=== PATIENT | male | born 1945 | race Caucasian/White ===

== ENCOUNTER 2019-10-31 14:42 | Observation (INO) | payer BC, MEDICARE ==
[~2019-10-31] VITALS: Ht 188 cm; Wt 102.1 kg
[~2019-10-31 14:42] MED LIST: AMLODIPINE BESY10 MG PO; HYDRALAZINE HCL50 MG PO; LISINOPRIL40 MG PO; METFORMIN HCL500 MG PO; PAROXETINE HCL20 MG PO; PAXIL10 MG PO; TEKTURNA HCT 11 EACH PO; TEKTURNA HCT 31 EACH PO
[2019-10-31] MEDS ORDERED: SODIUM CHLORIDE 0.9% 1000ML 1,000 ML IV STA (14:49)
[2019-10-31] MEDS ORDERED: ONDANSETRON HCL INJ 2MG/ML 2ML 2 MG/ML VIAL IV STA (14:49)
[2019-10-31 15:28] LABS: BASOPHILS % 0.5 % (0.0-1.0); EOSINOPHILS % 0.4 % (0.0-6.0); HEMATOCRIT 28.9 % (38.2-49.6); HEMOGLOBIN 10.4 g/dL (14.0-18.0); LYMPHOCYTES # (AUTO) 0.5 (1.0-3.2); LYMPHOCYTES % 6.6 % (18.0-39.1); MEAN CORPUSCULAR HEMOGLOBIN 37.1 pg (28-32); MEAN CORPUSCULAR VOLUME 103.2 fL (81-99); MONOCYTES # (AUTO) 0.6 (0.2-0.8); MONOCYTES % 7.5 % (4.4-11.3); NEUTROPHILS # (AUTO) 6.5 (2.1-6.9); NEUTROPHILS % 84.7 % (38.7-80.0); PLATELET COUNT 209 x10e3/uL (140-360); RED CELL DISTRIBUTION WIDTH 15.6 % (11.7-14.4)
[2019-10-31 15:33] LABS: INR 0.9; PROTHROMBIN TIME 12.6 seconds (11.9-14.5)
[2019-10-31 15:34] LABS: PARTIAL THROMBOPLASTIN TIME 27.4 seconds (23.8-35.5)
--- NOTE | 2019-10-31 15:34 | Diagnostic Imaging Report ---
EXAM: CHEST SINGLE (PORTABLE) DATE: 10/31/2019 3:10 PM INDICATION: Syncope COMPARISON: None FINDINGS: The trachea is midline. There is minimal left basilar opacity suggestive of atelectasis. The lungs are otherwise symmetrically expanded without evidence for large focal consolidation, pneumothorax, or significant pleural effusion. The cardiomediastinal silhouette and pulmonary vasculature are within normal limits. No acute osseous abnormality is identified. The surrounding soft tissues are unremarkable. IMPRESSION: No acute cardiopulmonary process identified. Signed by: Dr. Tesfaye Zimmerman MD on 10/31/2019 3:31 PM
--- NOTE | 2019-10-31 15:35 | Diagnostic Imaging Report ---
Exam: Head CT without contrast History: Syncope Comparison studies: None Technique: Axial images were obtained from the skull base to the vertex. Coronal and sagittal images reconstructed from the axial data. Dose modulation, iterative reconstruction, and/or weight based adjustment of the mA/kV was utilized to reduce the radiation dose to as low as reasonably achievable. Radiation dose: Total DLP: 1150.7 mGy*cm. Estimated effective dose: DLP x 0.015 Intravenous contrast: None Findings: Scalp: No abnormalities. Bones: No fractures, blastic or lytic lesions. Brain sulci: Mildly prominent but age appropriate. Ventricles: Mild compensatory dilatation. No hydrocephalus. Extra-axial spaces: No masses, no fluid collection. Parenchyma: Small chronic lacunar infarct present adjacent to the head of the left caudate nucleus anteriorly. No mass, acute hemorrhage or acute or chronic cortical insults. Sellar/suprasellar region: No abnormalities. Craniocervical junction: Patent foramen magnum. No Chiari one malformation. Middle ear mastoid cavities: Clear. Partially included paranasal sinuses: Left maxillary sinus partially opacified by retention cyst with inspissated secretions. Remaining included sinuses are clear. Incidental findings: Atherosclerotic calcifications in the carotid siphons. IMPRESSION: 1. No acute abnormalities. 2. Small chronic lacunar infarct adjacent to the head of left caudate nuclear. Signed by: Dr. Jeff Weir M.D. on 10/31/2019 3:32 PM
[2019-10-31 15:45] LABS: ANION GAP 15.3 mmol/L (8-16); CALCIUM 8.6 mg/dL (8.4-10.2); CREATININE, SERUM 1.63 mg/dL (0.72-1.25); MAGNESIUM 1.5 MG/DL (1.3-2.1); POTASSIUM 4.3 mmol/L (3.5-5.1)
--- NOTE | 2019-10-31 15:46 | Diagnostic Imaging Report ---
History: Syncope Comparison studies: None Technique: Axial images were obtained through the cervical region. Coronal and sagittal images reconstructed from the axial data. Dose modulation, iterative reconstruction, and/or weight based adjustment of the mA/kV was utilized to reduce the radiation dose to as low as reasonably achievable. Intravenous contrast: None Findings: Atlantoaxial articulation: Intact. Alignment: Mild straightening of the usual cervical lordosis. No subluxations. Cervicomedullary junction: No abnormalities. The foramen magnum is patent. Soft tissues: No gross acute abnormalities. Vertebrae: No fractures, infection or neoplasm. Degenerative changes: Mildly degenerated disks with anterior bridging osteophytes from C2 to T1. 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 Moderate canal stenosis at the inferior C2 and C2-C3 level due to OPLL. Severe canal stenosis at C3-C4 and at C4-C5 due to disc osteophyte complexes and ossified posterior longitudinal ligament. Moderate canal stenosis at C5-C6 due to disc osteophyte complex and OPLL. Multilevel uncovertebral and facet arthrosis result in multilevel foraminal stenosis which is moderate left at C2-C3, moderate left and mild right at C3-C4 and at C4-C5, moderate bilaterally at C5-C6 and mild left at C6-C7. Incidental findings: Mild calcified atherosclerosis in the carotid bulbs and carotid siphons. IMPRESSION: 1. No cervical spine fracture or subluxation. 2. Multilevel degenerative changes with OPLL, severe spinal stenosis and multilevel foraminal stenosis. Ligament, spinal cord and or vascular abnormalities cannot be excluded on the basis of this examination. Cervical spine right May further evaluate as warranted. Signed by: Dr. Jeff Weir M.D. on 10/31/2019 3:43 PM
[2019-10-31 15:51] LABS: CREATINE KINASE MB 1.5 ng/mL (0-5.0)
[2019-10-31] MEDS: CLINDAMYCIN PHOS 900MG/ 50ML 50 ML IV SCH ×2 (16:28→23:15)
[2019-10-31] MEDS ORDERED: ONDANSETRON HCL INJ 2MG/ML 2ML 2 MG/ML VIAL IV PRN (16:30)
[2019-10-31] MEDS ORDERED: SODIUM CHLORIDE 0.9% 1000ML 1,000 ML IV SCH (16:30)
[2019-10-31] MEDS ORDERED: FAMOTIDINE 20 MG TAB PO SCH (16:30)
[2019-10-31] MEDS ORDERED: DEXTROSE 50% SYRINGE 50 ML IV PRN (17:00)
[2019-10-31] MEDS ORDERED: MECLIZINE HCL 12.5 MG TAB PO PRN (17:00)
[2019-10-31] MEDS ORDERED: HYDRALAZINE HCL 20 MG/ML VIAL IV PRN (17:00)
[2019-10-31] MEDS ORDERED: ACETAMINOPHEN 325 MG TAB PO PRN (17:00)
--- NOTE | 2019-10-31 17:11 | Emergency Department Note ---
History of Present Illnes History of Present Illness Chief Complaint: General Medicine Complaints History of Present Illness This is a 74 year old male with tooth pain x 3 days, N/V, poor po intake. Was at dentist office sitting in waiting room, got up to go to restroom and around 1400 he had a syncopal episode Historian: Patient, Receiving Weigher/EMS Arrival Mode: [facility] Treatment CSW: EKG Additional Treatment CSW: [employer] Assistant Required: No Onset (how long ago): minute(s) Radiation: Reports non-radiation Severity: moderate Onset quality: sudden Timing of current episode: sporadic Chronicity: new Context: Denies recent illness Relieving factors: none Exacerbating factors: none Associated symptoms: Reports denies other symptoms Treatments prior to arrival: none Past Medical/Family History Physician Review I have reviewed the patient's past medical and family history. Any updates have been documented here. Past Medical History Recent Fever: No Clinical Suspicion of Infectio: No New/Unexplained Change in Ment: No Past Medical History: Hypertension, Diabetes, Anemia, Hyperlipedemia Other Medical History: autoimmune hepatitis Other Surgery: KIDNEY STONES REMOVED Social History Smoking Cessation: Never Smoker Counseling Performed: No Alcohol Use: None Any Illegal Drug Use: No Physically hurt or threatened: No Family History Family history of heart diseas: No Other Last Tetanus: NO Any Pre-Existing Lines (PICC,: No Review of Systems Review of Systems Constitutional: Reports no symptoms EENTM: Reports as per HPI, Reports mouth pain Cardiovascular: Reports as per HPI, Reports syncope Respiratory: Reports no symptoms Gastrointestinal: Reports no symptoms Genitourinary: Reports no symptoms Musculoskeletal: Reports no symptoms Integumentary: Reports no symptoms Neurological: Reports no symptoms Psychological: Reports no symptoms Endocrine: Reports no symptoms Hematological/Lymphatic: Reports no symptoms Physical Exam Related Data Allergies: Coded Allergies: No Known Allergies (Unverified , 11/03/12) Triage Vital Signs Vital Signs Date Time Temp Pulse Resp B/P (MAP) Pulse Ox O2 Delivery O2 Flow Rate FiO2 10/31/19 14:50 98.5 62 18 159/67 100 Room Air Vital signs reviewed: Yes Physical Exam CONSTITUTIONAL Constitutional: Present well-developed, Present well-nourished HENT HENT: Present dental caries, Present other (tooth ~#27 tender to tap, no definite abscess seen but has mild right mandible swelling/tenderness) HENT L/R: Present left ext ear normal, Present right ext ear normal EYES Eyes: Reports PERRL, Reports conjunctivae normal NECK Neck: Present ROM normal PULMONARY Pulmonary: Present effort normal, Present breath sounds normal CARDIOVASCULAR Cardiovascular: Present regular rhythm, Present heart sounds normal, Present capillary refill normal, Present normal rate GASTROINTESTINAL Abdominal: Present soft, Present nontender, Present bowel sounds normal GENITOURINARY Genitourinary: Present exam deferred SKIN Skin: Present warm, Present dry MUSCULOSKELETAL Musculoskeletal: Present ROM normal NEUROLOGICAL Neurological: Present alert, Present oriented x 3, Present no gross motor or sensory deficits PSYCHOLOGICAL Psychological: Present mood/affect normal, Present judgement normal Results Laboratory Result Diagram: 10/31/19 1500 10/31/19 1500 Laboratory Laboratory Tests Test 10/31/19 15:48 10/31/19 15:00 White Blood Count 7.71 x10e3/uL (4.8-10.8) Red Blood Count 2.80 x10e6/uL (4.3-5.7) Hemoglobin 10.4 g/dL (14.0-18.0) Hematocrit 28.9 % (38.2-49.6) Mean Corpuscular Volume 103.2 fL (81-99) Mean Corpuscular Hemoglobin 37.1 pg (28-32) Mean Corpuscular Hemoglobin Concent 36.0 g/dL (31-35) Red Cell Distribution Width 15.6 % (11.7-14.4) Platelet Count 209 x10e3/uL (140-360) Neutrophils (%) (Auto) 84.7 % (38.7-80.0) Lymphocytes (%) (Auto) 6.6 % (18.0-39.1) Monocytes (%) (Auto) 7.5 % (4.4-11.3) Eosinophils (%) (Auto) 0.4 % (0.0-6.0) Basophils (%) (Auto) 0.5 % (0.0-1.0) Neutrophils # (Auto) 6.5 (2.1-6.9) Lymphocytes # (Auto) 0.5 (1.0-3.2) Monocytes # (Auto) 0.6 (0.2-0.8) Eosinophils # (Auto) 0.0 (0.0-0.4) Basophils # (Auto) 0.0 (0.0-0.1) Absolute Immature Granulocyte (auto 0.02 x10e3/uL (0-0.1) Prothrombin Time 12.6 seconds (11.9-14.5) Prothromb Time International Ratio 0.90 Activated Partial Thromboplast Time 27.4 seconds (23.8-35.5) Sodium Level 137 mmol/L (136-145) Potassium Level 4.3 mmol/L (3.5-5.1) Chloride Level 107 mmol/L (98-107) Carbon Dioxide Level 19 mmol/L (22-29) Anion Gap 15.3 mmol/L (8-16) Blood Urea Nitrogen 16 mg/dL (7-26) Creatinine 1.63 mg/dL (0.72-1.25) Estimat Glomerular Filtration Rate 42 ML/MIN (60-) BUN/Creatinine Ratio 10 (6-25) Glucose Level 192 mg/dL (74-118) Calcium Level 8.6 mg/dL (8.4-10.2) Magnesium Level 1.5 MG/DL (1.3-2.1) Total Bilirubin 1.2 mg/dL (0.2-1.2) Aspartate Amino Transf (AST/SGOT) 18 IU/L (5-34) Alanine Aminotransferase (ALT/SGPT) 14 IU/L (0-55) Alkaline Phosphatase 147 IU/L (40-150) Creatine Kinase 52 IU/L (30-200) Creatine Kinase MB 1.50 ng/mL (0-5.0) Troponin I 0.032 ng/mL (0-0.300) Total Protein 6.1 g/dL (6.5-8.1) Albumin 3.0 g/dL (3.5-5.0) Globulin 3.1 g/dL (2.3-3.5) Albumin/Globulin Ratio 1.0 (0.8-2.0) Lab results reviewed: Yes Imaging Imaging results reviewed: Yes Assessment & Plan Medical Decision Making MDM multiple cardiac RF's, tooth pain with decr po intake and ? orthostatic syncope while waiting at dentist office to be seen - cbc, chem, ecg, cardiacs, ct brain/c-spine, cxr - r/o anemia, dehydration, stemi/nstemi, dysrhythmia, renal insuff. Reassessment Reassessment admit Dr melendrez Assessment & Plan Final Impression: (1) Syncope (2) Nausea (3) Tooth ache Depart Disposition: ADMITTED Last Vital Signs Date Time Temp Pulse Resp B/P (MAP) Pulse Ox O2 Delivery O2 Flow Rate FiO2 10/31/19 15:41 91 15 135/85 99 Room Air 10/31/19 14:50 98.5 Home Meds Reported Medications Amlodipine Besylate (AMLODIPINE BESYLATE) 10 Mg Tablet, 10 MG PO DAILY, TAB 02/07/14 Paroxetine Hcl (PAROXETINE HCL) 20 Mg Tablet, 20 MG PO EVERY OTHER DAY, TAB 02/07/14 Hydralazine Hcl (HYDRALAZINE HCL) 50 Mg Tablet, 50 MG PO BID 02/07/14 Aliskiren/Hydrochlorothiazide (TEKTURNA HCT 300-12.5 MG TAB) 1 Each Tablet, PO DAILY 02/07/14 Lisinopril (LISINOPRIL) 40 Mg Tablet, 40 MG PO DAILY 02/07/14 Metformin Hcl (METFORMIN HCL) 500 Mg Tablet, 500 MG PO BID, TAB 02/07/14 Medications in the ED Ondansetron HCl 4 mg ONCE STAT IV Last administered on 10/31/19at 15:42; Admin Dose 4 MG; Start 10/31/19 at 14:49; Stop 10/31/19 at 14:56; Status DC Sodium Chloride 1,000 ml @ 0 mls/hr Q0M STAT IV Last administered on 10/31/19at 15:40; Admin Dose 999 MLS/HR; Start 10/31/19 at 14:49; Stop 10/31/19 at 14:55; Status DC Clindamycin Phosphate 50 ml @ 50 mls/hr Q8H@0000,0800,1600 IV Last administered on 10/31/19at 16:28; Admin Dose 50 MLS/HR; Start 10/31/19 at 16:00; Stop 11/07/19 at 15:59 KATTY GARCIA MD Oct 31, 2019 17:10
[2019-10-31] MEDS ORDERED: BENICAR40 MG PO (18:15)
[2019-10-31] MEDS ORDERED: CARVEDILOL3.125 MG PO (18:15)
[2019-10-31] MEDS ORDERED: AZATHIOPRINE PO (18:15)
[2019-10-31] MEDS ORDERED: URSODIOL300 MG PO (18:15)
[2019-10-31] MEDS ORDERED: ALLOPURINOL300 MG PO (18:15)
[2019-10-31] MEDS ORDERED: HYDRALAZINE HCL25 MG PO (18:15)
[2019-10-31] MEDS ORDERED: ATORVASTATIN CA10 MG PO (18:15)
[2019-10-31 18:30] VITALS: BP 173/74
--- NOTE | 2019-10-31 18:30 | NUR ---
RECEIVED PATIENT FROM ER TO ROOM 215. HE IS IN STABLE CONDITION. PATIENT IS AAOX3. ORIENTED TO ROOM AND POLICIES. ORIENTED TO TRANSITION OF CARE FOLDER. IV LINE TO LEFT ANTECUBITAL IS PATENT. CALL LIGHT WITHIN REACH. BED IN THE LOWEST POSITION.
[2019-10-31 18:45] VITALS: BP 173/74
[2019-10-31 18:51] VITALS: BP 173/74
--- NOTE | 2019-10-31 19:32 | NUR ---
BEDSIDE SHIFT REPORT GIVEN TO ONCOMING NURSE. PATIENT IS RESTING IN BED. NO ACUTE DISTRESS NOTED AT THIS TIME. CALL LIGHT WITHIN REACH. BED IN THE LOWEST POSITION.
[2019-10-31 20:00] VITALS: BP 193/69
[2019-10-31] MEDS ORDERED: ATORVASTATIN 10 MG TAB PO SCH (21:00)
[2019-10-31] MEDS: INSULIN LISPRO 100 UNIT/1 ML 3ML VIAL SQ SCH (21:00)
[2019-10-31] MEDS ORDERED: URSODIOL 300 MG CAP PO SCH (21:00)
[2019-10-31] MEDS ORDERED: OLMESARTAN 20 MG TAB PO SCH (21:00)
[2019-10-31] MEDS: HYDRALAZINE HCL 25 MG TAB PO SCH (21:31)
[2019-10-31] MEDS: CARVEDILOL 3.125 MG TAB PO SCH (21:31)
[2019-10-31] MEDS ORDERED: SODIUM CHLORIDE 0.9% 250ML 250 ML ONE (23:08)
[2019-10-31 23:15] VITALS: BP 180/61
[2019-10-31 23:41] LABS: CREATINE KINASE MB 1.4 ng/mL (0-5.0)
[2019-11-01 00:35] VITALS: BP 153/53
[2019-11-01 04:00] VITALS: BP 174/58
[2019-11-01] MEDS ORDERED: ursodiol PO (05:04)
[2019-11-01 06:13] LABS: BASOPHILS % 0.5 % (0.0-1.0); EOSINOPHILS # (AUTO) 0.1 (0.0-0.4); EOSINOPHILS % 1.4 % (0.0-6.0); HEMATOCRIT 24.8 % (38.2-49.6); HEMOGLOBIN 9.1 g/dL (14.0-18.0); LYMPHOCYTES # (AUTO) 0.8 (1.0-3.2); LYMPHOCYTES % 18.3 % (18.0-39.1); MEAN CORPUSCULAR HEMOGLOBIN 39.7 pg (28-32); MEAN CORPUSCULAR HGB CONC 36.7 g/dL (31-35); MEAN CORPUSCULAR VOLUME 108.3 fL (81-99); MONOCYTES # (AUTO) 0.6 (0.2-0.8); MONOCYTES % 13.3 % (4.4-11.3); NEUTROPHILS # (AUTO) 2.9 (2.1-6.9); PLATELET COUNT 160 x10e3/uL (140-360); RED BLOOD COUNT 2.29 x10e6/uL (4.3-5.7); RED CELL DISTRIBUTION WIDTH 15.8 % (11.7-14.4)
[2019-11-01 06:15] VITALS: BP 176/63
[2019-11-01 06:41] LABS: ALBUMIN 2.5 g/dL (3.5-5.0); ALBUMIN/GLOBULIN RATIO 0.9 (0.8-2.0); ANION GAP 9.2 mmol/L (8-16); CALCIUM 7.9 mg/dL (8.4-10.2); CHOL/HDL RATIO 6.4 (3.9-4.7); CREATININE, SERUM 1.57 mg/dL (0.72-1.25); POTASSIUM 4.2 mmol/L (3.5-5.1)
--- NOTE | 2019-11-01 06:48 | NUR ---
Received bedside shift report from night nurse. Patient is in stable condition, resting in bed. No acute distress noted. Call light within reach. Bed in the lowest position.
[2019-11-01 07:02] LABS: CREATINE KINASE MB 1.2 ng/mL (0-5.0)
[2019-11-01] MEDS: INSULIN LISPRO 100 UNIT/1 ML 3ML VIAL SQ SCH ×2 (07:30→11:01)
[2019-11-01 07:47] VITALS: BP 170/55
[2019-11-01] MEDS: CARVEDILOL 3.125 MG TAB PO SCH (08:35)
[2019-11-01] MEDS: CLINDAMYCIN PHOS 900MG/ 50ML 50 ML IV SCH (08:35)
[2019-11-01] MEDS: HYDRALAZINE HCL 25 MG TAB PO SCH (08:35)
[2019-11-01 08:59] VITALS: BP 170/55
[2019-11-01] MEDS ORDERED: AMLODIPINE BESYLATE 10 MG TAB PO SCH (09:00)
[2019-11-01] MEDS ORDERED: PAROXETINE HCL 20 MG TAB PO SCH (09:00)
[2019-11-01] MEDS ORDERED: ALLOPURINOL 300 MG TAB PO SCH (09:00)
[2019-11-01] MEDS ORDERED: AMLODIPINE BESYLATE 5 MG TAB PO SCH (09:00)
[2019-11-01] MEDS ORDERED: FAMOTIDINE 20 MG TAB PO SCH (09:00)
[2019-11-01] MEDS ORDERED: ULTRAM 50MG50 MG PO (09:27)
[2019-11-01 09:51] LABS: PLATELET ESTIMATE ADEQUATE; PLATELET MORPHOLOGY COMMENT NORMAL; RBC MORPHOLOGY COMMENT NORMAL
[2019-11-01 09:52] LABS: ANISOCYTOSIS SLIGHT; POIKILOCYTOSIS SLIGHT
[2019-11-01 11:13] VITALS: BP 155/52
[2019-11-01] MEDS ORDERED: ONDANSETRON HCL 4 MG ORAL DISINTEGRATING TAB PO PRN (12:30)
--- NOTE | 2019-11-01 12:40 | NUR ---
RECEIVED DISCHARGE ORDER FROM TOMMY GUERRA. PATIENT IS IN STABLE CONDITION. IV LINE TO LEFT ANTECUBITAL DISCONTINUED WITH TIP INTACT, PRESSURE APPLIED TO SITE, NO BLEEDING NOTED. DISCHARGE TEACHING PROVIDED TO PATIENT, HE VERBALIZED UNDERSTANDING. TRANSITION OF CARE FOLDER WITH DC PAPERWORK AND PRESCRIPTION ON HAND. ALL PERSONAL BELONGINGS ON HAND. PATIENT ACCOMPANIED TO PRIVATE AUTO BY STAFF, REFUSED WHEELCHAIR.
--- NOTE | 2019-11-01 12:47 | NUR ---
Patient is independent in functional mobility. Skilled PT services not indicated at this time. Thank you. Addendum: 11/01/19 at 1249 by Grant oscar PT Amended: Links added.
--- NOTE | 2019-11-01 14:07 | NUR ---
PER CHARLIE,DATA WAREHOUSING ARCHITECT GIVE PATIENT A WORK EXCUSE THAT STATES HE IS MEDICALLY CLEARED FOR DENTAL PROCEDURE SCHEDULED ON 11/02/19. PATIENT WILL COME BACK AND PRICING SUPERVISOR FROM NURSE. SIGN TORB WITH DATA WAREHOUSING ARCHITECT'S NAME.
--- OUTSIDE RECORDS SUMMARY | 2019-11-02 19:26 | XMS REPORT | Summary of Care ---
Author Author [facility] C Organization [facility] Address Unknown Phone Unavailable Encounter CAROLINE Muller(FIN) [id number] Date(s): 08/06/19 - 08/07/19 [facility] [address] [place] [address]- [phone] Vital Signs No data available for this section Problem List Condition Effective Dates Status Health Status Informan t Gallstones(Confirmed Resolved ) Bradycardia(Confirme Active d) Diabetes(Confirmed) Active GERD Active (gastroesophageal reflux disease)(Confirmed) Gout(Confirmed) Resolved Hyperlipidemia(Confi Resolved rmed) Hypertension(Confirm Active ed) Hepatitis(Confirmed) Resolved Allergies, Adverse Reactions, Alerts No Known Medication Allergies Medications No data available for this section Results No data available for this section Immunizations Not Given Vaccine Date Status Refusal Reason pneumococcal 23-valent vaccine 10/16/14 Not Given Parent Or Guardian Refuses Procedures Procedure Date Related Diagnosis Body Site Status Catheterisation of right heart Completed Renal lithotripsy Completed Social History Social History Type Response Alcohol Never Smoking Status Never smoker; Ready to muhammad ge: No; Concerns about tobacco use in household: No; Exposure to Tobacco Smoke None; Cig arette Smoking Last 365 Days No; Reg Smoking Cessation Counseling No entered on: 07/10/18 Assessment and Plan No data available for this section
--- OUTSIDE RECORDS SUMMARY | 2019-11-02 19:26 | XMS REPORT | Summary of Care ---
Author Author [facility] Organization [facility] Address Unknown Phone Unavailable Encounter CAROLINE Muller(FIN) [id number] Date(s): 09/26/19 - 09/27/19 [facility] [address] [place] [address]- [phone] Vital Signs No data available for this section Problem List Condition Effective Dates Status Health Status Informan t Gallstones(Confirmed Resolved ) Bradycardia(Confirme Active d) Diabetes(Confirmed) Active GERD Active (gastroesophageal reflux disease)(Confirmed) Gout(Confirmed) Resolved Hyperlipidemia(Confi Resolved rmed) Hypertension(Confirm Active ed) Hepatitis(Confirmed) Resolved Allergies, Adverse Reactions, Alerts No Known Medication Allergies Medications azaTHIOprine 50 mg oral tablet 75 mg = 1.5 tab, PO, Daily, # 45 tab, 3 Refill(s), Pharmacy: [id number], 187, cm, 09/10/19 13:33:00 CDT, Height, 104.3, kg, 09/10/19 13:33:00 C DT, Weight Start Date: 09/26/19 Stop Date: 01/24/20 Status: Ordered Results Most recent to 1 oldest [Reference Range]: Neutrophils # 1964 Cells/uL [7626-6612 Cells/uL] *N* (09/27/19 2:07 PM) Lymphocytes # 812 Cells/uL [850-3900 Cells/uL] *LOW* (09/27/19 2:07 PM) Monocytes # [200-950 257 Cells/uL Cells/uL] *N* (09/27/19 2:07 PM) Eosinophils # 228 Cells/uL [15-500 Cells/uL] *N* (09/27/19 2:07 PM) Basophils # [0-200 40 Cells/uL Cells/uL] *N* (09/27/19 2:07 PM) eGFR NON-AFR. 49 mL/min/1.73m2 ARGENTINE [> OR = 60 *LOW* mL/min/1.73m2] (09/27/19 2:07 PM) eGFR 56 mL/min/1.73m2 ARGENTINE [> OR = 60 *LOW* mL/min/1.73m2] (09/27/19 2:07 PM) Bili Indirect 0.5 mg/dL [0.2-1.2 mg/dL] *N* (09/27/19 2:07 PM) A/G Ratio [1.0-2.5 1.4 (CALC) (CALC)] *N* (09/27/19 2:07 PM) Albumin Lvl [3.6-5.1 3.3 g/dL g/dL] *LOW* (09/27/19 2:07 PM) Alk Phos [35-144 163 unit/L unit/L] *HI* (09/27/19 2:07 PM) ALT [9-46 unit/L] 17 unit/L *N* (09/27/19 2:07 PM) AST [10-35 unit/L] 21 unit/L *N* (09/27/19 2:07 PM) B/C Ratio [6-22 12 (CALC) (CALC)] *N* (09/27/19 2:07 PM) Basophils 1.2 % *N* (09/27/19 2:07 PM) BUN [7-25 mg/dL] 17 mg/dL *N* (09/27/19 2:07 PM) Calcium Lvl 8.3 mg/dL [8.6-10.3 mg/dL] *LOW* (09/27/19 2:07 PM) Chloride Lvl [98-110 106 mMol/L mMol/L] *N* (09/27/19 2:07 PM) CO2 [20-32 mMol/L] 27 mMol/L *N* (09/27/19 2:07 PM) Creatinine Lvl 1.43 mg/dL 1 [0.70-1.18 mg/dL] *HI* (09/27/19 2:07 PM) Bili Direct [< OR = 0.2 mg/dL 0.2 mg/dL] *N* (09/27/19 2:07 PM) Eosinophils 6.9 % *N* (09/27/19 2:07 PM) Globulin [1.9-3.7 2.3 g/dL g/dL] *N* (09/27/19 2:07 PM) Glucose Lvl [65-139 194 mg/dL 2 mg/dL] *HI* (09/27/19 2:07 PM) Hct [38.5-50.0 %] 27.2 % *LOW* (09/27/19 2:07 PM) Hgb [13.2-17.1 g/dL] 9.3 g/dL *LOW* (09/27/19 2:07 PM) IgG Lvl [600-1540 873 mg/dL 3 mg/dL] *N* (09/27/19 2:07 PM) INR 1.0 4 *N* (09/27/19 2:07 PM) Potassium Lvl 3.8 mMol/L [3.5-5.3 mMol/L] *N* (09/27/19 2:07 PM) Lymphocytes 24.6 % *N* (09/27/19 2:07 PM) MCH [27.0-33.0 pg] 36.3 pg *HI* (09/27/19 2:07 PM) MCHC [32.0-36.0 34.2 g/dL g/dL] *N* (09/27/19 2:07 PM) MCV [80.0-100.0 fL] 106.3 fL *HI* (09/27/19 2:07 PM) Monocytes 7.8 % *N* (09/27/19 2:07 PM) MPV [7.5-12.5 fL] 9.8 fL *N* (09/27/19 2:07 PM) Sodium Lvl [135-146 138 mMol/L mMol/L] *N* (09/27/19 2:07 PM) Platelet [140-400 195 K/CMM K/CMM] *N* (09/27/19 2:07 PM) Segs 59.5 % *N* (09/27/19 2:07 PM) Total Protein 5.6 g/dL 5 [6.1-8.1 g/dL] *LOW* (09/27/19 2:07 PM) PT [9.0-11.5 9.9 seconds 6 seconds] *N* (09/27/19 2:07 PM) RBC [4.20-5.80 2.56 M/CMM M/CMM] *LOW* (09/27/19 2:07 PM) RDW [11.0-15.0 %] 16.9 % *HI* (09/27/19 2:07 PM) Bili Total [0.2-1.2 0.7 mg/dL mg/dL] *N* (09/27/19 2:07 PM) WBC [3.8-10.8 K/CMM] 3.3 K/CMM 7 *LOW* (09/27/19 2:07 PM) 1Result Comment: For patients >49 years of age, the reference limit for Creatinine is approximately 13% higher for people identified as -Irish. 2Result Comment: Non-fasting reference interval Lab test performed by: [facility] [address] [place] [phone] Nathan Garcia 3Result Comment: FASTING:NO FASTING: NO Lab test performed by: [facility] [address] [place] [phone] Nathan Garcia 4Result Comment: Reference Range 0.9-1.1 Moderate-intensity Warfarin Therapy 2.0-3.0 Higher-intensity Warfarin Therapy 3.0-4.0 Lab test performed by: [facility] [address] [place] [phone] Nathan Garcia 5Result Comment: Lab test performed by: [facility] [address] [place] [phone] Natahn Garcia 6Result Comment: For more information on this test, go to: [email or web address]/[email or web address] 7Result Comment: Lab test performed by: [facility] [address] [place] [phone] Nathan Garcia Immunizations Not Given Vaccine Date Status Refusal [...] Reg Smoking Cessation Counseling No entered on: 09/10/19 Assessment and Plan No data available for this section
--- OUTSIDE RECORDS SUMMARY | 2019-11-02 19:26 | XMS REPORT | Summary of Care ---
Author Author [facility] Organization [facility] Address Unknown Phone Unavailable Encounter CAROLINE Muller(ARY) [id number] Date(s): 08/10/19 - 09/08/19 [facility] [address] [place] [address]- Discharge Disposition: Home or Self Care Attending Physician: Ralph Blackmon MD Referring Physician: Ralph Blackmon MD Vital Signs 1 2 3 Most recent to oldest [Reference Range]: 187.9 cm (08/13/19 1:06 PM) Height 98.2 DegF (08/13/19 3:38 PM) 98.2 DegF (08/13/19 2:10 PM) 97.9 DegF (08/13/19 1:05 PM) Temperature Oral [96.4-99.1 DegF] 166/65 mmHg *HI* (08/13/19 3:38 PM) 185/62 mmHg *HI* (08/13/19 2:10 PM) 162/56 mmHg *HI* (08/13/19 1:05 PM) Blood Pressure [90-140/60-90 mmHg] 18 BRMIN (08/13/19 3:38 PM) 18 BRMIN (08/13/19 2:10 PM) 18 BRMIN (08/13/19 1:05 PM) Respiratory Rate [14-20 BRMIN] 54 bpm *LOW* (08/13/19 3:38 PM) 53 bpm *LOW* (08/13/19 2:10 PM) 67 bpm (08/13/19 1:05 PM) Peripheral Pulse Rate [60-100 bpm] 105.8 kg (08/13/19 1:06 PM) Weight 29.97 m2 (08/13/19 1:06 PM) Body Mass Index Problem List Condition Effective Dates Status Health Status Informan t Gallstones(Confirmed Resolved ) Bradycardia(Confirme Active d) Diabetes(Confirmed) Active GERD Active (gastroesophageal reflux disease)(Confirmed) Gout(Confirmed) Resolved Hyperlipidemia(Confi Resolved rmed) Hypertension(Confirm Active ed) Hepatitis(Confirmed) Resolved Allergies, Adverse Reactions, Alerts No Known Medication Allergies Medications Benadryl 25 mg, 0.5 mL, Route: IVP, Drug form: INJ, On Adm, Start date: 08/13/19 8:00:00 CDT, Duration: 1 doses or times, Stop date: 08/13/19 23:00:00 CDT, 0 Notes: (Same as: Benadryl) Start Date: 08/13/19 Stop Date: 08/13/19 Status: Completed Benadryl 25 mg, 0.5 mL, Route: IVP, Drug form: INJ, On Adm, Start date: 09/10/19 8:00:00 CDT, Duration: 1 doses or times, Stop date: 09/10/19 23:00:00 CDT, 0 Notes: (Same as: Benadryl) Start Date: 09/10/19 Stop Date: 09/10/19 Status: Discontinued Results 1 2 3 Most recent to oldest [Reference Range]: Product available (09/10/19 10:05 AM) Product available (09/06/19 3:22 PM) Product available (08/10/19 11:56 AM) RBC product A POS *Unknown* (09/07/19 2:00 PM) A POS *Unknown* (08/10/19 10:52 AM) ABO/Rh Negative (09/07/19 2:00 PM) Negative (08/10/19 10:52 AM) Antibody Scrn Immunizations Not Given Vaccine Date Status Refusal [...]
--- OUTSIDE RECORDS SUMMARY | 2019-11-02 19:26 | XMS REPORT | Summary of Care ---
Author Author [facility] Organization [facility] Address Unknown Phone Unavailable Encounter [facility] Darby_greyson(FIN) [id number] Date(s): 02/15/18 - 02/15/18 [facility] [address], [address] [place], [place] [address] [phone] Encounter Diagnosis Impingement syndrome of right shoulder (Final) - 02/21/18 Discharge Disposition: Home or Self Care Attending Physician: Matias Moreno MD Referring Physician: Matias Moreno MD Vital Signs No data available for this [...]
--- OUTSIDE RECORDS SUMMARY | 2019-11-02 19:26 | XMS REPORT | Continuity of Care Document ---
Author Author [employer], OC DODD JR Organization [employer] Address Unknown Phone Unavailable Care Team Providers Care Cement Mason Name Role Phone [facility] Spinnaker Coating Information SIRS-Lab Unavailable Un available Problems Problem Status Onset Date Classification Date Reported Comments Source CLINIC F/U VISIT Active 09/26/2019 [facility] TYPE SCREEN/ 2 UNITS OF PRBC Active 09/10/2019 [facility] BEDDED OP/BONE MARROW ASP/BX/NO BLOOD TH Active 09/05/2019 [facility] TYPE SCREEN Active 08/07/2019 [facility] D64.9 Active 07/19/2019 [place] Syncope and collapse 06/15/2019 06/17/2019 [facility] XFER - SYNCOPE Active 06/15/2019 [facility] BEDDED OUTPATIENT/LIVER BIOPSY Active 06/29/2018 [facility] Abnormal results of liver function studies 05/09/2018 11/22/2018 [facility] GIANNA Jean NEW PT CONSULT - ELEVATED LFTS Active 03/20/2018 [facility] Impingement syndrome of right shoulder 02/21/2018 [facility]05[facility] M79.672 - PAIN IN LEFT FOOT Ac tive 04/18/2015 [facility] BRADYCARDIA, CAD Active 10/03/2014 [facility] CCL/LHC W/ POSS/DX: BNRADYCARDIA, CAD Active 10/03/2014 [facility] 401.9 - HYPERTENSION NO Active 12/20/2013 [facility] 719.4 - PAIN IN JOINT Active 03/24/2011 [facility] [place] Essential (primary) hypertension 11/22/2018 [facility] Gastro-esophageal reflux disease without esophagitis 11/22/2018 [facility] Personal history of colonic polyps 11/22/2018 [facility] Type 2 diabetes mellitus without complications 11/22/2018 [facility] 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 11/22/2018 [facility] Bradycardia, unspecified 11/22/2018 [facility] Gout, unspecified 11/22/2018 [facility] Hyperlipidemia, unspecified 11/22/2018 [facility] Inflammatory liver disease, unspecified 11/22/2018 [facility] Hepatomegaly, not elsewhere classified 11/22/2018 [facility] Calculus of gallbladder without cholecys titis without obstruction 11/22/2018 [facility] Cyst of kidney, acquired 11/22/2018 [facility] Calculus of kidney 11/22/2018 [facility] Calculus in biliary tract (disorder) Resolved Problem 02/2020 [facility], [facility] [place] Bradycardia (disorder) Active Problem 10/13/2019 [facility], O PID [place],[facility], [facility] [place], [facility] [place] Diabetes mellitus (disorder) A ctive Problem 02/2020 [facility], O P[facility] [place],[facility], [facility] [place], [facility] [place] Gastroesophageal reflux disease (disorder) Active Problem 10/13/2019 [facility], [facility] [place],[facility], [facility] [place] Gout (disorder) Resolved Problem 10/13/2019 [facility], [place], [facility] [place], [facility] [place] Hyperlipidemia (disorder) Reso lved Problem 02/2020 [facility], O PID [place],[facility], [facility] [place], [facility] [place] Hypertensive disorder, systemic arterial (disorder) Active Problem 10/13/2019 [facility], [facility] [place],[facility], [facility] [place], [facility] [place] Inflammatory disease of liver (disorder) Resolved Problem 10/13/2019 [facility], [facility] [place], [facility] [place] Nutritional anemia (disorder) Resolved Problem 02/2020 [facility] Medications Medication Details Route Status Patient Instructions Ordering Provider Order Date Source ursodiol 500 mg oral tablet 50 0 mg = 1 tab, PO, TID, # 270 tab, 4 Refill(s), Pharmacy: [facility], 187.96, cm, 10/11/19 12:29:00 CDT, Height, 103.295, kg, 10/11/19 12:29:00 CDT, Weight Active 10/11/2019 [facility] multivitamin Daily, 0 Refill(s) Active 10/11/2019 [facility] Folic Acid 5 mg, PO, Daily Active 10/11/2019 [facility] nter Cod Liver Oil PO, Daily, 0 Ref ill(s) Active 10/11/2019 [facility] azaTHIOprine 50 mg oral tablet 75 mg = 1.5 tab, PO, Daily, # 45 tab, 3 Refill(s), Pharmacy: [id number], 187, cm, 09/10/19 13:33:00 CDT, Height, 104.3, kg, 09/10/19 13:33:00 CDT, Weight Active 09/26/2019 [facility] Daphne Notes: (Same as: Ivis escobar) Inactive 09/10/2019 [facility] Fentanyl 25 microgram, Route: IV, ONCE, Dosing Weight 102.273, kg, Start date: 09/10/19 10:08:00 CDT, Stop date: 09/10/19 10:08:00 CDT, Inactive 09/10/2019 [facility] Fentanyl 50 microgram, Route: IV, ONCE, Dosing Weight 102.273, kg, Start date: 09/10/19 9:56:00 CDT, Stop date: 09/10/19 9:56:00 CDT, Inactive 09/10/2019 [facility] Midazolam 0.5 mg, Route: IV, O NCE, Dosing Weight 102.273, kg, Start date: 09/10/19 9:56:00 CDT, Stop date: 09/10/19 9:56:00 CDT, Inactive 09/10/2019 [facility] nter Lidocaine Hydrochloride 10 MG/ML Injectable Solution 10 mL, Route: INTRADERM, Dosing Weight 102.273, kg, ONCE, Start date: 09/10/19 9:56:00 CDT, Stop date: 09/10/19 9:56:00 CDT Inactive 09/10/2019 [facility] nter Benadryl Notes: (Same as: Ivis escobar) Inactive 09/10/2019 [facility] Benadryl Notes: (Same as: Ivis dryl) Inactive 08/13/2019 [facility] Isolyte S PH-7.4 (Bolus) IV 1, 000 mL, 1,000 ml/hr, Infuse Over: 1 hr, Route: IV, ONCE, Dosing Weight 104.545 kg, Start date: 06/15/19 20:18:00 CDT, Stop date: 06/15/19 20:18:00 CDT Inactive 06/16/2019 [facility] azaTHIOprine 50 mg oral tablet 50 mg = 1 tab, PO, Daily, X 30 day, # 30 tab, 3 Refill(s), Pharmacy: [facility] [id number] No Longer Active 08/05/2018 [facility] ursodiol 500 mg oral tablet 50 0 mg = 1 tab, PO, TID, # 90 tab, 3 Refill(s), Pharmacy: [id number], please discontinue previous RX for Ursodiol. Active 07/24/2018 [facility] nter predniSONE 5 mg oral tablet 20 mg = 4 tab, PO, Daily, # 360 tab, 3 Refill(s), Pharmacy: [facility] [id number] Active 07/18/2018 [facility] ursodiol 250 mg oral tablet 50 0 mg = 2 tab, PO, TID, # 540 tab, 3 Refill(s), Pharmacy: [facility] [id number] No Longer Active 07/18/2018 [facility] carvedilol 3.13 MG Oral Tablet [Coreg] 3.125 mg = 1 tab, PO, BID, # 60 tab, 0 Refill(s) Active 07/11/2018 [facility] nter Paroxetine Notes: (Same as: Jerry garcia) Inactive 07/11/2018 [facility] olmesartan 40 mg, 2 tab, Route : PO, Drug form: TAB, Daily, Dosing Weight 104.545, kg, Start date: 07/11/18 9:00:00 CDT, Duration: 30 day, Stop date: 08/09/18 9:00:00 CDT Inactive 07/11/2018 [facility] n[facility] Hydralazine Hydrochloride 50 MG Oral Tablet 50 mg, 1 tab, Route: PO, Drug form: TAB, BID, Dosing Weight 104.545, kg, Start date: 07/11/18 9:00:00 CDT, Duration: 30 day, Stop date: 08/09/18 17:00:00 CDT Inactive 07/11/2018 [facility] carvedilol 3.125 mg, Route: PO , Drug form: TAB, BID, Dosing Weight 104.545, kg, Start date: 07/11/18 9:00:00 CDT, Duration: 30 day, Stop date: 08/09/18 17:00:00 CDT No Longer Active 07/11/2018 [facility] n[facility] Amlodipine Notes: (Same as: No rvasc) Inactive 07/11/2018 [facility] Allopurinol 300 mg, 1 tab, Rou te: PO, Drug form: TAB, Daily, Dosing Weight 104.545, kg, Start date: 07/11/18 9:00:00 CDT, Duration: 30 day, Stop date: 08/09/18 9:00:00 CDT Inactive 07/11/2018 [facility] nter atorvastatin Notes: (Same As: Lipitor) No Longer Active 07/11/2018 [facility] allantoin/camphor/phenol topical Notes: Same as: Blistex No Longer Active 07/10/2018 [facility] Fluticasone propionate 0.05 MG/ACTUAT Me tered Dose Nasal [place] [Flonase] 2 spray, Route: NASAL, Drug Form: SPRY, Dosing Weight 104.545, kg, Daily, PRN Allergies, Start date: 07/10/18 13:30:00 CDT, Duration: 30 day, Stop date: 08/09/18 13:29:00 CDT No Longer Active 07/10/2018 [facility] n[facility] Benadryl Maximum Strength 2% topical cream 1 appl, Route: TOP, QID, Drug form: CRM, PRN as needed for itching, Start date: 07/10/18 13:30:00 CDT, Duration: 30 day, Stop date: 08/09/18 13:29:00 CDT No Longer Active 07/10/2018 [facility] Tums Notes: Calcium Carbonate 500 mg = 200 mg elemental calcium Dose = mg calcium carbonate ( mg elemental calcium) No Longer Active 07/10/2018 [facility] Benzocaine 15 MG / Menthol 3.6 MG Lozeng e [Cepacol Sore Throat Pain Relief 15/3.6] 1 lozenge, Route: MUCOUS MEM, Drug Form: SHANNON, Dosing Weight 104.545, kg, Q2H, PRN Sore Throat, Start date: 07/10/18 13:30:00 CDT, Duration: 30 day, Stop date: 08/09/18 13:29:00 CDT No Longer Active 07/10/2018 [facility] Nasal Saline 0.65% solution 2 spray, Route: NASAL, Q2H, Drug form: SOLN, PRN Nasal Congestion, Start date: 07/10/18 13:30:00 CDT, Duration: 30 day, Stop date: 08/09/18 13:29:00 CDT No Longer Active 07/10/2018 [facility] Robitussin DM 10 ml, Route: PO , Drug Form: SYRP, Dosing Weight 104.545, kg, Q8H, PRN as needed for cough, Start date: 07/10/18 13:30:00 CDT, Duration: 30 day, Stop date: 08/09/18 13:29:00 CDT No Longer Active 07/10/2018 [facility] Lubricant Eye Drops ophthalmic solution Notes: (Same as: Aquasite) No Longer Active 07/10/2018 [facility] Naproxen 500 mg, 1 tab, Route: PO, Drug form: TAB, BID, Dosing Weight 104.545, kg, PRN Pain Score 1-3, Start date: 07/10/18 13:30:00 CDT, Duration: 30 day, Stop date: 08/09/18 13:29:00 CDT No Longer Active 07/10/2018 [facility] Lanolin 0.157 MG/MG / Menthol 0.0044 MG/ MG / Petrolatum 0.24 MG/MG / Zinc Oxide 0.206 MG/MG Topical Ointment [Calmoseptine] 1 appl, Route: TOP, Drug Form: OINT, Dosing Weight 104.545, kg, 5X Day, PRN Wound Care, Start date: 07/10/18 13:30:00 CDT No Longer Active 07/10/2018 [facility] nter Blistex Lip Happy Route: MISC, Dosing Weight 104.545, kg, PRN, PRN Dry Lips, Start date: 07/10/18 13:30:00 CDT, Duration: 30 day, Stop date: 08/09/18 13:29:00 CDT Inactive 07/10/2018 [facility] nter Acetaminophen 325 MG / Hydrocodone Blanca trate 5 MG Oral Tablet [Cumming 5/325] Notes: (Same as: Cumming 325/5) Do not ex ceed 4gm/day of acetaminophen. No Longer Activ e 07/10/2018 [facility] Compazine Notes: (Same as: Com pazine) No Longer Active 07/10/2018 [facility] normal saline 0.9% IV 1,000 mL 1,000 mL, Rate: 75 ml/hr, Infuse over: 13.3 hr, Route: IV, Dosing Weight 104.545 kg, Total Volume: 1,000, Start date: 07/10/18 13:30:00 CDT, Duration: 30 day, Stop date: 08/09/18 13:29:00 CDT, 2.35, m2 Inactiv e 07/10/2018 [facility] Ondansetron Notes: (Same as: Ziggy theodore) MEDICATION WASTE Product Size: 4 mg Product Wasted: ___ mg No Longer Active 07/10/2018 [facility] Acetaminophen Notes: Do not ex ceed 4 gm/day. (Same as: Tylenol) No Longer Active 07/10/2018 [facility] Melatonin Notes: (Same as: Aruna atonin) No Longer Active 07/10/2018 [facility] Docusate 200 mg, 2 cap, Route: PO, Drug form: CAP, BID, Dosing Weight 104.545, kg, PRN as needed for constipation, Start date: 07/10/18 13:30:00 CDT, Duration: 30 day, Stop date: 08/09/18 13:29:00 CDT No Longer Active 07/10/2018 [facility] Glucagon 1 mg, Route: IM, Drug form: PDR/INJ, PRN, Dosing Weight 104.545, kg, PRN Blood Glucose Results, Start date: 07/10/18 13:30:00 CDT, Duration: 30 day, Stop date: 08/09/18 13:29:00 CDT No Longer Active 07/10/2018 [facility] POLYETHYLENE GLYCOL 3350 17 gm , 1 pkt, Route: PO, Drug form: PWDR, BID, Dosing Weight 104.545, kg, PRN Constipation, Start date: 07/10/18 13:30:00 CDT, Duration: 30 day, Stop date: 08/09/18 13:29:00 CDT No Longer Active 07/10/2018 [facility] sennosides, DETENTION 17.2 mg, 2 tab , Route: PO, Drug Form: TAB, Dosing Weight 104.545, kg, BID, PRN as needed for constipation, Start date: 07/10/18 13:30:00 CDT, Duration: 30 day, Stop date: 08/09/18 13:29:00 CDT No Longer Active 07/10/2018 [facility] Dextrose 50% Syringe 25 gm, 50 mL, Route: IVP, Drug Form: INJ, Dosing Weight 104.545, kg, PRN, PRN Blood Glucose Results, Start date: 07/10/18 13:30:00 CDT, Duration: 30 day, Stop date: 08/09/18 13:29:00 CDT No Longer Active 07/10/2018 [facility] NS (Bolus) IV Route: IV, ONCE, Dosing Weight 104.545 kg, Start date: 07/10/18 11:54:00 CDT, Stop date: 07/10/18 11:54:00 CDT Inactive 07/10/2018 [facility] Naloxone 0.4 mg, 1 mL, Route: IVP, Drug form: INJ, PRN, Dosing Weight 104.545, kg, PRN Narcotic Reversal, Start date: 07/10/18 11:40:00 CDT, Duration: 30 day, Stop date: 08/09/18 11:39:00 CDT No Longer Active 07/10/2018 [facility] Lidocaine Hydrochloride 10 MG/ML Injectable Solution 5 mL, Route: INTRADERM, Dosing Weight 104.545, kg, ONCE, Start date: 07/10/18 10:48:00 CDT, Stop date: 07/10/18 10:48:00 CDT Inactive 07/10/2018 [facility] nt Fentanyl 50 microgram, Route: IV, ONCE, Dosing Weight 104.545, kg, Start date: 07/10/18 10:45:00 CDT, Stop date: 07/10/18 10:45:00 CDT Inactive 07/10/2018 [facility] Midazolam 1 mg, Route: IV, ONC E, Dosing Weight 104.545, kg, Start date: 07/10/18 10:45:00 CDT, Stop date: 07/10/18 10:45:00 CDT Inactive 07/10/2018 [facility] Fentanyl 50 microgram, Route: IV, ONCE, Dosing Weight 104.545, kg, Start date: 07/10/18 10:40:00 CDT, Stop date: 07/10/18 10:40:00 CDT Inactive 07/10/2018 [facility] Midazolam 1 mg, Route: IV, ONC E, Dosing Weight 104.545, kg, Start date: 07/10/18 10:40:00 CDT, Stop date: 07/10/18 10:40:00 CDT Inactive 07/10/2018 [facility] allopurinol 300 mg oral tablet 300 mg = 1 tab, PO, Daily, # 90 tab, 1 Refill(s) Active 05/04/2018 [facility] nter carvedilol 3.125 mg oral tablet 3.125 mg = 1 tab, PO, BID, # 180 tab, 3 Refill(s) No Longer Active 05/04/2018 [facility] nter 24 HR Metformin hydrochloride 750 MG Ext ended Release Tablet 750 mg = 1 tab, PO, BID-Meals, # 60 tab, 3 Refill(s) Active 05/04/2018 [facility] amLODIPine 5 mg oral tablet 5 mg = 1 tab, PO, Daily, # 90 tab, 1 Refill(s) Active 05/04/2018 [facility] olmesartan 40 mg oral tablet 4 0 mg = 1 tab, PO, Daily, # 90 tab, 0 Refill(s) Active 05/04/2018 [facility] atorvastatin 10 mg oral tablet 10 mg = 1 tab, PO, Bedtime, # 90 tab, 1 Refill(s) Active 05/04/2018 [facility] nter NS 250 mL 250 mL, Rate: 250 ml /hr, Infuse over: 1 hr, Route: IV, Dosing Weight 113.636 kg, Total Volume: 250, Start date: 10/16/14 11:58:00, Duration: 30 day, Stop date: 11/15/14 11:57:00 Inactive 10/16/2014 [facility] NS 1,000 mL 1,000 mL, Rate: 75 ml/hr, Infuse over: 13.3 hr, Route: IV, Dosing Weight 113.636 kg, Total Volume: 1,000, Start date: 10/16/14 11:58:00, Duration: 30 day, Stop date: 11/15/14 11:57:00 Inactive 10/16/2014 [facility] Sodium Chloride 0.154 MEQ/ML Injectable Solution 250 mL, Rate: 125 ml/hr, Infuse over: 2 hr, Route: IV, Dosing Weight 113.636 kg, Total Volume: 250, Start date: 10/16/14 10:12:00, Duration: 1 doses or times, Stop date: 10/16/14 12:11:00 Inactive 10/16/2014 [facility] nter pneumococcal capsular polysaccharide typ e 1 vaccine / pneumococcal capsular polysaccharide type 10A vaccine / pneumococcal capsular polysaccharide type 11A vaccine / pneumococcal capsular polysaccharide type 12F vaccine / pneumococcal capsular polysacchar Notes: (Same as: Pneumovax 23) Refrigerate Inactive 10/16/2014 [facility] PARoxetine 20 mg oral tablet 2 0 mg = 1 tab, PO, Daily, # 90 tab, 0 Refill(s) Active 10/16/2014 [facility] aliskiren 300 MG / Hydrochlorothiazide 1 2.5 MG Oral Tablet [Tekturna HCT 300/12.5] 1 tab, PO, Daily, # 30 tab, 0 Refill(s) Active 10/16/2014 [facility] Hydralazine Hydrochloride 50 MG Oral Tablet 50 mg = 1 tab, PO, TID, # 270 tab, 1 Refill(s) Active 10/16/2014 [facility] nter lisinopril 40 mg oral tablet 4 0 mg = 1 tab, PO, Daily, # 90 tab, 1 Refill(s) Active 10/16/2014 [facility] Metformin hydrochloride 500 MG Oral Tablet 500 mg = 1 tab, PO, Before Dinner, # 30 tab, 0 Refill(s) Active 10/16/2014 [facility] nter amLODIPine 10 mg oral tablet 1 0 mg = 1 tab, PO, Daily, # 30 tab, 0 Refill(s) Active 10/16/2014 [facility] Allergies, Adverse Reactions, Alerts Substance Category Reaction Severity Reaction type Status Date Reported Comments Source No Known Medication Allergies Assertion Drug aller gy [facility] Immunizations Immunization Date Given Site Status Last Updated Comments Source pneumococcal 23-valent vaccine 10/16/2014 Not Given [facility], [place] [place],[facility] Oncology [facility] Results Order Name Results Value Reference Range Date Interpretation Comments Source CHEM PANEL Glucose Lvl 194 65 - 139 09/27/2019 Result Comment:
Non-fasting reference interval

Lab test performed by:
[facility]
[address]
[place] [address]
Nathan Garcia [facility] CHEM PANEL BUN 17 7 - 25 09/27/2019 [facility] CHEM PANEL Creatinine Lvl 1.43 0.70 - 1.18 09/27/2019 Result Comment: For patients >49 years o f age, the reference limit
for Creatinine is approximately 13% higher for people
identified as -Latvian. [facility] CHEM PANEL eGFR NON-AFR. DJIBOUTIAN 49 > OR = 60 mL/min/1.73m2 2019 [facility] CHEM PANEL eGFR 56 > OR = 60 mL/min/1.73m2 2019 [facility] CHEM PANEL B/C Ratio 12 6 - 22 09/27/2019 [facility] CHEM PANEL Sodium Lvl 138 135 - 146 09/27/2019 [facility] CHEM PANEL Potassium Lvl 3.8 3.5 - 5.3 09/27/2019 [facility] CHEM PANEL Chloride Lvl 106 98 - 110 09/27/2019 [facility] CHEM PANEL CO2 27 20 - 32 09/27/2019 [facility] CHEM PANEL Calcium Lvl 8.3 8.6 - 10.3 09/27/2019 [facility] CHEM PANEL Total Protein 5.6 6.1 - 8.1 09/27/2019 Result Comment:
Lab test perf ormed by:
[facility]
[address]
[place] [address]
Nathan Garcia [facility] CHEM PANEL Albumin Lvl 3.3 3.6 - 5.1 09/27/2019 [facility] CHEM PANEL Globulin 2.3 1.9 - 3.7 09/27/2019 [facility] CHEM PANEL A/G Ratio 1.4 1.0 - 2.5 09/27/2019 [facility] CHEM PANEL Bili Total 0.7 0.2 - 1.2 09/27/2019 [facility] CHEM PANEL Bili Direct 0.2 < OR = 0.2 mg/dL 09/27/2019 [facility] CHEM PANEL Bili Indirect 0.5 0.2 - 1.2 09/27/2019 [facility] CHEM PANEL Alk Phos 163 35 - 144 09/27/2019 [facility] CHEM PANEL ASPARTATE TRANSAMINASE 21 10 - 35 09/27/2019 [facility] CHEM PANEL ALANINE AMINOTRANSFERASE 17 9 - 46 09/27/2019 [facility] HEMATOLOGY WBC X 10x3 3.3 3.8 - 10.8 09/27/2019 Result Comment:
Lab test perf ormed by:
[facility]
[address]
[place] [address]
Nathan Garcia [facility] HEMATOLOGY RBC X 10x6 2.56 4.20 - 5.80 09/27/2019 [facility] HEMATOLOGY Hgb 9.3 13.2 - 17.1 09/27/2019 [facility] HEMATOLOG[facility] Hct 27.2 38.5 - 50.0 09/27/[facility] M[facility] 106.3 80.0 - 100.0 09/27/2019 [facility] HEMATOLOGY MCH 36.3 27.0 - 33.0 09/27/2019 [facility] HEMATOLOGY MCHC 34.2 32.0 - 36.0 09/27/2019 [facility] HEMATOLOGY RDW 16.9 11.0 - 15.0 09/27/2019 [facility] HEMATOLOGY Platelet 195 140 - 400 09/27/2019 [facility] HEMATOLOGY MPV 9.8 7.5 - 12.5 09/27/2019 [facility] HEMATOLOGY Neutrophils # 1964 1500 - 7800 09/27/2019 [facility] HEMATOLOG[facility] Lymphocytes # 812 850 - 3900 09/27/2019 [facility] HEMATOLOG[facility] Monocytes # 257 200 - 950 09/27/2019 [facility] HEMATOLOGY Eosinophils # 228 15 - 500 09/27/2019 [facility] HEMATOLOGY Basophils # 40 0 - 200 09/27/2019 [facility] HEMATOLOGY Segs 59.5 09/27/2019 [facility] HEMAT[facility] Lymphocytes 24.6 09/27/2019 [facility] HEMATOLOGY Monocytes 7.8 09/27/2019 [facility] HEMATOLOGY Eosinophils 6.9 09/27/2019 [facility] HEMATOLOGY Basophils 1.2 09/27/2019 [facility] HEMATOLOGY INR 1.0 09/27/2019 Result Comment: Reference Range 0.9-1.1
Moderate-intensity Warfarin Therapy 2.0-3.0
Higher-intensity Warfarin Therapy 3.0-4.0

Lab test performed by:
[facility]
[address]
[place] [address]
Nathan Garcia [facility] HEMATOLOGY PROTIME 9.9 9.0 - 11.5 09/27/2019 Result Comment:
For more informati on on this test, go to:
http://education.[employer]/faq/SRD689 [facility] IMMUNOLOGY IgG Lvl 566 859 - 8731 09/27/2019 Result Comment: FASTING:NO

FAST ING: NO

Lab test performed by:
[facility] [facility]
[address]
[place] [address]
[facility] HEMATOLOGY WBC 3.9 3.7 - 10.4 09/10/2019 [facility] HEMATOLOGY RBC 2.43 4.70 - 6.10 09/10/2019 [facility] HEMATOLOGY Hgb 9.4 14.0 - 18.0 09/10/2019 [facility] HEMATOLOGY Hct 26.3 42.0 - 54.0 09/10/2019 [facility] HEMATOLOGY MCV 108.3 80.0 - 94.0 09/10/2019 [facility] HEMATOLOGY MCH 38.6 27.0 - 31.0 09/10/2019 [facility] HEMATOLOGY MCHC 35.6 32.0 - 36.0 09/10/2019 [facility] HEMATOLOGY RDW 17.5 11.5 - 14.5 09/10/2019 [facility] HEMATOLOGY Platelet 238 133 - 450 09/10/2019 [facility] HEMATOLOGY MPV 7.8 7.4 - 10.4 09/10/2019 [facility] HEMATOLOGY Retic Auto 1.6 0.5 - 1.5 09/10/2019 [facility] HEMATOLOGY Segs 51.6 45.0 - 75.0 09/10/2019 [facility] HEMATOLOGY Lymphocytes 23.7 20.0 - 40.0 09/10/2019 [facility] HEMATOLOGY Monocytes 11.4 2.0 - 12.0 09/10/2019 [facility] HEMATOLOGY Eosinophils 11.0 0.0 - 4.0 09/10/2019 [facility] HEMATOLOGY Basophils 2.3 0.0 - 1.0 09/10/2019 [facility] HEMATOLOGY Neutrophils # 2.0 1.5 - 8.1 09/10/2019 [facility] HEMATOLOGY Lymphocytes # 0.9 1.0 - 5.5 09/10/2019 [facility] HEMATOLOGY Monocytes # 0.4 0.0 - 0.8 09/10/2019 [facility] HEMATOLOGY Eosinophils # 0.4 0.0 - 0.5 09/10/2019 [facility] HEMATOLOGY Basophils # 0.1 0.0 - 0.2 09/10/2019 [facility] HEMATOLOGY Macrocyte 2+ *ABN* (09/10/19 10:10 AM) None Seen 09/10/2019 [facility] BLOOD BANK RESULTS RBC product Product available (09/10/19 10:05 AM) 09/10/2019 [facility] BLOOD BANK RESULTS ABO/Rh A POS 09/07/2019 [facility] BLOOD BANK RESULTS Antibody Scrn Negative (09/07/19 2:00 PM) 09/07/2019 [facility] BLOOD BANK RESULTS RBC product Product available (09/06/19 3:22 PM) 09/06/2019 [facility] BLOOD BANK RESULTS RBC product Product available (08/10/19 11:56 AM) 08/10/2019 [facility] BLOOD BANK RESULTS ABO/Rh A POS 08/10/2019 [facility] BLOOD BANK RESULTS Antibody Scrn Negative (08/10/19 10:52 AM) 08/10/2019 [facility] CHEM PANEL Glucose Lvl 154 70 - 99 06/15/2019 [facility] CHEM PANEL BUN 18 7 - 22 06/15/2019 [facility] CHEM PANEL Creatinine Lvl 1.57 0.50 - 1.40 06/15/2019 [facility] CHEM PANEL Sodium Lvl 138 135 - 145 06/15/2019 [facility] CHEM PANEL Potassium Lvl 4.3 3.5 - 5.1 06/15/2019 [facility] CHEM PANEL Chloride Lvl 108 95 - 109 06/15/2019 [facility] CHEM PANEL CO2 24 24 - 32 06/15/2019 [facility] CHEM PANEL Calcium Lvl 8.8 8.5 - 10.5 06/15/2019 [facility] CHEM PANEL AGAP 10.3 10.0 - 20.0 06/15/2019 [facility] CHEM PANEL eGFR 43 06/15/2019 Result Comment: The eGFR is calculated using the CKD-EPI formula. In most young, healthy individuals the eGFR will be >90 mL/min/1.73m2. The eGFR declines with age. An eGFR of 60-89 may be normal in some populations, particularly the elderly, for whom the CKD-EPI formula has not been extensively validated. Use of the eGFR is not recommended in the following populations:

Individuals with unstable creatinine concentrations, including patients and those with serious co-morbid conditions.

Patients with extremes in muscle mass or diet.

The data above are obtained from the National Kidney Disease Education Program (NKDEP) which additionally recommends that when the eGFR is used in patients with extremes of body mass index for purposes of drug dosing, the eGFR should be multiplied by the estimated BMI. [facility] CHEM PANEL Total Protein 6.2 6.4 - 8.4 06/15/2019 [facility] CHEM PANEL Albumin Lvl 2.8 3.5 - 5.0 06/15/2019 [facility] CHEM PANEL ALANINE AMINOTRANSFERASE 16 0 - 65 06/15/2019 [facility] CHEM PANEL ASPARTATE TRANSAMINASE 23 0 - 37 06/15/2019 [facility] CHEM PANEL Alk Phos 175 39 - 136 06/15/2019 [facility] CHEM PANEL Bili Total 0.8 0.2 - 1.3 06/15/2019 [facility] CHEM PANEL Bili Direct 0.2 0.0 - 0.3 06/15/2019 [facility] CHEM PANEL Bili Indirect 0.6 0.0 - 1.0 06/15/2019 [facility] CHEM PANEL Globulin 3.4 2.7 - 4.2 06/15/2019 [facility] CHEM PANEL A/G Ratio 0.8 0.7 - 1.6 06/15/2019 [facility] HEMATOLOGY WBC X 10x3 5.1 3.7 - 10.4 06/15/2019 [facility] HEMATOLOGY RBC X 10x6 3.03 4.70 - 6.10 06/15/2019 [facility] HEMATOLOGY Hgb 11.0 14.0 - 18.0 06/15/2019 [facility] HEMATOLOGY Hct 30.9 42.0 - 54.0 06/15/2019 [facility] HEMATOLOGY MCV 102.0 80.0 - 94.0 06/15/2019 [facility] HEMATOLOGY MCH 36.2 27.0 - 31.0 06/15/2019 [facility] HEMATOLOGY MCHC 35.5 32.0 - 36.0 06/15/2019 [facility] HEMATOLOGY RDW 21.1 11.5 - 14.5 06/15/2019 [facility] HEMATOLOGY Platelet 241 133 - 450 06/15/2019 [facility] HEMATOLOGY MPV 7.0 7.4 - 10.4 06/15/2019 [facility] HEMATOLOGY Segs 69.1 45.0 - 75.0 06/15/2019 [facility] HEMATOLOGY Lymphocytes 18.2 20.0 - 40.0 06/15/2019 [facility] HEMATOLOGY Monocytes 9.8 2.0 - 12.0 06/15/2019 [facility] HEMATOLOGY Eosinophils 1.5 0.0 - 4.0 06/15/2019 [facility] HEMATOLOGY Basophils 1.4 0.0 - 1.0 06/15/2019 [facility] HEMATOLOGY Neutrophils # 3.5 1.5 - 8.1 06/15/2019 [facility] HEMATOLOGY Lymphocytes # 0.9 1.0 - 5.5 06/15/2019 [facility] HEMATOLOGY Monocytes # 0.5 0.0 - 0.8 06/15/2019 [facility] HEMATOLOGY Eosinophils # 0.1 0.0 - 0.5 06/15/2019 [facility] HEMATOLOGY Basophils # 0.1 0.0 - 0.2 06/15/2019 [facility] HEMATOLOGY Anisocyte 1+ *ABN* (06/15/19 6:28 PM) None Seen 06/15/2019 [facility] HEMATOLOGY Macrocyte 1+ *ABN* (06/15/19 6:28 PM) None Seen 06/15/2019 [facility] CHEM PANEL Bili Direct 0.1 0.0 - 0.3 07/11/2018 [facility] CHEM PANEL eGFR 55 07/11/2018 Result Comment: The eGFR is calculated using the CKD-EPI formula. In most young, healthy individuals the eGFR will be >90 mL/min/1.73m2. The eGFR declines with age. An eGFR of 60-89 may be normal in some populations, particularly the elderly, for whom the CKD-EPI formula has not been extensively validated. Use of the eGFR is not recommended in the following populations:

Individuals with unstable creatinine concentrations, including patients and those with serious co-morbid conditions.

Patients with extremes in muscle mass or diet.

The data above are obtained from the National Kidney Disease Education Program (NKDEP) which additionally recommends that when the eGFR is used in patients with extremes of body mass index for purposes of drug dosing, the eGFR should be multiplied by the estimated BMI. [facility] CHEM PANEL CO2 24 24 - 32 07/11/2018 [facility] CHEM PANEL Sodium Lvl 141 135 - 145 07/11/2018 [facility] CHEM PANEL Glucose Lvl 195 70 - 99 07/11/2018 [facility] CHEM PANEL Creatinine Lvl 1.30 0.50 - 1.40 07/11/2018 [facility] CHEM PANEL BUN 19 7 - 22 07/11/2018 [facility] CHEM PANEL Potassium Lvl 4.1 3.5 - 5.1 07/11/2018 [facility] CHEM PANEL Calcium Lvl 8.3 8.5 - 10.5 07/11/2018 [facility] CHEM PANEL Chloride Lvl 111 95 - 109 07/11/2018 [facility] CHEM PANEL AGAP 10.1 10.0 - 20.0 07/11/2018 [facility] CHEM PANEL Globulin 3.6 2.7 - 4.2 07/11/2018 [facility] CHEM PANEL B/C Ratio 15 6 - 25 07/11/2018 [facility] CHEM PANEL AGAP 10.1 10.0 - 20.0 07/11/2018 [facility] CHEM PANEL A/G Ratio 0.7 0.7 - 1.6 07/11/2018 [facility] CHEM PANEL eGFR 55 07/11/2018 Result Comment: The eGFR is calculated using the CKD-EPI formula. In most young, healthy individuals the eGFR will be >90 mL/min/1.73m2. The eGFR declines with age. An eGFR of 60-89 may be normal in some populations, particularly the elderly, for whom the CKD-EPI formula has not been extensively validated. Use of the eGFR is not recommended in the following populations:

Individuals with unstable creatinine concentrations, including patients and those with serious co-morbid conditions.

Patients with extremes in muscle mass or diet.

The data above are obtained from the National Kidney Disease Education Program (NKDEP) which additionally recommends that when the eGFR is used in patients with extremes of body mass index for purposes of drug dosing, the eGFR should be multiplied by the estimated BMI. [facility] CHEM PANEL ALT 68 0 - 65 07/11/2018 [facility] CHEM PANEL Bili Total 0.3 0.2 - 1.3 07/11/2018 [facility] CHEM PANEL Alk Phos 221 39 - 136 07/11/2018 [facility] CHEM PANEL AST 63 0 - 37 07/11/2018 [facility] CHEM PANEL Creatinine Lvl 1.30 0.50 - 1.40 07/11/2018 [facility] CHEM PANEL BUN 19 7 - 22 07/11/2018 [facility] CHEM PANEL Glucose Lvl 195 70 - 99 07/11/2018 [facility] CHEM PANEL Potassium Lvl 4.1 3.5 - 5.1 07/11/2018 [facility] CHEM PANEL CO2 24 24 - 32 07/11/2018 [facility] CHEM PANEL Albumin Lvl 2.6 3.5 - 5.0 07/11/2018 [facility] CHEM PANEL Chloride Lvl 111 95 - 109 07/11/2018 [facility] CHEM PANEL Total Protein 6.2 6.4 - 8.4 07/11/2018 [facility] CHEM PANEL Calcium Lvl 8.3 8.5 - 10.5 07/11/2018 [facility] CHEM PANEL Sodium Lvl 141 135 - 145 07/11/2018 [facility] HEMATOLOGY Monocytes 16.4 2.0 - 12.0 07/11/2018 [facility] HEMATOLOGY Eosinophils 9.2 0.0 - 4.0 07/11/2018 [facility] HEMATOLOGY Lymphocytes 23.6 20.0 - 40.0 07/11/2018 [facility] HEMATOLOGY Segs 49.3 45.0 - 75.0 07/11/2018 [facility] HEMATOLOGY Basophils # 0.1 0.0 - 0.2 07/11/2018 [facility] HEMATOLOGY Neutrophils # 3.7 1.5 - 8.1 07/11/2018 [facility] HEMATOLOGY Basophils 1.5 0.0 - 1.0 07/11/2018 [facility] HEMATOLOGY Monocytes # 1.2 0.0 - 0.8 07/11/2018 [facility] HEMATOLOGY Lymphocytes # 1.8 1.0 - 5.5 07/11/2018 [facility] HEMATOLOGY Eosinophils # 0.7 0.0 - 0.5 07/11/2018 [facility] HEMATOLOGY Platelet 247 133 - 450 07/11/2018 [facility] HEMATOLOGY MPV 7.6 7.4 - 10.4 07/11/2018 [facility] HEMATOLOGY MCH 30.5 27.0 - 31.0 07/11/2018 [facility] HEMATOLOGY RDW 14.9 11.5 - 14.5 07/11/2018 [facility] HEMATOLOGY MCHC 34.5 32.0 - 36.0 07/11/2018 [facility] HEMATOLOGY WBC 7.5 3.7 - 10.4 07/11/2018 [facility] HEMATOLOGY RBC 4.03 4.70 - 6.10 07/11/2018 [facility] HEMATOLOGY MCV 88.3 80.0 - 94.0 07/11/2018 [facility] HEMATOLOGY Hgb 12.3 14.0 - 18.0 07/11/2018 [facility] HEMATOLOGY Hct 35.6 42.0 - 54.0 07/11/2018 [facility] CHEM PANEL eGFR 65 07/10/2018 Result Comment: The eGFR is calculated using the CKD-EPI formula. In most young, healthy individuals the eGFR will be >90 mL/min/1.73m2. The eGFR declines with age. An eGFR of 60-89 may be normal in some populations, particularly the elderly, for whom the CKD-EPI formula has not been extensively validated. Use of the eGFR is not recommended in the following populations:

Individuals with unstable creatinine concentrations, including patients and those with serious co-morbid conditions.

Patients with extremes in muscle mass or diet.

The data above are obtained from the National Kidney Disease Education Program (NKDEP) which additionally recommends that when the eGFR is used in patients with extremes of body mass index for purposes of drug dosing, the eGFR should be multiplied by the estimated BMI. [facility] CHEM PANEL Alk Phos 267 39 - 136 07/10/2018 [facility] CHEM PANEL Bili Total 0.5 0.2 - 1.3 07/10/2018 [facility] CHEM PANEL Chloride Lvl 108 95 - 109 07/10/2018 [facility] CHEM PANEL AST 79 0 - 37 07/10/2018 [facility] CHEM PANEL ALT 85 0 - 65 07/10/2018 [facility] CHEM PANEL Calcium Lvl 9.0 8.5 - 10.5 07/10/2018 [facility] CHEM PANEL CO2 24 24 - 32 07/10/2018 [facility] CHEM PANEL Albumin Lvl 3.0 3.5 - 5.0 07/10/2018 [facility] CHEM PANEL Total Protein 7.4 6.4 - 8.4 07/10/2018 [facility] CHEM PANEL Potassium Lvl 4.1 3.5 - 5.1 07/10/2018 [facility] CHEM PANEL BUN 18 7 - 22 07/10/2018 [facility] CHEM PANEL Glucose Lvl 198 70 - 99 07/10/2018 [facility] CHEM PANEL Sodium Lvl 139 135 - 145 07/10/2018 [facility] CHEM PANEL Creatinine Lvl 1.13 0.50 - 1.40 07/10/2018 [facility] CHEM PANEL AGAP 11.1 10.0 - 20.0 07/10/2018 [facility] CHEM PANEL A/G Ratio 0.7 0.7 - 1.6 07/10/2018 [facility] CHEM PANEL Globulin 4.4 2.7 - 4.2 07/10/2018 [facility] CHEM PANEL B/C Ratio 16 6 - 25 07/10/2018 [facility] HEMATOLOGY PT 12.1 12.0 - 14.7 07/10/2018 [facility] HEMATOLOGY INR 0.91 0.85 - 1.17 07/10/2018 [facility] HEMATOLOGY PTT 34.3 22.9 - 35.8 07/10/2018 [facility] HEMATOLOGY WBC 9.2 3.7 - 10.4 07/10/2018 [facility] HEMATOLOGY RBC 4.77 4.70 - 6.10 07/10/2018 [facility] HEMATOLOGY MCHC 34.6 32.0 - 36.0 07/10/2018 [facility] HEMATOLOGY RDW 14.9 11.5 - 14.5 07/10/2018 [facility] HEMATOLOGY Hgb 14.4 14.0 - 18.0 07/10/2018 [facility] HEMATOLOGY MCV 87.1 80.0 - 94.0 07/10/2018 [facility] HEMATOLOGY Hct 41.5 42.0 - 54.0 07/10/2018 [facility] HEMATOLOGY MPV 7.7 7.4 - 10.4 07/10/2018 [facility] HEMATOLOGY MCH 30.1 27.0 - 31.0 07/10/2018 [facility] HEMATOLOGY Platelet 292 133 - 450 07/10/2018 [facility] ANEMIA STUDY Ferritin Lvl 286 22 - 275 05/04/2018 [facility] CHEM PANEL Glucose Lvl 130 70 - 99 05/04/2018 [facility] CHEM PANEL BUN 16 7 - 22 05/04/2018 [facility] CHEM PANEL Creatinine Lvl 1.18 0.50 - 1.40 05/04/2018 [facility] CHEM PANEL Sodium Lvl 142 135 - 145 05/04/2018 [facility] CHEM PANEL Potassium Lvl 4.1 3.5 - 5.1 05/04/2018 [facility] CHEM PANEL Chloride Lvl 107 95 - 109 05/04/2018 [facility] CHEM PANEL CO2 30 24 - 32 05/04/2018 [facility] CHEM PANEL Calcium Lvl 8.9 8.5 - 10.5 05/04/2018 [facility] CHEM PANEL eGFR 62 05/04/2018 Result Comment: The eGFR is calculated using the CKD-EPI formula. In most young, healthy individuals the eGFR will be >90 mL/min/1.73m2. The eGFR declines with age. An eGFR of 60-89 may be normal in some populations, particularly the elderly, for whom the CKD-EPI formula has not been extensively validated. Use of the eGFR is not recommended in the following populations:

Individuals with unstable creatinine concentrations, including patients and those with serious co-morbid conditions.

Patients with extremes in muscle mass or diet.

The data above are obtained from the National Kidney Disease Education Program (NKDEP) which additionally recommends that when the eGFR is used in patients with extremes of body mass index for purposes of drug dosing, the eGFR should be multiplied by the estimated BMI. [facility] CHEM PANEL AGAP 9.1 10.0 - 20.0 05/04/2018 [facility] ELECTROLYTES AGAP 9.1 10.0 - 20.0 05/04/2018 [facility] ELECTROLYTES eGFR 62 05/04/2018 Result Comment: The eGFR is calculated using the CKD-EPI formula. In most young, healthy individuals the eGFR will be >90 mL/min/1.73m2. The eGFR declines with age. An eGFR of 60-89 may be normal in some populations, particularly the elderly, for whom the CKD-EPI formula has not been extensively validated. Use of the eGFR is not recommended in the following populations:

Individuals with unstable creatinine concentrations, including patients and those with serious co-morbid conditions.

Patients with extremes in muscle mass or diet.

The data above are obtained from the National Kidney Disease Education Program (NKDEP) which additionally recommends that when the eGFR is used in patients with extremes of body mass index for purposes of drug dosing, the eGFR should be multiplied by the estimated BMI. [facility] ELECTROLYTES Calcium Lvl 8.9 8.5 - 10.5 05/04/2018 [facility] ELECTROLYTES CO2 30 24 - 32 05/04/2018 [facility] ELECTROLYTES Chloride Lvl 107 95 - 109 05/04/2018 [facility] ELECTROLYTES BUN 16 7 - 22 05/04/2018 [facility] ELECTROLYTES Glucose Lvl 130 70 - 99 05/04/2018 [facility] ELECTROLYTES Potassium Lvl 4.1 3.5 - 5.1 05/04/2018 [facility] ELECTROLYTES Sodium Lvl 142 135 - 145 05/04/2018 [facility] ELECTROLYTES Creatinine Lvl 1.1 8 0.50 - 1.40 05/04/2018 [facility] HEMATOLOGY WBC 7.1 3.7 - 10.4 05/04/2018 [facility] HEMATOLOGY RBC 4.96 4.70 - 6.10 05/04/2018 [facility] HEMATOLOGY Hgb 14.7 14.0 - 18.0 05/04/2018 [facility] HEMATOLOGY Hct 43.2 42.0 - 54.0 05/04/2018 [facility] HEMATOLOGY MCV 87.1 80.0 - 94.0 05/04/2018 [facility] HEMATOLOGY MCH 29.6 27.0 - 31.0 05/04/2018 [facility] HEMATOLOGY MCHC 34.0 32.0 - 36.0 05/04/2018 [facility] HEMATOLOGY RDW 15.0 11.5 - 14.5 05/04/2018 [facility] HEMATOLOGY Platelet 276 133 - 450 05/04/2018 [facility] [facility] HEMATOLOGY MPV 8.2 7.4 - 10.4 05/04/2018 [facility] HEMATOLOGY PT 12.5 12.0 - 14.7 05/04/2018 [facility] HEMATOLOGY INR 0.95 0.85 - 1.17 05/04/2018 [facility] HEMATOLOGY Segs 53.5 45.0 - 75.0 05/04/2018 [facility] HEMATOLOGY Lymphocytes 20.6 20.0 - 40.0 05/04/2018 [facility] HEMATOLOGY Monocytes 14.8 2.0 - 12.0 05/04/2018 [facility] HEMATOLOGY Eosinophils 9.9 0.0 - 4.0 05/04/2018 [facility] HEMATOLOGY Basophils 1.2 0.0 - 1.0 05/04/2018 [facility] HEMATOLOGY Neutrophils # 3.8 1.5 - 8.1 05/04/2018 [facility] HEMATOLOGY Lymphocytes # 1.5 1.0 - 5.5 05/04/2018 [facility] HEMATOLOGY Monocytes # 1.0 0.0 - 0.8 05/04/2018 [facility] HEMATOLOGY Eosinophils # 0.7 0.0 - 0.5 05/04/2018 [facility] HEMATOLOGY Basophils # 0.1 0.0 - 0.2 05/04/2018 [facility] IMMUNOLOGY CERULOPLASMIN 31 20 - 60 05/04/2018 [facility] IMMUNOLOGY SMA Screen Negat negrita (05/04/18 3:38 PM) Negative 05/04/2018 [facility] IMMUNOLOGY IgG Lvl 1160 624 - 9304 05/04/2018 [facility] IMMUNOLOGY Hep A Tot Negat negrita *NA* (05/04/18 3:38 PM) Negative 05/04/2018 [facility] IMMUNOLOGY Hep Bs Ab <3.1 <=7.4 mIU/mL 05/04/2018 [facility] BLOOD BANK RESULTS Antibody Scrn Negative (10/16/14 8:10 AM) 10/16/2014 [facility] BLOOD BANK RESULTS ABO/Rh A POS 10/16/2014 [facility] Pathology Reports No Data Provided for This Section Diagnostic Reports Report Value Date Source Bone Marrow Bio/Aspr CT PROCED URE: Image-guided bone marrow biopsy and aspiration Procedural Personnel Attending physician(s): Michaela Rose MD Fellow physician(s): None Resident physician(s): None Advanced practice provider(s): None Pre-procedure diagnosis: Anemia and myelodysplastic syndrome Post-procedure diagnosis: Same Indication: Histopathologic diagnosis and molecular characterization Previous biopsy of same target (QCDR): No Additional clinical history: None Complications: No immediate complications. IMPRESSION: Image-guided bone marrow biopsy of left iliac bone. Plan: Specimen(s) sent for evaluation. PROCEDURE SUMMARY: - Percutaneous CT-guided coaxial core ne edle biopsy - Additional procedure(s): None PROCEDURE DETAILS: Pre-procedure Reference imaging for biopsy target: None Consent: Informed consent for the procedure including risks, benefits and alternatives was obtained and time-out was performed prior to the procedure. Preparation: The site was prepared and draped using maximal sterile barrier technique including cutaneous antisepsis. Anesthesia/sedation Level of anesthesia/sedation: Moderate sedation (conscious sedation) Anesthesia/sedation administered by: Independent trained observer under attending supervision with continuous monitoring of the patient's level of consciousness and physiologic status Total intra-service sedation time (minutes): 7 Biopsy Local anesthesia was administered. Under imaging guidance as stated in the procedure summary, the biopsy needle was advanced to the target and biopsy was performed. Core needle biopsy device: Osteo-site Core needle size: 11 gauge Number of core specimens: 1 Number of aspiration specimens: 3 un-heparinized and 1 heparinized aspirates On-site biopsy touch preparation: Yes Additional sampling recommendations: None Preliminary assessment of sample adequacy: Adequate Needle removal The biopsy needle was removed and a sterile dressing was applied. Tract embolization: None Contrast Contrast agent: None Contrast volume (mL): [address] dose length product (mGy-cm): 280.16 Additional Details Additional description of procedure: None Equipment details: None Specimens removed: Biopsy samples as detailed above Estimated blood loss (mL): Less than 10 Standardized report: [email or web address] Attestation Signer name: Michaela Rose MD I attest that I was present for the entire procedure. I reviewed the stored images and agree with the report as written. 09/10/2019 [facility] Abdomen/Pelvis wo IV contrast CT Radiation Dose CTDIVOL = 0 (mGy): DLP = 1421 (mGy-cm) PROCEDURE INFORMATION: Exam: CT Abdomen And Pelvis Without Contrast Exam date and time: 07/25/2019 11:41 AM Age: 74 years old Clinical indication: Anemia, unspecified; Additional info: /d64.9 TECHNIQUE: Imaging protocol: Computed tomography of the abdomen and pelvis without contrast. Total DLP: 1421 mGy-cm Radiation optimization: All CT scans at this facility use at least one of these dose optimization techniques: automated exposure control; mA and/or kV adjustment per patient size (includes targeted exams where dose is matched to clinical indication); or iterative reconstruction. Other contrast: Oral, omni, 50; COMPARISON: LIVER BIOPSY GUIDED US 07/10/2018 10:38 AM FINDINGS: Lungs: Minimal to mild interstitial scarring at the lung bases bilaterally. Heart: Mild cardiomegaly. Liver: Nodular margin to the lateral segment of the left hepatic lobe suggestive of cirrhosis. Bilobed simple appearing cyst is noted at the dorsal inferior tip of the right hepatic lobe measuring 1.4 x 1.5 cm. No hepatic mass. No hepatomegaly. Gallbladder and bile ducts: Normal. No calcified stones. No extrahepatic biliary ductal dilation. Pancreas: There is moderate generalized pancreatic atrophy without pancreatic ductal dilatation. Spleen: Normal. No splenomegaly. Adrenals: Bilateral adrenal nodularity statistically likely representing adenomata or nodular hyperplasia. 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 Kidneys and ureters: Nonspecific stranding in the perinephric fat is noted bilaterally. Renal cortical scarring is noted bilaterally. Simple appearing cortical cysts are present at the dorsal cortex of the superior pole measuring 12 mm and the dorso lateral cortex of th e mid right kidney measuring 25 mm. No right renal calculus. No ureteral calculus. Simple appearing cortical cyst is noted arising from the ventral cortex of the superior pole of the left kidney measuring 33 mm. A simple appearing parapelvic cyst is present at the superior left renal hilus measuring 11 mm. There are multiple nonobstructing left renal calculi noted; the largest are present at the inferior pole measuring 4 x 7 mm and lateral mid left kidney measuring 8 x 10 mm (1222 Hounsfield units) and 11 x 9.5 mm (1243 Hounsfield units), respectively. A calculus (1252 Hounsfield units) measuring 9.5 x 9.5 mm is present at the mildly dilated left renal pelvis associated with minimal stranding in the left peripelvic fat. Stomach and bowel: The stomach and small bowel are unremarkable. Long segmental decompression of the distal sigmoid colon is noted accentuating mild colonic bowel wall thickening with ahaustra appearance. The mid sigmoid colon is redundant. The rectum is mildly distended by gas and stool. Mild stool burden is present at the flexures, transverse and right colon. Appendix: No evidence of appendicitis. The appendix is normal. Intraperitoneal space: Unremarkable. No free air. No significant fluid collection. Vasculature: The caliber of the main portal vein is 16 mm. Vascular calcification at the normal caliber abdominal aorta extending into the normal caliber common iliac arteries. Venous and arterial vascular calcification at the pelvis. Lymph nodes: Unremarkable. No enlarged lymph nodes. Bladder: No bladder calculus. There is elevation of the base of the urinary bladder by the prostate. Urinary bladder otherwise unremarkable. Reproductive: The prostate measures 6.2 x 5.3 cm. Dystrophic calcification is noted at the prostate. The seminal vesicles are mildly enlarged. Bones/joints: Degenerative arthrosis at the SI joints and lower lumbar apophyseal joints. Mild lumbar curvature convex to the left. Fusion at L4-L5 and L5-S1. Thoracolumbar spondylosis. Soft tissues: Unremarkable. IMPRESSION: 1. Long segmental decompression of the d istal sigmoid colon is noted accentuating mild colonic bowel wall thickening with ahaustral appearance suggestive of chronic colitis or chronic laxative use. The long segmental appearance militates against neoplasm. 2. Hepatic cirrhosis. Small hepatic cyst at the inferior tip of the right hepatic lobe. 3. A calculus (1252 Hounsfield units) me asuring 9.5 x 9.5 mm is present at the mildly dilated left renal pelvis associated with minimal stranding in the left peripelvic fat. 4. Minimal stranding in the left peripel delfin fat could represent obstructive uropathy and/or pyelitis 5. Nonobstructing left renal calculi as detailed above. 6. 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 7. Simple appearing renal cysts bilatera lly. 8. Moderate prostate and mild seminal ve sicle enlargement. COMMENTS: 1. Consistent with the [employer]'s Incidental Findings Committee white paper (J Am Renetta Radiol 2017): For any incidental adrenal lesion greater than 1.0 cm but less than or equal to 4.0 cm classified in this report as benign or likely benign (including classification as an adenoma or myelolipoma), no follow-up imaging is recommended per consensus recommendations based on imaging criteria. Further lab evaluation could be pursued if warranted based on clinical findings. 2. Consistent with the [place]'s Incidental Findings Committee white paper (J Am Renetta Radiol 2018): Any incidental cystic renal lesion classified in this report as too small to characterize or simple appearing is likely a benign cyst. No follow-up imaging is recommended for these lesions per consensus recommendations based on imaging criteria. Jimmy Worley MD On 07/25/2019 13:25:47; [id number] 07/25/2019 [facility] 2 views DX PROCEDURE INF ORMATION: Exam: XR Chest, 2 Views Exam date and time: 07/25/2019 11:56 AM Age: 74 years old Clinical indication: Anemia, unspecified; Additional info: /d64.9 TECHNIQUE: Imaging protocol: XR of the chest Views: 2 views. Other technique: 2 views, frontal and lateral. COMPARISON: CR CHEST 1VIEW DX 07/10/2018 2:24 PM * CHEST, 2 views TECHNIQUE: Frontal and lateral radiographs of the chest were obtained. FINDINGS: The lungs are clear. There are no pleural effusions. The heart and pulmonary vasculature are within normal limits. There are very mild degenerative changes involving the thoracic spine. The regional skeleton is otherwise unremarkable. IMPRESSION: No active disease. Augusto Pope MD On 07/25/2019 11:14:19; [id number] 07/25/2019 [facility] 1view DX EXAM: XR CHEST 1 VIEW DATE: 07/10/2018 13:32 CDT INDICATION: - hypoxia COMPARISON: None. TECHNIQUE: AP chest FINDINGS: Lines, tubes and hardware: None. Lungs and pleura: Mild bibasilar subsegmental platelike atelectatic changes. Otherwise, lungs are clear. Costophrenic sulci are sharp. Heart and mediastinum: normal for technique. Bones: No acute bony abnormality is identified. IMPRESSION: 1. No acute cardiopulmonary abnormality 07/10/2018 [facility] Liver biopsy guided US PROCEDU RE: Image-guided nontargeted liver biopsy Procedural Personnel Attending physician(s): Terry Joseph M.D. Fellow physician(s): None Resident physician(s): None Advanced practice provider(s): None Pre-procedure diagnosis: Elevated liver enzymes Post-procedure diagnosis: Same Indication: Evaluate liver Previous biopsy of same target (QCDR): No Additional clinical history: None Complications: No immediate complications. IMPRESSION: Image-guided biopsy of liver right lobe. Plan: Specimen(s) sent for evaluation. PROCEDURE SUMMARY: - Percutaneous ultrasound-guided liver b iopsy - Additional procedure(s): None PROCEDURE DETAILS: Pre-procedure Reference imaging for biopsy target: None Consent: Informed consent for the procedure including risks, benefits and alternatives was obtained and time-out was performed prior to the procedure. Preparation: The site was prepared and draped using maximal sterile barrier technique including cutaneous antisepsis. Anesthesia/sedation Level of anesthesia/sedation: Moderate sedation (conscious sedation) Anesthesia/sedation administered by: Independent trained observer under attending supervision with continuous monitoring of the patient's level of consciousness and physiologic status Total intra-service sedation time (minutes): 30 Biopsy Local anesthesia was administered. Under imaging guidance as stated in the procedure summary, the biopsy needle was advanced to the target and biopsy was performed. Coaxial needle: 17 gauge Core needle biopsy device: 18-gauge KettoPen's Core needle size: 18 gauge Number of core specimens: 2 On-site biopsy touch preparation: No Additional sampling recommendations: None Preliminary assessment of sample adequacy: Sample delivered to surgical pathology Needle removal The biopsy needle was removed and a sterile dressing was applied. Tract embolization: None Additional Details Additional description of procedure: None Equipment details: None Specimens removed: Biopsy samples as detailed above Estimated blood loss (mL): Less than 10 Standardized report: [email or web address] Attestation Signer name: Terry Joseph MD I attest that I was present for the entire procedure. I reviewed the stored images and agree with the report as written. 07/10/2018 [facility] Abdomen complete US EXAM: US A BDOMEN COMPLETE DATE: 03/20/2018 10:15 [employer] INDICATION: - R94.5 Abnormal results of liver function studies ADDITIONAL INFORMATION: None. COMPARISON: 05/02/2014 TECHNIQUE: Multiplanar grayscale and color Doppler ultrasound of the abdomen. FINDINGS: Liver: Craniocaudal length: 18.0 cm. Echogenicity: Slightly increased Surface nodularity: Normal. Mass (size and location): None. Portal vein: Normal. Bile ducts: Common bile duct diameter: 0.3 cm. Intrahepatic ducts: Normal. Gallbladder: Well-distended Gallstones: Mobile shadowing stones are seen in the gallbladder. Gallbladder sludge: None. Gallbladder wall: 0.2 cm. Punctate 2 mm gallbladder polyp. Pericholecystic fluid: None. Sonographic Moreno sign: Absent. Pancreas: Head and uncinate process: Normal. Body and tail: Not seen. Spleen: Craniocaudal length: 10.7 cm. Mass or focal lesion (size and location): None. Right kidney: Hydronephrosis: None. Size: 13.6 cm. Echogenicity: Normal. Mass/Stone/Cyst (size and location): 3.3 cm simple interpolar cyst. Left kidney: Hydronephrosis: None. Size: 11.3 cm. Echogenicity: Normal. Mass/Stone/Cyst (size and location): There is a 1.2 cm nonobstructing stone in the left mid pole. Another 1 cm nonobstructing stone is seen in the inferior pole. There is also a 2.6 cm simple superior pole parapelvic cyst. Abdominal aorta and IVC: Visible portions are normal. Ascites: None. Other: None. IMPRESSION: 1. Mild hepatomegaly with increased ech ogenicity, which may represent steatosis. 2. Cholelithiasis without evidence of acute cholecystitis. 3. Small bilateral renal cysts. 4. Nonobstructing left renal stones. 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 TECHNIQUE: AP views in internal and external rotation, and an axillary view of the shoulder FINDINGS: No acute fracture or malalignment is identified. There is a 1.2 cm diameter ossification along the inferior margin of the glenoid. There are moderate degenerative changes and hypertrophy of the acromioclavicular joint. Ossification along the undersurface of the acromion is probably along the acromial attachment of the coracoacromial ligament. Diffuse osteopenia is present. IMPRESSION: 1. No acute abnormality. 2. Ossification at the inferior margin of the glenoid could represent prior glenoid injury or an intra-articular body. 3. Moderate acromioclavicular joint deg enerative change. 02/15/2018 [facility] contrast MRI Exam: MRI of the left foot without contrast Reason for Exam: Pain in left foot Comparison Exam: None Technique: Multiplanar and multisequence imaging was performed of the left midfoot and left forefoot. T1, T2, and proton density weighted images were acquired without injection of intravenous contrast. Discussion: A Beekley marker was placed on the dorsal aspect of the foot, at the level of the second metatarsal head. There is intraosseous edema seen originating from the head of the second metatarsal bone, extending proximal through the mid diaphysis. Surrounding soft tissue edema is noted. These findings are most compatible with a stress fracture. Note that the second metatarsal phalangeal joint space appears intact. Scattered osteoarthritic changes are seen. The tibial and fibular sesamoid bones at the level of the first metatarsal head are unremarkable. Findings discussed with Dr. Jasmine on 04/21/2015 at 1418 hours. Impression: 1. Findings most compatible with a stre ss fracture involving the second metatarsal bone as detailed above. 04/21/2015 [facility] Abdomen complete US ABDOMEN UL TRASOUND CLINICAL HISTORY: Elevated LFTs COMPARISON IMAGING: Renal ultrasound of 12/25/2013 FINDINGS: Liver: Measures 17 cm in length (normal: 13-17 cm). Echogenicity is unremarkable. No suspicious lesion or surface nodularity. Portal vein is patent with hepatopedal flow. Biliary: Several punctate echogenic gallstones are present. Note is also made of a 2 mm gallbladder polyp. There is no gallbladder wall thickening or sonographic Moreno sign to suggest acute cholecystitis. There is no biliary duct dilation. Mid common bile duct measures 3.4 mm in diameter. Pancreas: No focal lesions. Spleen: Measures 10.7 cm in maximal dimension (normal < 13 cm). No focal lesion is seen. Kidneys: Right and left measure 14.4 and 12.0 cm in length, respectively (normal: 9-12 cm). Punctate nonobstructing left renal calculi are again seen measuring up to 1.5 cm, stable. Simple bilateral renal cysts are seen. Cyst in the midpole of the right kidney measures 3.6 cm, stable. Cyst in the midpole of the left kidney measures 2.7 cm, previously 2.0 cm. Vascular: Visualized portions of the IVC are patent. No obvious aneurysmal dilatation of the aorta. IMPRESSION: 1. Cholelithiasis without sonographic ev idence of acute cholecystitis. 2. Punctate 2 mm gallbladder polyp. 3. Bilateral nonobstructing nephrolithia sis. 4. Bilateral simple renal cysts measurin g up to 3.6 cm. Cyst on the left has minimally increased in size compared to the previous exam. 05/02/2014 [facility] Retroperitoneal complete w Doppler US Exam: Bilateral renal ultrasound with Doppler evaluation. Reason for Exam: Hypertension Comparison Exam: Renal ultrasound report 09/14/2005 Discussion: Multiple sagittal and axial images were obtained of the kidneys. The right kidney measures 12.7 x 6.2 x 6.0 cm. The cortical thickness is approximately 1.1 cm. It is of normal echogenicity without focal hydronephrosis or shadowing renal calculi. A simple appearing cyst is seen within the right kidney measuring 3.5 x 3.2 x 3.2 cm. The left kidney measures 10.0 x 5.9 x 5.7 cm. The cortical thickness is approximately 1.1 cm. It is of normal echogenicity without hydronephrosis. Two hyperechoic foci seen within the left kidney most compatible with nonobstructing calcified stones. They measure 1.6 cm and 1.1 cm. Note is made of a simple appearing cyst seen for the left kidney measuring 2.0 x 1.9 x 1.8 cm. The highest right main renal artery PSV is 182 cm/sec and the highest left main renal artery PSV is 210 cm/sec. The abdominal aorta PSV is 123 cm/sec. The right renal artery/aorta ratio is within normal limits at 1.5. The left renal artery/aorta ratio is within normal limits at 1.7. Visualized portions of the bladder are unremarkable. Bilateral ureteral jets identified. Prostate gland is enlarged measuring approximately 73 cc. The visualized portions of the IVC are unremarkable Impression: 1. Both kidneys are unremarkable in son ographic appearance. No evidence for hydronephrosis. Two hyperechoic foci seen within the left kidney most compatible with nonobstructing renal calculi. 2. No sonographic evidence for clinicall y significant renal artery stenosis. 12/25/2013 [facility] Consultation Notes No Data Provided for This Section Discharge Summaries No Data Provided for This Section History and Physicals No Data Provided for This Section Vital Signs Vital Sign Value Date Comments Source Systolic (mm Hg) 162 10/11/2019 [facility] Diastolic (mm Hg) 60 10/11/2019 [facility] Heart Rate 57 10/11/2019 [facility] Height 187.96 cm 10/11/2019 [facility] Weight 103.295 10/11/2019 [facility] BMI Calculated 29.24 10/11/2019 [facility] Temperature Oral (F) 98 F 09/10/2019 [facility] Heart Rate 57 09/10/2019 [facility] Respitory Rate 18 09/10/2019 [facility] Systolic (mm Hg) 166 09/10/2019 [facility] Diastolic (mm Hg) 73 09/10/2019 [facility] Temperature Oral (F) 98 F 09/10/2019 [facility] Heart Rate 60 09/10/2019 [facility] Respitory Rate 18 09/10/2019 [facility] Systolic (mm Hg) 163 09/10/2019 [facility] Diastolic (mm Hg) 72 09/10/2019 [facility] Temperature Oral (F) 98.2 F 09/10/2019 [facility] Heart Rate 58 09/10/2019 [facility] Respitory Rate 18 09/10/2019 [facility] Systolic (mm Hg) 165 09/10/2019 [facility] Diastolic (mm Hg) 75 09/10/2019 [facility] Height 187 cm 09/10/2019 [facility] Weight 104.3 09/10/2019 [facility] BMI Calculated 29.83 09/10/2019 [facility] Respitory Rate 10 09/10/2019 [facility] Systolic (mm Hg) 166 09/10/2019 [facility] Diastolic (mm Hg) 76 09/10/2019 [facility] Respitory Rate 16 09/10/2019 [facility] Systolic (mm Hg) 162 09/10/2019 [facility] Diastolic (mm Hg) 70 09/10/2019 [facility] Respitory Rate 14 09/10/2019 [facility] Systolic (mm Hg) 180 09/10/2019 [facility] [facility] Diastolic (mm Hg) 97 09/10/2019 [facility] Height 187.96 cm 09/10/2019 [facility] Weight 102.273 09/10/2019 [facility] BMI Calculated 28.95 09/10/2019 [facility] Temperature Oral (F) 98.2 F 08/13/2019 [facility] Respitory Rate 18 08/13/2019 [facility] Heart Rate 54 08/13/2019 [facility] Systolic (mm Hg) 166 08/13/2019 [facility] Diastolic (mm Hg) 65 08/13/2019 [facility] Temperature Oral (F) 98.2 F 08/13/2019 [facility] Respitory Rate 18 08/13/2019 [facility] Heart Rate 53 08/13/2019 [facility] Systolic (mm Hg) 185 08/13/2019 [facility] Diastolic (mm Hg) 62 08/13/2019 [facility] Height 187.9 cm 08/13/2019 [facility] Weight 105.8 08/13/2019 [facility] BMI Calculated 29.97 08/13/2019 [facility] Systolic (mm Hg) 162 08/13/2019 [facility] Diastolic (mm Hg) 56 08/13/2019 [facility] Heart Rate 67 08/13/2019 [facility] Respitory Rate 18 08/13/2019 [facility] Temperature Oral (F) 97.9 F 08/13/2019 [facility] Temperature Oral (F) 98.3 F 06/16/2019 [facility] Heart Rate 59 06/16/2019 [facility] Respitory Rate 20 06/16/2019 [facility] Systolic (mm Hg) 186 06/16/2019 [facility] Diastolic (mm Hg) 69 06/16/2019 [facility] Temperature Oral (F) 98.3 F 06/16/2019 [facility] Heart Rate 58 06/16/2019 [facility] Respitory Rate 20 06/16/2019 [facility] Systolic (mm Hg) 169 06/16/2019 [facility] Diastolic (mm Hg) 79 06/16/2019 [facility] Systolic (mm Hg) 165 06/15/2019 [facility] Diastolic (mm Hg) 68 06/15/2019 [facility] Heart Rate 59 06/15/2019 [facility] Respitory Rate 20 06/15/2019 [facility] Temperature Oral (F) 98 F 06/15/2019 [facility] Height 187.96 cm 06/15/2019 [facility] BMI Calculated 29.59 06/15/2019 [facility] Weight 104.545 06/15/2019 [facility] Heart Rate 59 07/11/2018 [facility] Systolic (mm Hg) 180 07/11/2018 [facility] Diastolic (mm Hg) 69 07/11/2018 [facility] Respitory Rate 18 07/11/2018 [facility] Respitory Rate 18 07/11/2018 [facility] Systolic (mm Hg) 187 07/11/2018 [facility] Diastolic (mm Hg) 76 07/11/2018 [facility] Heart Rate 59 07/11/2018 [facility] Temperature Oral (F) 98.6 F 07/11/2018 [facility] Respitory Rate 18 07/11/2018 [facility] Systolic (mm Hg) 181 07/11/2018 [facility] Diastolic (mm Hg) 68 07/11/2018 [facility] Temperature Oral (F) 98.6 F 07/11/2018 [facility] Heart Rate 59 07/11/2018 [facility] Temperature Oral (F) 98.0 F 07/11/2018 [facility] BMI Calculated 29.59 07/10/2018 [facility] Weight 104.545 07/10/2018 [facility] Height 187.96 cm 07/10/2018 [facility] BMI Calculated 29.59 07/10/2018 [facility] Weight 104.545 07/10/2018 [facility] Height 187.96 cm 07/10/2018 [facility] BMI Calculated 29.59 07/10/2018 [facility] Weight 104.545 07/10/2018 [facility] Height 187.96 cm 07/10/2018 [facility] Systolic (mm Hg) 169 05/04/2018 [facility] Diastolic (mm Hg) 74 05/04/2018 [facility] Heart Rate 58 05/04/2018 [facility] Height 187.96 cm 05/04/2018 [facility] Weight 105.455 05/04/2018 [facility] BMI Calculated 29.85 05/04/2018 [facility] Systolic (mm Hg) 156 10/16/2014 [facility] Diastolic (mm Hg) 74 10/16/2014 [facility] Systolic (mm Hg) 156 10/16/2014 [facility] Diastolic (mm Hg) 74 10/16/2014 [facility] Systolic (mm Hg) 140 10/16/2014 [facility] Diastolic (mm Hg) 56 10/16/2014 [facility] Height 187.96 cm 10/16/2014 [facility] Weight 113.636 10/16/2014 [facility] BMI Calculated 32.17 10/16/2014 [facility] Encounters Location Location Details Encounter Type Encounter Number Reason For Visit Attending Provider ADM Date DC Date Status Source OD [id number] 719.4 - PAIN IN JOINT NIDIA MORENO 03/24/2011 Active [facility] [place] [facility] - [place] [facility] [id number] 01 Estelle Peterson 12/25/2013 12/26/2013 [facility] [place] [facility] - [place] [facility] [id number] Jhony Carlson 05/02/2014 [facility]03[facility] [id number] Kurt Bowman 10/16/2014 10/16/2014 [facility] Outpatient Imaging - [place] [facility] [id number] 03 Nidia Moreno 04/21/2015 04/22/2015 [facility] [place] [facility] Outpatient Imaging - [place] Out[facility] Diag Services [id number] Nidia Moreno 02/15/2018 02/16/2018 [facility] [place] [facility] Outpatient Imaging - [place] Outpt Diag Services [id number] Julián Carlson 03/20/2018 03/21/2018 [facility] [place] Outpatient [id number] David Ojeda 05/04/2018 05/05/2018 [facility] Observation [id number] Royce Cordova 07/10/2018 07/11/2018 [facility] Emergency [id number] Jennifer Salcedo 06/15/2019 06/16/2019 [facility] Outpatient [id number] Nidia Moreno 07/25/2019 07/26/2019 [facility] Oncology Ph one Message [id number] 08/06/2019 08/08/2019 [facility] Oncology Re curring [id number] Ralph Blackmon 08/10/2019 09/09/2019 [facility] Bedded Outpatient [id number] Ralph Blackmon 09/10/2019 09/10/2019 [facility] HH Infusion Therapy (INFT) Recurring [id number] Ralph Blackmon 09/10/2019 10/10/2019 [facility] [place] Phone Message [id number] 09/26/2019 09/28/2019 [facility] Outpatient [id number] David Moreland Rusty 10/11/2019 10/12/2019 [facility] Procedures Procedure Code Date Perfomer Comments Source Diagnostic bone marrow; biopsy(ies) [id number] 09/10/2019 [facility] Diagnostic bone marrow; biopsy(ies) and aspiration(s) [id number] 09/10/2019 [facility] Biopsy of liver, needle; percutaneous [id number] 07/10/2018 [facility] Catheterisation of right heart [id number] [facility] Renal lithotripsy [id number] [facility], [facility] [place],[facility] Blood transfusion [id number] [facility] Bone marrow biopsy [id number] [facility] Kidney panel [id number] [facility] Assessment and Plan Assessment and Plan Date Source Extracted from:Title: Cardiology Progres s Note Author: Mckay Crabtree MD Date: 07/11/18 Subjective 07/11/2018 11:02 Chief Complaint: Perioperative bradycardia with hypotension Subjective: No acute distress Objective: Hypertensive overnight Vitals Tmp(F) Pulse BP RR SpO2 FIO2 07/11 10:23 ---- 59 180/69 1 8 97 --- 07/11 08:00 98.6 59 187/76 1 8 97 --- 07/11 02:33 98.6 59 181/68 1 8 98 --- 07/10 23:11 98.0 64 185/73 1 7 97 --- 07/10 20:09 98.0 60 174/74 1 8 97 --- 24 Hr Tmax: 98.6F (37.00c) at 07/11 08:0 0 Vital Signs are the last 5 in the past 48 hours. - Physical Exam General Appearance: Asleep, arousable, in no acute distress Head: Normocephalic atraumatic Chest Wall: No retractions Lungs: Nonlabored respirations in room air Heart: Regular rate and regular rhythm, no murmur Abdomen: soft, non-tender Musculoskeletal: No obvious deformity Extremities: no edema Neurologic: Asleep, arousable. Clear speech, aao x 3 - Labs Hct: 35.6 % Low (07/11/18 02:31:00) Hgb: 12.3 g/dL Low (07/11/18 02:31:00) MCH: 30.5 pg (07/11/18 02:31:00) MCHC: 34.5 g/dL (07/11/18 02:31:00) MCV: 88.3 fL (07/11/18 02:31:00) MPV: 7.6 fL (07/11/18 02:31:00) Platelet: 247 K/CMM (07/11/18 02:31:00) RBC: 4.03 M/CMM Low (07/11/18 02:31:00) RDW: 14.9 % High (07/11/18 02:31:00) WBC: 7.5 K/CMM (07/11/18 02:31:00) CO2: 24 mEq/L (07/11/18 02:31:00) CO2: 24 mEq/L (07/11/18 02:31:00) Chloride Lvl: 111 mEq/L High (07/11/18 02:31:00) Chloride Lvl: 111 mEq/L High (07/11/18 02:31:00) Sodium Lvl: 141 mEq/L (07/11/18 02:31:00) Sodium Lvl: 141 mEq/L (07/11/18 02:31:00) Glucose Lvl: 195 mg/dL High (07/11/18 02:31:00) Glucose Lvl: 195 mg/dL High (07/11/18 02:31:00) Calcium Lvl: 8.3 mg/dL Low (07/11/18 02:31:00) Calcium Lvl: 8.3 mg/dL Low (07/11/18 02:31:00) Potassium Lvl: 4.1 mEq/L (07/11/18 02:31:00) Potassium Lvl: 4.1 mEq/L (07/11/18 02:31:00) BUN: 19 mg/dL (07/11/18 02:31:00) BUN: 19 mg/dL (07/11/18 02:31:00) AGAP: 10.1 mEq/L (07/11/18 02:31:00) AGAP: 10.1 mEq/L (07/11/18 02:31:00) Creatinine Lvl: 1.3 mg/dL (07/11/18 02:31:00) Creatinine Lvl: 1.3 mg/dL (07/11/18 02:31:00) - I&O07/11/2018(07:00 - 11:02) Total Ins: 480.00 Total Outs: 0.00 Balance: 480.00 Urine ml/kg/hr: 0.00 (4.04 hrs) 07/10/2018(07:00 - 07:00) Total Ins: 1633.75 Total Outs: 0.00 Balance: 1633.75 Urine ml/kg/hr: 0.00 (24 hrs) - Medications Scheduled Meds (6): 07/11/18 PARoxetine 20 mg PO Daily 07/11/18 allopurinol 300 mg PO Daily 07/11/18 amLODIPine 5 mg PO Daily 07/10/18 atorvastatin 10 mg PO Bedtime 07/11/18 hydrALAZINE (hydrALAZINE 50 mg oral tablet) 50 mg PO BID 07/11/18 olmesartan 40 mg PO Daily - Lines, Tubes, and Drains: Lines, Tubes, and Drains: 07/10/2018 13:25 Peripheral Lines: Antec ubital Left Over the needle catheter - Imaging Studies (last 36 hours) Chest 1view DX 07/10/2018 14:49 Impression: 1. No acute cardiopulmonary abnormality Assessment and Plan: Patient is a 73yo male s/p liver biopsy for aspecific liver enzyme elevation. Patient received sedation with Fentanyl 100mcg and Versed 2mg and became bradycardic (HR 35) and hypotensive (SBP 75) during procedure. He received Narcan and 500ml NS bolus with return of hemodynamic stability. Bradycardia with hypotension - likely secondary to sedation - no further episodes overnight - TTE negative for structural abdnormali ties - resume home BP medication for hyperten pa control - cleared for discharge from cardiology standpoint. Follow up with patient own sales support assistant Admission diagnoses: Hypotension, unspecified (I95.9) Bradycardia, unspecified (R00.1) Abnormal levels of other serum enzymes (R74.8) Essential (primary) hypertension (I10) Gout, unspecified (M10.9) Mckay Crabtree MD Vascular Surgery PGY-1 [facility] [id number] Addendum by Eden Cordova MD on 07/11/2018 15:22 Cardiology Attending I have seen and examined the patient with the resident/fellow. I agree with the assessment and plan. Eden Cordova MD Extracted from:Title: History and Physical Author: Oseas Solomon MD Date: 07/10/18 1.Hypotension(I95.9) resolved 2/2 nikunj-procedural sedation ok to dc IVFs cardiology consulted by IR. suspect 2/2 sedation ECHO read pending monitor on telemetry 2.Bradycardia with 31-40 beats per minute(R00.1) as above holding coreg 3.Abnormal liver enzymes(R74.8) s/p IR guided liver bx f/u with outpatient liver MD I suspect HARRIS, will leave the work up to his outpatient agricultural research technologist Ordered: Admit/Condition, 07/10/18 13:30:00 CDT, Status: Out Patient with Observation Services, Telemetry Capable Location, Location: [facility], Expected LOS: 1 Midnight, Royce Cordova MD, Admit MD Review/Approve Yes, Isolation: No Isolation/Standard Precautions, Abnor... 4.Hypertension(I10) norvasc hydralazine olmesartan holding coreg 5.Gout(M10.9) allopurinol ambulation, scds likely ok to DC home tomorrow morning if ECHO ok and no telemetry events, consider touching base with IR prior to discharge. Extracted from:Title: Cardiology consult Note Author: Mckay Crabtree MD Date: 07/10/18 Patient is a 73yo male s/p liver biopsy for aspecific liver enzyme elevation. Patient received sedation with Fentanyl 100mcg and Versed 2mg and became bradycardic (HR 35)and hypotensive (SBP 75)during procedure. He received Narcan and 500ml NS bolus with return of hemodynamic stability. Cardiology consulted for evaluation. Abnormal liver enzymes(R74.8) - s/p liver biopsy Bradycardia with 31-40 beats per minute(R00.1) - resolved. Hemodynamically stable - EKG shows sinus bradycardia - patient HR around 50s at baseline, on home BBlocker - no electrolyte abnormalities - likely secondary to procedural sedatio n. Patient family reports similar episode at prior nikunj-procedural sedation - pending TTE for structural evaluation Mckay Crabtree MD Vascular Surgery PGY-1 MSO: [id number] Cardiology Attending I have seen and examined the patient with the resident/fellow on 07/10/18. I agree with the assessment and plan. Eden Cordova MD 07/11/2018 [facility] Extracted from:Title: Left heart cathete rization Author: Nkechi Montez MD Date: 10/16/14 DATE OF PROCEDURE: 10/16/14 ATTENDING PHYSICIAN: Dr. Kurt Bowman PROCEDURES PERFORMED: left heart catheterization. INDICATION: Mr. Bergman is a pleasant 69 y/o man with PMH of bradycardia, HTN, DM, GERD, nephrolithiasis, and colonic polyps, who has had senior care bradycardia associated with symptoms of fatigue and intermittent dyspnea. We are doing C to evaluate for underlying CAD as a contributing factor to his bradycardia and symptomatology. PRE-PROCEDURE DIAGNOSIS: bradycardia, HTN POST-PROCEDURE DIAGNOSIS: bradycardia, HTN OPERATORS: 1. Dr. Kurt Bowman, interventional cardiology attending. 2. Dr. Nkechi Montez, radio electronics officer. SYSTEMIC SEDATION: 1 mg Versed, 25 mcg Fentanyl PROCEDURE DETAILS: written informed consent was obtained, and patient was brought to the cardiac catheterization laboratory in a fasting state. A team timeout was performed. The R writw was prepped and draped in the usual sterile fashion. Approximately 5 mL of 1% lidocaine was used over the right wrist for local anesthesia. A micropuncture needle was used to obtain access to the R radial artery, and a 7-[place] sheath was placed via modified Seldinger technique. A 7-Fr tiger catheter was then inserted in sheath and advanced into the the ascending aorta. The left main coronary artery was engaged under fluoroscopic guidance, and coronary angiograms of the left system were performed. The tiger catheter was then torqued to engage the right coronary artery under fluoroscopic guidance. Coronary angiograms of the right sys were performed. The tiger catheter was then removed, and the 7-Fr sheath was removed and TR band placed and inflated to 17 cc. The pt tolerated the procedure well, and there were no immediate complications. ANGIOGRAPHIC FINDINGS: Left Coronary System: luminal irregularities. No angiographically significant disease. Right Coronary System: luminal irregularities. No angiographically significant disease. LVEDP = 11 mmHg COMPLICATIONs: none. Estimated blood loss 5 cc. IMPRESSION: no angiographically significant coronary artery disease. RECOMMENDATION: cont evaluation with EP regarding bradycardia. Nkechi Montez MD #[id number] Division of Cardiovascular Medicine, PGY-4 10/16/2014 [facility] Plan of Care No Data Provided for This Section Social History Social History Date Source Social History TypeResponse Alcohol Never Smoking Status Never smoker; Ready to change: No; Concerns about tobacco use in household: No; Exposure to Tobacco Smoke None; Cigarette Smoking Last 365 Days No; Reg Smoking Cessation Counseling No entered on: 07/10/18 05/04/2018 GIANNA Jean Social History TypeResponse Alcohol Never Smoking Status Never smoker; Ready to change: No; Concerns about tobacco use in household: No; Exposure to Tobacco Smoke None; Cigarette Smoking Last 365 Days No; Reg Smoking Cessation Counseling No entered on: 10/11/19 05/04/2018 [facility] Social History TypeResponse Alcohol Never Smoking Status Never smoker; Ready to change: No; Concerns about tobacco use in household: No; Exposure to Tobacco Smoke None; Cigarette Smoking Last 365 Days No; Reg Smoking Cessation Counseling No entered on: 07/10/18 05/04/2018 [facility] Social History TypeResponse Alcohol Never Smoking Status Never smoker; Ready to change: No; Concerns about tobacco use in household: No; Exposure to Tobacco Smoke None; Cigarette Smoking Last 365 Days No; Reg Smoking Cessation Counseling No entered on: 07/10/18 05/04/2018 [facility] Social History TypeResponse Alcohol Never Smoking Status Never smoker; Ready to change: No; Concerns about tobacco use in household: No; Exposure to Tobacco Smoke None; Cigarette Smoking Last 365 Days No; Reg Smoking Cessation Counseling No entered on: 09/10/19 05/04/2018 [facility] Social History TypeResponse Smoking Status Never smoker; Ready to change: No; Concerns about tobacco use in household: No; Exposure to Tobacco Smoke None; Cigarette Smoking Last 365 Days No; Reg Smoking Cessation Counseling No 10/16/2014 GIANNA Portillo Family History No Data Provided for This Section Advance Directives No Data Provided for This Section Functional Status No Data Provided for This Section
--- OUTSIDE RECORDS SUMMARY | 2019-11-02 19:26 | XMS REPORT | Summary of Care ---
Author Author [facility] Organization [facility] Address Unknown Phone Unavailable Encounter CAROLINE Muller(FIN) [id number] Date(s): 07/25/19 - 07/25/19 [facility] [address] [place] [address]- Discharge Disposition: Home or Self Care Attending [...]
--- OUTSIDE RECORDS SUMMARY | 2019-11-02 19:26 | XMS REPORT | Summary of Care ---
Author Author [facility] Organization [facility] Address Unknown Phone Unavailable Encounter CAROLINE Muller(ARY) [id number] Date(s): 05/04/18 - 05/04/18 [facility] [address] [place] [address]- [facility] [phone] Discharge Disposition: Home or Self Care Attending Physician: David Tena MD Referring Physician: David Tena MD Vital Signs Most recent to 1 oldest [Reference Range]: Height 187.96 cm (05/04/18 1:59 PM) Blood Pressure 169/74 mmHg [90-140/60-90 mmHg] *HI* (05/04/18 1:59 PM) Peripheral Pulse 58 bpm Rate [60-100 bpm] *LOW* (05/04/18 1:59 PM) Weight 105.455 kg (05/04/18 1:59 PM) Body Mass Index 29.85 m2 (05/04/18 1:59 PM) Problem List Condition Effective Dates Status Health Status Informan t Gallstones(Confirmed Resolved ) Bradycardia(Confirme Active d) Diabetes(Confirmed) Active GERD Active (gastroesophageal reflux disease)(Confirmed) Gout(Confirmed) Resolved Hyperlipidemia(Confi Resolved rmed) Hypertension(Confirm Active ed) Hepatitis(Confirmed) Resolved Allergies, Adverse Reactions, Alerts Substance Reaction Severity Status NKDA Active Medications allopurinol 300 mg oral tablet 300 mg = 1 tab, PO, Daily, # 90 tab, 1 Refill(s) Start Date: 05/04/18 Status: Ordered amLODIPine 5 mg oral tablet 5 mg = 1 tab, PO, Daily, # 90 tab, 1 Refill(s) Start Date: 05/04/18 Status: Ordered atorvastatin 10 mg oral tablet 10 mg = 1 tab, PO, Bedtime, # 90 tab, 1 Refill(s) Start Date: 05/04/18 Status: Ordered carvedilol 3.125 mg oral tablet 3.125 mg = 1 tab, PO, BID, # 180 tab, 3 Refill(s) Start Date: 05/04/18 Status: Ordered metFORMIN 750 mg oral tablet, extended release 750 mg = 1 tab, PO, BID-Meals, # 60 tab, 3 Refill(s) Start Date: 05/04/18 Status: Ordered olmesartan 40 mg oral tablet 40 mg = 1 tab, PO, Daily, # 90 tab, 0 Refill(s) Start Date: 05/04/18 Status: Ordered Results ELECTROLYTES Most recent to 1 oldest [Reference Range]: Sodium Lvl [135-145 142 mEq/L mEq/L] (05/04/18 3:38 PM) Potassium Lvl 4.1 mEq/L [3.5-5.1 mEq/L] (05/04/18 3:38 PM) Chloride Lvl [95-109 107 mEq/L mEq/L] (05/04/18 3:38 PM) CO2 [24-32 mEq/L] 30 mEq/L (05/04/18 3:38 PM) AGAP [10.0-20.0 9.1 mEq/L mEq/L] *LOW* (05/04/18 3:38 PM) CHEM PANEL Most recent to 1 oldest [Reference Range]: Creatinine Lvl 1.18 mg/dL [0.50-1.40 mg/dL] (05/04/18 3:38 PM) eGFR 62 mL/min/1.73m2 1 *NA* (05/04/18 3:38 PM) BUN [7-22 mg/dL] 16 mg/dL (05/04/18 3:38 PM) Glucose Lvl [70-99 130 mg/dL mg/dL] *HI* (05/04/18 3:38 PM) Calcium Lvl 8.9 mg/dL [8.5-10.5 mg/dL] (05/04/18 3:38 PM) 1Result Comment: The eGFR is calculated using the [...] from the National Kidney Disease Education Program ( NKDEP) which additionally recommends that when the eGFR is used in patients with extremes of body mass index for purposes of drug dosing, the eGFR should be mul tiplied by the estimated BMI. ANEMIA STUDY Most recent to 1 oldest [Reference Range]: Ferritin Lvl [22-275 286 ng/mL ng/mL] *HI* (05/04/18 3:38 PM) IMMUNOLOGY Most recent to 1 oldest [Reference Range]: SMA Screen Negative [Negative] (05/04/18 3:38 PM) IgG Lvl [694-1618 1160 mg/dL mg/dL] (05/04/18 3:38 PM) Ceruloplasmin [20-60 31 mg/dL mg/dL] (05/04/18 3:38 PM) Hep A Tot [Negative] Negative *NA* (05/04/18 3:38 PM) Hep Bs Ab [<=7.4 <3.1 mIU/mL mIU/mL] (05/04/18 3:38 PM) HEMATOLOGY Most recent to 1 oldest [Reference Range]: WBC [3.7-10.4 K/CMM] 7.1 K/CMM (05/04/18 3:38 PM) RBC [4.70-6.10 4.96 M/CMM M/CMM] (05/04/18 3:38 PM) Hgb [14.0-18.0 g/dL] 14.7 g/dL (05/04/18 3:38 PM) Hct [42.0-54.0 %] 43.2 % (05/04/18 3:38 PM) MCV [80.0-94.0 fL] 87.1 fL (05/04/18 3:38 PM) MCH [27.0-31.0 pg] 29.6 pg (05/04/18 3:38 PM) MCHC [32.0-36.0 34.0 g/dL g/dL] (05/04/18 3:38 PM) RDW [11.5-14.5 %] 15.0 % *HI* (05/04/18 3:38 PM) MPV [7.4-10.4 fL] 8.2 fL (05/04/18 3:38 PM) Platelet [133-450 276 K/CMM K/CMM] (05/04/18 3:38 PM) Segs [45.0-75.0 %] 53.5 % (05/04/18 3:38 PM) Lymphocytes 20.6 % [20.0-40.0 %] (05/04/18 3:38 PM) Monocytes [2.0-12.0 14.8 % %] *HI* (05/04/18 3:38 PM) Eosinophils [0.0-4.0 9.9 % %] *HI* (05/04/18 3:38 PM) Basophils [0.0-1.0 1.2 % %] *HI* (05/04/18 3:38 PM) Neutrophils # 3.8 K/CMM [1.5-8.1 K/CMM] (05/04/18 3:38 PM) Lymphocytes # 1.5 K/CMM [1.0-5.5 K/CMM] (05/04/18 3:38 PM) Monocytes # [0.0-0.8 1.0 K/CMM K/CMM] *HI* (05/04/18 3:38 PM) Eosinophils # 0.7 K/CMM [0.0-0.5 K/CMM] *HI* (05/04/18 3:38 PM) Basophils # [0.0-0.2 0.1 K/CMM K/CMM] (05/04/18 3:38 PM) PT [12.0-14.7 12.5 seconds seconds] (05/04/18 3:38 PM) INR [0.85-1.17] 0.95 (05/04/18 3:38 PM) Immunizations Not Given Vaccine Date Status Refusal [...] Reg Smoking Cessation Counseling No entered on: 05/04/18 Assessment and Plan No data available for this section
--- OUTSIDE RECORDS SUMMARY | 2019-11-02 19:26 | XMS REPORT | Summary of Care ---
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) - Bradycardia, unspecified (Final) - Gout, unspecified (Final) - Hyperlipidemia, unspecified (Final) - Inflammatory liver disease, unspecified (Final) - Hepatomegaly, not elsewhere classified (Final) - Calculus of gallbladder without cholecystitis without obstruction (Final) - Cyst of kidney, acquired (Final) - Calculus of kidney (Final) - Discharge Disposition: Home or Self Care Attending [...] Reactions, Alerts No Known Medication Allergies Medications allopurinol 300 mg oral tablet 300 [...] 1 Refill(s) Start Date: 05/04/18 Status: Ordered azaTHIOprine 50 mg oral tablet 50 mg = 1 tab, PO, Daily, X 30 day, # 30 tab, 3 Refill(s), Pharmacy: [id number] Start Date: 08/05/18 Stop Date: 10/03/18 Status: Completed carvedilol 3.125 mg oral tablet 3.125 mg = 1 tab, PO, BID, # 180 tab, 3 Refill(s) Start Date: 05/04/18 Stop Date: 07/11/18 Status: Discontinued metFORMIN 750 mg oral tablet, extended release 750 mg = 1 tab, PO, BID-Meals, # 60 tab, 3 Refill(s) Start Date: 05/04/18 Status: Ordered olmesartan 40 mg oral tablet 40 mg = 1 tab, PO, Daily, # 90 tab, 0 Refill(s) Start Date: 05/04/18 Status: Ordered predniSONE 5 mg oral tablet 20 mg = 4 tab, PO, Daily, # 360 tab, 3 Refill(s), Pharmacy: [facility] [id number] Start Date: 07/18/18 Stop Date: 07/13/19 Status: Ordered ursodiol 250 mg oral tablet 500 mg = 2 tab, PO, TID, # 540 tab, 3 Refill(s), Pharmacy: [facility] [id number] Start Date: 07/18/18 Stop Date: 07/24/18 Status: Discontinued ursodiol 500 mg oral tablet 500 mg = 1 tab, PO, TID, # 90 tab, 3 Refill(s), Pharmacy: [id number], please discontinue previous RX for Ursodiol. Start Date: 07/24/18 Stop Date: 11/21/18 Status: Ordered Results Most recent to 1 oldest [Reference Range]: Neutrophils # 3.8 K/CMM [1.5-8.1 K/CMM] (05/04/18 3:38 PM) Lymphocytes # 1.5 K/CMM [1.0-5.5 K/CMM] (05/04/18 3:38 PM) Monocytes # [0.0-0.8 1.0 K/CMM K/CMM] *HI* (05/04/18 3:38 PM) Eosinophils # 0.7 K/CMM [0.0-0.5 K/CMM] *HI* (05/04/18 3:38 PM) Basophils # [0.0-0.2 0.1 K/CMM K/CMM] (05/04/18 3:38 PM) eGFR 62 mL/min/1.73m2 1 *NA* (05/04/18 3:38 PM) AGAP [10.0-20.0 9.1 mEq/L mEq/L] *LOW* (05/04/18 3:38 PM) SMA Screen Negative [Negative] (05/04/18 3:38 PM) Basophils [0.0-1.0 1.2 % %] *HI* (05/04/18 3:38 PM) BUN [7-22 mg/dL] 16 mg/dL (05/04/18 3:38 PM) Calcium Lvl 8.9 mg/dL [8.5-10.5 mg/dL] (05/04/18 3:38 PM) Ceruloplasmin [20-60 31 mg/dL mg/dL] (05/04/18 3:38 PM) Chloride Lvl [95-109 107 mEq/L mEq/L] (05/04/18 3:38 PM) CO2 [24-32 mEq/L] 30 mEq/L (05/04/18 3:38 PM) Creatinine Lvl 1.18 mg/dL [0.50-1.40 mg/dL] (05/04/18 3:38 PM) Eosinophils [0.0-4.0 9.9 % %] *HI* (05/04/18 3:38 PM) Ferritin Lvl [22-275 286 ng/mL ng/mL] *HI* (05/04/18 3:38 PM) Glucose Lvl [70-99 130 mg/dL mg/dL] *HI* (05/04/18 3:38 PM) Hep A Tot [Negative] Negative *NA* (05/04/18 3:38 PM) Hep Bs Ab [<=7.4 <3.1 mIU/mL mIU/mL] (05/04/18 3:38 PM) Hct [42.0-54.0 %] 43.2 % (05/04/18 3:38 PM) Hgb [14.0-18.0 g/dL] 14.7 g/dL (05/04/18 3:38 PM) IgG Lvl [694-1618 1160 mg/dL mg/dL] (05/04/18 3:38 PM) INR [0.85-1.17] 0.95 (05/04/18 3:38 PM) Potassium Lvl 4.1 mEq/L [3.5-5.1 mEq/L] (05/04/18 3:38 PM) Lymphocytes 20.6 % [20.0-40.0 %] (05/04/18 3:38 PM) MCH [27.0-31.0 pg] 29.6 pg (05/04/18 3:38 PM) MCHC [32.0-36.0 34.0 g/dL g/dL] (05/04/18 3:38 PM) MCV [80.0-94.0 fL] 87.1 fL (05/04/18 3:38 PM) Monocytes [2.0-12.0 14.8 % %] *HI* (05/04/18 3:38 PM) MPV [7.4-10.4 fL] 8.2 fL (05/04/18 3:38 PM) Sodium Lvl [135-145 142 mEq/L mEq/L] (05/04/18 3:38 PM) Platelet [133-450 276 K/CMM K/CMM] (05/04/18 3:38 PM) Segs [45.0-75.0 %] 53.5 % (05/04/18 3:38 PM) PT [12.0-14.7 12.5 seconds seconds] (05/04/18 3:38 PM) RBC [4.70-6.10 4.96 M/CMM M/CMM] (05/04/18 3:38 PM) RDW [11.5-14.5 %] 15.0 % *HI* (05/04/18 3:38 PM) WBC [3.7-10.4 K/CMM] 7.1 K/CMM (05/04/18 3:38 PM) 1Result Comment: The eGFR [...] be mul tiplied by the estimated BMI. Immunizations Not Given Vaccine Date Status Refusal [...]
--- OUTSIDE RECORDS SUMMARY | 2019-11-02 19:26 | XMS REPORT | Summary of Care ---
Author Author [facility] Organization [facility] Address Unknown Phone Unavailable Encounter CAROLINE Mulelr(ARY) [id number] Date(s): 07/10/18 - 07/11/18 [facility] [address] [employer] provided by [employer] [facility] [employer] [facility] [place] [id number]- Discharge Disposition: Home or Self Care Attending Physician: Royce Cordova MD Referring Physician: David Tena MD Vital Signs 1 2 3 Most recent to oldest [Reference Range]: 187.96 cm (07/10/18 1:40 PM) 187.96 cm (07/10/18 9:32 AM) 187.96 cm (07/10/18 9:24 AM) Height 98.6 DegF (07/11/18 8:00 AM) 98.6 DegF (07/11/18 2:33 AM) 98.0 DegF (07/10/18 11:11 PM) Temperature Oral [96.4-99.1 DegF] 180/69 mmHg *HI* (07/11/18 10:23 AM) 187/76 mmHg *HI* (07/11/18 8:00 AM) 181/68 mmHg *HI* (07/11/18 2:33 AM) Blood Pressure [90-140/60-90 mmHg] 18 BRMIN (07/11/18 10:23 AM) 18 BRMIN (07/11/18 8:00 AM) 18 BRMIN (07/11/18 2:33 AM) Respiratory Rate [14-20 BRMIN] 59 bpm *LOW* (07/11/18 10:23 AM) 59 bpm *LOW* (07/11/18 8:00 AM) 59 bpm *LOW* (07/11/18 2:33 AM) Peripheral Pulse Rate [60-100 bpm] 104.545 kg (07/10/18 1:40 PM) 104.545 kg (07/10/18 9:32 AM) 104.545 kg (07/10/18 9:24 AM) Weight 29.59 m2 (07/10/18 1:40 PM) 29.59 m2 (07/10/18 9:32 AM) 29.59 m2 (07/10/18 9:24 AM) Body Mass Index Problem List Condition Effective Dates Status Health Status Informan t Gallstones(Confirmed Resolved ) Bradycardia(Confirme Active d) Diabetes(Confirmed) Active GERD Active (gastroesophageal reflux disease)(Confirmed) Gout(Confirmed) Resolved Hyperlipidemia(Confi Resolved rmed) Hypertension(Confirm Active ed) Hepatitis(Confirmed) Resolved Allergies, Adverse Reactions, Alerts Substance Reaction Severity Status NKDA Active Medications acetaminophen 650 mg, 2 tab, Route: PO, Drug form: TAB, Q6H, Dosing Weight 104.545, kg, PRN Pa in Score 1-3, Start date: 07/10/18 13:30:00 CDT, Duration: 30 day, Stop date: 13:29:00 CDT Notes: Do not exceed 4 gm/day. (Same as: Tylenol) Start Date: 07/10/18 Stop Date: 07/11/18 Status: Discontinued allantoin/camphor/phenol topical 2 appl, Route: MUCOUS MEM, PRN, Drug form: BALM, PRN Dry Lips, Start date: 07/10 14:05:00 CDT, Duration: 30 day, Stop date: 08/09/18 14:04:00 CDT Notes: Same as: Blistex Start Date: 07/10/18 Stop Date: 07/11/18 Status: Discontinued allopurinol 300 mg, 1 tab, Route: PO, Drug form: TAB, Daily, Dosing Weight 104.545, kg, Star t date: 07/11/18 9:00:00 CDT, Duration: 30 day, Stop date: 08/09/18 9:00:00 CDT Start Date: 07/11/18 Stop Date: 07/11/18 Status: Discontinued amLODIPine 5 mg, 1 tab, Route: PO, Drug form: TAB, Daily, Dosing Weight 104.545, kg, Start date: 07/11/18 9:00:00 CDT, Duration: 30 day, Stop date: 08/09/18 9:00:00 CDT Notes: (Same as: Norvasc) Start Date: 07/11/18 Stop Date: 07/11/18 Status: Discontinued atorvastatin 10 mg, 1 tab, Route: PO, Drug form: TAB, Bedtime, Dosing Weight 104.545, kg, Sta rt date: 07/10/18 21:00:00 CDT, Duration: 30 day, Stop date: 08/08/18 21:00:00 C DT Notes: (Same As: Lipitor) Start Date: 07/10/18 Stop Date: 07/11/18 Status: Discontinued Benadryl Maximum Strength 2% topical cream 1 appl, Route: TOP, QID, Drug form: CRM, PRN as needed for itching, Start date: 07/10/18 13:30:00 CDT, Duration: 30 day, Stop date: 08/09/18 13:29:00 CDT Start Date: 07/10/18 Stop Date: 07/11/18 Status: Discontinued Blistex Lip [place] Route: MISC, Dosing Weight 104.545, kg, PRN, PRN Dry Lips, Start date: 07/10/18 13:30:00 CDT, Duration: 30 day, Stop date: 08/09/18 13:29:00 CDT Start Date: 07/10/18 Stop Date: 07/10/18 Status: Deleted Calmoseptine topical ointment 1 appl, Route: TOP, Drug Form: OINT, Dosing Weight 104.545, kg, 5X Day, PRN Woun d Care, Start date: 07/10/18 13:30:00 CDT Start Date: 07/10/18 Stop Date: 07/11/18 Status: Discontinued carvedilol 3.125 mg, Route: PO, Drug form: TAB, BID, Dosing Weight 104.545, kg, Start date: 07/11/18 9:00:00 CDT, Duration: 30 day, Stop date: 08/09/18 17:00:00 CDT Start Date: 07/11/18 Stop Date: 07/10/18 Status: Canceled Cepacol Sore Throat 15 mg-3.6 mg mucous membrane lozenge 1 lozenge, Route: MUCOUS MEM, Drug Form: SHANNON, Dosing Weight 104.545, kg, Q2H, VT N Sore Throat, Start date: 07/10/18 13:30:00 CDT, Duration: 30 day, Stop date: 0 08/09/18 13:29:00 CDT Start Date: 07/10/18 Stop Date: 07/11/18 Status: Discontinued Compazine 10 mg, 2 mL, Route: IV, Drug form: INJ, Q6H, Dosing Weight 104.545, kg, PRN Naus ea & Vomiting, Start date: 07/10/18 13:30:00 CDT, Duration: 30 day, Stop date: 08/09/18 13:29:00 CDT Notes: (Same as: Compazine) Start Date: 07/10/18 Stop Date: 07/11/18 Status: Discontinued Coreg 3.125 mg oral tablet 3.125 mg = 1 tab, PO, BID, # 60 tab, 0 Refill(s) Start Date: 07/11/18 Status: Ordered Dextrose 50% Syringe 25 gm, 50 mL, Route: IVP, Drug Form: INJ, Dosing Weight 104.545, kg, PRN, PRN Bl ood Glucose Results, Start date: 07/10/18 13:30:00 CDT, Duration: 30 day, Stop d ate: 08/09/18 13:29:00 CDT Start Date: 07/10/18 Stop Date: 07/11/18 Status: Discontinued Dextrose 50% Syringe 12.5 gm, 25 mL, Route: IVP, Drug Form: INJ, Dosing Weight 104.545, kg, PRN, PRN Blood Glucose Results, Start date: 07/10/18 13:30:00 CDT, Duration: 30 day, Stop date: 08/09/18 13:29:00 CDT Start Date: 07/10/18 Stop Date: 07/11/18 Status: Discontinued docusate 200 mg, 2 cap, Route: PO, Drug form: CAP, BID, Dosing Weight 104.545, kg, PRN as needed for constipation, Start date: 07/10/18 13:30:00 CDT, Duration: 30 day, S top date: 08/09/18 13:29:00 CDT Start Date: 07/10/18 Stop Date: 07/11/18 Status: Discontinued fentaNYL 50 microgram, Route: IV, ONCE, Dosing Weight 104.545, kg, Start date: 07/10/18 1 0:45:00 CDT, Stop date: 07/10/18 10:45:00 CDT Start Date: 07/10/18 Stop Date: 07/10/18 Status: Completed fentaNYL 50 microgram, Route: IV, ONCE, Dosing Weight 104.545, kg, Start date: 07/10/18 1 0:40:00 CDT, Stop date: 07/10/18 10:40:00 CDT Start Date: 07/10/18 Stop Date: 07/10/18 Status: Completed Flonase 0.05 mg/inh nasal spray 2 spray, Route: NASAL, Drug Form: SPRY, Dosing Weight 104.545, kg, Daily, PRN Al raeann, Start date: 07/10/18 13:30:00 CDT, Duration: 30 day, Stop date: 9 13:29:00 CDT Start Date: 07/10/18 Stop Date: 07/11/18 Status: Discontinued glucagon 1 mg, Route: IM, Drug form: PDR/INJ, PRN, Dosing Weight 104.545, kg, PRN Blood G lucose Results, Start date: 07/10/18 13:30:00 CDT, Duration: 30 day, Stop date: 08/09/18 13:29:00 CDT Start Date: 07/10/18 Stop Date: 07/11/18 Status: Discontinued hydrALAZINE 50 mg oral tablet 50 mg, 1 tab, Route: PO, Drug form: TAB, BID, Dosing Weight 104.545, kg, Start d ate: 07/11/18 9:00:00 CDT, Duration: 30 day, Stop date: 08/09/18 17:00:00 CDT Start Date: 07/11/18 Stop Date: 07/11/18 Status: Discontinued lidocaine 1% 5 mL, Route: INTRADERM, Dosing Weight 104.545, kg, ONCE, Start date: 07/10/18 10 :48:00 CDT, Stop date: 07/10/18 10:48:00 CDT Start Date: 07/10/18 Stop Date: 07/10/18 Status: Completed Lubricant Eye Drops ophthalmic solution 1 drp, Route: Each Affected Eye, QID, Drug form: SOLN, PRN Dry Eyes, Start date: 07/10/18 13:30:00 CDT, Duration: 30 day, Stop date: 08/09/18 13:29:00 CDT Notes: (Same as: Aquasite) Start Date: 07/10/18 Stop Date: 07/11/18 Status: Discontinued melatonin 3 mg, 1 tab, Route: PO, Drug form: TAB, Bedtime, Dosing Weight 104.545, kg, PRN Insomnia, Start date: 07/10/18 13:30:00 CDT, Duration: 30 day, Stop date: 13:29:00 CDT Notes: (Same as: Melatonin) Start Date: 07/10/18 Stop Date: 07/11/18 Status: Discontinued midazolam 1 mg, Route: IV, ONCE, Dosing Weight 104.545, kg, Start date: 07/10/18 10:45:00 CDT, Stop date: 07/10/18 10:45:00 CDT Start Date: 07/10/18 Stop Date: 07/10/18 Status: Completed midazolam 1 mg, Route: IV, ONCE, Dosing Weight 104.545, kg, Start date: 07/10/18 10:40:00 CDT, Stop date: 07/10/18 10:40:00 CDT Start Date: 07/10/18 Stop Date: 07/10/18 Status: Completed naproxen 500 mg, 1 tab, Route: PO, Drug form: TAB, BID, Dosing Weight 104.545, kg, PRN Pa in Score 1-3, Start date: 07/10/18 13:30:00 CDT, Duration: 30 day, Stop date: 13:29:00 CDT Start Date: 07/10/18 Stop Date: 07/11/18 Status: Discontinued Narcan 0.4 mg, 1 mL, Route: IVP, Drug form: INJ, PRN, Dosing Weight 104.545, kg, PRN Na rcotic Reversal, Start date: 07/10/18 11:40:00 CDT, Duration: 30 day, Stop date: 08/09/18 11:39:00 CDT Start Date: 07/10/18 Stop Date: 07/11/18 Status: Discontinued Nasal Saline 0.65% solution 2 spray, Route: NASAL, Q2H, Drug form: SOLN, PRN Nasal Congestion, Start date: 0 07/10/18 13:30:00 CDT, Duration: 30 day, Stop date: 08/09/18 13:29:00 CDT Start Date: 07/10/18 Stop Date: 07/11/18 Status: Discontinued [place] 5/325 oral tablet 1 tab, Route: PO, Drug Form: TAB, Dosing Weight 104.545, kg, Q4H, PRN Pain Score 4-6, Start date: 07/10/18 13:30:00 CDT, Duration: 30 day, Stop date: 08/09/18 1 3:29:00 CDT Notes: (Same as: [place] 325/5) Do not exceed 4gm/day of acetaminophen. Start Date: 07/10/18 Stop Date: 07/11/18 Status: Discontinued normal saline 0.9% IV 1,000 mL 1,000 mL, Rate: 75 ml/hr, Infuse over: 13.3 hr, Route: IV, Dosing Weight 104.545 kg, Total Volume: 1,000, Start date: 07/10/18 13:30:00 CDT, Duration: 30 day, S top date: 08/09/18 13:29:00 CDT, 2.35, m2 Start Date: 07/10/18 Stop Date: 07/10/18 Status: Discontinued NS (Bolus) IV Route: IV, ONCE, Dosing Weight 104.545 kg, Start date: 07/10/18 11:54:00 CDT, St op date: 07/10/18 11:54:00 CDT Start Date: 07/10/18 Stop Date: 07/10/18 Status: Completed olmesartan 40 mg, 2 tab, Route: PO, Drug form: TAB, Daily, Dosing Weight 104.545, kg, Start date: 07/11/18 9:00:00 CDT, Duration: 30 day, Stop date: 08/09/18 9:00:00 CDT Start Date: 07/11/18 Stop Date: 07/11/18 Status: Discontinued ondansetron 4 mg, 2 mL, Route: IVP, Drug form: INJ, Q4H, Dosing Weight 104.545, kg, PRN Naus ea & Vomiting, Start date: 07/10/18 13:30:00 CDT, Duration: 30 day, Stop date: 08/09/18 13:29:00 CDT Notes: (Same as: Zoan) MEDICATION WASTE Product Size: 4 mgProduct Was sean: ___ mg Start Date: 07/10/18 Stop Date: 07/11/18 Status: Discontinued PARoxetine 20 mg, 1 tab, Route: PO, Drug form: TAB, Daily, Dosing Weight 104.545, kg, Start date: 07/11/18 9:00:00 CDT, Duration: 30 day, Stop date: 08/09/18 9:00:00 CDT Notes: (Same as: Paxil) Start Date: 07/11/18 Stop Date: 07/11/18 Status: Discontinued polyethylene glycol 3350 17 gm, 1 pkt, Route: PO, Drug form: PWDR, BID, Dosing Weight 104.545, kg, PRN Co nstipation, Start date: 07/10/18 13:30:00 CDT, Duration: 30 day, Stop date: 11/20 13:29:00 CDT Start Date: 07/10/18 Stop Date: 07/11/18 Status: Discontinued Robitussin-DM 10 ml, Route: PO, Drug Form: SYRP, Dosing Weight 104.545, kg, Q8H, PRN as needed for cough, Start date: 07/10/18 13:30:00 CDT, Duration: 30 day, Stop date: 11/20 13:29:00 CDT Start Date: 07/10/18 Stop Date: 07/11/18 Status: Discontinued senna 17.2 mg, 2 tab, Route: PO, Drug Form: TAB, Dosing Weight 104.545, kg, BID, PRN a s needed for constipation, Start date: 07/10/18 13:30:00 CDT, Duration: 30 day, Stop date: 08/09/18 13:29:00 CDT Start Date: 07/10/18 Stop Date: 07/11/18 Status: Discontinued Tums 500 mg, 1 tab, Route: CHEW, Drug form: CHEWTAB, TID, Dosing Weight 104.545, kg, PRN Indigestion, Start date: 07/10/18 13:30:00 CDT, Duration: 30 day, Stop date: 08/09/18 13:29:00 CDT Notes: Calcium Carbonate 500 mg = 200 mg elemental calcium Dose = mg c alcium carbonate ( mg elemental calcium) Start Date: 07/10/18 Stop Date: 07/11/18 Status: Discontinued Results ELECTROLYTES 1 2 3 Most recent to oldest [Reference Range]: 141 mEq/L (07/11/18 2:31 AM) 141 mEq/L (07/11/18 2:31 AM) 139 mEq/L (07/10/18 9:31 AM) Sodium Lvl [135-145 mEq/L] 4.1 mEq/L (07/11/18 2:31 AM) 4.1 mEq/L (07/11/18 2:31 AM) 4.1 mEq/L (07/10/18 9:31 AM) Potassium Lvl [3.5-5.1 mEq/L] 111 mEq/L *HI* (07/11/18 2:31 AM) 111 mEq/L *HI* (07/11/18 2:31 AM) 108 mEq/L (07/10/18 9:31 AM) Chloride Lvl [95-109 mEq/L] 24 mEq/L (07/11/18 2:31 AM) 24 mEq/L (07/11/18 2:31 AM) 24 mEq/L (07/10/18 9:31 AM) CO2 [24-32 mEq/L] 10.1 mEq/L (07/11/18 2:31 AM) 10.1 mEq/L (07/11/18 2:31 AM) 11.1 mEq/L (07/10/18 9:31 AM) AGAP [10.0-20.0 mEq/L] CHEM PANEL 1 2 3 Most recent to oldest [Reference Range]: 1.30 mg/dL (07/11/18 2:31 AM) 1.30 mg/dL (07/11/18 2:31 AM) 1.13 mg/dL (07/10/18 9:31 AM) Creatinine Lvl [0.50-1.40 mg/dL] 55 mL/min/1.73m2 1 *NA* (07/11/18 2:31 AM) 55 mL/min/1.73m2 2 *NA* (07/11/18 2:31 AM) 65 mL/min/1.73m2 3 *NA* (07/10/18 9:31 AM) eGFR 19 mg/dL (07/11/18 2:31 AM) 19 mg/dL (07/11/18 2:31 AM) 18 mg/dL (07/10/18 9:31 AM) BUN [7-22 mg/dL] 15 (07/11/18 2:31 AM) 16 (07/10/18 9:31 AM) B/C Ratio [6-25] 195 mg/dL *HI* (07/11/18 2:31 AM) 195 mg/dL *HI* (07/11/18 2:31 AM) 198 mg/dL *HI* (07/10/18 9:31 AM) Glucose Lvl [70-99 mg/dL] 6.2 g/dL *LOW* (07/11/18 2:31 AM) 7.4 g/dL (07/10/18 9:31 AM) Total Protein [6.4-8.4 g/dL] 2.6 g/dL *LOW* (07/11/18 2:31 AM) 3.0 g/dL *LOW* (07/10/18 9:31 AM) Albumin Lvl [3.5-5.0 g/dL] 3.6 g/dL (07/11/18 2:31 AM) 4.4 g/dL *HI* (07/10/18 9:31 AM) Globulin [2.7-4.2 g/dL] 0.7 (07/11/18 2:31 AM) 0.7 (07/10/18 9:31 AM) A/G Ratio [0.7-1.6] 8.3 mg/dL *LOW* (07/11/18 2:31 AM) 8.3 mg/dL *LOW* (07/11/18 2:31 AM) 9.0 mg/dL (07/10/18 9:31 AM) Calcium Lvl [8.5-10.5 mg/dL] 68 unit/L *HI* (07/11/18 2:31 AM) 85 unit/L *HI* (07/10/18 9:31 AM) ALT [0-65 unit/L] 63 unit/L *HI* (07/11/18 2:31 AM) 79 unit/L *HI* (07/10/18 9:31 AM) AST [0-37 unit/L] 221 unit/L *HI* (07/11/18 2:31 AM) 267 unit/L *HI* (07/10/18 9:31 AM) Alk Phos [39-136 unit/L] 0.3 mg/dL (07/11/18 2:31 AM) 0.5 mg/dL (07/10/18 9:31 AM) Bili Total [0.2-1.3 mg/dL] 0.1 mg/dL (07/11/18 2:31 AM) Bili Direct [0.0-0.3 mg/dL] 1Result Comment: The eGFR is calculated using [...] be mul tiplied by the estimated BMI. 2Result Comment: The eGFR is calculated using the [...] be mul tiplied by the estimated BMI. 3Result Comment: The eGFR is calculated using the [...] be mul tiplied by the estimated BMI. HEMATOLOGY 1 2 3 Most recent to oldest [Reference Range]: 7.5 K/CMM (07/11/18 2:31 AM) 9.2 K/CMM (07/10/18 9:31 AM) WBC [3.7-10.4 K/CMM] 4.03 M/CMM *LOW* (07/11/18 2:31 AM) 4.77 M/CMM (07/10/18 9:31 AM) RBC [4.70-6.10 M/CMM] 12.3 g/dL *LOW* (07/11/18 2:31 AM) 14.4 g/dL (07/10/18 9:31 AM) Hgb [14.0-18.0 g/dL] 35.6 % *LOW* (07/11/18 2:31 AM) 41.5 % *LOW* (07/10/18 9:31 AM) Hct [42.0-54.0 %] 88.3 fL (07/11/18 2:31 AM) 87.1 fL (07/10/18 9:31 AM) MCV [80.0-94.0 fL] 30.5 pg (07/11/18 2:31 AM) 30.1 pg (07/10/18 9:31 AM) MCH [27.0-31.0 pg] 34.5 g/dL (07/11/18 2:31 AM) 34.6 g/dL (07/10/18 9:31 AM) MCHC [32.0-36.0 g/dL] 14.9 % *HI* (07/11/18 2:31 AM) 14.9 % *HI* (07/10/18 9:31 AM) RDW [11.5-14.5 %] 7.6 fL (07/11/18:31 AM) 7.7 fL (07/10/18 9:31 AM) MPV [7.4-10.4 fL] 247 K/CMM (07/11/18 2:31 AM) 292 K/CMM (07/10/18 9:31 AM) Platelet [133-450 K/CMM] 49.3 % (07/11/18 2:31 AM) Segs [45.0-75.0 %] 23.6 % (07/11/18 2:31 AM) Lymphocytes [20.0-40.0 %] 16.4 % *HI* (07/11/18 2:31 AM) Monocytes [2.0-12.0 %] 9.2 % *HI* (07/11/18 2:31 AM) Eosinophils [0.0-4.0 %] 1.5 % *HI* (07/11/18 2:31 AM) Basophils [0.0-1.0 %] 3.7 K/CMM (07/11/18 2:31 AM) Neutrophils # [1.5-8.1 K/CMM] 1.8 K/CMM (07/11/18 2:31 AM) Lymphocytes # [1.0-5.5 K/CMM] 1.2 K/CMM *HI* (07/11/18 2:31 AM) Monocytes # [0.0-0.8 K/CMM] 0.7 K/CMM *HI* (07/11/18 2:31 AM) Eosinophils # [0.0-0.5 K/CMM] 0.1 K/CMM (07/11/18 2:31 AM) Basophils # [0.0-0.2 K/CMM] 12.1 seconds (07/10/18 9:31 AM) PT [12.0-14.7 seconds] 0.91 (07/10/18 9:31 AM) INR [0.85-1.17] 34.3 seconds (07/10/18 9:31 AM) PTT [22.9-35.8 seconds] Immunizations Not Given Vaccine Date Status Refusal Reason pneumococcal 23-valent vaccine 10/16/14 Not Given Parent Or Guardian Refuses Procedures Procedure Date Related Diagnosis Body Site Status Biopsy of liver, needle; percutaneous 07/10/18 Completed Catheterisation of right heart Completed Renal lithotripsy Completed Social History Social History Type Response Alcohol Never Smoking Status Never smoker; Ready to muhammad ge: No; Concerns about tobacco use in household: No; Exposure to Tobacco Smoke None; Cig arette Smoking Last 365 Days No; Reg Smoking Cessation Counseling No entered on: 07/10/18 Assessment and Plan Extracted from: Title: Cardiology Progress Note Author: Mckay Crabtree MD Date: 07/11/18 Subjective 07/11/2018 11:02 Chief Complaint: Perioperative bradycardia with hypotension Subjective: No acute distress Objective: Hypertensive overnight VitalsTmp(F)[id number] 07/11 10:23----[id number]--- 07/11 08:[id number]/[id number]--- 07/11 02:3398.321989/159520--- 07/10 23:[id number]--- 07/10 20:[id number]--- 24 Hr Tmax: 98.6F (37.00c) at 07/11 08:0 0Vital Signs are the last 5 in the [...] 3 - Labs Hct: 35.6 % Low (04/09/19 02:31:00) Hgb: 12.3 g/dL Low (07/11/18 02:31:00) MCH: 30.5 pg (07/11/18:31:00) MCHC: 34.5 g/dL (07/11/18 02:31:00) MCV: 88.3 fL (07/11/18 02:31:00) MPV: 7.6 fL (07/11/18:31:00) Platelet: 247 K/CMM (07/11/18 02:31:00) RBC: 4.03 M/CMM Low (07/11/18 02:31:00) RDW: 14.9 % High (07/11/18:31:00) WBC: 7.5 K/CMM (07/11/18 02:31:00) CO2: 24 mEq/L (07/11/18:31:00) CO2: 24 mEq/L (07/11/18:31:00) Chloride Lvl: 111 mEq/L High (07/11/18 02:31:00) [...] Impression: 1. No acute cardiopulmonary abnormality Assessment & Plan: Patient is a 73yo male s/p [...] cardiology standpoint. 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 I agree with the Eden assessment and plan. Anselmo Cordova MD on 07/11/2018 15:22 Extracted from: Title: History and Physical Author: Oseas Solomon Date: 07/10/18 1.Hypotension(I95.9) resolved 2/2 nikunj-procedural sedation ok to dc IVFs cardiology consulted by IR. suspect 2/2 sedation ECHO read pending monitor on telemetry 2.Bradycardia with 31-40 beats per minute(R00.1) as above holding coreg 3.Abnormal liver enzymes(R74.8) s/p IR guided liver bx f/u with outpatient liver MD I suspect HARRIS, will leave the work up to his outpatient research analyst Ordered: Admit/Condition, 07/10/18 13:30:00 CDT, Status: Out Patient with Observation Services, Telemetry Capable Location, Location: [facility], Expected LOS: 1 Midnight, Royce Cordova MD, Admit MD Review/Approve Yes, Isolation: No Isolation/Standard Precautions, Abnor... 4.Hypertension(I10) norvasc hydralazine olmesartan holding coreg 5.Gout(M10.9) allopurinol ambulation, scds likely ok to DC home tomorrow morning if ECHO ok and no telemetry events, consider touching base with IR prior to discharge. Extracted from: Title: Cardiology consult Note Author: Mckay Crabtree MD [...] Mckay Crabtree MD Vascular Surgery PGY-1 MSO: [id number] Cardiology Attending I have seen and examined the patient with the resident/fellow on 07/10/18. I agree with the assessment and plan. [place] Cordova MD
--- OUTSIDE RECORDS SUMMARY | 2019-11-02 19:26 | XMS REPORT | Summary of Care ---
Author Author [facility] Organization [facility] Address Unknown Phone Unavailable Encounter CAROLINE Muller(ARY) [id number] Date(s): 09/10/19 - 10/09/19 [id number] [place] [address]- [phone] Discharge Disposition: Home or Self Care Attending Physician: Ralph Blackmon MD Referring Physician: Ralph Blackmon MD Vital Signs 1 2 3 Most recent to oldest [Reference Range]: 187 cm (09/10/19 1:33 PM) Height 98 DegF (09/10/19 5:20 PM) 98 DegF (09/10/19 4:05 PM) 98.2 DegF (09/10/19 3:50 PM) Temperature Oral [96.4-99.1 DegF] 166/73 mmHg *HI* (09/10/19 5:20 PM) 163/72 mmHg *HI* (09/10/19 4:05 PM) 165/75 mmHg *HI* (09/10/19 3:50 PM) Blood Pressure [90-140/60-90 mmHg] 18 BRMIN (09/10/19 5:20 PM) 18 BRMIN (09/10/19 4:05 PM) 18 BRMIN (09/10/19 3:50 PM) Respiratory Rate [14-20 BRMIN] 57 bpm *LOW* (09/10/19 5:20 PM) 60 bpm (09/10/19 4:05 PM) 58 bpm *LOW* (09/10/19 3:50 PM) Peripheral Pulse Rate [60-100 bpm] 104.3 kg (09/10/19 1:33 PM) Weight 29.83 m2 (09/10/19 1:33 PM) Body Mass Index Problem List Condition Effective Dates Status Health Status Informan t Gallstones(Confirmed Resolved ) Bradycardia(Confirme Active d) Diabetes(Confirmed) Active GERD Active (gastroesophageal reflux disease)(Confirmed) Gout(Confirmed) Resolved Hyperlipidemia(Confi Resolved rmed) Hypertension(Confirm Active ed) Hepatitis(Confirmed) Resolved Folic acid Resolved deficiency anemia(Confirmed) Allergies, Adverse Reactions, Alerts No Known Medication Allergies Medications Benadryl 25 mg, 0.5 mL, Route: IVP, Drug form: INJ, ONCALL, Start date: 09/10/19 14:00:00 CDT, Duration: 1 doses or times, Stop date: 09/10/19 21:00:00 CDT, 0 Notes: (Same as: Benadryl) Start Date: 09/10/19 Stop Date: 09/10/19 Status: Completed Results No data available for this section Immunizations Not Given Vaccine Date Status Refusal Reason pneumococcal 23-valent vaccine 10/16/14 Not Given Parent Or Guardian Refuses Procedures Procedure Date Related Diagnosis Body Site Status Blood transfusion Completed Bone marrow biopsy Completed Catheterisation of right heart Completed Kidney panel Completed Renal lithotripsy Completed Social History Social History Type Response Alcohol Never Smoking Status Never smoker; Ready to muhammad ge: No; Concerns about tobacco use in household: No; Exposure to Tobacco Smoke None; Cig arette Smoking Last 365 Days No; Reg Smoking Cessation Counseling No entered on: 10/11/19 Assessment and Plan No data available for this section
--- OUTSIDE RECORDS SUMMARY | 2019-11-02 19:26 | XMS REPORT | Summary of Care ---
Author Author [facility] Organization [facility] Address Unknown Phone Unavailable Encounter CAROLINE Muller(FIN) [id number] Date(s): 06/15/19 - 06/15/19 [facility] [address] [employer] provided by [facility] [employer] [facility] [place] [address]- Encounter Diagnosis Pre-syncope (Discharge Diagnosis) - 06/15/19 Discharge Disposition: Home or Self Care Attending Physician: Maria Elena Do MD Admitting Physician: Jeff Andrew MD Referring Physician: Jennifer Salcedo MD Vital Signs 1 2 3 Most recent to oldest [Reference Range]: 187.96 cm (06/15/19 3:48 PM) Height 98.3 DegF (06/15/19 10:29 PM) 98.3 DegF (06/15/19 7:05 PM) 98 DegF (06/15/19 3:48 PM) Temperature Oral [96.4-99.1 DegF] 186/69 mmHg *HI* (06/15/19 10:29 PM) 169/79 mmHg *HI* (06/15/19 7:05 PM) 165/68 mmHg *HI* (06/15/19 3:48 PM) Blood Pressure [90-140/60-90 mmHg] 20 BRMIN (06/15/19 10:29 PM) 20 BRMIN (06/15/19 7:05 PM) 20 BRMIN (06/15/19 3:48 PM) Respiratory Rate [14-20 BRMIN] 59 bpm *LOW* (06/15/19 10:29 PM) 58 bpm *LOW* (06/15/19 7:05 PM) 59 bpm *LOW* (06/15/19 3:48 PM) Peripheral Pulse Rate [60-100 bpm] 104.545 kg (06/15/19 3:48 PM) Weight 29.59 m2 (06/15/19 3:48 PM) Body Mass Index Problem List Condition Effective Dates Status Health Status Informan t Gallstones(Confirmed Resolved ) Bradycardia(Confirme Active d) Diabetes(Confirmed) Active GERD Active (gastroesophageal reflux disease)(Confirmed) Gout(Confirmed) Resolved Hyperlipidemia(Confi Resolved rmed) Hypertension(Confirm Active ed) Hepatitis(Confirmed) Resolved Allergies, Adverse Reactions, Alerts No Known Medication Allergies Medications Isolyte S PH-7.4 (Bolus) IV 1,000 mL, 1,000 ml/hr, Infuse Over: 1 hr, Route: IV, ONCE, Dosing Weight 104.545 kg, Start date: 06/15/19 20:18:00 CDT, Stop date: 06/15/19 20:18:00 CDT Start Date: 06/15/19 Stop Date: 06/15/19 Status: Completed Results Most recent to 1 oldest [Reference Range]: Neutrophils # 3.5 K/CMM [1.5-8.1 K/CMM] (06/15/19 6:28 PM) Lymphocytes # 0.9 K/CMM [1.0-5.5 K/CMM] *LOW* (06/15/19 6:28 PM) Monocytes # [0.0-0.8 0.5 K/CMM K/CMM] (06/15/19 6:28 PM) Eosinophils # 0.1 K/CMM [0.0-0.5 K/CMM] (06/15/19 6:28 PM) Basophils # [0.0-0.2 0.1 K/CMM K/CMM] (06/15/19 6:28 PM) Bili Indirect 0.6 mg/dL [0.0-1.0 mg/dL] (06/15/19 6:28 PM) eGFR 43 mL/min/1.73m2 1 *NA* (06/15/19 6:28 PM) A/G Ratio [0.7-1.6] 0.8 (06/15/19 6:28 PM) Albumin Lvl [3.5-5.0 2.8 g/dL g/dL] *LOW* (06/15/19 6:28 PM) Alk Phos [39-136 175 unit/L unit/L] *HI* (06/15/19 6: PM) ALT [0-65 unit/L] 16 unit/L (06/15/19: PM) AGAP [10.0-20.0 10.3 mEq/L mEq/L] (06/15/19 6:28 PM) Anisocyte [None 1+ Seen] *ABN* (06/15/19 PM) AST [0-37 unit/L] 23 unit/L (06/15/19: PM) Basophils [0.0-1.0 1.4 % %] *HI* (06/15/19 PM) BUN [7-22 mg/dL] 18 mg/dL (06/15/19 PM) Calcium Lvl 8.8 mg/dL [8.5-10.5 mg/dL] (06/15/19: PM) Chloride Lvl [95-109 108 mEq/L mEq/L] (06/15/19 PM) CO2 [24-32 mEq/L] 24 mEq/L (06/15/19: PM) Creatinine Lvl 1.57 mg/dL [0.50-1.40 mg/dL] *HI* (06/15/19: PM) Bili Direct [0.0-0.3 0.2 mg/dL mg/dL] (06/15/19: PM) Eosinophils [0.0-4.0 1.5 % %] (06/15/19 PM) Globulin [2.7-4.2 3.4 g/dL g/dL] (06/15/19 PM) Glucose Lvl [70-99 154 mg/dL mg/dL] *HI* (06/15/19: PM) Hct [42.0-54.0 %] 30.9 % *LOW* (06/15/19 PM) Hgb [14.0-18.0 g/dL] 11.0 g/dL *LOW* (06/15/19 PM) Potassium Lvl 4.3 mEq/L [3.5-5.1 mEq/L] (06/15/19 6:28 PM) Lymphocytes 18.2 % [20.0-40.0 %] *LOW* (06/15/19:28 PM) Macrocyte [None 1+ Seen] *ABN* (06/15/19:28 PM) MCH [27.0-31.0 pg] 36.2 pg *HI* (06/15/19:28 PM) MCHC [32.0-36.0 35.5 g/dL g/dL] (06/15/19 6:28 PM) MCV [80.0-94.0 fL] 102.0 fL *HI* (06/15/19: PM) Monocytes [2.0-12.0 9.8 % %] (06/15/19 PM) MPV [7.4-10.4 fL] 7.0 fL *LOW* (06/15/19: PM) Sodium Lvl [135-145 138 mEq/L mEq/L] (06/15/19: PM) Platelet [133-450 241 K/CMM K/CMM] (06/15/19 6:28 PM) Segs [45.0-75.0 %] 69.1 % (06/15/19 6: PM) Total Protein 6.2 g/dL [6.4-8.4 g/dL] *LOW* (06/15/19:28 PM) RBC [4.70-6.10 3.03 M/CMM M/CMM] *LOW* (06/15/19: PM) RDW [11.5-14.5 %] 21.1 % *HI* (06/15/19 6:28 PM) Bili Total [0.2-1.3 0.8 mg/dL mg/dL] (06/15/19 6:28 PM) WBC [3.7-10.4 K/CMM] 5.1 K/CMM (06/15/19 6:28 PM) 1Result Comment: The eGFR is calculated [...]
--- OUTSIDE RECORDS SUMMARY | 2019-11-02 19:26 | XMS REPORT | Summary of Care ---
Author Author [facility] Outpatient Imaging - [facility] Organization [facility] Outpatient Imaging [facility] Address Unknown Phone Unavailable Encounter HQ Renzo(FIN) [id number] Date(s): 03/20/18 - 03/20/18 [facility] Outpatient Imaging [facility] [address], [address] [place] [phone] Encounter Diagnosis Abnormal results of liver function studies (Final) - 03/24/18 Discharge Disposition: Home or Self Care Attending Physician: Jhony Carlson MD Referring Physician: Jhony Carlson MD Vital Signs No data available for [...]
--- OUTSIDE RECORDS SUMMARY | 2019-11-02 19:26 | XMS REPORT | Summary of Care ---
Author Author [facility] Organization [facility] Address Unknown Phone Unavailable Encounter CAROLINE Muller(ARY) [id number] Date(s): 10/11/19 - 10/11/19 [facility] [address] [place] [phone]- Discharge Disposition: Home or Self Care Attending Physician: David Tena MD Referring Physician: David Tena MD Vital Signs Most recent to 1 oldest [Reference Range]: Height 187.96 cm (10/11/19 12:29 PM) Blood Pressure 162/60 mmHg [90-140/60-90 mmHg] *HI* (10/11/19 12:29 PM) Peripheral Pulse 57 bpm Rate [60-100 bpm] *LOW* (10/11/19 12:29 PM) Weight 103.295 kg (10/11/19 12:29 PM) Body Mass Index 29.24 m2 (10/11/19 12:29 PM) Problem List Condition Effective Dates Status Health Status Informan t Gallstones(Confirmed Resolved ) Bradycardia(Confirme Active d) Diabetes(Confirmed) Active GERD Active (gastroesophageal reflux disease)(Confirmed) Gout(Confirmed) Resolved Hyperlipidemia(Confi Resolved rmed) Hypertension(Confirm Active ed) Hepatitis(Confirmed) Resolved Folic acid Resolved deficiency anemia(Confirmed) Allergies, Adverse Reactions, Alerts No Known Medication Allergies Medications Cod Liver Oil PO, Daily, 0 Refill(s) Start Date: 10/11/19 Status: Ordered folic acid 5 mg, PO, Daily Start Date: 10/11/19 Status: Ordered multivitamin Daily, 0 Refill(s) Start Date: 10/11/19 Status: Ordered ursodiol 500 mg oral tablet 500 mg = 1 tab, PO, TID, # 270 tab, 4 Refill(s), Pharmacy: [facility], 187.96, cm, 10/11/19 12:29:00 CDT, Height, 103.295, kg, 10/11/19 12:29:00 CDT, Weight Start Date: 10/11/19 Stop Date: 01/03/21 Status: Ordered Results No data available for this section [...]
--- OUTSIDE RECORDS SUMMARY | 2019-11-02 19:26 | XMS REPORT | Summary of Care ---
Author Author [facility] Organization [facility] Address Unknown Phone Unavailable Encounter CAROLINE Muller(ARY) [id number] Date(s): 09/10/19 - 09/10/19 [facility] [address] [phone] Discharge Disposition: Home or Self Care Attending Physician: Ralph Blackmon MD Referring Physician: Ralph Blackmon MD Vital Signs 1 2 3 Most recent to oldest [Reference Range]: 187.96 cm (09/10/19 8:17 AM) Height 166/76 mmHg *HI* (09/10/19 10:45 AM) 162/70 mmHg *HI* (09/10/19 10:30 AM) 180/97 mmHg *HI* (09/10/19 10:20 AM) Blood Pressure [90-140/60-90 mmHg] 10 BRMIN *LOW* (09/10/19 10:45 AM) 16 BRMIN (09/10/19 10:30 AM) 14 BRMIN (09/10/19 10:20 AM) Respiratory Rate [14-20 BRMIN] 102.273 kg (09/10/19 8:17 AM) Weight 28.95 m2 (09/10/19 8:17 AM) Body Mass Index Problem List Condition Effective Dates Status Health Status Informan t Gallstones(Confirmed Resolved ) Bradycardia(Confirme Active d) Diabetes(Confirmed) Active GERD Active (gastroesophageal reflux disease)(Confirmed) Gout(Confirmed) Resolved Hyperlipidemia(Confi Resolved rmed) Hypertension(Confirm Active ed) Hepatitis(Confirmed) Resolved Allergies, Adverse Reactions, Alerts No Known Medication Allergies Medications fentaNYL 50 microgram, Route: IV, ONCE, Dosing Weight 102.273, kg, Start date: 09/10/19 9 :56:00 CDT, Stop date: 09/10/19 9:56:00 CDT, Start Date: 09/10/19 Stop Date: 09/10/19 Status: Completed fentaNYL 25 microgram, Route: IV, ONCE, Dosing Weight 102.273, kg, Start date: 09/10/19 1 0:08:00 CDT, Stop date: 09/10/19 10:08:00 CDT, Start Date: 09/10/19 Stop Date: 09/10/19 Status: Completed lidocaine 1% 10 mL, Route: INTRADERM, Dosing Weight 102.273, kg, ONCE, Start date: 09/10/19 9 :56:00 CDT, Stop date: 09/10/19 9:56:00 CDT Start Date: 09/10/19 Stop Date: 09/10/19 Status: Completed midazolam 0.5 mg, Route: IV, ONCE, Dosing Weight 102.273, kg, Start date: 09/10/19 9:56:00 CDT, Stop date: 09/10/19 9:56:00 CDT, Start Date: 09/10/19 Stop Date: 09/10/19 Status: Completed Results Most recent to 1 oldest [Reference Range]: Neutrophils # 2.0 K/CMM [1.5-8.1 K/CMM] (09/10/19 10:10 AM) Lymphocytes # 0.9 K/CMM [1.0-5.5 K/CMM] *LOW* (09/10/19 10:10 AM) Monocytes # [0.0-0.8 0.4 K/CMM K/CMM] (09/10/19 10:10 AM) Eosinophils # 0.4 K/CMM [0.0-0.5 K/CMM] (09/10/19 10:10 AM) Basophils # [0.0-0.2 0.1 K/CMM K/CMM] (09/10/19 10:10 AM) Basophils [0.0-1.0 2.3 % %] *HI* (09/10/19 10:10 AM) Eosinophils [0.0-4.0 11.0 % %] *HI* (09/10/19 10:10 AM) Hct [42.0-54.0 %] 26.3 % *LOW* (09/10/19 10:10 AM) Hgb [14.0-18.0 g/dL] 9.4 g/dL *LOW* (09/10/19 10:10 AM) Lymphocytes 23.7 % [20.0-40.0 %] (09/10/19 10:10 AM) Macrocyte [None 2+ Seen] *ABN* (09/10/19 10:10 AM) MCH [27.0-31.0 pg] 38.6 pg *HI* (09/10/19 10:10 AM) MCHC [32.0-36.0 35.6 g/dL g/dL] (09/10/19 10:10 AM) MCV [80.0-94.0 fL] 108.3 fL *HI* (09/10/19 10:10 AM) Monocytes [2.0-12.0 11.4 % %] (09/10/19 10:10 AM) MPV [7.4-10.4 fL] 7.8 fL (09/10/19 10:10 AM) Platelet [133-450 238 K/CMM K/CMM] (09/10/19 10:10 AM) Segs [45.0-75.0 %] 51.6 % (09/10/19 10:10 AM) RBC [4.70-6.10 2.43 M/CMM M/CMM] *LOW* (09/10/19 10:10 AM) RDW [11.5-14.5 %] 17.5 % *HI* (09/10/19 10:10 AM) Retic Auto [0.5-1.5 1.6 % %] *HI* (09/10/19 10:10 AM) WBC [3.7-10.4 K/CMM] 3.9 K/CMM (09/10/19 10:10 AM) Immunizations Not Given Vaccine Date Status Refusal Reason pneumococcal 23-valent vaccine 10/16/14 Not Given Parent Or Guardian Refuses Procedures Procedure Date Related Diagnosis Body Site Status Diagnostic bone marrow; biopsy(ies) 09/10/19 Co mpleted Diagnostic bone marrow; biopsy(ies) 09/10/19 Co mpleted Diagnostic bone marrow; biopsy(ies) and 09/10/19 Completed aspiration(s) Catheterisation of right heart Completed Renal lithotripsy Completed Social History Social History Type Response Alcohol Never Smoking Status Never smoker; Ready to muhammad ge: No; Concerns about tobacco use in household: No; Exposure to Tobacco Smoke None; Cig arette Smoking Last 365 Days No; Reg Smoking Cessation Counseling No entered on: 09/10/19 Assessment and Plan Extracted from: Title: Interventional Radiology Author: Cher Grider NP Date: 09/10/19 Interventional Radiology History and y sictn Chief Complaint: Presents today for bone marrow biopsy. History of Present Illness: Casper Sequeira Jr. is a 74 year old male with a past medical history of anemia and myelodysplastic syndrome who presents today for bone marrow biopsy with morphology, flow cytometery, and cytogenics. Past Medical History: Hyperlipidemia Gallstones Gout Hepatitis hypertension bradycardia gout gastroesophageal reflux disease diabetes elevated liver enzymes sleep apnea obesity anxiety/depression Past Surgical History: Renal lithotripsy catheterization cardiac liver biopsy Social History: Alcohol Details: Never Tobacco Details: Use: Never smoker. Street drugs: none Family History: Brother: High cholesterol. Allergies Reviewed: Allergies: No Known Medication Allergies Current Medications: Medications (1) Active Scheduled Meds: None Unscheduled Meds (1): 09/10/19 diphenhydrAMINE (Benadryl) 25 m g IVP On Adm PRN Meds: None One Time Meds: None Continuous Infusions: None Labs: Imaging Studies: CT of the abdomen/pelvis 07/25/19- 1. Long segmental decompression of the d [...] prostate and mild seminal ve sicle enlargement. Review of Systems: Constitutional Symptoms: no fever, weight has been stable Eyes: no visual changes, + wears glasses Ears, Nose, Mouth, Throat: no dysphagia,+ hearing deficits with aides Cardiovascular: no chest pain, + hypertension, + bradycardia Respiratory: no cough, no dyspnea, + UZAIR Gastorintenstinal: no nausea, no vomiting, no abdominal pain Genitourinary: no voiding difficulties Musculoskeletal: + gout, + shoulder and knee pain bilaterally Integumentary: no rash, no hives Neurological: no weakness, no headache, no seizures Psychiatry: + anxiety, + depression, no insomnia Endocrine: + diabetes, + dyslipidemia, + obesity Physical Examination: VitalsTmp(F)Tmp(C)[id number] 24 Hr Tmax: No Data AvailableVital Signs are the last 5 in the past 48 hours. 24 Hr Tmin: No Data AvailableWeights ar e the last 5 in 60 days, plus initial. DateWt(kg)Wt(lb)Ht(cm)Ht(in)MethodBMIBSA 09/09 (initial)102.27 225.00Estimated 28 .92.31 09/09187.96 74.00Stated Most Recent Scores: 09/10/19[place] Fall Score15 General: Active, alert, well developed, well nourished, in no acute distress Head: Normocephalic, atraumatic Eyes: sclera is clear Hearing: hearing acuity appears to be mildly decreased to spoken voice Speech: Adequate vocabulary, no impediments Nose: [place] nasal turbinates, septum midline, no drainage or deformities Mouth: moist mucous membranes Neck: Supple, without JVD Resp: Clear to auscultation bilaterally CV: RRR, without murmurs, bradycardic rate is noted Back/Extremities: extremities are without edema Neuro: He is alert and oriented and follows commands. Skin: Clear, no rashes or jaundice Impression: 1. anemia/myelodysplastic syndrome 2. hypertension 3. bradycardia 4. obesity 5. sleep apnea 6. diabetes Plan: Plan is for image guided bone marrow biopsy with morphology, flow cytometery, and cytogenics in Interventional Radiology under moderate sedation today. The benefits, risks, and alternatives for the procedure were discussed. He verbalizes understanding and consents to proceed. He has been NPO since midnight in preparation for his procedure. THANK YOU FOR CONSULTING INTERVENTIONAL RADIOLOGY. iF YOU HAVE ANY QUESTIONS, PLEASE CONTACT [phone].
--- OUTSIDE RECORDS SUMMARY | 2019-11-02 19:27 | XMS REPORT | Summary of Care ---
Author Author [facility] Address [address] [place] [address] Phone Unavailable Care Team Providers Care Cutter Finisher Name Role Phone BORIS WESLEY APRN Unavailable Unavailable HARIS Urbano, NIDIA Unavailable Unavailable BORIS WESLEY APRN Unavailable Unavailable HARIS KEANE [place], NIDIA POLK Unavailable Unavailable RUBY KEANE, KAREN Mckenzie Unavailable Unavailable Robyn KEANE, Jhony Unavailable Unavailable MARYJANE NIXON [place], BORIS Wyatt Unavailable Unavailable Aniceto Ojeda MD, David Unavailable Unavailable MIESHA DO [place], ROCKY Unavailable Unavailable HARIS BELL [place], JAMEY Unavailable Unavailable Unavailable Unavailable Functional Status Name Dates Details Functional status health issues are not documented Status: Name Dates Details Cognitive status health issues are not d ocumented Status: Problems Name Dates Details Encounter for diabetic foot exam (250.00 , E11.9) Status: Active Colon cancer screening (V76.51, Z12.11) Status: Active Depression screening (V79.0, Z13.31) Status: Active Bradycardia (427.89, R00.1) Status: Active BPH without urinary obstruction (600.00, N40.0) Status: Active Anemia, unspecified type (285.9, D64.9) Status: Active Gall bladder stones (574.20, K80.20) Status: Active Generalized osteoarthritis of multiple s ites (715.09, M15.9) Status: Active Mixed hyperlipidemia (272.2, E78.2) Status: Active History of renal calculi (V13.01, Z87.44 2) Status: Resolved Generalized anxiety disorder (300.02, F4 1.1) Status: Active Elevated LFTs (790.6, R94.5) Status: Active Encounter for mini-mental status examina tion Status: Active History of positive purified protein shar ivative test (V15.89, Z92.89) Status: Resolved Bilateral leg edema (782.3, R60.0) Status: Active Essential (primary) hypertension (401.9, I10) Status: Active 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, Z86.79) Status: Resolved 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 (274.02, 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 UZAIR on CPAP (327.23, G47.33) Status: Active Type 2 diabetes mellitus (250.00, E11.9) Status: Active Acute pain of right shoulder (719.41, M2 5.511) Status: Active Edema of both legs (782.3, R60.0) Status: Active Abnormal liver function (794.8, R94.5) Status: Active BILL positive (795.79, R76.8) Status: Active GERD without esophagitis (530.81, K21.9) Status: Active Hepatitis, 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, 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, 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 Situational insomnia (307.41, F51.09) Status: Active Flu vaccine need (V04.81, Z23) Status: Active Medications Name Dates Details PARoxetine HCl - 20 MG Oral Tablet TAKE 1 TABLET BY MOUTH EVERY DAY Quantity: 90 MARYJANE OCAMPO BORIS * Start : 07-Oct-2014 Active Vitamin C Oral Tablet Chewable * Refills: 0 BORIS WESLEY APRN * Start : 29-Aug-2015 Active Carvedilol 3.125 MG Oral Tablet TAKE 1 TABLET BY MOUTH TWICE DAILY * Quantity: 180 Refills: 1 MARYJANE OCAMPO BORIS * Start : 21-May-2016 Active Fluticasone Propionate 50 MCG/ACT Nasal Suspension USE 1 SPRAYS IN EACH NOSTRIL TWICE DAILY * Quantity: 1 Refills: 5 MARYJANE OCAMPO BORIS * Start : 16-Aug-2016 Active 15.8 ML Bottle Motrin TABS TAKE 3 TABLET 2 TIMES DAILY NEEDED. * Refills: 0 Active Allopurinol 300 MG Oral Tablet TAKE 1 TABLET BY MOUTH DAILY * Quantity: 90 Refills: 3 MARYJANE OCAMPO BORIS * Start : 26-Oct-2017 Active Olmesartan Medoxomil 40 MG Oral Tablet TAKE 1 TABLET BY MOUTH EVERY DAY * Quantity: 90 Refills: 1 MARYJANE OCAMPO BORIS * Start : 26-Oct-2017 Active Glucose Meter Test In Vitro Strip USE TO TEST ONCE DAILY AND PRNDx 11.9 * Quantity: 50 Refills: 5 BORIS WESLEY APRN * Start : 15-Mar-2018 Active amLODIPine Besylate 5 MG Oral Tablet TAKE 1 TABLET DAILY. * Quantity: 90 Refills: 1 BORIS WESLEY APRN * Start : 29-Mar-2018 Active predniSONE 10 MG Oral Tablet 2 tabs po QAM w/ food x 3d, then 1 tab po qd x 10d. START NAPROXEN w/ LAST PRED NISONE DOSE. * Quantity: 26 Refills: 0 BORIS WESLEY APRN. * Start : 27-Feb-2019 Active Naproxen 500 MG Oral Tablet TAKE 1 TABLET TWICE DAILY. CON"T DOSING FOR 3-5 DAYS BEYOND PAIN RELIEF OR 3-4 W EEKS MAX * Quantity: 60 Refills: 5 BORIS WESLEY APRN. * Start : 27-Feb-2019 Active Furosemide 20 MG Oral Tablet TAKE 1 TABLET BY MOUTH EVERY MORNING for 5-7 days for fluid retention...HOLD IF SBP > 100 mmHg. * Quantity: 30 Refills: 1 BORIS WESLEY APRN * Start : 27-Feb-2019 Active Glucose Meter Test In Vitro Strip TEST ONCE DAILY & PRNDx: E11.9 / 250 * Quantity: 50 Refills: 5 BORIS WESLEY APRN Start : 15-Mar-2018 Active Tart Figueredo Advanced Oral Capsule DIRECTED * Refills: 0 BORIS WESLEY APRN Start : 15-Mar-2018 Active Atorvastatin Calcium 10 MG Oral Tablet TAKE 1 TABLET BY MOUTH EVERY DAY AT BEDTIME * Quantity: 90 Refills: 3 BORIS WESLEY APRN Start : 05-Jun-2015 Active hydrALAZINE HCl - 50 MG Oral Tablet TAKE 1 TABLET BY MOUTH THREE TIMES DAILY * Quantity: 270 Refills: 1 BORIS WESLEY APRN * Start : 11-Apr-2014 Active Nystatin-Triamcinolone 212258-4.1 UNIT/GM-% External Cream APPLY SPARINGLY TO AFFECTED AREA(S) TWICE DAILY * Quantity: 1 Refills: 1 BORIS WESLEY APRN Start : 15-Mar-2018 Active 30 GM Tube azaTHIOprine 50 MG Oral Tablet TAKE 1 TABLET DAILY. * Refills: 0 BORIS WESLEY APRN Start : 22-Aug-2018 Active Melatonin 5 MG Oral Tablet 1-2 tabs at * Quantity: 77 Refills: 0 BORIS WESLEY APRN Start : 30-Nov-2018 Active Cod Liver Oil Oral Capsule 2-3 capsTWICE A DAY * Quantity: 1 Refills: 0 MARYJANE FERGUSONN BORIS * Start : 30-Nov-2018 Active Accu-Chek SmartView In Vitro Strip TEST ONCE A DAY * Quantity: 1 Refills: 5 NIDIA CARBALLO M.D. * Start : 11-Sep-2013 Active 50 Strip Box Allergies and Adverse Reactions Name Dates Details No Known Drug Allergies (Allergy) Status : Active Past Medical History Name Dates Details History of Anxiety (300.00, F41.9) Status: Resolved History of Cellulitis of left elbow (682 .3, L03.114) Status: Resolved History of colon polyps (V12.72, Z86.010 ) Status: Resolved History of Coronary artery disease (414. 00, I25.10) Status: Resolved History of Daytime hypersomnolence (780. 54, G47.19) Status: Resolved History of Denial Of Any Significant Med ical History Status: Resolved History of fatigue (V13.89, Z87.898) Status: Resolved History of Gouty arthropathy (274.00, M1 0.9) Status: Resolved History of Heat rash (705.1, L74.0) Status: Resolved History of hyperlipidemia (V12.29, Z86.3 9) Status: Resolved History of Internal impingement of right shoulder (726.2, M75.41) Status: Resolved History of Left foot pain (729.5, M79.67 2) Status: Resolved History of Left foot pain (729.5, M79.67 2) Status: Resolved 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, Z86.79) Status: Resolved History of Metatarsal stress fracture of left foot (733.94, M84.375A) Status: Resolved History of Metatarsalgia, unspecified la terality (726.70, M77.40) Status: Resolved History of Need for hepatitis C screenin g test (V73.89, Z11.59) Status: Resolved History of Need for vaccination with 13- polyvalent pneumococcal conjugate vaccine (V03.82, Z23) Status: Resolved History of pneumococcal vaccination (V49 .89, Z92.29) Status: Resolved History of positive purified protein shar ivative test (V15.89, Z92.89) Status: Resolved History of Pre-procedural cardiovascular examination (V72.81, Z01.810) Status: Resolved History of renal calculi (V13.01, Z87.44 2) Status: Resolved History of shortness of breath (V13.89, Z87.898) Status: Resolved History of snoring (V15.89, Z87.898) Status: Resolved History of Stress fracture of metatarsal bone, left, with routine healing, subsequent encounter (V54.29, M84.375D) Status: Resolved Procedures Procedure Dates Details History of Renal Lithotripsy Completed History of Oral Surgery Tooth Extraction Completed History of Skin Tag Removal Completed History of Dental Implant Completed Immunization Name Dates Details Prevnar 13 Intramuscular Suspension Lot #: [id number] on: 07-Aug-2014 Fluzone Quadrivalent 0.5 ML Intramuscula r Suspension Lot #: [id number] on: 31-Jan-2015 Fluzone High-Dose 0.5 ML Intramuscular S uspension Prefilled Syringe Lot #: [id number] on: 19-Jan-2017 Pneumococcal polysaccharide vaccine, 23 valent Lot #: [id number] on: 19-Jan-2017 Fluzone Quadrivalent 0.5 ML Intramuscula r Suspension Prefilled Syringe Lot #: [id number] on: 13-Feb-2018 Fluzone High-Dose 0.5 ML Intramuscular S uspension Prefilled Syringe Lot #: [id number] on: 27-Feb-2019 Family History Name Dates Details Family history of essential hypertension (V17.49, Z82.49) Status: Active Name Dates Details Family history of Anemia (285.9, D64.9) Status: Active Family history of malignant neoplasm of cervix uteri (V16.49, Z80.49) Status: Active Family history of Insulin resistance (27 7.7, E88.81) Status: Active Name Dates Details Family history of malignant neoplasm (V1 6.9, Z80.9) Status: Active Name Dates Details Family history of essential hypertension (V17.49, Z82.49) Status: Active Name Dates Details Family history of hyperlipidemia (V18.19 , Z83.438) Status: Active Social History Name Dates Details - Status: Name Dates Details Never smoked tobacco (finding) Vital Signs Date Test Result Details No Known Vitals to report Results Date Description Value Details [id number] [QL] URIC ACID URIC ACID 5.0 mg/dl (Normal) Range: 4.0-8 .0 Comments: Therapeutic target for gout patients: <6.0 mg/dL [id number] [QL] HEPATIC FUNCTION PANEL PROTEIN, TOTAL 5.3 g/dl (Below low threshold) Range: 6.1-8.1 ALBUMIN 3.1 g/dl (Below low threshold) Range: 3.6-5.1 GLOBULIN 2.2 {G/DL__CALC} (Normal) Range : 1.9-3.7 ALBUMIN/GLOBULIN RATIO 1.4 {CALC} (Normal) Rang e: 1.0-2.5 BILIRUBIN, TOTAL 0.7 mg/dl (Normal) Range: 0.2- 1.2 BILIRUBIN, DIRECT 0.1 mg/dl (Normal) Range: < O R = 0.2 BILIRUBIN, INDIRECT 0.6 {MG/DL__CAL} (Normal) R lauren: 0.2-1.2 ALKALINE PHSPHATASE 178 u/l (Above high thresho ld) Range: 35-144 AST 13 u/l (Normal) Range: 10-35 ALT 10 u/l (Normal) Range: 9-46 [id number] [[facility]] HEMOGLOBIN A1c Comments: REPORT C OMMENT:FASTING:YES HEMOGLOBIN A1c 7.5 {%_of_total} (Above high th reshold) Range: <5.7 Comments: For someone without known diabetes, a hemoglobin M0ecuvbj of 6.5% or greater indicates that they may have diabetes and this should be confirmed with a follow-up test. For someone with known diabetes, a value <7% indicates that their diabetes is well controlled and a value greater than or equal to 7% indicates suboptimal control. A1c targets should be individualized based on duration of diabetes, age, comorbid conditions, and other considerations. Currently, no consensus exists regarding use ofhemoglobin A1c for diagnosis of diabetes for children. Plan of Care Name Dates Details Planned Observations Planned Goals not documented Planned Encounters Appointment; BORIS WESLEY APRN On: 30-May-2019 12:30 Instructions Name Dates Details Instructions not documented Encounters Appointment; BORIS WESLEY APRN Encounter Diagnosis: Problem not documented On: 11-Oct-2017 9:30 Appointment; BORIS WESLEY APRN Encounter Diagnosis: Problem not documented On: 26-Oct-2017 13:00 Appointment; RICKEY NIELSEN APRN Encounter Diagnosis: Problem not documented On: 13-Feb-2018 15:30 Appointment; JHONY JONES M.D. Encounter Diagnosis: Problem not documented On: 15-Mar-2018 10:30 Appointment; BORIS WESLEY APRN Encounter Diagnosis: Problem not documented On: 15-Mar-2018 16:15 Appointment; DAVID PAZ M.D. Encounter Diagnosis: Problem not documented On: 04-May-2018 14:15 Appointment; BORIS WESLEY APRN Encounter Diagnosis: Problem not documented On: 10-May-2018 10:00 Appointment; ROCKY WHITESIDE D.O. Encounter Diagnosis: Problem not documented On: 15-May-2018 10:45 Appointment; RADIOLOGY, PROVIDER Encounter Diagnosis: Problem not documented On: 07-Jun-2018 9:00 Appointment; NIDIA CARBALLO M.D. Encounter Diagnosis: Problem not documented On: 28-Jul-2018 12:00 Appointment; BORIS WESLEY APRN Encounter Diagnosis: Problem not documented On: 22-Aug-2018 14:00 Appointment; SIDDHARTHA URIOSTEGUI M.D. Encounter Diagnosis: Problem not documented On: 05-Sep-2018 9:00 Appointment; SIDDHARTHA URIOSTEGUI M.D. Encounter Diagnosis: Problem not documented On: 19-Sep-2018 10:00 Appointment; BORIS WESLEY APRN Encounter Diagnosis: Problem not documented On: 30-Nov-2018 14:30 Appointment; BORIS WESLEY APRN Encounter Diagnosis: Problem not documented On: 27-Feb-2019 14:45
--- OUTSIDE RECORDS SUMMARY | 2019-11-02 19:27 | XMS REPORT | Summary of Care ---
Author Author [facility] Organization [facility] Address Unknown Phone Unavailable Encounter HQ Renzo(FIN) [id number] Date(s): 04/21/15 - 04/21/15 [facility] - [place] [address] [place], [place] [address] [phone] Discharge Disposition: Home Attending Physician: Matias Moreno MD Vital Signs No data available for this section Problem List Condition Effective Dates Status Health Status Informan t Bradycardia(Confirme Active d) Diabetes(Confirmed) Active GERD Active (gastroesophageal reflux disease)(Confirmed) Hyperlipidemia(Confi Resolved rmed) Hypertension(Confirm Active ed) Allergies, Adverse Reactions, Alerts Substance Reaction Severity Status NKDA Active Medications No data available for this section Results No data available for this section Immunizations Vaccine Date Refusal Reason pneumococcal 23-valent vaccine 10/16/14 Parent Or Guardian Refuses Procedures Procedure Date Related Diagnosis Body Site Renal lithotripsy Social History Social History Type Response Smoking Status Never smoker; Ready to muhammad ge: No; Concerns about tobacco use in household: No; Exposure to Tobacco Smoke None; Cig arette Smoking Last 365 Days No; Reg Smoking Cessation Counseling No Assessment and Plan No data available for this section
--- OUTSIDE RECORDS SUMMARY | 2019-11-02 19:27 | XMS REPORT | Summary of Care ---
Author Author [facility] Address [address] [place] [address] Phone Unavailable Care Team Providers Care Leather Staker Name Role Phone BORIS WESLEY APRN Unavailable Unavailable HARIS Urbano, NIDIA Unavailable Unavailable OBRIS WESLEY APRN Unavailable Unavailable HARIS KEANE [place], NIDIA POLK Unavailable Unavailable RUBY KEANE, KAREN Mckenzie Unavailable Unavailable Robyn KEANE, Jhony Unavailable Unavailable MARYJANE NIXON [place], BORIS Wyatt Unavailable Unavailable Aniceto Ojeda MD, David Unavailable Unavailable MIESHA DO [place], ROCKY Unavailable Unavailable HARIS BELL [place], JAMEY Unavailable Unavailable Unavailable Unavailable Functional Status [...] 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 START NAPROXEN w/ LAST PRED NISONE DOSE. * Quantity: 26 Refills: 0 BORIS WESLEY APRN * Start : 27-Feb-2019 Active Naproxen 500 MG Oral Tablet TAKE 1 TABLET TWICE DAILY. CON"T DOSING FOR 3-5 DAYS BEYOND PAIN RELIEF OR 3-4 W EEKS MAX * Quantity: 60 Refills: 5 BORIS WESLEY APRN * Start : 27-Feb-2019 Active Furosemide 20 MG Oral Tablet TAKE 1 TABLET BY MOUTH EVERY MORNING for 5-7 days for fluid retention...HOLD IF SBP > 100 mmHg. * Quantity: 30 Refills: 1 BORIS WESLEY APRN * Start : 27-Feb-2019 Active Tart Figueredo Advanced Oral Capsule DIRECTED * Refills: 0 BORIS WESLEY APRN Start : 15-Mar-2018 Active Glucose Meter Test In Vitro Strip USE TO TEST ONCE DAILY AND PRNDx 11.9 * Quantity: 50 Refills: 5 BORIS WESLEY APRN Start : 15-Mar-2018 Active Glucose Meter Test In Vitro Strip TEST ONCE DAILY & PRNDx: E11.9 / 250 * Quantity: 50 Refills: 5 BORIS WESLEY APRN * Start : 15-Mar-2018 Active Motrin TABS TAKE 3 TABLET 2 TIMES DAILY NEEDED. * Refills: 0 Active Vitamin C Oral Tablet Chewable * Refills: 0 BORIS WESLEY APRN * Start : 29-Aug-2015 Active Fluticasone Propionate 50 MCG/ACT Nasal Suspension USE 1 SPRAYS IN EACH NOSTRIL TWICE DAILY * Quantity: 1 Refills: 5 BORIS WESLEY APRN * Start : 16-Aug-2016 Active 15.8 ML Bottle azaTHIOprine 50 MG Oral Tablet TAKE 1 TABLET DAILY. * Refills: 0 BORIS WESLEY APRN * Start : 22-Aug-2018 Active Melatonin 5 MG Oral Tablet 1-2 tabs at * Quantity: 77 Refills: 0 BORIS WESLEY APRN * Start : 30-Nov-2018 Active Cod Liver Oil Oral Capsule 2-3 capsTWICE A DAY * Quantity: 1 Refills: 0 BORIS WESLEY APRN * Start : 30-Nov-2018 Active amLODIPine Besylate 5 MG Oral Tablet TAKE 1 TABLET DAILY. * Quantity: 90 Refills: 1 BORIS WESLEY APRN * Start : 29-Mar-2018 Active Olmesartan Medoxomil 40 MG Oral Tablet TAKE 1 TABLET BY MOUTH EVERY DAY * Quantity: 90 Refills: 1 BORIS WESLEY APRN * Start : 26-Oct-2017 Active Allopurinol 300 MG Oral Tablet TAKE 1 TABLET BY MOUTH DAILY * Quantity: 90 Refills: 3 BORIS WESLEY APRN * Start : 26-Oct-2017 Active Carvedilol 3.125 MG Oral Tablet TAKE 1 TABLET BY MOUTH TWICE DAILY * Quantity: 180 Refills: 1 BORIS WESLEY APRN * Start : 21-May-2016 Active PARoxetine HCl - 20 MG Oral Tablet TAKE 1 TABLET BY MOUTH EVERY DAY * Quantity: 90 Refills: 1 BORIS WESLEY APRN * Start : 07-Oct-2014 Active Nystatin-Triamcinolone 555007-1.1 UNIT/GM-% External Cream APPLY SPARINGLY TO AFFECTED AREA(S) TWICE DAILY * Quantity: 1 Refills: 1 BORIS WESLEY APRN * Start : 15-Mar-2018 Active 30 GM Tube Atorvastatin Calcium 10 MG Oral Tablet TAKE 1 TABLET BY MOUTH EVERY DAY AT BEDTIME * Quantity: 90 Refills: 3 WESLEY DAMARISBORIS * Start : 05-Jun-2015 Active Accu-Chek SmartView In Vitro Strip TEST [...] Details Prevnar 13 Intramuscular Suspension Lot #: [id number] on: 07-Aug-2014 Fluzone Quadrivalent 0.5 ML Intramuscula r Suspension Lot #: [id number] on: 31-Jan-2015 Fluzone High-Dose 0.5 ML Intramuscular S uspension Prefilled Syringe Lot #: [id number] on: 19-Jan-2017 Pneumococcal polysaccharide vaccine, 23 valent Lot #: [id number] on: 19-Jan-2017 Fluzone Quadrivalent 0.5 ML Intramuscula r Suspension Prefilled Syringe Lot #: [id number] on: 13-Feb-2018 Fluzone High-Dose 0.5 ML Intramuscular S uspension Prefilled Syringe Lot #: [id number] on: 27-Feb-2019 Family History Name Dates Details [...] to report Results Date Description Value Details Results not documented Plan of Care Name Dates Details Planned [...] not documented On: 15-May-2018 10:45 Appointment; RADIOLOGY, MD PROVIDER Encounter Diagnosis: Problem not documented On: [...]
--- OUTSIDE RECORDS SUMMARY | 2019-11-02 19:27 | XMS REPORT | Summary of Care ---
Author Author [facility] R.[facility]. Organization Unknown Address Unknown Phone Unavailable Care Team Providers Care Multiple Drum Sander Name Role Phone MARYJANE Alexander, BORIS Unavailable Unavailable HARIS Urbano, NIDIA Unavailable Unavailable Barrington Pompa, Debbie Unavailable Unavailable MARYJANE Alexander, BORIS Franklin Unavailable Unavailable HARIS KEANE [place], NIDIA POLK Unavailable Unavailable RUBY KEANE, KAREN Mckenzie Unavailable Unavailable Robyn KEANE, Jhony Unavailable Unavailable MARYJANE NIXON [place], BORIS Wyatt Unavailable Unavailable Aniceto Ojeda MD, David Unavailable Unavailable MIESHA DO [place], ADOLFOTAISHA Unavailable Unavailable HARIS BELL [place], JAMEY Unavailable Unavailable Unavailable Unavailable Functional Status [...] BY MOUTH EVERY DAY Quantity: 90 MARYJANE N.P., BORIS * Start : 07-Oct-2014 Active Accu-Chek SmartView In Vitro Strip TEST ONCE A DAY * Quantity: 1 Refills: 5 NIDIA CARBALLO M.D. * Start : 11-Sep-2013 Active 50 Strip Box hydrALAZINE HCl - 50 MG Oral Tablet TAKE 1 TABLET BY MOUTH THREE TIMES DAILY * Quantity: 270 Refills: 1 MARYJANE N.P.BORIS * Start : 11-Apr-2014 Active Atorvastatin Calcium 10 MG Oral Tablet TAKE 1 TABLET BY MOUTH EVERY DAY AT BEDTIME * Quantity: 90 Refills: 3 WESLEY N.P., BORIS * Start : 05-Jun-2015 Active Vitamin C Oral Tablet Chewable * Refills: 0 MARYJANE N.P.BORIS * Start : 29-Aug-2015 Active Carvedilol 3.125 MG Oral Tablet TAKE 1 TABLET BY MOUTH TWICE DAILY * Quantity: 180 Refills: 1 WESLEY N.P., BORIS * Start : 21-May-2016 Active Fluticasone Propionate 50 MCG/ACT Nasal Suspension USE 1 SPRAYS IN EACH NOSTRIL TWICE DAILY * Quantity: 1 Refills: 5 WESLEY N.P., BORIS * Start : 16-Aug-2016 Active 15.8 ML Bottle Motrin TABS TAKE 3 TABLET 2 TIMES DAILY NEEDED. * Refills: 0 Active Allopurinol 300 MG Oral Tablet TAKE 1 TABLET BY MOUTH DAILY * Quantity: 90 Refills: 3 MARYJANE N.P., BORIS * Start : 26-Oct-2017 Active Olmesartan Medoxomil 40 MG Oral Tablet TAKE 1 TABLET BY MOUTH EVERY DAY * Quantity: 90 Refills: 1 MARYJANE N.P., BORIS * Start : 26-Oct-2017 Active Tart Figueredo Advanced Oral Capsule DIRECTED * Refills: 0 MARYJANE N.P., BORIS * Start : 15-Mar-2018 Active Glucose Meter Test In Vitro Strip TEST ONCE DAILY & PRNDx: E11.9 / 250 * Quantity: 50 Refills: 5 MARYJANE N.P., BORIS * Start : 15-Mar-2018 Active Nystatin-Triamcinolone 751597-6.1 UNIT/GM-% External Cream APPLY SPARINGLY TO AFFECTED AREA(S) TWICE DAILY * Quantity: 1 Refills: 1 MARYJANE N.P., BORIS * Start : 15-Mar-2018 Active 30 GM Tube Glucose Meter Test In Vitro Strip USE TO TEST ONCE DAILY AND PRNDx 11.9 * Quantity: 50 Refills: 5 MARYJANE N.P., BORIS * Start : 15-Mar-2018 Active amLODIPine Besylate 5 MG Oral Tablet TAKE 1 TABLET DAILY. * Quantity: 90 Refills: 1 MARYJANE N.P., BORIS * Start : 29-Mar-2018 Active azaTHIOprine 50 MG Oral Tablet TAKE 1 TABLET DAILY. * Refills: 0 MARYJANE N.P., BORIS * Start : 22-Aug-2018 Active Melatonin 5 MG Oral Tablet 1-2 tabs at * Quantity: 77 Refills: 0 WESLEY N.P., BORIS * Start : 30-Nov-2018 Active Cod Liver Oil Oral Capsule 2-3 capsTWICE A DAY * Quantity: 1 Refills: 0 WESLEY N.P., BORIS * Start : 30-Nov-2018 Active predniSONE 10 MG Oral Tablet 2 tabs po QAM w/ food x 3d, then 1 tab po qd x 10d. START NAPROXEN w/ LAST PRED NISONE DOSE. * Quantity: 26 Refills: 0 WESLEY N.P., BORIS D. * Start : 27-Feb-2019 Active Naproxen 500 MG Oral Tablet TAKE 1 TABLET TWICE DAILY. CON"T DOSING FOR 3-5 DAYS BEYOND PAIN RELIEF OR 3-4 W EEKS MAX * Quantity: 60 Refills: 5 MARYJANE Pires.Narendra., BORIS Franklin * Start : 27-Feb-2019 Active Furosemide 20 MG Oral Tablet TAKE 1 TABLET BY MOUTH EVERY MORNING for 5-7 days for fluid retention...HOLD IF SBP > 100 mmHg. * Quantity: 30 Refills: 1 MARYJANE Pires.BORIS Borrego * Start : 27-Feb-2019 Active Allergies and Adverse Reactions Name Dates Details [...] M84.375D) Status: Resolved Procedures Procedure Dates Details [QL] URIC ACID Date: 27-Feb-2019 [[facility]] HEMOGLOBIN A1c Date: 27-Feb-2019 [[facility]] HEPATIC FUNCTION PANEL Date: 27-Feb-2019 History of Renal Lithotripsy Completed History of Oral Surgery Tooth Extraction Completed History of Skin Tag Removal Completed History of Dental Implant Completed Immunization Name Dates Details Prevnar 13 Intramuscular Suspension Lot #: [id number] on: 07-Aug-2014 Fluzone Quadrivalent 0.5 ML Intramuscula r Suspension Lot #: [id number] on: 31-Jan-2015 Fluzone High-Dose 0.5 ML Intramuscular S uspension Prefilled Syringe Lot #: [id number] on: 19-Jan-2017 Pneumococcal polysaccharide vaccine, 23 valent Lot #: [id number] on: 19-Jan-2017 Fluzone Quadrivalent 0.5 ML Intramuscula r Suspension Prefilled Syringe Lot #: [id number] on: 13-Feb-2018 Fluzone High-Dose 0.5 ML Intramuscular S uspension Prefilled Syringe Lot #: [id number] on: 27-Feb-2019 Family History Name Dates Details [...] Details - Status: Name Dates Details Never smoker Vital Signs Date Test Result Details No Known Vitals to report Results Date Description Value Details Results not documented Plan of Care Name Dates Details Planned Observations Planned Goals not documented Planned Encounters Appointment; BORIS WESLEY NP On: 30-May-2019 12:30 Interventions Provided Medication Changes* hydrALAZINE HCl - 50 MG Oral Tablet - Renew Instructions Name Dates Details Instructions not documented Encounters Appointment; BORIS WESLEY NP Encounter Diagnosis: Problem not documented On: 11-Oct-2017 9:30 Appointment; BORIS WESLEY NP Encounter Diagnosis: Problem not documented On: 26-Oct-2017 13:00 Appointment; RICKEY NIELSEN NP Encounter Diagnosis: Problem not documented On: 13-Feb-2018 15:30 Appointment; JHONY JONES M.D. Encounter Diagnosis: Problem not documented On: 15-Mar-2018 10:30 Appointment; BORIS WESLEY NP Encounter Diagnosis: Problem not documented On: 15-Mar-2018 16:15 Appointment; DAVID PAZ M.D. Encounter Diagnosis: Problem not documented On: 04-May-2018 14:15 Appointment; BORIS WESLEY NP Encounter Diagnosis: Problem not documented On: 10-May-2018 10:00 Appointment; ROCKY WHITESIDE D.O. Encounter Diagnosis: Problem not documented On: 15-May-2018 10:45 Appointment; RADIOLOGY, PROVIDER Encounter Diagnosis: Problem not documented On: 07-Jun-2018 9:00 Appointment; NIDIA CARBALLO M.D. Encounter Diagnosis: Problem not documented On: 28-Jul-2018 12:00 Appointment; BORIS WESLEY NP Encounter Diagnosis: Problem not documented On: 22-Aug-2018 14:00 Appointment; SIDDHARTHA URIOSTEGUI M.D. Encounter Diagnosis: Problem not documented On: 05-Sep-2018 9:00 Appointment; SIDDHARTHA URIOSTEGUI M.D. Encounter Diagnosis: Problem not documented On: 19-Sep-2018 10:00 Appointment; BORIS WESLEY NP Encounter Diagnosis: Problem not documented On: 30-Nov-2018 14:30 Appointment; BORIS WESLEY NP Encounter Diagnosis: Problem not documented On: 27-Feb-2019 14:45
--- OUTSIDE RECORDS SUMMARY | 2019-11-02 19:27 | XMS REPORT | Summary of Care ---
Author Organization Unknown Address Unknown Phone Unavailable Encounter HQ Encntr_alias(FIN) [id number] Date(s): 05/02/14 - 05/02/14 [facility] Outpatient Imaging - [address] [address]- [place] Discharge Disposition: Home Physician Attending: Jhony Carlson MD Reason for Visit 573.9 - LIVER DISORDER Problem List No data available for this section Allergies, Adverse Reactions, Alerts No data available for this section Medications No data available for this section Medications Administered During Your Visit No data available for this section Immunizations No data available for this section
--- OUTSIDE RECORDS SUMMARY | 2019-11-02 19:27 | XMS REPORT | Summary of Care ---
Author Author [facility] WESLEY APRN Organization Unknown Address Unknown Phone Unavailable Care Team Providers Care Roofing Contractor Name Role Phone BORIS WESLEY APRN Unavailable HARIS Urbano, NIDIA Unavailable Unavailable BORIS WESLEY APRN Unavailable Unavailable HARIS KEANE [place], NIDIA POLK Unavailable Unavailable RUBY KEANE, KAREN Mckenzie Unavailable Unavailable Robyn KEANE, Jhony Unavailable Unavailable MARYJANE NIXON [place], BORIS Wyatt Unavailable Unavailable Aniceto Ojeda MD, David Unavailable Unavailable MIESHA COPPOLA [place], ROCKY Unavailable Unavailable HARIS BELL [place], JAMEY Unavailable Unavailable Unavailable Unavailable Functional Status Name Dates Details Functional status health issues are not documented Status: Name Dates Details Cognitive status health issues are not d ocumented Status: Problems Name Dates Details Encounter for diabetic foot exam (250.00 , E11.9) Status: Active Colon cancer screening (V76.51, Z12.11) Status: Active Depression screening (V79.0, Z13.31) Status: Active Bradycardia (427.89, R00.1) Status: Active Gall bladder stones (574.20, K80.20) Status: Active Generalized osteoarthritis of multiple s ites (715.09, M15.9) Status: Active History of renal calculi (V13.01, Z87.44 2) Status: Resolved Encounter for mini-mental status examina tion Status: Active History of positive purified protein shar ivative test (V15.89, Z92.89) Status: Resolved Bilateral leg edema (782.3, R60.0) Status: Active 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, Z86.79) Status: Resolved 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2, E78.2) Status: Active UZAIR on CPAP (327.23, G47.33) Status: Active Situational insomnia (307.41, F51.09) Status: Active Elevated LFTs (790.6, R94.5) Status: Active Abnormal liver function (794.8, R94.5) Status: Active BPH without urinary obstruction (600.00, N40.0) Status: Active Edema of both legs (782.3, R60.0) Status: Active Medications Name Dates Details PARoxetine HCl - 20 MG Oral Tablet TAKE 1 TABLET BY MOUTH EVERY DAY Quantity: 90 BORIS WESLEY APRN * Start : 07-Oct-2014 Active Accu-Chek SmartView In Vitro Strip TEST ONCE A DAY * Quantity: 1 Refills: 5 NIDIA CARBALLO M.D. * Start : 11-Sep-2013 Active 50 Strip Box hydrALAZINE HCl - 50 MG Oral Tablet TAKE 1 TABLET BY MOUTH two TIMES DAILY * Quantity: 180 Refills: 1 BORIS WESLEY APRN * Start : 11-Apr-2014 Active Atorvastatin Calcium 10 MG Oral Tablet TAKE 1 TABLET BY MOUTH EVERY DAY AT BEDTIME * Quantity: 90 Refills: 3 BORIS WESLEY APRN Start : 05-Jun-2015 Active Vitamin C Oral Tablet Chewable * Refills: 0 BORIS WESLEY APRN Start : 29-Aug-2015 Active Carvedilol 3.125 MG Oral Tablet TAKE 1 TABLET BY MOUTH TWICE DAILY * Quantity: 180 Refills: 1 BORIS WESLEY APRN * Start : 21-May-2016 Active Fluticasone Propionate 50 MCG/ACT Nasal Suspension USE 1 SPRAYS IN EACH NOSTRIL TWICE DAILY * Quantity: 1 Refills: 5 BORIS WESLEY APRN Start : 16-Aug-2016 Active 15.8 ML Bottle Motrin TABS TAKE 3 TABLET 2 TIMES DAILY NEEDED. * Refills: 0 Active Allopurinol 300 MG Oral Tablet TAKE 1 TABLET BY MOUTH DAILY * Quantity: 90 Refills: 3 BORIS WESLEY APRN Start : 26-Oct-2017 Active Olmesartan Medoxomil 40 MG Oral Tablet TAKE 1 TABLET BY MOUTH EVERY DAY * Quantity: 90 Refills: 1 BORIS WESLEY APRN * Start : 26-Oct-2017 Active Tart Figueredo Advanced Oral Capsule DIRECTED * Refills: 0 BORIS WESLEY APRN Start : 15-Mar-2018 Active Glucose Meter Test In Vitro Strip TEST ONCE DAILY & PRNDx: E11.9 / 250 * Quantity: 50 Refills: 5 BORIS WESLEY APRN Start : 15-Mar-2018 Active Nystatin-Triamcinolone 081873-7.1 UNIT/GM-% External Cream APPLY SPARINGLY TO AFFECTED AREA(S) TWICE DAILY * Quantity: 1 Refills: 1 BORIS WESLEY APRN Start : 15-Mar-2018 Active 30 GM Tube Glucose Meter Test In Vitro Strip USE TO TEST ONCE DAILY AND PRNDx 11.9 * Quantity: 50 Refills: 5 BORIS WESLEY APRN Start : 15-Mar-2018 Active amLODIPine Besylate 10 MG Oral Tablet TAKE 1 TABLET BY MOUTH EVERY DAY * Quantity: 90 Refills: 0 BORIS WESLEY APRN * Start : 29-Mar-2018 Active azaTHIOprine 50 [...] WESLEY APRN * Start : 30-Nov-2018 Active Naproxen 500 MG Oral Tablet TAKE [...] mmHg. * Quantity: 30 Refills: 1 MARYJANE BORIS OCAMPO * Start : 27-Feb-2019 Active Allergies and [...] Details Prevnar 13 Intramuscular Suspension Lot #: [id number] on: 07-Aug-2014 Fluzone Quadrivalent 0.5 ML Intramuscula r Suspension Lot #: [id number] on: 31-Jan-2015 Fluzone High-Dose 0.5 ML Intramuscular S uspension Prefilled Syringe Lot #: [id number] on: 19-Jan-2017 Pneumococcal polysaccharide vaccine, 23 valent Lot #: [id number] on: 19-Jan-2017 Fluzone Quadrivalent 0.5 ML Intramuscula r Suspension Prefilled Syringe Lot #: [id number] on: 13-Feb-2018 Fluzone High-Dose 0.5 ML Intramuscular S uspension Prefilled Syringe Lot #: [id number] on: 27-Feb-2019 Family History Name Dates Details [...] (finding) Vital Signs Date Test Result Details [id number] Systolic blood pressure 141 mm[Hg] Status: Comments : Location: LUE; Position: Sitting Diastolic blood pressure 58 mm[Hg] Status: Comment s: Location: LUE; Position: Sitting Body height 74 in Status: Weight 236.0625 lb Status: Body mass index (BMI) [Ratio] 30.31 kg/m2 Status: Body surface area Derived from formula 2.33 m2 S tatus: Body temperature 98.2 f Status: Comments: Me thod: Temporal Heart Rate 55 /min Status: Respiratory rate 12 /min Status: Physical Findings 0 Status: Comments: Al cohol Screen - How many times in the past yr have you had 5 (for M) or 4 (for F) or 4 (for all > 65yrs) or more drinks in a day? Results Date Description Value Details :50 [QL] URIC ACID URIC ACID 5.0 mg/dl (Normal) Range: 4.0-8 .0 Comments: Therapeutic target for gout patients: <6.0 mg/dL :50 [QL] HEPATIC FUNCTION PANEL PROTEIN, TOTAL 5.3 [...] 10-35 ALT 10 u/l (Normal) Range: 9-46 :50 [QL] HEMOGLOBIN A1c Comments: REPORT C OMMENT:FASTING:YES HEMOGLOBIN A1c 7.5 {%_of_total} (Above high th reshold) Range: <5.7 Comments: For someone without known diabetes, a hemoglobin A8vqbznw of 6.5% or greater indicates that they [...] Planned Encounters Appointment; BORIS WESLEY APRN On: 28-Aug-2019 12:30 Interventions Provided Medication Changes* Furosemide 20 MG Oral Tablet - Renew Instructions Name [...] Diagnosis: Problem not documented On: 27-Feb-2019 14:45 Appointment; WESLEY, BORIS, CASKET COVERER Encounter Diagnosis: Problem not documented On: 30-May-2019 12:30
--- OUTSIDE RECORDS SUMMARY | 2019-11-02 19:27 | XMS REPORT | Summary of Care ---
Author Author [facility] Address [address] [place] [address] Phone Unavailable Care Team Providers Care Loading Rack Supervisor Name Role Phone BORIS WESLEY APRN Unavailable Unavailable HARIS Urbano, NIDIA Unavailable Unavailable BORIS WESLEY APRN Unavailable Unavailable HARIS KEANE [place], NIDIA POLK Unavailable Unavailable RUBY KEANE, KAREN Mckenzie Unavailable Unavailable Robyn KEANE, Jhony Unavailable Unavailable MARYJANE NIXON [place], BORIS Wyatt Unavailable Unavailable Aniceto Ojeda MD, David Unavailable Unavailable MIESHA DO [place], ROCKY Unavailable Unavailable HARIS BELL [place], JAMEY Unavailable Unavailable Unavailable Unavailable Functional Status [...] multiple s ites (715.09, M15.9) Status: Active Acute pain of right shoulder [...] of both legs (782.3, R60.0) Status: Active 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 * Refills: 0 Active Olmesartan Medoxomil 40 MG Oral Tablet [...] * Start : 15-Mar-2018 Active amLODIPine Besylate 10 MG Oral Tablet TAKE 1 TABLET BY MOUTH EVERY DAY * Quantity: 90 Refills: 0 BORIS WESLEY APRN * Start : 29-Mar-2018 Active Melatonin 5 MG Oral Tablet 1-2 tabs at * Quantity: 77 Refills: 0 BORIS WESLEY APRN Start : 30-Nov-2018 Active Cod Liver Oil Oral Capsule 2-3 capsTWICE A DAY * Quantity: 1 Refills: 0 BORIS WESLEY APRN Start : 30-Nov-2018 Active Naproxen 500 MG [...] WESLEY APRN * Start : 27-Feb-2019 Active Nystatin-Triamcinolone 278168-0.1 UNIT/GM-% External Cream APPLY SPARINGLY TO AFFECTED AREA(S) TWICE DAILY * Quantity: 1 Refills: 1 BORIS WESLEY APRN * Start : 15-Mar-2018 Active 30 GM Tube Glucose Meter Test In Vitro Strip TEST ONCE DAILY & PRNDx: E11.9 / 250 * Quantity: 50 Refills: 5 BORIS WESLEY APRN * Start : 15-Mar-2018 Active Atorvastatin Calcium 10 MG Oral Tablet TAKE 1 TABLET BY MOUTH EVERY DAY AT BEDTIME * Quantity: 90 Refills: 3 BORIS WESLEY APRN * Start : 05-Jun-2015 Active PARoxetine HCl - 20 MG Oral Tablet TAKE 1 TABLET BY MOUTH EVERY DAY * Quantity: 90 Refills: 1 BORIS WESLEY APRN * Start : 07-Oct-2014 Active Allopurinol 300 MG Oral Tablet TAKE 1 TABLET BY MOUTH DAILY * Quantity: 90 Refills: 3 BORIS WESLEY APRN * Start : 26-Oct-2017 Active azaTHIOprine 50 MG Oral Tablet TAKE 1 TABLET DAILY. * Refills: 0 BORIS WESLEY APRN * Start : 22-Aug-2018 Active Fluticasone Propionate 50 MCG/ACT Nasal Suspension USE 1 SPRAYS IN EACH NOSTRIL TWICE DAILY * Quantity: 1 Refills: 5 BORIS WESLEY APRN * Start : 16-Aug-2016 Active 15.8 ML Bottle Carvedilol 3.125 MG Oral Tablet TAKE 1 TABLET BY MOUTH TWICE DAILY * Quantity: 180 Refills: 1 BORIS WESLEY APRN * Start : 21-May-2016 Active hydrALAZINE HCl - 50 MG Oral Tablet TAKE 1 TABLET BY MOUTH two TIMES DAILY * Quantity: 180 Refills: 1 BORIS WESLEY APRN * Start : 11-Apr-2014 Active Accu-Chek SmartView In Vitro Strip TEST ONCE A DAY * Quantity: 1 Refills: NIDIA BRAVO M.D. * Start : 11-Sep-2013 Active 50 [...] Details Prevnar 13 Intramuscular Suspension Lot #: [id number] on: 07-Aug-2014 Fluzone Quadrivalent 0.5 ML Intramuscula r Suspension Lot #: [id number] on: 31-Jan-2015 Fluzone High-Dose 0.5 ML Intramuscular S uspension Prefilled Syringe Lot #: [id number] on: 19-Jan-2017 Pneumococcal polysaccharide vaccine, 23 valent Lot #: [id number] on: 19-Jan-2017 Fluzone Quadrivalent 0.5 ML Intramuscula r Suspension Prefilled Syringe Lot #: [id number] on: 13-Feb-2018 Fluzone High-Dose 0.5 ML Intramuscular S uspension Prefilled Syringe Lot #: [id number] on: 27-Feb-2019 Family History Name Dates Details [...] (finding) Vital Signs Date Test Result Details [id number] Systolic blood pressure 141 mm[Hg] Status: Comments [...] ALT 10 u/l (Normal) Range: 9-46 :50 [[facility]] HEMOGLOBIN A1c Comments: REPORT C OMMENT:FASTING:YES HEMOGLOBIN A1c 7.5 {%_of_total} (Above high th reshold) Range: <5.7 Comments: For someone without known diabetes, a hemoglobin F9ndvhhb of 6.5% or greater indicates that they [...] Appointment; BORIS WESLEY APRN On: 28-Aug-2019 12:30 Instructions Name Dates Details Instructions not [...] Problem not documented On: 27-Feb-2019 14:45 Appointment; BORIS WESLEY APRN Encounter Diagnosis: Problem not documented On: 30-May-2019 12:30
--- OUTSIDE RECORDS SUMMARY | 2019-11-02 19:27 | XMS REPORT | Summary of Care ---
Author Author [facility] Address [address] [place] [address] Phone Unavailable Care Team Providers Care Java Developer Consultant Name Role Phone BORIS WESLEY APRN Unavailable [...] 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 [facility] tophus (274.02, 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 UZAIR on [...] WESLEY APRN * Start : 05-Jun-2015 Active Vitamin C [...] WESLEY APRN * Start : 26-Oct-2017 Active Olmesartan Medoxomil 40 MG Oral Tablet TAKE 1 TABLET BY MOUTH EVERY DAY * Quantity: 90 Refills: 1 BORIS WESLEY APRN * Start : 26-Oct-2017 Active Tart Figueredo Advanced Oral Capsule DIRECTED * Refills: 0 BORIS WESLEY APRN * Start : 15-Mar-2018 Active Glucose Meter Test In Vitro Strip TEST ONCE DAILY & PRNDx: E11.9 / 250 * Quantity: 50 Refills: 5 BORIS WESLEY APRN * Start : 15-Mar-2018 Active Nystatin-Triamcinolone 777562-9.1 UNIT/GM-% External Cream APPLY SPARINGLY TO AFFECTED [...] WESLEY APRN * Start : 30-Nov-2018 Active predniSONE 10 MG Oral Tablet 2 tabs po QAM w/ food x 3d, then 1 tab po qd x 10d. START NAPROXEN w/ LAST PRED NISONE DOSE. * Quantity: 26 Refills: 0 BORIS WESLEY APRN D. * Start : 27-Feb-2019 Active Naproxen [...] WESLEY APRN * Start : 27-Feb-2019 Active Allergies and [...] Details Prevnar 13 Intramuscular Suspension Lot #: [id number] on: 07-Aug-2014 Fluzone Quadrivalent 0.5 ML Intramuscula r Suspension Lot #: [id number] on: 31-Jan-2015 Fluzone High-Dose 0.5 ML Intramuscular S uspension Prefilled Syringe Lot #: [id number] on: 19-Jan-2017 Pneumococcal polysaccharide vaccine, 23 valent Lot #: [id number] on: 19-Jan-2017 Fluzone Quadrivalent 0.5 ML Intramuscula r Suspension Prefilled Syringe Lot #: [id number] on: 13-Feb-2018 Fluzone High-Dose 0.5 ML Intramuscular S uspension Prefilled Syringe Lot #: [id number] on: 27-Feb-2019 Family History Name Dates Details [...] (finding) Vital Signs Date Test Result Details [id number] Systolic blood pressure 141 mm[Hg] Status: Comments [...] target for gout patients: <6.0 mg/dL :50 [[facility]] HEPATIC FUNCTION PANEL PROTEIN, TOTAL 5.3 g/dl [...] For someone without known diabetes, a hemoglobin K9chxwvm of 6.5% or greater indicates that they [...] Details Planned Observations Planned Goals not documented Instructions Name Dates Details Instructions not documented [...] Problem not documented On: 30-Nov-2018 14:30 Appointment; WESLEY, BORIS, SCRUB TECHNICIAN Encounter Diagnosis: Problem not documented On: 27-Feb-2019 14:45 Appointment; BORIS WESLEY APRN Encounter Diagnosis: Problem not documented On: 30-May-2019 12:30
--- OUTSIDE RECORDS SUMMARY | 2019-11-02 19:27 | XMS REPORT | Summary of Care ---
Author Author OC WESLEY APRN Organization Unknown Address Unknown Phone Unavailable Care Team Providers Care Property Consultant Name Role Phone BORIS WESLEY APRN Unavailable HARIS Urbano, NIDIA Unavailable Unavailable BORIS WESLEY APRN Unavailable Unavailable HARIS KEANE [place], NIDIA POLK Unavailable Unavailable RUBY KEANE, KAREN Mckenzie Unavailable Unavailable Robyn KEANE, Jhony Unavailable Unavailable MARYJANE NIXON [place], BORIS Wyatt Unavailable Unavailable Aniceto Ojeda MD, David Unavailable Unavailable MIESHA COPPOLA [place], ROCKY Unavailable Unavailable HARIS BELL [place], JAMEY Unavailable Unavailable Unavailable Unavailable Functional Status [...] 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 * Refills: 0 M.A. Active Allopurinol 300 MG Oral Tablet TAKE [...] APRN * Start : 15-Mar-2018 Active Nystatin-Triamcinolone 552536-5.1 UNIT/GM-% External Cream APPLY SPARINGLY TO AFFECTED [...] Details Prevnar 13 Intramuscular Suspension Lot #: [id number] on: 07-Aug-2014 Fluzone Quadrivalent 0.5 ML Intramuscula r Suspension Lot #: [id number] on: 31-Jan-2015 Fluzone High-Dose 0.5 ML Intramuscular S uspension Prefilled Syringe Lot #: [id number] on: 19-Jan-2017 Pneumococcal polysaccharide vaccine, 23 valent Lot #: [id number] on: 19-Jan-2017 Fluzone Quadrivalent 0.5 ML Intramuscula r Suspension Prefilled Syringe Lot #: [id number] on: 13-Feb-2018 Fluzone High-Dose 0.5 ML Intramuscular S uspension Prefilled Syringe Lot #: [id number] on: 27-Feb-2019 Family History Name Dates Details [...] to report Results Date Description Value Details [id number] [QL] URIC ACID URIC ACID 5.0 mg/dl (Normal) Range: 4.0-8 .0 Comments: Therapeutic target for gout patients: <6.0 mg/dL [id number]:[id number] [QL] HEPATIC FUNCTION PANEL PROTEIN, TOTAL 5.3 [...] 10-35 ALT 10 u/l (Normal) Range: 9-46 [id number] [[facility]] HEMOGLOBIN A1c Comments: REPORT C OMMENT:FASTING:YES HEMOGLOBIN A1c 7.5 {%_of_total} (Above high th reshold) Range: <5.7 Comments: For someone without known diabetes, a hemoglobin J2zqhyxm of 6.5% or greater indicates that they [...] Appointment; BORIS WESLEY APRN On: 30-May-2019 12:30 Interventions Provided Discussion/Summary* Poorly Copntrolled Diabetes, no gout, liver functions WNL but serum protien is low. eat more protein rich foods. continue Plan of Care as prescribed and follow-up as planned. Instructions Name Dates Details Instructions not documented [...] not documented On: 10-May-2018 10:00 Appointment; ROCKY WHITEISDE D.O. Encounter Diagnosis: Problem not documented On: [...]
--- OUTSIDE RECORDS SUMMARY | 2019-11-02 19:27 | XMS REPORT | Summary of Care ---
Author Author OC WESLEY APRN Organization Unknown Address Unknown Phone Unavailable Care Team Providers Care Java Architect Name Role Phone BORIS WESLEY APRN Unavailable HARIS Urbano, NIDIA Unavailable Unavailable BORIS WESLEY APRN Unavailable Unavailable HARIS KEANE [place], NIDIA POLK Unavailable Unavailable RUBY KEANE, KAREN Mckenzie Unavailable Unavailable Robyn KEANE, Jhony Unavailable Unavailable MARYJANE NIXON [place], BORIS Wyatt Unavailable Unavailable Aniceto Ojeda MD, David Unavailable Unavailable MIESHA COPPOLA [place], ROCKY Unavailable Unavailable HARIS BELL DE, JAMEY Unavailable Unavailable Unavailable Unavailable Functional Status [...] WESLEY APRN Start : 15-Mar-2018 Active Nystatin-Triamcinolone 764511-3.1 UNIT/GM-% External Cream APPLY SPARINGLY TO AFFECTED [...] Details Prevnar 13 Intramuscular Suspension Lot #: [id number] on: 07-Aug-2014 Fluzone Quadrivalent 0.5 ML Intramuscula r Suspension Lot #: [id number] on: 31-Jan-2015 Fluzone High-Dose 0.5 ML Intramuscular S uspension Prefilled Syringe Lot #: [id number] on: 19-Jan-2017 Pneumococcal polysaccharide vaccine, 23 valent Lot #: [id number] on: 19-Jan-2017 Fluzone Quadrivalent 0.5 ML Intramuscula r Suspension Prefilled Syringe Lot #: [id number] on: 13-Feb-2018 Fluzone High-Dose 0.5 ML Intramuscular S uspension Prefilled Syringe Lot #: [id number] on: 27-Feb-2019 Family History Name Dates Details [...] (finding) Vital Signs Date Test Result Details [id number] Systolic blood pressure 141 mm[Hg] Status: Comments [...] For someone without known diabetes, a hemoglobin F0nzkwwu of 6.5% or greater indicates that they [...] On: 28-Aug-2019 12:30 Interventions Provided Medication Changes* amLODIPine Besylate 10 MG Oral Tablet - Renew * Carvedilol 3.125 MG Oral Tablet - Renew * Olmesartan Medoxomil 40 MG Oral Tablet - Renew * PARoxetine HCl - 20 MG Oral Tablet - Renew Plan* Take your blood pressures in the same arm and the same time of day (+/- 1 Hr) ONCE a WEEK (min). Just NOT within 1 hr AFTER a meal and NOT a WRIST Cuff.. This will give us a better idea of your trend of blood pressures. * If SBP < 100 mmHg, hold olmesartan until SBP > 130 for 3 consecutive days. If you have to hold this med more than once...call us before med restart. Contact my Nurse...from the main number choose Option 7 (Nurses Line) then Option 3 (her line or voice mail). Leave a message. If you do not get a call back by the next business day, Please call us again. * Low fat dairy can also decrease your uric acid for gout. Get Uric acid and A1c labs done in MID may prior to f/u OV (2-3 days min). * Support sox / Travel Sox 15-20 mmHG on in the AM and off QHS. Instructions Name Dates Details Instructions not documented [...]
--- OUTSIDE RECORDS SUMMARY | 2019-11-02 19:27 | XMS REPORT | Summary of Care ---
Author Author OC WESLEY APRN Organization Unknown Address Unknown Phone Unavailable Care Team Providers Care Dairy Farmer Name Role Phone BORIS WESLEY APRN Unavailable HARIS Urbano, NIDIA Unavailable Unavailable BORIS WESLEY APRN Unavailable Unavailable HARIS KEANE [place], NIDIA POLK Unavailable Unavailable RUBY KEANE, KAREN Mckenzie Unavailable Unavailable Robyn KEANE, Jhony Unavailable Unavailable MARYJANE NIXON [place], BORIS Wyatt Unavailable Unavailable Aniceto Ojeda MD, David Unavailable Unavailable MIESHA COPPOLA [place], ROCKY Unavailable Unavailable HARIS BELL [place], JAMEY Unavailable Unavailable Unavailable Unavailable Functional Status [...] 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, 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 UZAIR [...] APRN * Start : 15-Mar-2018 Active Nystatin-Triamcinolone 437016-0.1 UNIT/GM-% External Cream APPLY SPARINGLY TO AFFECTED [...] Details Prevnar 13 Intramuscular Suspension Lot #: [id number] on: 07-Aug-2014 Fluzone Quadrivalent 0.5 ML Intramuscula r Suspension Lot #: [id number] on: 31-Jan-2015 Fluzone High-Dose 0.5 ML Intramuscular S uspension Prefilled Syringe Lot #: [id number] on: 19-Jan-2017 Pneumococcal polysaccharide vaccine, 23 valent Lot #: [id number] on: 19-Jan-2017 Fluzone Quadrivalent 0.5 ML Intramuscula r Suspension Prefilled Syringe Lot #: [id number] on: 13-Feb-2018 Fluzone High-Dose 0.5 ML Intramuscular S uspension Prefilled Syringe Lot #: [id number] on: 27-Feb-2019 Family History Name Dates Details [...] to report Results Date Description Value Details :50 [[facility]] URIC ACID URIC ACID 5.0 mg/dl (Normal) Range: 4.0-8 .0 Comments: Therapeutic target for gout patients: <6.0 mg/dL [id number] [[facility]] HEPATIC FUNCTION PANEL PROTEIN, TOTAL 5.3 g/dl [...] 10-35 ALT 10 u/l (Normal) Range: 9-46 [id number]:50 [[facility]] HEMOGLOBIN A1c Comments: REPORT C OMMENT:FASTING:YES HEMOGLOBIN A1c 7.5 {%_of_total} (Above high th reshold) Range: <5.7 Comments: For someone without known diabetes, a hemoglobin I7wbqrlz of 6.5% or greater indicates that they [...] WESLEY APRN On: 30-May-2019 12:30 Interventions Provided Plan* Take your blood pressures in the [...] business day, Please call us again. * Nabumetone 750 MG is an NSAID...confirm this is the med we discussed @ OV (45 days of a 90 Rx w/o improvement) * Use a heating pad no higher than "medium" for 5-10 minutes prior to stretching AT LEAST 3 TIMES A DAY, but NOT MORE THAN 5 TIMES A DAY. Get a "good" stretch on the prescribed exercises, but DO NOT stretch past the "pain threshold" to avoid causing further damage. Ice after stretch or exercise for pain control. * Low fat dairy can also decrease [...]
--- OUTSIDE RECORDS SUMMARY | 2019-11-02 19:27 | XMS REPORT | Summary of Care ---
Author Organization Unknown Address Unknown Phone Unavailable Encounter HQ Encntr_alias([facility]) [id number] Date(s): 12/25/13 - 12/25/13 [facility] Outpatient Imaging - [address] [address]- [place] Discharge Disposition: Home Physician Attending: Estelle Peterson MD Reason for Visit 401.9 - HYPERTENSION NO Problem List No data available for this section Allergies, Adverse Reactions, Alerts No data available for this section Medications No data available for this section Medications Administered During Your Visit No data available for this section Immunizations No data available for this section
--- OUTSIDE RECORDS SUMMARY | 2019-11-02 19:27 | XMS REPORT | Summary of Care ---
Author Author OC WESLEY APRN Organization Unknown Address Unknown Phone Unavailable Care Team Providers Care Apartment Leasing Manager Name Role Phone BORIS WESLEY APRN Unavailable HARIS Urbano, NIDAI Unavailable Unavailable BORIS WESLEY APRN Unavailable Unavailable HARIS KEANE [place], NIDIA POLK Unavailable Unavailable RUBY KEANE, KAREN Mckenzie Unavailable Unavailable Robyn KEANE, Jhony Unavailable Unavailable MARYJANE NIXON [place], BORIS Wyatt Unavailable Unavailable Aniceto Ojeda MD, David Unavailable Unavailable MIESHA COPPOLA [place], ROCKY Unavailable Unavailable HARIS BELL [place], JAMEY Unavailable Unavailable Unavailable Unavailable Functional Status [...] without urinary obstruction (600.00, N40.0) Status: Active Gall bladder stones (574.20, K80.20) [...] of both legs (782.3, R60.0) Status: Active BILL positive (795.79, R76.8) Status: [...] Abnormal liver function (794.8, R94.5) Status: Active Medications Name Dates Details PARoxetine [...] APRN * Start : 15-Mar-2018 Active Nystatin-Triamcinolone 204994-5.1 UNIT/GM-% External Cream APPLY SPARINGLY TO AFFECTED [...] Details Prevnar 13 Intramuscular Suspension Lot #: [id number] on: 07-Aug-2014 Fluzone Quadrivalent 0.5 ML Intramuscula r Suspension Lot #: [id number] on: 31-Jan-2015 Fluzone High-Dose 0.5 ML Intramuscular S uspension Prefilled Syringe Lot #: [id number] on: 19-Jan-2017 Pneumococcal polysaccharide vaccine, 23 valent Lot #: [id number] on: 19-Jan-2017 Fluzone Quadrivalent 0.5 ML Intramuscula r Suspension Prefilled Syringe Lot #: [id number] on: 13-Feb-2018 Fluzone High-Dose 0.5 ML Intramuscular S uspension Prefilled Syringe Lot #: [id number] on: 27-Feb-2019 Family History Name Dates Details [...] (finding) Vital Signs Date Test Result Details [id number] Systolic blood pressure 141 mm[Hg] Status: Comments [...] ALT 10 u/l (Normal) Range: 9-46 :50 [[facility]] HEMOGLOBIN A1c Comments: REPORT C OMMENT:FASTING:YES HEMOGLOBIN A1c 7.5 {%_of_total} (Above high th reshold) Range: <5.7 Comments: For someone without known diabetes, a hemoglobin L1gxzswe of 6.5% or greater indicates that they [...] Details Planned Observations Planned Goals not documented Interventions Provided Plan* Take your blood pressures [...]
--- OUTSIDE RECORDS SUMMARY | 2019-11-02 19:27 | XMS REPORT | Summary of Care ---
Author Author [facility] Organization [facility] Address Unknown Phone Unavailable Encounter CAROLINE Muller(ARY) [id number] Date(s): 10/16/14 - 10/16/14 [facility] [address] [employer] provided by [employer] [facility] [employer] [place] [address]- Discharge Disposition: Home Attending Physician: Kurt oBwman MD Admitting Physician: Kurt Bowman MD Referring Physician: Kurt Bowman MD Vital Signs 1 2 3 Most recent to oldest [Reference Range]: 187.96 cm (10/16/14 7:47 AM) Height 1 2 3 Most recent to oldest [Reference Range]: 156/74 mmHg *HI* (10/16/14 11:15 AM) 156/74 mmHg *HI* (10/16/14 11:00 AM) 140/56 mmHg (10/16/14 10:45 AM) Blood Pressure [90-140/60-90 mmHg] 1 2 3 Most recent to oldest [Reference Range]: 113.636 kg (10/16/14 7:47 AM) Weight 1 2 3 Most recent to oldest [Reference Range]: 32.17 m2 (10/16/14 7:47 AM) Body Mass Index Problem List Condition Effective Dates Status Health Status Informan t Bradycardia(Confirme Active d) Diabetes(Confirmed) Active GERD Active (gastroesophageal reflux disease)(Confirmed) Hyperlipidemia(Confi Resolved rmed) Hypertension(Confirm Active ed) Allergies, Adverse Reactions, Alerts Substance Reaction Severity Status NKDA Active Medications amLODIPine 10 mg oral tablet 10 mg = 1 tab, PO, Daily, # 30 tab, 0 Refill(s) Start Date: 10/16/14 Status: Ordered hydrALAZINE 50 mg oral tablet 50 mg = 1 tab, PO, TID, # 270 tab, 1 Refill(s) Start Date: 10/16/14 Status: Ordered lisinopril 40 mg oral tablet 40 mg = 1 tab, PO, Daily, # 90 tab, 1 Refill(s) Start Date: 10/16/14 Status: Ordered metFORMIN 500 mg oral tablet 500 mg = 1 tab, PO, Before Dinner, # 30 tab, 0 Refill(s) Start Date: 10/16/14 Status: Ordered NS 1,000 mL 1,000 mL, Rate: 75 ml/hr, Infuse over: 13.3 hr, Route: IV, Dosing Weight 113.636 kg, Total Volume: 1,000, Start date: 10/16/14 11:58:00, Duration: 30 day, Stop date: 11/15/14 11:57:00 Start Date: 10/16/14 Stop Date: 10/16/14 Status: Discontinued NS 250 mL 250 mL, Rate: 250 ml/hr, Infuse over: 1 hr, Route: IV, Dosing Weight 113.636 kg, Total Volume: 250, Start date: 10/16/14 11:58:00, Duration: 30 day, Stop date: 11/15/14 11:57:00 Start Date: 10/16/14 Stop Date: 10/16/14 Status: Discontinued PARoxetine 20 mg oral tablet 20 mg = 1 tab, PO, Daily, # 90 tab, 0 Refill(s) Start Date: 10/16/14 Status: Ordered pneumococcal 23-valent vaccine 0.5 mL, Route: IM, Drug Form: INJ, Daily, Start date: 10/16/14 9:00:00, Duration : 1 doses or times, Stop date: 10/16/14 9:00:00 Notes: (Same as: Pneumovax 23) Refrigerate Start Date: 10/16/14 Stop Date: 10/16/14 Status: Completed Sodium Chloride 0.9% IV 250 mL 250 mL, Rate: 125 ml/hr, Infuse over: 2 hr, Route: IV, Dosing Weight 113.636 kg, Total Volume: 250, Start date: 10/16/14 10:12:00, Duration: 1 doses or times, S top date: 10/16/14 12:11:00 Start Date: 10/16/14 Stop Date: 10/16/14 Status: Completed Tekturna HCT 300 mg-12.5 mg oral tablet 1 tab, PO, Daily, # 30 tab, 0 Refill(s) Start Date: 10/16/14 Status: Ordered Results BLOOD BANK RESULTS Most recent to 1 oldest [Reference Range]: ABO/Rh A POS *Unknown* (10/16/14 8:10 AM) Antibody Scrn Negative (10/16/14 8:10 AM) Immunizations Vaccine Date Refusal Reason pneumococcal 23-valent [...] Smoking Cessation Counseling No Assessment and Plan Extracted from: Title: Left heart catheterization Author: Nkechi Montez MD Date: 10/16/14 DATE OF PROCEDURE: 10/16/14 ATTENDING PHYSICIAN: Dr. Kurt Bowman PROCEDURES PERFORMED: left heart catheterization. INDICATION: Mr. 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 We are doing [facility] to evaluate for underlying CAD as a contributing factor to his bradycardia & symptomatology. PRE-PROCEDURE DIAGNOSIS: bradycardia, HTN POST-PROCEDURE DIAGNOSIS: bradycardia, HTN OPERATORS: 1. Dr. Kurt Bowman, interventional cardiology attending. 2. Dr. Nkechi Montez, natural gas inspector. SYSTEMIC SEDATION: 1 mg Versed, 25 mcg [...] to the R radial artery, and a 7-Pashto sheath was placed via modified Seldinger technique. A 7-Fr tiger catheter was then inserted in sheath & advanced into the the ascending aorta. The [...] with EP regarding bradycardia. Nkechi Montez MD #[id number] Division of Cardiovascular Medicine, PGY-4
--- OUTSIDE RECORDS SUMMARY | 2019-11-02 19:28 | XMS REPORT | Summary of Care ---
Author OC Miller LVN Organization Unknown Address Unknown Phone Unavailable Care Team Providers Care Exhibits Curator Name Role Phone BORIS WESLEY APRN Unavailable Unavailable HARIS Urbano, NIDIA Unavailable Unavailable BORIS WESLEY APRN Unavailable Unavailable HARIS KEANE [place], NIDIA POLK Unavailable Unavailable RUBY KEANE, KAREN Mckenzie Unavailable Unavailable Robyn KEANE, Jhony Unavailable Unavailable MARYJANE NIXON [place], BORIS Wyatt Unavailable Unavailable Aniceto Ojeda MD, David Unavailable Unavailable MIESHA COPPOLA [place], ROCKY Unavailable Unavailable HARIS BELL [place], JAMEY Unavailable Unavailable Unavailable Unavailable Functional Status [...] (307.41, F51.09) Status: Active Elevated LFTs (790.6, R79.89) Status: Active Abnormal liver function (794.8, R94.5) Status: Active BPH without urinary obstruction (600.00, N40.0) Status: Active Edema of both legs (782.3, R60.0) Status: Active Syncope and collapse (780.2, R55) Status: Active Nephrolithiasis (592.0, N20.0) Status: Active Choledocholithiasis (574.50, K80.50) Status: Active Low vitamin B12 level (266.2, E53.8) Status: Active 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 * Refills: 0 BORIS WESLEY APRN * Start : 16-Jul-2019 Active Allergies and Adverse Reactions Name Dates [...] M84.375D) Status: Resolved Procedures Procedure Dates Details [Q] METHYLMALONIC ACID, GC/MS/MS, URINE Date: 16-Jul-2019 [Q] COPPER, RANDOM URINE Date: 16-Jul-2019 History of Renal Lithotripsy Completed History of Oral Surgery Tooth Extraction Completed History of Skin Tag Removal Completed History of Dental Implant Completed Immunization Name Dates Details Prevnar 13 Intramuscular Suspension Lot #: [id number] on: 07-Aug-2014 Fluzone Quadrivalent 0.5 ML Intramuscula r Suspension Lot #: [id number] on: 31-Jan-2015 Fluzone High-Dose 0.5 ML Intramuscular S uspension Prefilled Syringe Lot #: [id number] on: 19-Jan-2017 Pneumococcal polysaccharide vaccine, 23 valent Lot #: [id number] on: 19-Jan-2017 Fluzone Quadrivalent 0.5 ML Intramuscula r Suspension Prefilled Syringe Lot #: [id number] on: 13-Feb-2018 Fluzone High-Dose 0.5 ML Intramuscular S uspension Prefilled Syringe Lot #: [id number] on: 27-Feb-2019 Family History Name Dates Details [...] (finding) Vital Signs Date Test Result Details :30 Systolic blood pressure 135 mm[Hg] Status: Comments : Location: LUE; Position: Sitting Diastolic blood pressure 60 mm[Hg] Status: Comment s: Location: LUE; Position: Sitting Body height 74 in Status: Weight 234.0625 lb Status: Body mass index (BMI) [Ratio] 30.05 kg/m2 Status: Body surface area Derived from formula 2.32 m2 S tatus: Body temperature 97.8 f Status: Comments: Me thod: Temporal Heart Rate 62 /min Status: Respiratory rate 14 /min Status: Physical Findings 0 Status: Comments: Al cohol Screen - How many times in the past yr have you had 5 (for M) or 4 (for F) or 4 (for all > 65yrs) or more drinks in a day? Results Date Description Value Details :24 [Q] IRON, TIBC AND FERRITIN PANEL IRON, TOTAL 124 {mcg/dl} (Normal) Range: 50 -180 IRON BINDING CAPACITY 237 {mcg/dL__ca} (Below l ow threshold) Range: 250-425 % SATURATION 52 {%__CALC} (Above high thresh old) Range: 20-48 FERRITIN 418 ng/ml (Above high threshold ) Range: 24-380 :24 [QL] CBC (INCLUDES DIFF/PLT) WHITE BLOOD CELL COUNT 3.4 {Thousand/u} (Below low threshold) Range: 3.8-10.8 RED BLOOD CELL COUNT 2.44 {Million/uL} (Below l ow threshold) Range: 4.20-5.80 HEMAGLOBIN 9.0 g/dl (Below low threshold) Range: 13.2-17.1 HEMATOCRIT 25.6 % (Below low threshold) Ra nge: 38.5-50.0 MCV 104.9 fL (Above high threshold) Range: 80.0-100.0 MCH 36.9 pg (Above high threshold) Range: 27.0-33.0 MCHC 35.2 g/dl (Normal) Range: 32.0- 36.0 RDW 16.9 % (Above high threshold) R lauren: 11.0-15.0 PLATELET COUNT 244 {Thousand/u} (Normal) Range : 140-400 MPV 9.9 fL (Normal) Range: 7.5-12.5 ABSOLUTE NEUTROPHILS 1850 {cells/uL} (Normal) R lauren: 3227-2014 ABSOLUTE LYMPHOCYTES 983 {cells/uL} (Normal) Ra nge: 850-3900 ABSOLUTE MONOCYTES 320 {cells/uL} (Normal) Rang e: 200-950 ABSOLUTE EOSINOPHILS 207 {cells/uL} (Normal) Ra nge: 15-500 ABSOLUTE BASOPHILS 41 {cells/uL} (Normal) Range : 0-200 NEUTROPHILS 54.4 % (Normal) LYMPHOCYTES 28.9 % (Normal) MONOCYTES 9.4 % (Normal) EOSINOPHILS 6.1 % (Normal) BASOPHILS 1.2 % (Normal) 23-Rmb-100015:24 [QL] VITAMIN B12/FOLATE, SERUM PANEL Co mments: Please Note: Although the reference range for [id number] is 200-1100 pg/mL, it has been reported that between5 and 10% of patients with values between 200 and 400pg/mL may experience neuropsychiatric and hematologicabnormalities due to occult B12 deficiency; less than 1%of patients with values above 400 pg/mL will have symptoms. REPORT COMMENT:FASTING:YES VITAMIN B12 392 pg/ml (Normal) Range: 200-1 100 Comments: Please Note: Although the reference range for [id number] is 200-1100 pg/mL, it has been reported that between5 and 10% of patients with values between 200 and 400pg/mL may experience neuropsychiatric and hematologicabnormalities due to occult B12 deficiency; less than 1%of patients with values above 400 pg/mL will have symptoms. FOLATE, SERUM 12.2 ng/ml (Normal) Comments: R eference Range Low: <3.4 Borderline: 3.4-5.4 Normal: >5.4 Plan of Care Name Dates Details Planned [...] Diagnosis: Problem not documented On: 30-May-2019 12:30 Appointment; NIDIA CARBALLO M.D. Encounter Diagnosis: Problem not documented On: 18-Jul-2019 9:30
--- OUTSIDE RECORDS SUMMARY | 2019-11-02 19:28 | XMS REPORT | Summary of Care ---
Author Author [facility] Address [address] [place] [address] Phone Unavailable Care Team Providers Care Audio Visual Manager Name Role Phone BORIS WESLEY APRN Unavailable Unavailable HARIS Urbano, NIDIA Unavailable Unavailable BORIS WESLEY APRN Unavailable Unavailable HARIS KEANE [place], NIDIA POLK Unavailable Unavailable RUBY KEANE, KAREN Mckenzie Unavailable Unavailable Robyn KEANE, Jhony Unavailable Unavailable MARYJANE NIXON [place], BORIS Wyatt Unavailable Unavailable Aniceto Ojeda MD, Davdi Unavailable Unavailable MIESHA DO [place], ROCKY Unavailable Unavailable HARIS BELL [place], [...] Status: Active Choledocholithiasis (574.50, K80.50) Status: Active Medications Name Dates Details PARoxetine [...] DAY * Quantity: 90 Refills: 1 BORIS WESELY APRN * Start : 26-Oct-2017 Active Tart Figueredo Advanced Oral Capsule DIRECTED * Refills: 0 BORIS WESLEY APRN * Start : 15-Mar-2018 Active Glucose Meter Test In Vitro Strip TEST ONCE DAILY & PRNDx: E11.9 / 250 * Quantity: 50 Refills: 5 BORIS WESLEY APRN * Start : 15-Mar-2018 Active Nystatin-Triamcinolone 655791-6.1 UNIT/GM-% External Cream APPLY SPARINGLY TO AFFECTED [...] * Quantity: 90 Refills: 0 BORIS WESLEY APRN. * Start : 29-Mar-2018 Active azaTHIOprine 50 [...] Details Prevnar 13 Intramuscular Suspension Lot #: [id number] on: 07-Aug-2014 Fluzone Quadrivalent 0.5 ML Intramuscula r Suspension Lot #: [id number] on: 31-Jan-2015 Fluzone High-Dose 0.5 ML Intramuscular S uspension Prefilled Syringe Lot #: [id number] on: 19-Jan-2017 Pneumococcal polysaccharide vaccine, 23 valent Lot #: [id number] on: 19-Jan-2017 Fluzone Quadrivalent 0.5 ML Intramuscula r Suspension Prefilled Syringe Lot #: [id number] on: 13-Feb-2018 Fluzone High-Dose 0.5 ML Intramuscular S uspension Prefilled Syringe Lot #: [id number] on: 27-Feb-2019 Family History Name Dates Details [...] Planned Encounters Appointment; BORIS WESLEY APRN On: 17-Jul-2019 14:30 Appointment; BORIS WESLEY APRN On: 28-Aug-2019 12:30 [...] Problem not documented On: 10-May-2018 10:00 Appointment; ROCYK WHITESIDE D.O. Encounter Diagnosis: Problem not documented [...]
--- OUTSIDE RECORDS SUMMARY | 2019-11-02 19:28 | XMS REPORT | Summary of Care ---
Author Author [facility] Address [address] [place] [address] Phone Unavailable Care Team Providers Care Magazine Filler Name Role Phone BORIS WESLEY APRN Unavailable Unavailable HARIS Urbano, NIDIA Unavailable Unavailable BORIS WESLEY APRN Unavailable Unavailable HARIS KEANE [place], NIDIA POLK Unavailable Unavailable RUBY KEANE, KAREN Mckenzie Unavailable Unavailable Robyn KEANE, Jhony Unavailable Unavailable MARYJANE NIXON [place], BORIS Wyatt Unavailable Unavailable Aniceto Ojeda MD, David Unavailable Unavailable MIESHA DO [place], ROCKY Unavailable Unavailable HARIS BELL [place], JAMEY Unavailable Unavailable Unavailable Unavailable Functional Status [...] WESLEY APRN * Start : 26-Oct-2017 Active Nystatin-Triamcinolone 679353-2.1 UNIT/GM-% External Cream APPLY SPARINGLY TO AFFECTED [...] BORIS WESLEY APRN Start : 15-Mar-2018 Active Allergies and Adverse Reactions Name Dates [...] Status: Resolved Procedures Procedure Dates Details [QL] CBC (INCLUDES DIFF/PLT) Date: 12-Jul-2019 [Q] IRON, TIBC AND FERRITIN PANEL Date: 12-Jul-2019 [QL] VITAMIN B12/FOLATE, SERUM PANEL Date: 12-Jul-2019 History of Renal Lithotripsy Completed History of Oral Surgery Tooth Extraction Completed History of Skin Tag Removal Completed History of Dental Implant Completed Immunization Name Dates Details Prevnar 13 Intramuscular Suspension Lot #: [id number] on: 07-Aug-2014 Fluzone Quadrivalent 0.5 ML Intramuscula r Suspension Lot #: [id number] on: 31-Jan-2015 Fluzone High-Dose 0.5 ML Intramuscular S uspension Prefilled Syringe Lot #: [id number] on: 19-Jan-2017 Pneumococcal polysaccharide vaccine, 23 valent Lot #: [id number] on: 19-Jan-2017 Fluzone Quadrivalent 0.5 ML Intramuscula r Suspension Prefilled Syringe Lot #: [id number] on: 13-Feb-2018 Fluzone High-Dose 0.5 ML Intramuscular S uspension Prefilled Syringe Lot #: [id number] on: 27-Feb-2019 Family History Name Dates Details [...]
--- OUTSIDE RECORDS SUMMARY | 2019-11-02 19:28 | XMS REPORT | Summary of Care ---
Author Author [facility] WESLEY APRN Organization Unknown Address Unknown Phone Unavailable Care Team Providers Care Metal Products Fabricator Assembler Name Role Phone BORIS WESLEY APRN Unavailable Unavailable HARIS Urbano, NIDIA Unavailable Unavailable BORIS WESLEY APRN Unavailable Unavailable HARIS KEANE [place], NIDIA POLK Unavailable Unavailable RUBY KEANE, KAREN Mckenzie Unavailable Unavailable Robyn KEANE, Jhony Unavailable Unavailable MARYJANE NIXON [place], BORIS Wyatt Unavailable Unavailable Aniceto Ojeda MD, David Unavailable Unavailable MIESHA COPPOLA [place], ROCKY Unavailable Unavailable HARIS BELL [place], JAMEY Unavailable Unavailable Unavailable Unavailable Functional Status [...] APRN * Start : 15-Mar-2018 Active Nystatin-Triamcinolone 612769-6.1 UNIT/GM-% External Cream APPLY SPARINGLY TO AFFECTED [...] TABLET DAILY. * Refills: 0 BORIS WESLEY APRN. * Start : 16-Jul-2019 Active Allergies and [...] Details Prevnar 13 Intramuscular Suspension Lot #: [id number] on: 07-Aug-2014 Fluzone Quadrivalent 0.5 ML Intramuscula r Suspension Lot #: [id number] on: 31-Jan-2015 Fluzone High-Dose 0.5 ML Intramuscular S uspension Prefilled Syringe Lot #: [id number] on: 19-Jan-2017 Pneumococcal polysaccharide vaccine, 23 valent Lot #: [id number] on: 19-Jan-2017 Fluzone Quadrivalent 0.5 ML Intramuscula r Suspension Prefilled Syringe Lot #: [id number] on: 13-Feb-2018 Fluzone High-Dose 0.5 ML Intramuscular S uspension Prefilled Syringe Lot #: [id number] on: 27-Feb-2019 Family History Name Dates Details [...] to report Results Date Description Value Details :24 [Q] [...] 7.5-12.5 ABSOLUTE NEUTROPHILS 1850 {cells/uL} (Normal) R laurne: [id number] ABSOLUTE LYMPHOCYTES 983 {cells/uL} (Normal) Ra nge: 850-3900 ABSOLUTE MONOCYTES 320 {cells/uL} (Normal) Rang e: 200-950 ABSOLUTE EOSINOPHILS 207 {cells/uL} (Normal) Ra nge: 15-500 ABSOLUTE BASOPHILS 41 {cells/uL} (Normal) Range : 0-200 NEUTROPHILS 54.4 % (Normal) LYMPHOCYTES 28.9 % (Normal) MONOCYTES 9.4 % (Normal) EOSINOPHILS 6.1 % (Normal) BASOPHILS 1.2 % (Normal) 59-Jro-333929:24 [QL] VITAMIN B12/FOLATE, SERUM PANEL Co mments: Please Note: Although the reference range for tvuxejtK96 is 200-1100 pg/mL, it has been reported that between5 and 10% of patients with values between 200 and 400pg/mL may experience neuropsychiatric and hematologicabnormalities due to occult B12 deficiency; less than 1%of patients with values above 400 pg/mL will have symptoms. REPORT COMMENT:FASTING:YES VITAMIN B12 392 pg/ml (Normal) Range: 200-1 100 Comments: Please Note: Although the reference range for unitodkT00 is 200-1100 pg/mL, it has been reported [...] Observations Planned Goals not documented Planned Encounters Hematology Referral Appointment; BORIS WESLEY APRN On: 17-Jul-2019 14:30 Appointment; BORIS WESLEY APRN On: 28-Aug-2019 12:30 Interventions Provided Labs/Procedures/Imaging* [Q] COPPER, RANDOM URINE; To Be Done: 16 Jul 2019 * [Q] METHYLMALONIC ACID, GC/MS/MS, URINE; To Be Done: 16 Jul 2019 Discussion/Summary* vitamin B-12 low normal...reccoment otc supplelment. last Colonoscopy? Daily ETOH? Instructions Name Dates Details Instructions not documented [...]
--- OUTSIDE RECORDS SUMMARY | 2019-11-02 19:28 | XMS REPORT | Summary of Care ---
Author Author [facility] Address [address] [place] [address] Phone Unavailable Care Team Providers Care Waistline Joiner Overlock Name Role Phone BORIS WESLEY APRN Unavailable Unavailable HARIS Urbano, NIDIA Unavailable Unavailable BORIS WESLEY APRN Unavailable Unavailable HARIS KEANE [place], NIDIA POLK Unavailable Unavailable RUBY KEANE, KAREN Mckenzie Unavailable Unavailable Robyn KEANE, Jhony Unavailable Unavailable MARYJANE NIXON [place], BORIS Wyatt Unavailable Unavailable Aniceto Ojeda MD, David Unavailable Unavailable MIESHA DO [place], ROCKY Unavailable Unavailable HARIS BELL [place], JAMEY Unavailable Unavailable Unavailable Unavailable Functional Status [...] APRN * Start : 15-Mar-2018 Active Nystatin-Triamcinolone 342459-0.1 UNIT/GM-% External Cream APPLY SPARINGLY TO AFFECTED [...] EEKS MAX * Quantity: 60 Refills: 5 OBRIS WESLEY APRN * Start : 27-Feb-2019 Active Furosemide 20 MG Oral Tablet TAKE 1 TABLET BY MOUTH EVERY MORNING for 5-7 days for fluid retention...HOLD IF SBP > 100 mmHg. * Quantity: 30 Refills: 1 BORIS WESLEY APRN. * Start : 27-Feb-2019 Active Vitamin B12 [...] Details Prevnar 13 Intramuscular Suspension Lot #: [id number] on: 07-Aug-2014 Fluzone Quadrivalent 0.5 ML Intramuscula r Suspension Lot #: [id number] on: 31-Jan-2015 Fluzone High-Dose 0.5 ML Intramuscular S uspension Prefilled Syringe Lot #: [id number] on: 19-Jan-2017 Pneumococcal polysaccharide vaccine, 23 valent Lot #: [id number] on: 19-Jan-2017 Fluzone Quadrivalent 0.5 ML Intramuscula r Suspension Prefilled Syringe Lot #: [id number] on: 13-Feb-2018 Fluzone High-Dose 0.5 ML Intramuscular S uspension Prefilled Syringe Lot #: [id number] on: 27-Feb-2019 Family History Name Dates Details [...] ABSOLUTE NEUTROPHILS 1850 {cells/uL} (Normal) R lauren: [id number] ABSOLUTE LYMPHOCYTES 983 {cells/uL} (Normal) Ra nge: 850-3900 ABSOLUTE MONOCYTES 320 {cells/uL} (Normal) Rang e: 200-950 ABSOLUTE EOSINOPHILS 207 {cells/uL} (Normal) Ra nge: 15-500 ABSOLUTE BASOPHILS 41 {cells/uL} (Normal) Range : 0-200 NEUTROPHILS 54.4 % (Normal) LYMPHOCYTES 28.9 % (Normal) MONOCYTES 9.4 % (Normal) EOSINOPHILS 6.1 % (Normal) BASOPHILS 1.2 % (Normal) 88-Qii-[id number]:24 [QL] VITAMIN B12/FOLATE, SERUM PANEL Co mments: Please Note: Although the reference range for nnbemooM31 is 200-1100 pg/mL, it has been reported that between5 and 10% of patients with values between 200 and 400pg/mL may experience neuropsychiatric and hematologicabnormalities due to occult B12 deficiency; less than 1%of patients with values above 400 pg/mL will have symptoms. REPORT COMMENT:FASTING:YES VITAMIN B12 392 pg/ml (Normal) Range: 200-1 100 Comments: Please Note: Although the reference range for fsncjgzD40 is 200-1100 pg/mL, it has been reported [...] Planned Goals not documented Planned Encounters Appointment; NIDIA CARBALLO M.D. On: 18-Jul-2019 9:30 Appointment; BORIS WESLEY APRN On: 28-Aug-2019 12:30 [...]
--- OUTSIDE RECORDS SUMMARY | 2019-11-02 19:28 | XMS REPORT | Summary of Care ---
Author Author [facility] Address [address] [place] [address] Phone Unavailable Care Team Providers Care Electroencephalographic Technician Name Role Phone BORIS WESLEY APRN Unavailable [...] APRN * Start : 15-Mar-2018 Active Nystatin-Triamcinolone 241371-3.1 UNIT/GM-% External Cream APPLY SPARINGLY TO AFFECTED [...] Details Prevnar 13 Intramuscular Suspension Lot #: [id number] on: 07-Aug-2014 Fluzone Quadrivalent 0.5 ML Intramuscula r Suspension Lot #: [id number] on: 31-Jan-2015 Fluzone High-Dose 0.5 ML Intramuscular S uspension Prefilled Syringe Lot #: [id number] on: 19-Jan-2017 Pneumococcal polysaccharide vaccine, 23 valent Lot #: [id number] on: 19-Jan-2017 Fluzone Quadrivalent 0.5 ML Intramuscula r Suspension Prefilled Syringe Lot #: [id number] on: 13-Feb-2018 Fluzone High-Dose 0.5 ML Intramuscular S uspension Prefilled Syringe Lot #: [id number] on: 27-Feb-2019 Family History Name Dates Details [...] 7.5-12.5 ABSOLUTE NEUTROPHILS 1850 {cells/uL} (Normal) R aluren: 3804-2436 ABSOLUTE LYMPHOCYTES 983 {cells/uL} (Normal) Ra nge: 850-3900 ABSOLUTE MONOCYTES 320 {cells/uL} (Normal) Rang e: 200-950 ABSOLUTE EOSINOPHILS 207 {cells/uL} (Normal) Ra nge: 15-500 ABSOLUTE BASOPHILS 41 {cells/uL} (Normal) Range : 0-200 NEUTROPHILS 54.4 % (Normal) LYMPHOCYTES 28.9 % (Normal) MONOCYTES 9.4 % (Normal) EOSINOPHILS 6.1 % (Normal) BASOPHILS 1.2 % (Normal) 78-Wmt-521421:24 [QL] VITAMIN B12/FOLATE, SERUM PANEL Co mments: Please Note: Although the reference range for bbcprusX19 is 200-1100 pg/mL, it has been reported that between5 and 10% of patients with values between 200 and 400pg/mL may experience neuropsychiatric and hematologicabnormalities due to occult B12 deficiency; less than 1%of patients with values above 400 pg/mL will have symptoms. REPORT COMMENT:FASTING:YES VITAMIN B12 392 pg/ml (Normal) Range: 200-1 100 Comments: Please Note: Although the reference range for nuidogcD28 is 200-1100 pg/mL, it has been reported [...] Problem not documented On: 15-Mar-2018 16:15 Appointment; DAVDI PAZ M.D. Encounter Diagnosis: Problem not documented [...]
--- OUTSIDE RECORDS SUMMARY | 2019-11-02 19:28 | XMS REPORT | Summary of Care ---
Author [facility] Organization Unknown Address Unknown Phone Unavailable Care Team Providers Care Registration Scheduling Specialist Name Role Phone BORIS WESLEY APRN Unavailable HARIS Urbano, NIDIA Unavailable Unavailable Selin Pedro Unavailable Unavailable BORIS WESLEY APRN Unavailable Unavailable HARIS KEANE [place], NIDIA POLK Unavailable Unavailable RUBY KEANE, KAREN Mckenzie Unavailable Unavailable Robyn KEANE, Jhony Unavailable Unavailable MARYJANE NIXON PA, BORIS Wyatt Unavailable Unavailable Aniceto Ojeda MD, David Unavailable Unavailable MIESHA DO [place], ROCKY Unavailable Unavailable HARIS [facility], JAMEY Unavailable Unavailable Unavailable Unavailable Functional Status [...] APRN * Start : 15-Mar-2018 Active Nystatin-Triamcinolone 462203-6.1 UNIT/GM-% External Cream APPLY SPARINGLY TO AFFECTED [...] Details Prevnar 13 Intramuscular Suspension Lot #: [id number] on: 07-Aug-2014 Fluzone Quadrivalent 0.5 ML Intramuscula r Suspension Lot #: [id number] on: 31-Jan-2015 Fluzone High-Dose 0.5 ML Intramuscular S uspension Prefilled Syringe Lot #: [id number] on: 19-Jan-2017 Pneumococcal polysaccharide vaccine, 23 valent Lot #: [id number] on: 19-Jan-2017 Fluzone Quadrivalent 0.5 ML Intramuscula r Suspension Prefilled Syringe Lot #: [id number] on: 13-Feb-2018 Fluzone High-Dose 0.5 ML Intramuscular S uspension Prefilled Syringe Lot #: [id number] on: 27-Feb-2019 Family History Name Dates Details [...] ABSOLUTE NEUTROPHILS 1850 {cells/uL} (Normal) R lauren: 4966-8243 ABSOLUTE LYMPHOCYTES 983 {cells/uL} (Normal) Ra nge: 850-3900 ABSOLUTE MONOCYTES 320 {cells/uL} (Normal) Rang e: 200-950 ABSOLUTE EOSINOPHILS 207 {cells/uL} (Normal) Ra nge: 15-500 ABSOLUTE BASOPHILS 41 {cells/uL} (Normal) Range : 0-200 NEUTROPHILS 54.4 % (Normal) LYMPHOCYTES 28.9 % (Normal) MONOCYTES 9.4 % (Normal) EOSINOPHILS 6.1 % (Normal) BASOPHILS 1.2 % (Normal) 12-Agl-[id number]:24 [QL] VITAMIN B12/FOLATE, SERUM PANEL Co mments: Please Note: Although the reference range for acwaeapR07 is 200-1100 pg/mL, it has been reported that between5 and 10% of patients with values between 200 and 400pg/mL may experience neuropsychiatric and hematologicabnormalities due to occult B12 deficiency; less than 1%of patients with values above 400 pg/mL will have symptoms. REPORT COMMENT:FASTING:YES VITAMIN B12 392 pg/ml (Normal) Range: 200-1 100 Comments: Please Note: Although the reference range for dhvzlmiH79 is 200-1100 pg/mL, it has been reported [...]
--- OUTSIDE RECORDS SUMMARY | 2019-11-02 19:28 | XMS REPORT | Summary of Care ---
Author Author [facility] Address [address] [place] [address] Phone Unavailable Care Team Providers Care Purchasing Expeditor Name Role Phone BORIS WESLEY APRN Unavailable Unavailable HARIS Urbano, NIDIA Unavailable Unavailable BORIS WESLEY APRN Unavailable Unavailable HARIS KEANE [place], NIDIA POLK Unavailable Unavailable RUBY KEANE, KAREN Mckenzie Unavailable Unavailable Robyn KEANE, Jhony Unavailable Unavailable MARYJANE NIXON [place], BORIS Wyatt Unavailable Unavailable Aniceto Ojeda MD, David Unavailable Unavailable MIESHA DO [place], ROCKY Unavailable Unavailable HARIS BELL [place], JAMEY Unavailable Unavailable Unavailable Unavailable Functional Status Name Dates Details Functional status health issues are not documented Status: Name Dates Details Cognitive status health issues are not d ocumented Status: Problems Name Dates Details Encounter for mini-mental status examina tion Status: Active History of positive purified protein shar ivative test (V15.89, Z92.89) Status: Resolved Bilateral leg edema (782.3, R60.0) Status: Active 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, 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) Status: Resolved 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, 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 BILL positive (795.79, R76.8) Status: [...] of both legs (782.3, R60.0) Status: Active Acute pain of right shoulder (719.41, M2 5.511) Status: Active History of renal calculi (V13.01, Z87.44 2) Status: Resolved Generalized osteoarthritis of multiple s ites (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, M15.9) Status: Active Gall bladder stones (574.20, K80.20) Status: Active Bradycardia (427.89, R00.1) Status: Active Depression screening (V79.0, Z13.31) Status: Active Colon cancer screening (V76.51, Z12.11) Status: Active Encounter for diabetic foot exam (250.00 , E11.9) Status: Active Medications Name Dates Details Vitamin C Oral Tablet Chewable BORIS WESLEY APRN Start : 29-Aug-2015 Active Carvedilol 3.125 MG Oral Tablet TAKE 1 TABLET BY MOUTH TWICE DAILY * Quantity: 180 Refills: 1 BORIS WESLEY APRN * Start : 21-May-2016 Active Nystatin-Triamcinolone 640217-9.1 UNIT/GM-% External Cream APPLY SPARINGLY TO AFFECTED AREA(S) TWICE DAILY * Quantity: 1 Refills: 1 BORIS WESLEY APRN Start : 15-Mar-2018 Active 30 GM Tube Glucose Meter Test In Vitro Strip USE TO TEST ONCE DAILY AND PRNDx 11.9 * Quantity: 50 Refills: 5 BORIS WESLEY APRN Start : 15-Mar-2018 Active Melatonin 5 MG Oral Tablet 1-2 tabs at * Quantity: 77 Refills: 0 BORIS WESLYE APRN Start : 30-Nov-2018 Active Tart Figueredo Advanced Oral Capsule DIRECTED * Refills: 0 BORIS WESLEY APRN Start : 15-Mar-2018 Active Furosemide 20 MG Oral Tablet TAKE 1 TABLET BY MOUTH EVERY MORNING for 5-7 days for fluid retention...HOLD IF SBP > 100 mmHg. * Quantity: 30 Refills: 1 BORIS WESLEY APRN * Start : 27-Feb-2019 Active amLODIPine Besylate 10 MG Oral Tablet TAKE 1 TABLET BY MOUTH EVERY DAY * Quantity: 90 Refills: 0 BORIS WESLEY APRN * Start : 29-Mar-2018 Active Olmesartan Medoxomil 40 MG Oral Tablet TAKE 1 TABLET BY MOUTH EVERY DAY * Quantity: 90 Refills: 1 BORIS WESLEY APRN * Start : 26-Oct-2017 Active Motrin TABS TAKE 3 TABLET 2 TIMES DAILY NEEDED. * Refills: 0 Active Fluticasone Propionate 50 MCG/ACT Nasal Suspension USE 1 SPRAYS IN EACH NOSTRIL TWICE DAILY * Quantity: 1 Refills: 5 BORIS WESLEY APRN * Start : 16-Aug-2016 Active 15.8 ML Bottle Atorvastatin Calcium 10 MG Oral Tablet TAKE 1 TABLET BY MOUTH EVERY DAY AT BEDTIME * Quantity: 90 Refills: 3 BORIS WESLEY APRN * Start : 05-Jun-2015 Active Naproxen 500 MG Oral Tablet TAKE 1 TABLET TWICE DAILY. CON"T DOSING FOR 3-5 DAYS BEYOND PAIN RELIEF OR 3-4 W EEKS MAX * Quantity: 60 Refills: 5 BORIS WESLEY APRN * Start : 27-Feb-2019 Active hydrALAZINE HCl - 50 MG Oral Tablet TAKE 1 TABLET BY MOUTH two TIMES DAILY * Quantity: 180 Refills: 1 BORIS WESLEY APRN * Start : 11-Apr-2014 Active azaTHIOprine 50 MG Oral Tablet TAKE 1 TABLET DAILY. * Refills: 0 BORIS WESLEY APRN * Start : 22-Aug-2018 Active Cod Liver Oil Oral Capsule 2-3 capsTWICE A DAY * Quantity: 1 Refills: 0 BORIS WESLEY APRN * Start : 30-Nov-2018 Active Glucose Meter Test In Vitro Strip TEST ONCE DAILY & PRNDx: E11.9 / 250 * Quantity: 50 Refills: 5 BORIS WESLEY APRN * Start : 15-Mar-2018 Active Accu-Chek SmartView In Vitro Strip TEST ONCE A DAY * Quantity: 1 Refills: 5 NIDIA CARBALLO M.D. * Start : 11-Sep-2013 Active 50 Strip Box PARoxetine HCl - 20 MG Oral Tablet TAKE 1 TABLET BY MOUTH EVERY DAY * Quantity: 90 Refills: 1 BORIS WESLEY APRN * Start : 07-Oct-2014 Active Allopurinol 300 MG Oral Tablet TAKE 1 TABLET BY MOUTH DAILY * Quantity: 90 Refills: 3 BORIS WESLEY APRN * Start : 26-Oct-2017 Active Allergies and Adverse Reactions Name Dates [...] Details Prevnar 13 Intramuscular Suspension Lot #: [id number] on: 07-Aug-2014 Fluzone Quadrivalent 0.5 ML Intramuscula r Suspension Lot #: [id number] on: 31-Jan-2015 Fluzone High-Dose 0.5 ML Intramuscular S uspension Prefilled Syringe Lot #: [id number] on: 19-Jan-2017 Pneumococcal polysaccharide vaccine, 23 valent Lot #: [id number] on: 19-Jan-2017 Fluzone Quadrivalent 0.5 ML Intramuscula r Suspension Prefilled Syringe Lot #: [id number] on: 13-Feb-2018 Fluzone High-Dose 0.5 ML Intramuscular S uspension Prefilled Syringe Lot #: [id number] on: 27-Feb-2019 Family History Name Dates Details [...] (finding) Vital Signs Date Test Result Details [id number] Systolic blood pressure 141 mm[Hg] Status: Comments [...] ALT 10 u/l (Normal) Range: 9-46 :50 [[facility]] HEMOGLOBIN A1c Comments: REPORT C OMMENT:FASTING:YES HEMOGLOBIN A1c 7.5 {%_of_total} (Above high th reshold) Range: <5.7 Comments: For someone without known diabetes, a hemoglobin X1motdyo of 6.5% or greater indicates that they [...]
--- OUTSIDE RECORDS SUMMARY | 2019-11-02 19:28 | XMS REPORT | Summary of Care ---
Author OC Perdomo M.D. Organization Unknown Address Unknown Phone Unavailable Care Team Providers Care Starter Cup Powder Mixer Name Role Phone BORIS WESLEY APRN Unavailable Unavailable HARIS Urbano, NIDIA Unavailable Unavailable BORIS WESLEY APRN Unavailable Unavailable HARIS KEANE [place], NIDIA POLK Unavailable Unavailable RUBY KEANE, KAREN Mckenzie Unavailable Unavailable Robyn KEANE, Jhony Unavailable Unavailable MARYJANE NIXON [place], BORIS Wyatt Unavailable Unavailable Aniceto Ojeda MD, David Unavailable Unavailable MIESHA COPPOLA [place], ROCKY Unavailable Unavailable HARIS BELL [place], JAMEY Unavailable Unavailable Unavailable Unavailable Functional Status [...] Active BILL positive (795.79, R76.8) Status: Active 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, 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 Flu vaccine need (V04.81, Z23) Status: Active Type 2 diabetes mellitus (250.00, E11.9) Status: Active GERD without esophagitis (530.81, K21.9) Status: Active Generalized anxiety disorder (300.02, F4 1.1) Status: Active Essential (primary) hypertension (401.9, I10) Status: Active Mixed hyperlipidemia (272.2, E78.2) Status: Active UZAIR on CPAP (327.23, G47.33) Status: Active Situational insomnia (307.41, F51.09) Status: Active BPH without urinary obstruction (600.00, N40.0) Status: Active Syncope and collapse (780.2, R55) Status: Active Nephrolithiasis (592.0, N20.0) Status: Active Choledocholithiasis (574.50, K80.50) Status: Active Low vitamin B12 level (266.2, E53.8) Status: Active 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, 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) Status: Active Edema of both legs (782.3, R60.0) Status: Active Anemia, unspecified type (285.9, D64.9) Status: Active Elevated LFTs (790.6, R79.89) Status: Active Hepatitis, 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, 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 Abnormal liver function (794.8, R94.5) [...] APRN * Start : 15-Mar-2018 Active Nystatin-Triamcinolone 390039-3.1 UNIT/GM-% External Cream APPLY SPARINGLY TO AFFECTED [...] 16-Jul-2019 [Q] COPPER, RANDOM URINE Date: 16-Jul-2019 [Q] CBC (INCLUDES DIFF/PLT) WITH SMEAR REVIEW Date: 020 [Q] PROTEIN, TOTAL AND PROTEIN ELECTROPHORESIS W/ REFL DARIO D ate: 18-Jul-2019 [Q] BETA 2 MICROGLOBULIN, RANDOM URINE W/CREAT Date: 2019 CT Abdomen/Pelvis wo contrast 39038 Date: 18-Jul-2019 XRAY Chest 2 views [id number] Date: 18-Jul-2019 History of Renal Lithotripsy Completed History of Oral Surgery Tooth Extraction Completed History of Skin Tag Removal Completed History of Dental Implant Completed Immunization Name Dates Details Prevnar 13 Intramuscular Suspension Lot #: [id number] on: 07-Aug-2014 Fluzone Quadrivalent 0.5 ML Intramuscula r Suspension Lot #: [id number] on: 31-Jan-2015 Fluzone High-Dose 0.5 ML Intramuscular S uspension Prefilled Syringe Lot #: [id number] on: 19-Jan-2017 Pneumococcal polysaccharide vaccine, 23 valent Lot #: [id number] on: 19-Jan-2017 Fluzone Quadrivalent 0.5 ML Intramuscula r Suspension Prefilled Syringe Lot #: [id number] on: 13-Feb-2018 Fluzone High-Dose 0.5 ML Intramuscular S uspension Prefilled Syringe Lot #: [id number] on: 27-Feb-2019 Family History Name Dates Details [...] ABSOLUTE NEUTROPHILS 1850 {cells/uL} (Normal) R lauren: 8424-2021 ABSOLUTE LYMPHOCYTES 983 {cells/uL} (Normal) Ra nge: 850-3900 ABSOLUTE MONOCYTES 320 {cells/uL} (Normal) Rang e: 200-950 ABSOLUTE EOSINOPHILS 207 {cells/uL} (Normal) Ra nge: 15-500 ABSOLUTE BASOPHILS 41 {cells/uL} (Normal) Range : 0-200 NEUTROPHILS 54.4 % (Normal) LYMPHOCYTES 28.9 % (Normal) MONOCYTES 9.4 % (Normal) EOSINOPHILS 6.1 % (Normal) BASOPHILS 1.2 % (Normal) 52-Iaj-036591:24 [QL] VITAMIN B12/FOLATE, SERUM PANEL Co mments: Please Note: Although the reference range for ykekovcY82 is 200-1100 pg/mL, it has been reported that between5 and 10% of patients with values between 200 and 400pg/mL may experience neuropsychiatric and hematologicabnormalities due to occult B12 deficiency; less than 1%of patients with values above 400 pg/mL will have symptoms. REPORT COMMENT:FASTING:YES VITAMIN B12 392 pg/ml (Normal) Range: 200-1 100 Comments: Please Note: Although the reference range for vxylffdO76 is 200-1100 pg/mL, it has been reported [...] On: 28-Aug-2019 12:30 Interventions Provided Labs/Procedures/Imaging* [Q] BETA 2 MICROGLOBULIN, RANDOM URINE W/CREAT; To Be Done: 18 Jul 2019 * [Q] CBC (INCLUDES DIFF/PLT) WITH SMEAR REVIEW; To Be Done: 18 Jul 2019 * [Q] PROTEIN, TOTAL AND PROTEIN ELECTROPHORESIS W/ REFL DARIO; To Be Done: 18 Jul 2019 * CT Abdomen/Pelvis wo contrast 38607; To Be Done: 18 Jul 2019 * XRAY Chest 2 views [id number]; To Be Done: 18 Jul 2019 Instructions Name Dates Details Instructions not documented [...]
--- OUTSIDE RECORDS SUMMARY | 2019-11-02 19:28 | XMS REPORT | Summary of Care ---
Author Author [facility] Address [address] [place] [address] Phone Unavailable Care Team Providers Care Hall Monitor Name Role Phone BORIS WESLEY APRN Unavailable Unavailable HARIS Urbano, NIDIA Unavailable Unavailable BORIS WESLEY APRN Unavailable Unavailable HARIS KEANE ID, NIDIA POLK Unavailable Unavailable RUBY KEANE, KAREN Mckenzie Unavailable Unavailable Robyn KEANE, Jhony Unavailable Unavailable MARYJANE NIXON ID, BORIS Wyatt Unavailable Unavailable Aniceto Ojeda MD, David Unavailable Unavailable MIESHA DO ID, ROCKY Unavailable Unavailable HARIS BELL ID, JAMEY Unavailable Unavailable Unavailable Unavailable Functional Status [...] R60.0) Status: Active Medications Name Dates Details Accu-Chek SmartView In Vitro Strip TEST ONCE A DAY Quantity: 1 NIDIA CARBALLO M.D. * Start : 11-Sep-2013 Active 50 Strip Box Carvedilol 3.125 MG Oral Tablet TAKE 1 TABLET BY MOUTH TWICE DAILY * Quantity: 180 Refills: 1 BORIS WESLEY APRN * Start : 21-May-2016 Active Motrin TABS TAKE 3 TABLET 2 [...] EVERY DAY * Quantity: 90 Refills: 0 BOIRS WESLEY APRN * Start : 29-Mar-2018 Active Naproxen 500 MG Oral Tablet TAKE [...] WESLEY APRN * Start : 27-Feb-2019 Active Cod Liver Oil Oral Capsule 2-3 capsTWICE A DAY * Quantity: 1 Refills: 0 BORIS WESLEY APRN * Start : 30-Nov-2018 Active Melatonin 5 MG Oral Tablet 1-2 tabs at * Quantity: 77 Refills: 0 BORIS WELSEY APRN * Start : 30-Nov-2018 Active Nystatin-Triamcinolone 188338-6.1 UNIT/GM-% External Cream APPLY SPARINGLY TO AFFECTED AREA(S) TWICE DAILY * Quantity: 1 Refills: 1 BORIS WESLEY APRN Start : 15-Mar-2018 Active 30 GM Tube Allopurinol 300 MG Oral Tablet TAKE 1 TABLET BY MOUTH DAILY * Quantity: 90 Refills: 3 BORIS WESLEY APRN * Start : 26-Oct-2017 Active Vitamin C Oral Tablet Chewable * Refills: 0 BORIS WESLEY APRN * Start : 29-Aug-2015 Active PARoxetine HCl - 20 MG Oral Tablet TAKE 1 TABLET BY MOUTH EVERY DAY * Quantity: 90 Refills: 1 BORIS WESLEY APRN * Start : 07-Oct-2014 Active azaTHIOprine 50 MG Oral Tablet TAKE [...] TIMES DAILY * Quantity: 180 Refills: 1 WESLEY BORIS OCAMPO * Start : 11-Apr-2014 Active Allergies and Adverse Reactions Name Dates [...] Details Prevnar 13 Intramuscular Suspension Lot #: [id number] on: 07-Aug-2014 Fluzone Quadrivalent 0.5 ML Intramuscula r Suspension Lot #: [id number] on: 31-Jan-2015 Fluzone High-Dose 0.5 ML Intramuscular S uspension Prefilled Syringe Lot #: [id number] on: 19-Jan-2017 Pneumococcal polysaccharide vaccine, 23 valent Lot #: [id number] on: 19-Jan-2017 Fluzone Quadrivalent 0.5 ML Intramuscula r Suspension Prefilled Syringe Lot #: [id number] on: 13-Feb-2018 Fluzone High-Dose 0.5 ML Intramuscular S uspension Prefilled Syringe Lot #: [id number] on: 27-Feb-2019 Family History Name Dates Details [...] (finding) Vital Signs Date Test Result Details [id number]-[id number] Systolic blood pressure 141 mm[Hg] Status: Comments [...] ALT 10 u/l (Normal) Range: 9-46 :50 [[facility]] HEMOGLOBIN A1c Comments: REPORT C OMMENT:FASTING:YES HEMOGLOBIN A1c 7.5 {%_of_total} (Above high th reshold) Range: <5.7 Comments: For someone without known diabetes, a hemoglobin N5tlalgd of 6.5% or greater indicates that they [...]
--- OUTSIDE RECORDS SUMMARY | 2019-11-02 19:28 | XMS REPORT | Summary of Care ---
Author Author OC WESLEY APRN Organization Unknown Address Unknown Phone Unavailable Care Team Providers Care Livestock Sales Representative Name Role Phone BORIS WESLEY APRN Unavailable Unavailable HARIS Urbano, NIDIA Unavailable Unavailable BORIS WESLEY APRN Unavailable Unavailable HARIS KEANE GA, NIDIA POLK Unavailable Unavailable RUBY KEANE, KAREN Mckenzie Unavailable Unavailable Robyn KEANE, Jhony Unavailable Unavailable MARYJANE NIXON GA, BORIS Wyatt Unavailable Unavailable Aniceto Ojeda MD, David Unavailable Unavailable MIESHA COPPOLA GA, ROCKY Unavailable Unavailable HARIS BELL GA, JAMEY Unavailable Unavailable Unavailable Unavailable Functional Status [...] WESLEY APRN Start : 15-Mar-2018 Active Nystatin-Triamcinolone 622307-0.1 UNIT/GM-% External Cream APPLY SPARINGLY TO AFFECTED [...] Details Prevnar 13 Intramuscular Suspension Lot #: [id number] on: 07-Aug-2014 Fluzone Quadrivalent 0.5 ML Intramuscula r Suspension Lot #: [id number] on: 31-Jan-2015 Fluzone High-Dose 0.5 ML Intramuscular S uspension Prefilled Syringe Lot #: [id number] on: 19-Jan-2017 Pneumococcal polysaccharide vaccine, 23 valent Lot #: [id number] on: 19-Jan-2017 Fluzone Quadrivalent 0.5 ML Intramuscula r Suspension Prefilled Syringe Lot #: [id number] on: 13-Feb-2018 Fluzone High-Dose 0.5 ML Intramuscular S uspension Prefilled Syringe Lot #: [id number] on: 27-Feb-2019 Family History Name Dates Details [...] On: 28-Aug-2019 12:30 Interventions Provided Labs/Procedures/Imaging* [Q] IRON, TIBC AND FERRITIN PANEL; To Be Done: 12 Jul 2019 * [QL] CBC (INCLUDES DIFF/PLT); To Be Done: 12 Jul 2019 * [QL] VITAMIN B12/FOLATE, SERUM PANEL; To Be Done: 12 Jul 2019 Instructions Name Dates Details Instructions [...]
--- OUTSIDE RECORDS SUMMARY | 2019-11-02 19:28 | XMS REPORT | Summary of Care ---
Author OC Biggs Organization Unknown Address [facility] Phone Unavailable Care Team Providers Care Pecan Cleaner Name Role Phone BORIS WESLEY APRN Unavailable Unavailable HARIS Urbano, NIDIA Unavailable Unavailable BORIS WESLEY APRN Unavailable Unavailable HARIS KEANE [place], NIDIA POLK Unavailable Unavailable RUBY KEANE, KAREN Mckenzie Unavailable Unavailable Robyn KEANE, Jhony Unavailable Unavailable MARYJANE NIXON [place], BORIS Wyatt Unavailable Unavailable Aniceto Ojeda MD, David Unavailable Unavailable MIESHA DO [place], ROCKY Unavailable Unavailable HARIS BELL [place], [...] MOUTH DAILY * Quantity: 90 Refills: 3 BOIRS WESLEY APRN * Start : 26-Oct-2017 Active [...] APRN * Start : 15-Mar-2018 Active Nystatin-Triamcinolone 800109-2.1 UNIT/GM-% External Cream APPLY SPARINGLY TO AFFECTED [...] Details Prevnar 13 Intramuscular Suspension Lot #: [id number] on: 07-Aug-2014 Fluzone Quadrivalent 0.5 ML Intramuscula r Suspension Lot #: [id number] on: 31-Jan-2015 Fluzone High-Dose 0.5 ML Intramuscular S uspension Prefilled Syringe Lot #: [id number] on: 19-Jan-2017 Pneumococcal polysaccharide vaccine, 23 valent Lot #: [id number] on: 19-Jan-2017 Fluzone Quadrivalent 0.5 ML Intramuscula r Suspension Prefilled Syringe Lot #: [id number] on: 13-Feb-2018 Fluzone High-Dose 0.5 ML Intramuscular S uspension Prefilled Syringe Lot #: [id number] on: 27-Feb-2019 Family History Name Dates Details [...] ABSOLUTE NEUTROPHILS 1850 {cells/uL} (Normal) R lauren: [phone] ABSOLUTE LYMPHOCYTES 983 {cells/uL} (Normal) Ra nge: 850-3900 ABSOLUTE MONOCYTES 320 {cells/uL} (Normal) Rang e: 200-950 ABSOLUTE EOSINOPHILS 207 {cells/uL} (Normal) Ra nge: 15-500 ABSOLUTE BASOPHILS 41 {cells/uL} (Normal) Range : 0-200 NEUTROPHILS 54.4 % (Normal) LYMPHOCYTES 28.9 % (Normal) MONOCYTES 9.4 % (Normal) EOSINOPHILS 6.1 % (Normal) BASOPHILS 1.2 % (Normal) 50-Ime-536575:24 [QL] VITAMIN B12/FOLATE, SERUM PANEL Co mments: Please Note: Although the reference range for uvtnzzkP07 is 200-1100 pg/mL, it has been reported that between5 and 10% of patients with values between 200 and 400pg/mL may experience neuropsychiatric and hematologicabnormalities due to occult B12 deficiency; less than 1%of patients with values above 400 pg/mL will have symptoms. REPORT COMMENT:FASTING:YES VITAMIN B12 392 pg/ml (Normal) Range: 200-1 100 Comments: Please Note: Although the reference range for gvkcgtwZ15 is 200-1100 pg/mL, it has been reported [...] Problem not documented On: 30-May-2019 12:30 Appointment; BORIS WESLEY APRN Encounter Diagnosis: Problem not documented On: 17-Jul-2019 14:30
--- OUTSIDE RECORDS SUMMARY | 2019-11-02 19:29 | XMS REPORT | Summary of Care ---
Author OC Perdomo M.D. Organization Unknown Address Unknown Phone Unavailable Care Team Providers Care Horse Buyer Name Role Phone BORIS WESLEY APRN Unavailable [...] Abnormal liver function (794.8, R94.5) Status: Active BMI 30.0-30.9,adult (V85.30, Z68.30) Status: Active Medications Name Dates Details PARoxetine [...] APRN * Start : 15-Mar-2018 Active Nystatin-Triamcinolone 501586-4.1 UNIT/GM-% External Cream APPLY SPARINGLY TO AFFECTED [...] W/CREAT Date: 2019 CT Abdomen/Pelvis wo contrast 22763 Date: 18-Jul-2019 XRAY Chest 2 views 85309 Date: 18-Jul-2019 History of Renal Lithotripsy Completed History of Oral Surgery Tooth Extraction Completed History of Skin Tag Removal Completed History of Dental Implant Completed Immunization Name Dates Details Prevnar 13 Intramuscular Suspension Lot #: [id number] on: 07-Aug-2014 Fluzone Quadrivalent 0.5 ML Intramuscula r Suspension Lot #: [id number] on: 31-Jan-2015 Fluzone High-Dose 0.5 ML Intramuscular S uspension Prefilled Syringe Lot #: [id number] on: 19-Jan-2017 Pneumococcal polysaccharide vaccine, 23 valent Lot #: [id number] on: 19-Jan-2017 Fluzone Quadrivalent 0.5 ML Intramuscula r Suspension Prefilled Syringe Lot #: [id number] on: 13-Feb-2018 Fluzone High-Dose 0.5 ML Intramuscular S uspension Prefilled Syringe Lot #: [id number] on: 27-Feb-2019 Family History Name Dates Details [...] ABSOLUTE NEUTROPHILS 1850 {cells/uL} (Normal) R lauren: [phone] ABSOLUTE LYMPHOCYTES 983 {cells/uL} (Normal) Ra nge: 850-3900 ABSOLUTE MONOCYTES 320 {cells/uL} (Normal) Rang e: 200-950 ABSOLUTE EOSINOPHILS 207 {cells/uL} (Normal) Ra nge: 15-500 ABSOLUTE BASOPHILS 41 {cells/uL} (Normal) Range : 0-200 NEUTROPHILS 54.4 % (Normal) LYMPHOCYTES 28.9 % (Normal) MONOCYTES 9.4 % (Normal) EOSINOPHILS 6.1 % (Normal) BASOPHILS 1.2 % (Normal) 13-Cun-771692:24 [QL] VITAMIN B12/FOLATE, SERUM PANEL Co mments: Please Note: Although the reference range for mwljsyqH33 is 200-1100 pg/mL, it has been reported that between5 and 10% of patients with values between 200 and 400pg/mL may experience neuropsychiatric and hematologicabnormalities due to occult B12 deficiency; less than 1%of patients with values above 400 pg/mL will have symptoms. REPORT COMMENT:FASTING:YES VITAMIN B12 392 pg/ml (Normal) Range: 200-1 100 Comments: Please Note: Although the reference range for byimvptD93 is 200-1100 pg/mL, it has been reported [...] Jul 2019 * CT Abdomen/Pelvis wo contrast 07080; To Be Done: 18 Jul 2019 * XRAY Chest 2 views 61672; To Be Done: 18 Jul 2019 Plan* At this time the patient's anemia and hypoproteinemia need to be further evaluated. Assented to the lab for preliminary testing. Also scheduled a CT of the abdomen and pelvis as well as a chest x-ray. We will follow-up as soon as these results become available. Instructions Name Dates Details Instructions not documented [...]
--- OUTSIDE RECORDS SUMMARY | 2019-11-02 19:29 | XMS REPORT | Summary of Care ---
Author Author Neymar Urbano, OC Wyatt Organization Unknown Address [facility] Phone Unavailable Care Team Providers Care Pan Operator Name Role Phone BORIS WESLEY APRN Unavailable Unavailable HARIS Urbano, NIDIA Unavailable Unavailable Mart Pompa, Mariah Unavailable Unavailable BORIS WESLEY APRN Unavailable Unavailable HARIS KEANE [place], NIDIA POLK Unavailable Unavailable RUBY KEANE, KAREN Mckenzie Unavailable Unavailable Robyn KEANE, Jhony Unavailable Unavailable MARYJANE NIXON NM, BORIS Wyatt Unavailable Unavailable Aniceto Ojeda MD, David Unavailable Unavailable MIESHA DO [place], ROCKY Unavailable Unavailable HARIS BELL NM, JAMEY Unavailable Unavailable Unavailable Unavailable Functional Status [...] WESLEY APRN Start : 15-Mar-2018 Active Nystatin-Triamcinolone 108593-8.1 UNIT/GM-% External Cream APPLY SPARINGLY TO AFFECTED [...] 2 MICROGLOBULIN, RANDOM URINE W/CREAT Date: 2019 [QL] CBC (INCLUDES DIFF/PLT) Date: 19-Jul-2019 CT Abdomen/Pelvis wo contrast 88040 Date: 18-Jul-2019 XRAY Chest 2 views 11915 Date: 18-Jul-2019 History of Renal Lithotripsy Completed History of Oral Surgery Tooth Extraction Completed History of Skin Tag Removal Completed History of Dental Implant Completed Immunization Name Dates Details Prevnar 13 Intramuscular Suspension Lot #: [id number] on: 07-Aug-2014 Fluzone Quadrivalent 0.5 ML Intramuscula r Suspension Lot #: [id number] on: 31-Jan-2015 Fluzone High-Dose 0.5 ML Intramuscular S uspension Prefilled Syringe Lot #: [id number] on: 19-Jan-2017 Pneumococcal polysaccharide vaccine, 23 valent Lot #: [id number] on: 19-Jan-2017 Fluzone Quadrivalent 0.5 ML Intramuscula r Suspension Prefilled Syringe Lot #: [id number] on: 13-Feb-2018 Fluzone High-Dose 0.5 ML Intramuscular S uspension Prefilled Syringe Lot #: [id number] on: 27-Feb-2019 Family History Name Dates Details [...] tatus: Body temperature 97.8 f Status: Comments: Mt thod: Temporal Heart Rate 62 /min Status: [...] ABSOLUTE NEUTROPHILS 1850 {cells/uL} (Normal) R lauren: [phone] ABSOLUTE LYMPHOCYTES 983 {cells/uL} (Normal) Ra nge: 850-3900 ABSOLUTE MONOCYTES 320 {cells/uL} (Normal) Rang e: 200-950 ABSOLUTE EOSINOPHILS 207 {cells/uL} (Normal) Ra nge: 15-500 ABSOLUTE BASOPHILS 41 {cells/uL} (Normal) Range : 0-200 NEUTROPHILS 54.4 % (Normal) LYMPHOCYTES 28.9 % (Normal) MONOCYTES 9.4 % (Normal) EOSINOPHILS 6.1 % (Normal) BASOPHILS 1.2 % (Normal) :24 [QL] VITAMIN B12/FOLATE, SERUM PANEL Co mments: Please Note: Although the reference range for dithdkuX89 is 200-1100 pg/mL, it has been reported that between5 and 10% of patients with values between 200 and 400pg/mL may experience neuropsychiatric and hematologicabnormalities due to occult B12 deficiency; less than 1%of patients with values above 400 pg/mL will have symptoms. REPORT COMMENT:FASTING:YES VITAMIN B12 392 pg/ml (Normal) Range: 200-1 100 Comments: Please Note: Although the reference range for cxinvviE60 is 200-1100 pg/mL, it has been reported [...] APRN On: 28-Aug-2019 12:30 Interventions Provided Labs/Procedures/Imaging* [QL] CBC (INCLUDES DIFF/PLT); To Be Done: 19 Jul 2019 Instructions Name Dates Details Instructions [...]
--- OUTSIDE RECORDS SUMMARY | 2019-11-02 19:29 | XMS REPORT | Summary of Care ---
Author Author [facility] Address [address] [place] [address] Phone Unavailable Care Team Providers Care Inspector Penetrant Name Role Phone BORIS WESLEY APRN Unavailable Unavailable HARIS Urbano, NIDIA Unavailable Unavailable BORIS WESLEY APRN Unavailable Unavailable HARIS KEANE PA, NIDIA POLK Unavailable Unavailable RUBY KEANE, KAREN Mckenzie Unavailable Unavailable Robyn KEANE, Jhony Unavailable Unavailable MARYJANE NIXON PA, BORIS Wyatt Unavailable Unavailable Aniceto Ojeda MD, David Unavailable Unavailable MIESHA DO PA, ROCKY Unavailable Unavailable HARIS BELL PA, JAMEY Unavailable Unavailable Unavailable Unavailable Functional Status [...] * Quantity: 180 Refills: 1 BORIS WESLEY APRN. * Start : 21-May-2016 Active Fluticasone Propionate [...] APRN * Start : 15-Mar-2018 Active Nystatin-Triamcinolone 799913-3.1 UNIT/GM-% External Cream APPLY SPARINGLY TO AFFECTED [...] 5 MG Oral Tablet 1-2 tabs at sundown * Quantity: 77 Refills: 0 BORIS WESLEY [...] DIFF/PLT) Date: 19-Jul-2019 CT Abdomen/Pelvis wo contrast 91419 Date: 18-Jul-2019 XRAY Chest 2 views 70670 Date: 18-Jul-2019 History of Renal Lithotripsy Completed History of Oral Surgery Tooth Extraction Completed History of Skin Tag Removal Completed History of Dental Implant Completed Immunization Name Dates Details Prevnar 13 Intramuscular Suspension Lot #: [id number] on: 07-Aug-2014 Fluzone Quadrivalent 0.5 ML Intramuscula r Suspension Lot #: [id number] on: 31-Jan-2015 Fluzone High-Dose 0.5 ML Intramuscular S uspension Prefilled Syringe Lot #: [id number] on: 19-Jan-2017 Pneumococcal polysaccharide vaccine, 23 valent Lot #: [id number] on: 19-Jan-2017 Fluzone Quadrivalent 0.5 ML Intramuscula r Suspension Prefilled Syringe Lot #: [id number] on: 13-Feb-2018 Fluzone High-Dose 0.5 ML Intramuscular S uspension Prefilled Syringe Lot #: [id number] on: 27-Feb-2019 Family History Name Dates Details [...] ABSOLUTE NEUTROPHILS 1850 {cells/uL} (Normal) R lauren: 6654-1318 ABSOLUTE LYMPHOCYTES 983 {cells/uL} (Normal) Ra nge: [...] Please Note: Although the reference range for wxkgufcJ47 is 200-1100 pg/mL, it has been reported that between5 and 10% of patients with values between 200 and 400pg/mL may experience neuropsychiatric and hematologicabnormalities due to occult B12 deficiency; less than 1%of patients with values above 400 pg/mL will have symptoms. REPORT COMMENT:FASTING:YES VITAMIN B12 392 pg/ml (Normal) Range: 200-1 100 Comments: Please Note: Although the reference range for peziovaH52 is 200-1100 pg/mL, it has been reported [...] Planned Goals not documented Planned Encounters Appointment; Ralph Blackmon M.D. On: 03-Aug-2019 12:45 Appointment; BORIS WESLEY APRN On: 28-Aug-2019 12:30 [...]
--- OUTSIDE RECORDS SUMMARY | 2019-11-02 19:29 | XMS REPORT | Summary of Care ---
Author Author [facility] Address [address] [place] [address] Phone Unavailable Care Team Providers Care Cyber Incident Handler Name Role Phone BORIS WESLEY APRN Unavailable Unavailable HARIS Urbano, NIDIA Unavailable Unavailable BORIS WESLEY APRN Unavailable Unavailable HARIS KEANE [place], NIDIA POLK Unavailable Unavailable RUBY KEANE, KAREN Mckenzie Unavailable Unavailable Robyn KEANE, Jhony Unavailable Unavailable MARYJANE NIXON [place], BORIS Wyatt Unavailable Unavailable Aniceto Ojeda MD, David Unavailable Unavailable MIESHA DO [place], ROCKY Unavailable Unavailable HARIS BELL [place], JAMEY Unavailable Unavailable Unavailable Unavailable Functional Status [...] Start : 11-Sep-2013 Active 50 Strip Box Atorvastatin Calcium 10 MG Oral Tablet TAKE [...] WESLEY APRN * Start : 21-May-2016 Active Olmesartan Medoxomil 40 MG Oral Tablet TAKE 1 TABLET BY MOUTH EVERY DAY * Quantity: 90 Refills: 1 BORIS WESLEY APRN * Start : 26-Oct-2017 Active amLODIPine Besylate 10 MG Oral Tablet [...] WESLEY APRN * Start : 16-Jul-2019 Active Cod Liver Oil Oral Capsule 2-3 capsTWICE A DAY * Quantity: 1 Refills: 0 BORIS WESLEY APRN Start : 30-Nov-2018 Active Glucose Meter Test In Vitro Strip TEST ONCE DAILY & PRNDx: E11.9 / 250 * Quantity: 50 Refills: 5 BORIS WESLEY APRN Start : 15-Mar-2018 Active Fluticasone Propionate 50 MCG/ACT Nasal Suspension USE 1 SPRAYS IN EACH NOSTRIL TWICE DAILY * Quantity: 1 Refills: 5 BORIS WESLEY APRN Start : 16-Aug-2016 Active 15.8 ML Bottle Nystatin-Triamcinolone 215203-0.1 UNIT/GM-% External Cream APPLY SPARINGLY TO AFFECTED AREA(S) TWICE DAILY * Quantity: 1 Refills: 1 BORIS WESLEY APRN Start : 15-Mar-2018 Active 30 GM Tube Melatonin 5 MG Oral Tablet 1-2 tabs at * Quantity: 77 Refills: 0 BORIS WESLEY APRN Start : 30-Nov-2018 Active Glucose Meter Test In Vitro Strip USE TO TEST ONCE DAILY AND PRNDx 11.9 * Quantity: 50 Refills: 5 BORIS WESLEY APRN * Start : 15-Mar-2018 Active Tart Figueredo Advanced Oral Capsule DIRECTED * Refills: 0 BORIS WESLEY APRN * Start : 15-Mar-2018 Active hydrALAZINE HCl - 50 MG Oral Tablet TAKE 1 TABLET BY MOUTH two TIMES DAILY * Quantity: 180 Refills: 1 BORIS WESLEY APRN D. * Start : 11-Apr-2014 Active Motrin TABS TAKE 3 TABLET 2 TIMES DAILY NEEDED. * Refills: 0 Active Allopurinol 300 MG Oral Tablet TAKE 1 TABLET BY MOUTH DAILY * Quantity: 90 Refills: 3 BORIS WESLEY APRN * Start : 26-Oct-2017 Active azaTHIOprine 50 MG Oral Tablet TAKE 1 TABLET DAILY. * Refills: 0 BORIS WESLEY APRN * Start : 22-Aug-2018 Active Allergies and Adverse Reactions Name Dates [...] W/CREAT Date: 2019 CT Abdomen/Pelvis wo contrast 74641 Date: 18-Jul-2019 XRAY Chest 2 views 43618 Date: 18-Jul-2019 History of Renal Lithotripsy Completed History of Oral Surgery Tooth Extraction Completed History of Skin Tag Removal Completed History of Dental Implant Completed Immunization Name Dates Details Prevnar 13 Intramuscular Suspension Lot #: [id number] on: 07-Aug-2014 Fluzone Quadrivalent 0.5 ML Intramuscula r Suspension Lot #: [id number] on: 31-Jan-2015 Fluzone High-Dose 0.5 ML Intramuscular S uspension Prefilled Syringe Lot #: [id number] on: 19-Jan-2017 Pneumococcal polysaccharide vaccine, 23 valent Lot #: [id number] on: 19-Jan-2017 Fluzone Quadrivalent 0.5 ML Intramuscula r Suspension Prefilled Syringe Lot #: [id number] on: 13-Feb-2018 Fluzone High-Dose 0.5 ML Intramuscular S uspension Prefilled Syringe Lot #: [id number] on: 27-Feb-2019 Family History Name Dates Details [...] ABSOLUTE NEUTROPHILS 1850 {cells/uL} (Normal) R lauren: [phone] ABSOLUTE LYMPHOCYTES 983 {cells/uL} (Normal) Ra nge: 850-3900 ABSOLUTE MONOCYTES 320 {cells/uL} (Normal) Rang e: 200-950 ABSOLUTE EOSINOPHILS 207 {cells/uL} (Normal) Ra nge: 15-500 ABSOLUTE BASOPHILS 41 {cells/uL} (Normal) Range : 0-200 NEUTROPHILS 54.4 % (Normal) LYMPHOCYTES 28.9 % (Normal) MONOCYTES 9.4 % (Normal) EOSINOPHILS 6.1 % (Normal) BASOPHILS 1.2 % (Normal) 31-Iad-972767:24 [QL] VITAMIN B12/FOLATE, SERUM PANEL Co mments: Please Note: Although the reference range for nuvaicaP73 is 200-1100 pg/mL, it has been reported that between5 and 10% of patients with values between 200 and 400pg/mL may experience neuropsychiatric and hematologicabnormalities due to occult B12 deficiency; less than 1%of patients with values above 400 pg/mL will have symptoms. REPORT COMMENT:FASTING:YES VITAMIN B12 392 pg/ml (Normal) Range: 200-1 100 Comments: Please Note: Although the reference range for neyzdtqR51 is 200-1100 pg/mL, it has been reported [...]
--- OUTSIDE RECORDS SUMMARY | 2019-11-02 19:29 | XMS REPORT | Summary of Care ---
Author OC Dle Cid M.A. Organization Unknown Address [facility] Phone Unavailable Care Team Providers Care Acupressure Therapist Name Role Phone BORIS WESLEY APRN Unavailable Unavailable HARIS Urbano, NIDIA Unavailable Unavailable Vida Calderon M.A. Unavailable Unavailable BORIS WESLEY APRN Unavailable Unavailable HARIS KEANE [place], NIDIA POLK Unavailable Unavailable RUBY KEANE, KAREN Mckenzie Unavailable Unavailable Robyn KEANE, Jhony Unavailable Unavailable MARYJANE NIXON [place], BORIS Wyatt Unavailable Unavailable Aniceto Ojeda MD, David Unavailable Unavailable MIESHA DO [place], ROCKY Unavailable Unavailable HARIS BELL [place], JAMEY [...] WESLEY APRN Start : 15-Mar-2018 Active Nystatin-Triamcinolone 073815-3.1 UNIT/GM-% External Cream APPLY SPARINGLY TO AFFECTED [...] DIFF/PLT) Date: 19-Jul-2019 CT Abdomen/Pelvis wo contrast 35434 Date: 18-Jul-2019 XRAY Chest 2 views 20039 Date: 18-Jul-2019 History of Renal Lithotripsy Completed History of Oral Surgery Tooth Extraction Completed History of Skin Tag Removal Completed History of Dental Implant Completed Immunization Name Dates Details Prevnar 13 Intramuscular Suspension Lot #: [id number] on: 07-Aug-2014 Fluzone Quadrivalent 0.5 ML Intramuscula r Suspension Lot #: [id number] on: 31-Jan-2015 Fluzone High-Dose 0.5 ML Intramuscular S uspension Prefilled Syringe Lot #: [id number] on: 19-Jan-2017 Pneumococcal polysaccharide vaccine, 23 valent Lot #: [id number] on: 19-Jan-2017 Fluzone Quadrivalent 0.5 ML Intramuscula r Suspension Prefilled Syringe Lot #: [id number] on: 13-Feb-2018 Fluzone High-Dose 0.5 ML Intramuscular S uspension Prefilled Syringe Lot #: [id number] on: 27-Feb-2019 Family History Name Dates Details [...] tatus: Body temperature 97.8 f Status: Comments: Sd thod: Temporal Heart Rate 62 /min Status: [...] ABSOLUTE NEUTROPHILS 1850 {cells/uL} (Normal) R lauren: [phone] ABSOLUTE LYMPHOCYTES 983 {cells/uL} (Normal) Ra nge: [...] Please Note: Although the reference range for gotewrpK24 is 200-1100 pg/mL, it has been reported that between5 and 10% of patients with values between 200 and 400pg/mL may experience neuropsychiatric and hematologicabnormalities due to occult B12 deficiency; less than 1%of patients with values above 400 pg/mL will have symptoms. REPORT COMMENT:FASTING:YES VITAMIN B12 392 pg/ml (Normal) Range: 200-1 100 Comments: Please Note: Although the reference range for hipwsevR79 is 200-1100 pg/mL, it has been reported [...] of Care Name Dates Details Planned Observations [QL] CBC (INCLUDES DIFF/PLT) On: 30-Jul-2019 Intent Planned Goals not documented Planned Encounters Appointment; [...]
--- OUTSIDE RECORDS SUMMARY | 2019-11-02 19:29 | XMS REPORT | Summary of Care ---
Author OC Coates R.N. Organization Unknown Address Unknown Phone Unavailable Care Team Providers Care Burnishing Machine Operator Name Role Phone BORIS WESLEY APRN [...] DAILY * Quantity: 180 Refills: 1 BORIS WESLYE APRN * Start : 21-May-2016 Active Fluticasone [...] WESLEY APRN Start : 15-Mar-2018 Active Nystatin-Triamcinolone 776646-5.1 UNIT/GM-% External Cream APPLY SPARINGLY TO AFFECTED [...] DIFF/PLT) Date: 19-Jul-2019 CT Abdomen/Pelvis wo contrast 05286 Date: 18-Jul-2019 XRAY Chest 2 views 25889 Date: 18-Jul-2019 History of Renal Lithotripsy Completed History of Oral Surgery Tooth Extraction Completed History of Skin Tag Removal Completed History of Dental Implant Completed Immunization Name Dates Details Prevnar 13 Intramuscular Suspension Lot #: [id number] on: 07-Aug-2014 Fluzone Quadrivalent 0.5 ML Intramuscula r Suspension Lot #: [id number] on: 31-Jan-2015 Fluzone High-Dose 0.5 ML Intramuscular S uspension Prefilled Syringe Lot #: [id number] on: 19-Jan-2017 Pneumococcal polysaccharide vaccine, 23 valent Lot #: [id number] on: 19-Jan-2017 Fluzone Quadrivalent 0.5 ML Intramuscula r Suspension Prefilled Syringe Lot #: [id number] on: 13-Feb-2018 Fluzone High-Dose 0.5 ML Intramuscular S uspension Prefilled Syringe Lot #: [id number] on: 27-Feb-2019 Family History Name Dates Details [...] tatus: Body temperature 97.8 f Status: Comments: Nv thod: Temporal Heart Rate 62 /min Status: [...] ABSOLUTE NEUTROPHILS 1850 {cells/uL} (Normal) R lauren: [id number] ABSOLUTE LYMPHOCYTES 983 {cells/uL} (Normal) Ra nge: [...] Please Note: Although the reference range for atgfknoR53 is 200-1100 pg/mL, it has been reported that between5 and 10% of patients with values between 200 and 400pg/mL may experience neuropsychiatric and hematologicabnormalities due to occult B12 deficiency; less than 1%of patients with values above 400 pg/mL will have symptoms. REPORT COMMENT:FASTING:YES VITAMIN B12 392 pg/ml (Normal) Range: 200-1 100 Comments: Please Note: Although the reference range for tpeylrcA29 is 200-1100 pg/mL, it has been reported [...]
--- OUTSIDE RECORDS SUMMARY | 2019-11-02 19:29 | XMS REPORT | Summary of Care ---
Author OC Hogan Organization Unknown Address Unknown Phone Unavailable Care Team Providers Care Roll Edge Stitcher Hand Name Role Phone BORIS WESLEY APRN Unavailable HARIS Urbano, NIDIA Unavailable Unavailable Selin Pedro Unavailable Unavailable BORIS WESLEY APRN Unavailable Unavailable HARIS KEANE [place], NIDIA POLK Unavailable Unavailable RUBY KEANE, KAREN Mckenzie Unavailable Unavailable Robyn KEANE, Jhony Unavailable Unavailable MARYJANE NIXON [place], BORIS Wyatt Unavailable Unavailable Aniceto Ojeda MD, David Unavailable Unavailable MIESHA DO [place], ROCKY Unavailable Unavailable HARIS [facility], JAMEY Unavailable Unavailable Unavailable Unavailable Functional Status [...] WESLEY APRN Start : 15-Mar-2018 Active Nystatin-Triamcinolone 711316-5.1 UNIT/GM-% External Cream APPLY SPARINGLY TO AFFECTED [...] DIFF/PLT) Date: 19-Jul-2019 CT Abdomen/Pelvis wo contrast 73738 Date: 18-Jul-2019 XRAY Chest 2 views 98503 Date: 18-Jul-2019 History of Renal Lithotripsy Completed History of Oral Surgery Tooth Extraction Completed History of Skin Tag Removal Completed History of Dental Implant Completed Immunization Name Dates Details Prevnar 13 Intramuscular Suspension Lot #: [id number] on: 07-Aug-2014 Fluzone Quadrivalent 0.5 ML Intramuscula r Suspension Lot #: [id number] on: 31-Jan-2015 Fluzone High-Dose 0.5 ML Intramuscular S uspension Prefilled Syringe Lot #: [id number] on: 19-Jan-2017 Pneumococcal polysaccharide vaccine, 23 valent Lot #: [id number] on: 19-Jan-2017 Fluzone Quadrivalent 0.5 ML Intramuscula r Suspension Prefilled Syringe Lot #: [id number] on: 13-Feb-2018 Fluzone High-Dose 0.5 ML Intramuscular S uspension Prefilled Syringe Lot #: [id number] on: 27-Feb-2019 Family History Name Dates Details [...] ABSOLUTE NEUTROPHILS 1850 {cells/uL} (Normal) R lauren: 0419-1398 ABSOLUTE LYMPHOCYTES 983 {cells/uL} (Normal) Ra nge: [...] Please Note: Although the reference range for vtnqjnjI76 is 200-1100 pg/mL, it has been reported that between5 and 10% of patients with values between 200 and 400pg/mL may experience neuropsychiatric and hematologicabnormalities due to occult B12 deficiency; less than 1%of patients with values above 400 pg/mL will have symptoms. REPORT COMMENT:FASTING:YES VITAMIN B12 392 pg/ml (Normal) Range: 200-1 100 Comments: Please Note: Although the reference range for boywjwsV43 is 200-1100 pg/mL, it has been reported [...]
--- OUTSIDE RECORDS SUMMARY | 2019-11-02 19:29 | XMS REPORT | Summary of Care ---
Author [facility] Address [address] [place] [address] Phone Unavailable Care Team Providers Care Cpas Name Role Phone BORIS WESLEY APRN Unavailable Unavailable HARIS Urbano, NIDIA Unavailable Unavailable BORIS WESLEY APRN Unavailable Unavailable HARIS KEANE [place], NIDIA POLK Unavailable Unavailable RUBY KEANE, KAREN Mckenzie Unavailable Unavailable Robyn KEANE, Jhony Unavailable Unavailable MARYJANE NIXON [place], BORIS Wyatt Unavailable Unavailable Aniceto Ojeda MD, David Unavailable Unavailable MIESHA DO [place], ROCKY Unavailable Unavailable HARIS BELL [place], JAMEY Unavailable Unavailable Unavailable Unavailable Functional Status [...] Abnormal liver function (794.8, R94.5) Status: Active Anemia, unspecified type (285.9, D64.9) Status: Active Elevated LFTs (790.6, R79.89) Status: Active Hepatitis, 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, 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 BMI 30.0-30.9,adult (V85.30, Z68.30) Status: [...] APRN * Start : 15-Mar-2018 Active Nystatin-Triamcinolone 003355-6.1 UNIT/GM-% External Cream APPLY SPARINGLY TO AFFECTED [...] DIFF/PLT) Date: 19-Jul-2019 CT Abdomen/Pelvis wo contrast 93163 Date: 18-Jul-2019 XRAY Chest 2 views 16217 Date: 18-Jul-2019 History of Renal Lithotripsy Completed History of Oral Surgery Tooth Extraction Completed History of Skin Tag Removal Completed History of Dental Implant Completed Immunization Name Dates Details Prevnar 13 Intramuscular Suspension Lot #: [id number] on: 07-Aug-2014 Fluzone Quadrivalent 0.5 ML Intramuscula r Suspension Lot #: [id number] on: 31-Jan-2015 Fluzone High-Dose 0.5 ML Intramuscular S uspension Prefilled Syringe Lot #: [id number] on: 19-Jan-2017 Pneumococcal polysaccharide vaccine, 23 valent Lot #: [id number] on: 19-Jan-2017 Fluzone Quadrivalent 0.5 ML Intramuscula r Suspension Prefilled Syringe Lot #: [id number] on: 13-Feb-2018 Fluzone High-Dose 0.5 ML Intramuscular S uspension Prefilled Syringe Lot #: [id number] on: 27-Feb-2019 Family History Name Dates Details [...] ABSOLUTE NEUTROPHILS 1850 {cells/uL} (Normal) R lauren: [phone] ABSOLUTE LYMPHOCYTES 983 {cells/uL} (Normal) Ra nge: [...] Please Note: Although the reference range for htarpzbG89 is 200-1100 pg/mL, it has been reported that between5 and 10% of patients with values between 200 and 400pg/mL may experience neuropsychiatric and hematologicabnormalities due to occult B12 deficiency; less than 1%of patients with values above 400 pg/mL will have symptoms. REPORT COMMENT:FASTING:YES VITAMIN B12 392 pg/ml (Normal) Range: 200-1 100 Comments: Please Note: Although the reference range for boaifstC11 is 200-1100 pg/mL, it has been reported [...]
--- OUTSIDE RECORDS SUMMARY | 2019-11-02 19:29 | XMS REPORT | Summary of Care ---
Author Author [facility] Address [address] [place] [address] Phone Unavailable Care Team Providers Care Thresher Broomcorn Name Role Phone BORIS WESLEY APRN Unavailable Unavailable HARIS Urbano, NIDIA Unavailable Unavailable BORIS WESLEY APRN Unavailable Unavailable HARIS KEANE [place], NIDIA POLK Unavailable Unavailable RUBY KEANE, KAREN Mckenzie Unavailable Unavailable Robyn KEANE, Jhony Unavailable Unavailable MARYJANE NIXON [place], BORIS Wyatt Unavailable Unavailable Aniceto Ojeda MD, David Unavailable Unavailable MIESHA DO [place], ROCKY Unavailable Unavailable HARIS BELL [place], [place]AMEY Unavailable Unavailable Unavailable Unavailable Functional Status [...] APRN * Start : 15-Mar-2018 Active Nystatin-Triamcinolone 803194-1.1 UNIT/GM-% External Cream APPLY SPARINGLY TO AFFECTED [...] DIFF/PLT) Date: 19-Jul-2019 CT Abdomen/Pelvis wo contrast 92514 Date: 18-Jul-2019 XRAY Chest 2 views 28576 Date: 18-Jul-2019 History of Renal Lithotripsy Completed History of Oral Surgery Tooth Extraction Completed History of Skin Tag Removal Completed History of Dental Implant Completed Immunization Name Dates Details Prevnar 13 Intramuscular Suspension Lot #: [id number] on: 07-Aug-2014 Fluzone Quadrivalent 0.5 ML Intramuscula r Suspension Lot #: [id number] on: 31-Jan-2015 Fluzone High-Dose 0.5 ML Intramuscular S uspension Prefilled Syringe Lot #: [id number] on: 19-Jan-2017 Pneumococcal polysaccharide vaccine, 23 valent Lot #: [id number] on: 19-Jan-2017 Fluzone Quadrivalent 0.5 ML Intramuscula r Suspension Prefilled Syringe Lot #: [id number] on: 13-Feb-2018 Fluzone High-Dose 0.5 ML Intramuscular S uspension Prefilled Syringe Lot #: [id number] on: 27-Feb-2019 Family History Name Dates Details [...] ABSOLUTE NEUTROPHILS 1850 {cells/uL} (Normal) R lauren: 4552-1316 ABSOLUTE LYMPHOCYTES 983 {cells/uL} (Normal) Ra nge: [...] Please Note: Although the reference range for ohyenpzM94 is 200-1100 pg/mL, it has been reported that between5 and 10% of patients with values between 200 and 400pg/mL may experience neuropsychiatric and hematologicabnormalities due to occult B12 deficiency; less than 1%of patients with values above 400 pg/mL will have symptoms. REPORT COMMENT:FASTING:YES VITAMIN B12 392 pg/ml (Normal) Range: 200-1 100 Comments: Please Note: Although the reference range for wbtnmsmN16 is 200-1100 pg/mL, it has been reported [...]
--- OUTSIDE RECORDS SUMMARY | 2019-11-02 19:29 | XMS REPORT | Summary of Care ---
Author OC Orellana R.N. Organization Unknown Address Unknown Phone Unavailable Care Team Providers Care Composition Teacher Name Role Phone BORIS WESLEY APRN Unavailable Unavailable HARIS Urbano, NIDIA Unavailable Unavailable Jeremy Pompa, Kellen Unavailable Unavailable BORIS WESLEY APRN Unavailable Unavailable HARIS KEANE [place], NIDIA POLK Unavailable Unavailable RUBY KEANE, KAREN Mckenzie Unavailable Unavailable Robyn KEANE, Jhony Unavailable Unavailable MARYJANE NIXON [place], BORIS Wyatt Unavailable Unavailable Aniceto Ojeda MD, David Unavailable Unavailable MIESHA DO [place], ROCKY Unavailable [...] WESLEY APRN Start : 15-Mar-2018 Active Nystatin-Triamcinolone 750369-9.1 UNIT/GM-% External Cream APPLY SPARINGLY TO AFFECTED [...] DIFF/PLT) Date: 19-Jul-2019 CT Abdomen/Pelvis wo contrast 61473 Date: 18-Jul-2019 XRAY Chest 2 views 21680 Date: 18-Jul-2019 History of Renal Lithotripsy Completed History of Oral Surgery Tooth Extraction Completed History of Skin Tag Removal Completed History of Dental Implant Completed Immunization Name Dates Details Prevnar 13 Intramuscular Suspension Lot #: [id number] on: 07-Aug-2014 Fluzone Quadrivalent 0.5 ML Intramuscula r Suspension Lot #: [id number] on: 31-Jan-2015 Fluzone High-Dose 0.5 ML Intramuscular S uspension Prefilled Syringe Lot #: [id number] on: 19-Jan-2017 Pneumococcal polysaccharide vaccine, 23 valent Lot #: [id number] on: 19-Jan-2017 Fluzone Quadrivalent 0.5 ML Intramuscula r Suspension Prefilled Syringe Lot #: [id number] on: 13-Feb-2018 Fluzone High-Dose 0.5 ML Intramuscular S uspension Prefilled Syringe Lot #: [id number] on: 27-Feb-2019 Family History Name Dates Details [...] tatus: Body temperature 97.8 f Status: Comments: Mn thod: Temporal Heart Rate 62 /min Status: [...] ABSOLUTE NEUTROPHILS 1850 {cells/uL} (Normal) R lauren: [id number] ABSOLUTE LYMPHOCYTES 983 {cells/uL} (Normal) Ra nge: [...] Please Note: Although the reference range for hchsvofO21 is 200-1100 pg/mL, it has been reported that between5 and 10% of patients with values between 200 and 400pg/mL may experience neuropsychiatric and hematologicabnormalities due to occult B12 deficiency; less than 1%of patients with values above 400 pg/mL will have symptoms. REPORT COMMENT:FASTING:YES VITAMIN B12 392 pg/ml (Normal) Range: 200-1 100 Comments: Please Note: Although the reference range for eglssppD54 is 200-1100 pg/mL, it has been reported [...] WESLEY APRN On: 28-Aug-2019 12:30 Interventions Provided Discussion/Summary* Guideline Used: * Other: return missed call * Ted Bryant * Patient calling to say he is returning calls from the clinic-but doesn't know who Dr. Blackmon is. Review of chart shows Mariah Cevallos/[facility] trying to reach patient. Warm transfer to Mariah Cevallos. No new signs or symptoms from patient at this time. * Recommended Disposition: Call back with any further signs, symptoms, questions or concerns * Action Taken: * Patient informed/educated about nurse line * Intended Caller Action: * Other: return missed call Instructions Name Dates Details Instructions not documented [...]
--- OUTSIDE RECORDS SUMMARY | 2019-11-02 19:30 | XMS REPORT | Summary of Care ---
Author OC Perdomo M.D. Organization Unknown Address Unknown Phone Unavailable Care Team Providers Care Re Recording Mixer Name Role Phone BORIS WESLEY APRN Unavailable Unavailable HARIS Urbano, NIDIA Unavailable Unavailable BORIS WESLEY APRN Unavailable Unavailable HARIS KEANE [place], NIDIA POLK Unavailable Unavailable RUBY KEANE, KAREN Mckenzie Unavailable Unavailable Robyn KEANE, Jhony Unavailable Unavailable MARYJANE NIXON [place], BORIS Wyatt Unavailable Unavailable Aniceto Ojeda MD, David Unavailable Unavailable MIESHA COPPOLA [place], ROCKY Unavailable Unavailable HARIS BELL [place], JAMEY Unavailable Unavailable Unavailable Unavailable Functional Status [...] Active BMI 30.0-30.9,adult (V85.30, Z68.30) Status: Active 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, 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 Medications Name Dates Details PARoxetine [...] APRN * Start : 15-Mar-2018 Active Nystatin-Triamcinolone 054753-9.1 UNIT/GM-% External Cream APPLY SPARINGLY TO AFFECTED [...] 16-Jul-2019 [Q] COPPER, RANDOM URINE Date: 16-Jul-2019 [QL] CBC (INCLUDES DIFF/PLT) Date: 19-Jul-2019 [QL] PROTEIN, TOTAL W/CREAT, 24 HOUR URINE Date: 24-Jul-2019 CT Abdomen/Pelvis wo contrast 88201 Date: 18-Jul-2019 XRAY Chest 2 views 60654 Date: 18-Jul-2019 History of Renal Lithotripsy Completed History of Oral Surgery Tooth Extraction Completed History of Skin Tag Removal Completed History of Dental Implant Completed Immunization Name Dates Details Prevnar 13 Intramuscular Suspension Lot #: [id number] on: 07-Aug-2014 Fluzone Quadrivalent 0.5 ML Intramuscula r Suspension Lot #: [id number] on: 31-Jan-2015 Fluzone High-Dose 0.5 ML Intramuscular S uspension Prefilled Syringe Lot #: [id number] on: 19-Jan-2017 Pneumococcal polysaccharide vaccine, 23 valent Lot #: [id number] on: 19-Jan-2017 Fluzone Quadrivalent 0.5 ML Intramuscula r Suspension Prefilled Syringe Lot #: [id number] on: 13-Feb-2018 Fluzone High-Dose 0.5 ML Intramuscular S uspension Prefilled Syringe Lot #: [id number] on: 27-Feb-2019 Family History Name Dates Details [...] ABSOLUTE NEUTROPHILS 1850 {cells/uL} (Normal) R lauren: 4989-0463 ABSOLUTE LYMPHOCYTES 983 {cells/uL} (Normal) Ra nge: 850-3900 ABSOLUTE MONOCYTES 320 {cells/uL} (Normal) Rang e: 200-950 ABSOLUTE EOSINOPHILS 207 {cells/uL} (Normal) Ra nge: 15-500 ABSOLUTE BASOPHILS 41 {cells/uL} (Normal) Range : 0-200 NEUTROPHILS 54.4 % (Normal) LYMPHOCYTES 28.9 % (Normal) MONOCYTES 9.4 % (Normal) EOSINOPHILS 6.1 % (Normal) BASOPHILS 1.2 % (Normal) 42-Gct-326490:24 [QL] VITAMIN B12/FOLATE, SERUM PANEL Co mments: Please Note: Although the reference range for eaivwrxM15 is 200-1100 pg/mL, it has been reported that between5 and 10% of patients with values between 200 and 400pg/mL may experience neuropsychiatric and hematologicabnormalities due to occult B12 deficiency; less than 1%of patients with values above 400 pg/mL will have symptoms. REPORT COMMENT:FASTING:YES VITAMIN B12 392 pg/ml (Normal) Range: 200-1 100 Comments: Please Note: Although the reference range for yxqjladJ47 is 200-1100 pg/mL, it has been reported that between5 and 10% of patients with values between 200 and 400pg/mL may experience neuropsychiatric and hematologicabnormalities due to occult B12 deficiency; less than 1%of patients with values above 400 pg/mL will have symptoms. FOLATE, SERUM 12.2 ng/ml (Normal) Comments: R eference Range Low: <3.4 Borderline: 3.4-5.4 Normal: >5.4 :22 [Q] BETA 2 MICROGLOBULIN, RANDOM URINE W /CREAT BETA 2 MICROGLOBULIN/CREATININE RATIO 46 36 {MCG/G_CREA} (Above high threshold) Range: < OR = 132 CREATININE, RANDOM URINE 99 mg/dl Range: 20-320 :22 [Q] PROTEIN, TOTAL AND PROTEIN ELECTROPH ORESIS W/ REFL DARIO PROTEIN, TOTAL 5.7 g/dl (Below low threshold) Range: 6.1-8.1 ALBUMIN 3.2 g/dl (Below low threshold) Range: 3.8-4.8 GWASY-2-YFGTUSURT 0.3 g/dl (Normal) Range: 0.2- 0.3 LAVUQ-1-BYBHGEKTF 0.8 g/dl (Normal) Range: 0.5- 0.9 BETA 1 GLOBULIN 0.3 g/dl (Below low threshold) Range: 0.4-0.6 BETA 2 GLOBULIN 0.4 g/dl (Normal) Range: 0.2-0. 5 GAMMA GLOBULINS 0.7 g/dl (Below low threshold) Range: 0.8-1.7 INTERPRETATION Comments: Evalua tion reveals an isolated decrease in albumin.This pattern is suggestive of decreased protein synthesis or protein loss. Consider ordering pre-albumin quantitation. Consistent with hy pogammaglobulinemia. Serum free light chains or urine immunofixation should be considered if plasma cell dyscrasias are a possible clinical diagnosis. :22 [Q] CBC (INCLUDES DIFF/PLT) WITH SMEAR R [place] WHITE BLOOD CELL COUNT 4.4 {Thousand/u} (Normal ) Range: 3.8-10.8 RED BLOOD CELL COUNT 2.51 {Million/uL} (Below l ow threshold) Range: 4.20-5.80 HEMAGLOBIN 9.1 g/dl (Below low threshold) Range: 13.2-17.1 HEMATOCRIT 26.9 % (Below low threshold) Ra nge: 38.5-50.0 MCV 107.2 fL (Above high threshold) Range: 80.0-100.0 MCH 36.3 pg (Above high threshold) Range: 27.0-33.0 MCHC 33.8 g/dl (Normal) Range: 32.0- 36.0 RDW 16.4 % (Above high threshold) R lauren: 11.0-15.0 PLATELET COUNT 284 {Thousand/u} (Normal) Range : 140-400 MPV 10.0 fL (Normal) Range: 7.5-12. 5 05-Tit-335463:22 [Q] Differential, Manual Comments: REPO RT COMMENT:FASTING:YES ABSOLUTE NEUTROPHILS 3124 {cells/uL} (Normal) R lauren: [phone] ABSOLUTE LYMPHOCYTES 792 {cells/uL} (Below low threshold) Range: 850-3900 ABSOLUTE MONOCYTES 176 {cells/uL} (Below low th reshold) Range: 200-950 ABSOLUTE EOSINOPHILS 264 {cells/uL} (Normal) Ra nge: 15-500 ABSOLUTE BASOPHILS 44 {cells/uL} (Normal) Range : 0-200 NEUTROPHILS 71.0 % (Normal) LYMPHOCYTES 18.0 % (Normal) MONOCYTES 4.0 % (Normal) EOSINOPHILS 6.0 % (Normal) BASOPHILS 1.0 % (Normal) 95-Eux-535535:43 XRAY Chest 2 views 26689 Chest 2 views SEE NOTES Comments: PROCED URE INFORMATION:Exam: XR Chest, 2 ViewsExam date and time: 07/25/2019 11:56 AMAge: 74 years oldClinical indication: Anemia, unspecified; Additional info: /d64.9TECHNIQUE:Imaging protocol: XR of the chestViews: 2 views.Other technique: 2 views, frontal and lateral.COMPARISON:CR CHEST 1VIEW DX 07/10/2018 2:24 PM* CHEST, 2 viewsTECHNIQUE: Frontal and lateral radiographs of the chest were obtained.FINDINGS:The lungs are clear. There are no pleural effusions.The heart and pulmonary vasculature are within normal limits. There are very mild degenerative changes involving the thoracic spine.The regional skeleton is otherwise unremarkable. IMPRESSION:No active disease.Augusto Pope MD On 07/25/2019 11:14:19; [id number]--Xsdn by: Augusto Pope MDDictated Date/time: 07/25/19 11:14Electronically Signed by: Augusto Pope MD 07/24/2010:14FINAL REPORT Plan of Care Name Dates Details Planned [...] Problem not documented On: 15-May-2018 10:45 Appointment; MD ZAID PROVIDER Encounter Diagnosis: Problem not documented On: [...]
--- OUTSIDE RECORDS SUMMARY | 2019-11-02 19:30 | XMS REPORT | Summary of Care ---
Author OC Perdomo M.D. Organization Unknown Address Unknown Phone Unavailable Care Team Providers Care Salicylic Acid Blender Name Role Phone BORIS WESLEY APRN Unavailable HARIS Urbano, NIDIA Unavailable Unavailable BORIS WESLEY APRN Unavailable Unavailable HARIS KEANE [place], NIDIA POLK Unavailable Unavailable RUBY KEANE, KAREN Mckenzie Unavailable Unavailable Robyn KEANE, Jhony Unavailable Unavailable MARYJANE NIXON [place], BORIS Wyatt Unavailable Unavailable Aniceto Ojeda MD, David Unavailable Unavailable MIESHA COPPOLA [place], ROCKY Unavailable Unavailable HARIS BELL [place], JAMEY Unavailable Unavailable Unavailable Unavailable Functional Status [...] APRN * Start : 15-Mar-2018 Active Nystatin-Triamcinolone 060686-4.1 UNIT/GM-% External Cream APPLY SPARINGLY TO AFFECTED [...] URINE Date: 24-Jul-2019 CT Abdomen/Pelvis wo contrast 38250 Date: 18-Jul-2019 XRAY Chest 2 views 45483 Date: 18-Jul-2019 History of Renal Lithotripsy Completed History of Oral Surgery Tooth Extraction Completed History of Skin Tag Removal Completed History of Dental Implant Completed Immunization Name Dates Details Prevnar 13 Intramuscular Suspension Lot #: [id number] on: 07-Aug-2014 Fluzone Quadrivalent 0.5 ML Intramuscula r Suspension Lot #: [id number] on: 31-Jan-2015 Fluzone High-Dose 0.5 ML Intramuscular S uspension Prefilled Syringe Lot #: [id number] on: 19-Jan-2017 Pneumococcal polysaccharide vaccine, 23 valent Lot #: [id number] on: 19-Jan-2017 Fluzone Quadrivalent 0.5 ML Intramuscula r Suspension Prefilled Syringe Lot #: [id number] on: 13-Feb-2018 Fluzone High-Dose 0.5 ML Intramuscular S uspension Prefilled Syringe Lot #: [id number] on: 27-Feb-2019 Family History Name Dates Details [...] ABSOLUTE NEUTROPHILS 1850 {cells/uL} (Normal) R lauren: 1317-0311 ABSOLUTE LYMPHOCYTES 983 {cells/uL} (Normal) Ra nge: 850-3900 ABSOLUTE MONOCYTES 320 {cells/uL} (Normal) Rang e: 200-950 ABSOLUTE EOSINOPHILS 207 {cells/uL} (Normal) Ra nge: 15-500 ABSOLUTE BASOPHILS 41 {cells/uL} (Normal) Range : 0-200 NEUTROPHILS 54.4 % (Normal) LYMPHOCYTES 28.9 % (Normal) MONOCYTES 9.4 % (Normal) EOSINOPHILS 6.1 % (Normal) BASOPHILS 1.2 % (Normal) 61-Wwp-209699:24 [QL] VITAMIN B12/FOLATE, SERUM PANEL Co mments: Please Note: Although the reference range for jkoeyqbC77 is 200-1100 pg/mL, it has been reported that between5 and 10% of patients with values between 200 and 400pg/mL may experience neuropsychiatric and hematologicabnormalities due to occult B12 deficiency; less than 1%of patients with values above 400 pg/mL will have symptoms. REPORT COMMENT:FASTING:YES VITAMIN B12 392 pg/ml (Normal) Range: 200-1 100 Comments: Please Note: Although the reference range for dcrdfefD18 is 200-1100 pg/mL, it has been reported [...] 3.2 g/dl (Below low threshold) Range: 3.8-4.8 QGYMD-5-ZZFIGHCRW 0.3 g/dl (Normal) Range: 0.2- 0.3 TYCPI-4-FDIPQOQUH 0.8 g/dl (Normal) Range: 0.5- 0.9 BETA [...] MPV 10.0 fL (Normal) Range: 7.5-12. 5 85-Und-503198:22 [Q] Differential, Manual Comments: REPO RT COMMENT:FASTING:YES ABSOLUTE NEUTROPHILS 3124 {cells/uL} (Normal) R lauren: 3349-3870 ABSOLUTE LYMPHOCYTES 792 {cells/uL} (Below low threshold) Range: 850-3900 ABSOLUTE MONOCYTES 176 {cells/uL} (Below low th reshold) Range: 200-950 ABSOLUTE EOSINOPHILS 264 {cells/uL} (Normal) Ra nge: 15-500 ABSOLUTE BASOPHILS 44 {cells/uL} (Normal) Range : 0-200 NEUTROPHILS 71.0 % (Normal) LYMPHOCYTES 18.0 % (Normal) MONOCYTES 4.0 % (Normal) EOSINOPHILS 6.0 % (Normal) BASOPHILS 1.0 % (Normal) Plan of Care Name Dates Details Planned Observations Planned Goals not documented Planned Encounters Appointment; Ralph Blackmon M.D. On: 03-Aug-2019 12:45 Appointment; BORIS WESLEY APRN On: 28-Aug-2019 12:30 Interventions Provided Labs/Procedures/Imaging* [QL] PROTEIN, TOTAL W/CREAT, 24 HOUR URINE; To Be Done: 24 Jul 2019 Instructions Name Dates Details Instructions [...] not documented On: 28-Jul-2018 12:00 Appointment; BORIS EWSLEY APRN Encounter Diagnosis: Problem not documented On: [...]
--- OUTSIDE RECORDS SUMMARY | 2019-11-02 19:30 | XMS REPORT | Summary of Care ---
Author Author [facility] Claire LVN Organization Unknown Address Unknown Phone Unavailable Care Team Providers Care Hub Bander Name Role Phone BORIS WESLEY APRN Unavailable Unavailable HARIS Urbano, NIDIA Unavailable Unavailable Dakotah GOLD, Alexander Unavailable Unavailable BORIS WESLEY APRN Unavailable Unavailable HARIS KEANE [place], NIDIA POLK Unavailable Unavailable RUBY KEANE, KAREN Mckenzie Unavailable Unavailable Robyn KEANE, Jhony Unavailable Unavailable MARYJANE NIXON [place], BORIS Wyatt Unavailable Unavailable Aniceto Ojeda MD, David Unavailable Unavailable MIESHA DO [place], ROCKY Unavailable Unavailable HARIS BELL [place], JAMEY Unavailable Unavailable Unavailable Unavailable Functional Status [...] APRN * Start : 15-Mar-2018 Active Nystatin-Triamcinolone 295795-8.1 UNIT/GM-% External Cream APPLY SPARINGLY TO AFFECTED [...] URINE Date: 24-Jul-2019 CT Abdomen/Pelvis wo contrast 85215 Date: 18-Jul-2019 XRAY Chest 2 views 66551 Date: 18-Jul-2019 History of Renal Lithotripsy Completed History of Oral Surgery Tooth Extraction Completed History of Skin Tag Removal Completed History of Dental Implant Completed Immunization Name Dates Details Prevnar 13 Intramuscular Suspension Lot #: [id number] on: 07-Aug-2014 Fluzone Quadrivalent 0.5 ML Intramuscula r Suspension Lot #: [id number] on: 31-Jan-2015 Fluzone High-Dose 0.5 ML Intramuscular S uspension Prefilled Syringe Lot #: [id number] on: 19-Jan-2017 Pneumococcal polysaccharide vaccine, 23 valent Lot #: [id number] on: 19-Jan-2017 Fluzone Quadrivalent 0.5 ML Intramuscula r Suspension Prefilled Syringe Lot #: [id number] on: 13-Feb-2018 Fluzone High-Dose 0.5 ML Intramuscular S uspension Prefilled Syringe Lot #: [id number] on: 27-Feb-2019 Family History Name Dates Details [...] ABSOLUTE NEUTROPHILS 1850 {cells/uL} (Normal) R lauren: [id number] ABSOLUTE LYMPHOCYTES 983 {cells/uL} (Normal) Ra nge: 850-3900 ABSOLUTE MONOCYTES 320 {cells/uL} (Normal) Rang e: 200-950 ABSOLUTE EOSINOPHILS 207 {cells/uL} (Normal) Ra nge: 15-500 ABSOLUTE BASOPHILS 41 {cells/uL} (Normal) Range : 0-200 NEUTROPHILS 54.4 % (Normal) LYMPHOCYTES 28.9 % (Normal) MONOCYTES 9.4 % (Normal) EOSINOPHILS 6.1 % (Normal) BASOPHILS 1.2 % (Normal) 77-Owl-671816:24 [QL] VITAMIN B12/FOLATE, SERUM PANEL Co mments: Please Note: Although the reference range for dxgzdghM28 is 200-1100 pg/mL, it has been reported that between5 and 10% of patients with values between 200 and 400pg/mL may experience neuropsychiatric and hematologicabnormalities due to occult B12 deficiency; less than 1%of patients with values above 400 pg/mL will have symptoms. REPORT COMMENT:FASTING:YES VITAMIN B12 392 pg/ml (Normal) Range: 200-1 100 Comments: Please Note: Although the reference range for ntdioaaJ49 is 200-1100 pg/mL, it has been reported [...] 3.2 g/dl (Below low threshold) Range: 3.8-4.8 PFNRF-4-COTZEUBGQ 0.3 g/dl (Normal) Range: 0.2- 0.3 YZBQT-9-LMMKWLIYJ 0.8 g/dl (Normal) Range: 0.5- 0.9 BETA [...] MPV 10.0 fL (Normal) Range: 7.5-12. 5 39-Lgr-367598:22 [Q] Differential, Manual Comments: REPO RT COMMENT:FASTING:YES ABSOLUTE NEUTROPHILS 3124 {cells/uL} (Normal) R lauren: 6617-6808 ABSOLUTE LYMPHOCYTES 792 {cells/uL} (Below low threshold) Range: 850-3900 ABSOLUTE MONOCYTES 176 {cells/uL} (Below low th reshold) Range: 200-950 ABSOLUTE EOSINOPHILS 264 {cells/uL} (Normal) Ra nge: 15-500 ABSOLUTE BASOPHILS 44 {cells/uL} (Normal) Range : 0-200 NEUTROPHILS 71.0 % (Normal) LYMPHOCYTES 18.0 % (Normal) MONOCYTES 4.0 % (Normal) EOSINOPHILS 6.0 % (Normal) BASOPHILS 1.0 % (Normal) 16-Vkh-833131:43 XRAY Chest 2 views 96072 Chest 2 views SEE NOTES Comments: PROCED [...] active disease.Augusto Pope MD On 07/25/2019 11:14:19; [id number] by: Augusto Pope MDDictated Date/time: 07/25/19 11:14Electronically [...]
--- OUTSIDE RECORDS SUMMARY | 2019-11-02 19:30 | XMS REPORT | Summary of Care ---
Author Author [facility] Address [address] [place] [address] Phone Unavailable Care Team Providers Care Wad Impregnator Name Role Phone BORIS WESLEY APRN Unavailable Unavailable HARIS Urbano, NIDIA Unavailable Unavailable BORIS WESLEY APRN Unavailable Unavailable HARIS KEANE [place], NIDIA POLK Unavailable Unavailable RUBY KEANE, KAREN Mckenzie Unavailable Unavailable Robyn KEANE, Jhony Unavailable Unavailable MARYJANE NIXON [place], BORIS Wyatt Unavailable Unavailable Aniceto Ojeda MD, David Unavailable Unavailable MIESHA DO [place], ROCKY Unavailable Unavailable HARIS BELL [place], JAMEY Unavailable Unavailable Unavailable Unavailable Functional Status [...] Z68.30) Status: Active Medications Name Dates Details hydrALAZINE HCl - 50 MG Oral Tablet TAKE 1 TABLET BY MOUTH two TIMES DAILY Quantity: 180 BORIS WESLEY APRN * Start : 11-Apr-2014 [...] WESLEY APRN. * Start : 21-May-2016 Active Motrin TABS TAKE 3 TABLET 2 TIMES DAILY NEEDED. * Refills: 0 Active Olmesartan Medoxomil 40 MG Oral Tablet TAKE 1 TABLET BY MOUTH EVERY DAY * Quantity: 90 Refills: 1 BORIS WESLEY APRN * Start : 26-Oct-2017 Active Glucose Meter [...] WESLEY APRN * Start : 29-Mar-2018 Active Cod Liver Oil Oral Capsule 2-3 [...] WESLEY APRN * Start : 16-Jul-2019 Active Melatonin 5 MG Oral Tablet 1-2 tabs at * Quantity: 77 Refills: 0 BORIS WESLEY APRN * Start : 30-Nov-2018 Active Nystatin-Triamcinolone 107861-3.1 UNIT/GM-% External Cream APPLY SPARINGLY TO AFFECTED AREA(S) TWICE DAILY * Quantity: 1 Refills: 1 BORIS WESLEY APRN Start : 15-Mar-2018 Active 30 GM Tube Tart Figueredo Advanced Oral Capsule DIRECTED * Refills: 0 BORIS WESLEY APRN Start : 15-Mar-2018 Active Allopurinol 300 MG Oral Tablet TAKE 1 TABLET BY MOUTH DAILY * Quantity: 90 Refills: 3 BORIS WESLEY APRN * Start : 26-Oct-2017 Active Fluticasone Propionate 50 MCG/ACT Nasal Suspension USE 1 SPRAYS IN EACH NOSTRIL TWICE DAILY * Quantity: 1 Refills: 5 BORIS WESLEY APRN * Start : 16-Aug-2016 Active 15.8 ML Bottle PARoxetine HCl - 20 MG Oral Tablet TAKE 1 TABLET BY MOUTH EVERY DAY * Quantity: 90 Refills: 1 BORIS WESLEY APRN * Start : 07-Oct-2014 Active Accu-Chek SmartView In Vitro Strip TEST ONCE A DAY * Quantity: 1 Refills: 5 NIDIA CARBALLO M.D. * Start : 11-Sep-2013 Active 50 Strip Box azaTHIOprine 50 MG Oral Tablet TAKE 1 TABLET DAILY. * Refills: 0 BORIS WESLEY APRN Start : 22-Aug-2018 Active Allergies and Adverse [...] DIFF/PLT) Date: 19-Jul-2019 CT Abdomen/Pelvis wo contrast 28861 Date: 18-Jul-2019 XRAY Chest 2 views 09848 Date: 18-Jul-2019 History of Renal Lithotripsy Completed History of Oral Surgery Tooth Extraction Completed History of Skin Tag Removal Completed History of Dental Implant Completed Immunization Name Dates Details Prevnar 13 Intramuscular Suspension Lot #: [id number] on: 07-Aug-2014 Fluzone Quadrivalent 0.5 ML Intramuscula r Suspension Lot #: [id number] on: 31-Jan-2015 Fluzone High-Dose 0.5 ML Intramuscular S uspension Prefilled Syringe Lot #: [id number] on: 19-Jan-2017 Pneumococcal polysaccharide vaccine, 23 valent Lot #: [id number] on: 19-Jan-2017 Fluzone Quadrivalent 0.5 ML Intramuscula r Suspension Prefilled Syringe Lot #: [id number] on: 13-Feb-2018 Fluzone High-Dose 0.5 ML Intramuscular S uspension Prefilled Syringe Lot #: [id number] on: 27-Feb-2019 Family History Name Dates Details [...] ABSOLUTE NEUTROPHILS 1850 {cells/uL} (Normal) R lauren: 0037-6112 ABSOLUTE LYMPHOCYTES 983 {cells/uL} (Normal) Ra nge: [...] Please Note: Although the reference range for vqmuejfG49 is 200-1100 pg/mL, it has been reported that between5 and 10% of patients with values between 200 and 400pg/mL may experience neuropsychiatric and hematologicabnormalities due to occult B12 deficiency; less than 1%of patients with values above 400 pg/mL will have symptoms. REPORT COMMENT:FASTING:YES VITAMIN B12 392 pg/ml (Normal) Range: 200-1 100 Comments: Please Note: Although the reference range for pgeevobG58 is 200-1100 pg/mL, it has been reported [...]
--- OUTSIDE RECORDS SUMMARY | 2019-11-02 19:30 | XMS REPORT | Summary of Care ---
Author Author [facility] Address [address] [place] [address] Phone Unavailable Care Team Providers Care Bridal Sales Consultant Name Role Phone BORIS WESLEY APRN Unavailable Unavailable HARIS Urbano, NIDIA Unavailable Unavailable BORIS WESLEY APRN Unavailable Unavailable HARIS KEANE [place], NIDIA POLK Unavailable Unavailable RUBY KEANE, KAREN Mckenzie Unavailable Unavailable Robyn KEANE, Jhony Unavailable Unavailable MARYJANE NIXON [place], BORIS Wyatt Unavailable Unavailable Aniceto Ojeda MD, David Unavailable Unavailable MIESHA DO [place], ROCKY Unavailable Unavailable HARIS BELL [place], JAMEY Unavailable [...] APRN * Start : 15-Mar-2018 Active Nystatin-Triamcinolone 914381-6.1 UNIT/GM-% External Cream APPLY SPARINGLY TO AFFECTED [...] URINE Date: 24-Jul-2019 CT Abdomen/Pelvis wo contrast 23802 Date: 18-Jul-2019 XRAY Chest 2 views 06985 Date: 18-Jul-2019 History of Renal Lithotripsy Completed History of Oral Surgery Tooth Extraction Completed History of Skin Tag Removal Completed History of Dental Implant Completed Immunization Name Dates Details Prevnar 13 Intramuscular Suspension Lot #: [id number] on: 07-Aug-2014 Fluzone Quadrivalent 0.5 ML Intramuscula r Suspension Lot #: [id number] on: 31-Jan-2015 Fluzone High-Dose 0.5 ML Intramuscular S uspension Prefilled Syringe Lot #: [id number] on: 19-Jan-2017 Pneumococcal polysaccharide vaccine, 23 valent Lot #: [id number] on: 19-Jan-2017 Fluzone Quadrivalent 0.5 ML Intramuscula r Suspension Prefilled Syringe Lot #: [id number] on: 13-Feb-2018 Fluzone High-Dose 0.5 ML Intramuscular S uspension Prefilled Syringe Lot #: [id number] on: 27-Feb-2019 Family History Name Dates Details [...] ABSOLUTE NEUTROPHILS 1850 {cells/uL} (Normal) R lauren: 1328-3805 ABSOLUTE LYMPHOCYTES 983 {cells/uL} (Normal) Ra nge: 850-3900 ABSOLUTE MONOCYTES 320 {cells/uL} (Normal) Rang e: 200-950 ABSOLUTE EOSINOPHILS 207 {cells/uL} (Normal) Ra nge: 15-500 ABSOLUTE BASOPHILS 41 {cells/uL} (Normal) Range : 0-200 NEUTROPHILS 54.4 % (Normal) LYMPHOCYTES 28.9 % (Normal) MONOCYTES 9.4 % (Normal) EOSINOPHILS 6.1 % (Normal) BASOPHILS 1.2 % (Normal) 41-One-001237:24 [QL] VITAMIN B12/FOLATE, SERUM PANEL Co mments: Please Note: Although the reference range for tinwggmV44 is 200-1100 pg/mL, it has been reported that between5 and 10% of patients with values between 200 and 400pg/mL may experience neuropsychiatric and hematologicabnormalities due to occult B12 deficiency; less than 1%of patients with values above 400 pg/mL will have symptoms. REPORT COMMENT:FASTING:YES VITAMIN B12 392 pg/ml (Normal) Range: 200-1 100 Comments: Please Note: Although the reference range for hifvnjfN08 is 200-1100 pg/mL, it has been reported [...] 3.2 g/dl (Below low threshold) Range: 3.8-4.8 ZIECY-4-YBXAMZKXB 0.3 g/dl (Normal) Range: 0.2- 0.3 FZUYP-8-QJNKXDDTZ 0.8 g/dl (Normal) Range: 0.5- 0.9 BETA [...] MPV 10.0 fL (Normal) Range: 7.5-12. 5 37-Rdz-200903:22 [Q] Differential, Manual Comments: REPO RT COMMENT:FASTING:YES ABSOLUTE NEUTROPHILS 3124 {cells/uL} (Normal) R lauren: 3943-5145 ABSOLUTE LYMPHOCYTES 792 {cells/uL} (Below low threshold) [...]
--- OUTSIDE RECORDS SUMMARY | 2019-11-02 19:30 | XMS REPORT | Summary of Care ---
Author Author [facility] Address [address] [place] [address] Phone Unavailable Care Team Providers Care Training Lead Name Role Phone BORIS WESLEY APRN Unavailable [...] APRN * Start : 15-Mar-2018 Active Nystatin-Triamcinolone 594375-0.1 UNIT/GM-% External Cream APPLY SPARINGLY TO AFFECTED [...] DIFF/PLT) Date: 19-Jul-2019 CT Abdomen/Pelvis wo contrast 63178 Date: 18-Jul-2019 XRAY Chest 2 views 29567 Date: 18-Jul-2019 History of Renal Lithotripsy Completed History of Oral Surgery Tooth Extraction Completed History of Skin Tag Removal Completed History of Dental Implant Completed Immunization Name Dates Details Prevnar 13 Intramuscular Suspension Lot #: [id number] on: 07-Aug-2014 Fluzone Quadrivalent 0.5 ML Intramuscula r Suspension Lot #: [id number] on: 31-Jan-2015 Fluzone High-Dose 0.5 ML Intramuscular S uspension Prefilled Syringe Lot #: [id number] on: 19-Jan-2017 Pneumococcal polysaccharide vaccine, 23 valent Lot #: [id number] on: 19-Jan-2017 Fluzone Quadrivalent 0.5 ML Intramuscula r Suspension Prefilled Syringe Lot #: [id number] on: 13-Feb-2018 Fluzone High-Dose 0.5 ML Intramuscular S uspension Prefilled Syringe Lot #: [id number] on: 27-Feb-2019 Family History Name Dates Details [...] ABSOLUTE NEUTROPHILS 1850 {cells/uL} (Normal) R lauren: 0610-7142 ABSOLUTE LYMPHOCYTES 983 {cells/uL} (Normal) Ra nge: [...] Please Note: Although the reference range for lkjfoizJ66 is 200-1100 pg/mL, it has been reported that between5 and 10% of patients with values between 200 and 400pg/mL may experience neuropsychiatric and hematologicabnormalities due to occult B12 deficiency; less than 1%of patients with values above 400 pg/mL will have symptoms. REPORT COMMENT:FASTING:YES VITAMIN B12 392 pg/ml (Normal) Range: 200-1 100 Comments: Please Note: Although the reference range for uhqpnzfR06 is 200-1100 pg/mL, it has been reported [...]
--- OUTSIDE RECORDS SUMMARY | 2019-11-02 19:30 | XMS REPORT | Summary of Care ---
Author Author [facility] Address [address] [place] [address] Phone Unavailable Care Team Providers Care Soldering Machine Operator Helper Name Role Phone BORIS WESLEY APRN Unavailable Unavailable HARIS Urbano, NIDIA Unavailable Unavailable BORIS WESLEY APRN Unavailable Unavailable HARIS KEANE [place], NIDIA POLK Unavailable Unavailable RUBY KEANE, KAREN Mckenzie Unavailable Unavailable Robyn KEANE, Jhony Unavailable Unavailable MARYJANE NIXON [place], BORIS Wyatt Unavailable Unavailable Aniceto Ojeda MD, David Unavailable Unavailable MIESHA DO [place], ROCKY Unavailable Unavailable HARIS BELL [place], JAMEY Unavailable Unavailable Unavailable Unavailable Functional Status [...] APRN * Start : 15-Mar-2018 Active Nystatin-Triamcinolone 781684-3.1 UNIT/GM-% External Cream APPLY SPARINGLY TO AFFECTED [...] DAY * Quantity: 1 Refills: 0 BORIS EWSLEY APRN Start : 30-Nov-2018 Active Naproxen 500 [...] URINE Date: 24-Jul-2019 CT Abdomen/Pelvis wo contrast 40175 Date: 18-Jul-2019 XRAY Chest 2 views 64723 Date: 18-Jul-2019 History of Renal Lithotripsy Completed History of Oral Surgery Tooth Extraction Completed History of Skin Tag Removal Completed History of Dental Implant Completed Immunization Name Dates Details Prevnar 13 Intramuscular Suspension Lot #: [id number] on: 07-Aug-2014 Fluzone Quadrivalent 0.5 ML Intramuscula r Suspension Lot #: [id number] on: 31-Jan-2015 Fluzone High-Dose 0.5 ML Intramuscular S uspension Prefilled Syringe Lot #: [id number] on: 19-Jan-2017 Pneumococcal polysaccharide vaccine, 23 valent Lot #: [id number] on: 19-Jan-2017 Fluzone Quadrivalent 0.5 ML Intramuscula r Suspension Prefilled Syringe Lot #: [id number] on: 13-Feb-2018 Fluzone High-Dose 0.5 ML Intramuscular S uspension Prefilled Syringe Lot #: [id number] on: 27-Feb-2019 Family History Name Dates Details [...] ABSOLUTE NEUTROPHILS 1850 {cells/uL} (Normal) R lauren: [phone] ABSOLUTE LYMPHOCYTES 983 {cells/uL} (Normal) Ra nge: 850-3900 ABSOLUTE MONOCYTES 320 {cells/uL} (Normal) Rang e: 200-950 ABSOLUTE EOSINOPHILS 207 {cells/uL} (Normal) Ra nge: 15-500 ABSOLUTE BASOPHILS 41 {cells/uL} (Normal) Range : 0-200 NEUTROPHILS 54.4 % (Normal) LYMPHOCYTES 28.9 % (Normal) MONOCYTES 9.4 % (Normal) EOSINOPHILS 6.1 % (Normal) BASOPHILS 1.2 % (Normal) 26-Vsf-663180:24 [QL] VITAMIN B12/FOLATE, SERUM PANEL Co mments: Please Note: Although the reference range for adcemaiD35 is 200-1100 pg/mL, it has been reported that between5 and 10% of patients with values between 200 and 400pg/mL may experience neuropsychiatric and hematologicabnormalities due to occult B12 deficiency; less than 1%of patients with values above 400 pg/mL will have symptoms. REPORT COMMENT:FASTING:YES VITAMIN B12 392 pg/ml (Normal) Range: 200-1 100 Comments: Please Note: Although the reference range for glrukwkX33 is 200-1100 pg/mL, it has been reported [...] 3.2 g/dl (Below low threshold) Range: 3.8-4.8 XFRNO-4-CQWHGDASB 0.3 g/dl (Normal) Range: 0.2- 0.3 WHCJL-4-GPNTDDQSH 0.8 g/dl (Normal) Range: 0.5- 0.9 BETA [...] MPV 10.0 fL (Normal) Range: 7.5-12. 5 48-Hfd-403738:22 [Q] Differential, Manual Comments: REPO RT COMMENT:FASTING:YES ABSOLUTE NEUTROPHILS 3124 {cells/uL} (Normal) R lauren: [phone] ABSOLUTE LYMPHOCYTES 792 {cells/uL} (Below low threshold) [...]
--- OUTSIDE RECORDS SUMMARY | 2019-11-02 19:30 | XMS REPORT | Summary of Care ---
Author Author [facility] R.N. Organization Unknown Address Unknown Phone Unavailable Care Team Providers Care Sourcing Engineer Name Role Phone BORIS WESLEY APRN Unavailable Unavailable HARIS Urbano, NIDIA Unavailable Unavailable Jr Pompa, Fasial Unavailable Unavailable BORIS WESLEY APRN Unavailable Unavailable HARIS KEANE [place], NIDIA POLK Unavailable Unavailable RUBY KEANE, KAREN Mckenzie Unavailable Unavailable Robyn KEANE, Jhony Unavailable Unavailable MARYJANE NIXON [place], BORIS Wyatt Unavailable Unavailable Aniceto Ojeda MD, David Unavailable Unavailable MIESHA DO [place], ROCKY Unavailable Unavailable HARIS BELL [place], JAMEY Unavailable Unavailable Unavailable Unavailable Functional Status [...] WESLEY APRN Start : 15-Mar-2018 Active Nystatin-Triamcinolone 051524-8.1 UNIT/GM-% External Cream APPLY SPARINGLY TO AFFECTED [...] DIFF/PLT) Date: 19-Jul-2019 CT Abdomen/Pelvis wo contrast 64550 Date: 18-Jul-2019 XRAY Chest 2 views 48026 Date: 18-Jul-2019 History of Renal Lithotripsy Completed History of Oral Surgery Tooth Extraction Completed History of Skin Tag Removal Completed History of Dental Implant Completed Immunization Name Dates Details Prevnar 13 Intramuscular Suspension Lot #: [id number] on: 07-Aug-2014 Fluzone Quadrivalent 0.5 ML Intramuscula r Suspension Lot #: [id number] on: 31-Jan-2015 Fluzone High-Dose 0.5 ML Intramuscular S uspension Prefilled Syringe Lot #: [id number] on: 19-Jan-2017 Pneumococcal polysaccharide vaccine, 23 valent Lot #: [id number] on: 19-Jan-2017 Fluzone Quadrivalent 0.5 ML Intramuscula r Suspension Prefilled Syringe Lot #: [id number] on: 13-Feb-2018 Fluzone High-Dose 0.5 ML Intramuscular S uspension Prefilled Syringe Lot #: [id number] on: 27-Feb-2019 Family History Name Dates Details [...] tatus: Body temperature 97.8 f Status: Comments: Nh thod: Temporal Heart Rate 62 /min Status: [...] ABSOLUTE NEUTROPHILS 1850 {cells/uL} (Normal) R lauren: 1449-2059 ABSOLUTE LYMPHOCYTES 983 {cells/uL} (Normal) Ra nge: [...] Please Note: Although the reference range for rwgndixZ86 is 200-1100 pg/mL, it has been reported that between5 and 10% of patients with values between 200 and 400pg/mL may experience neuropsychiatric and hematologicabnormalities due to occult B12 deficiency; less than 1%of patients with values above 400 pg/mL will have symptoms. REPORT COMMENT:FASTING:YES VITAMIN B12 392 pg/ml (Normal) Range: 200-1 100 Comments: Please Note: Although the reference range for adxivxyT39 is 200-1100 pg/mL, it has been reported [...] 12:30 Interventions Provided Discussion/Summary* Guideline Used: * [facility] * Patient returning call from clinic staff left on voice mail. Asking to be called back, please assist. * [phone] * No sign and symptoms at this time. * Intended Caller Action: * Other: Speak with clinical staff. * Additional Information: * Task sent to Mariah Cevallos Instructions Name Dates Details Instructions not documented [...] Problem not documented On: 15-May-2018 10:45 Appointment; ZAID, PROVIDER Encounter Diagnosis: Problem not documented On: [...]
--- OUTSIDE RECORDS SUMMARY | 2019-11-02 19:30 | XMS REPORT | Summary of Care ---
Author OC Valiente R.N. Organization Unknown Address Unknown Phone Unavailable Care Team Providers Care Engineering Patternmaker Name Role Phone BORIS WESLEY APRN Unavailable HARIS Urbano, NIDIA Unavailable Unavailable Barrington Pompa, Debbie Unavailable Unavailable BORIS WESLEY APRN Unavailable Unavailable HARIS KEANE [place], NIDIA POLK Unavailable Unavailable RUBY KEANE, KAREN Mckenzie Unavailable Unavailable Robyn KEANE, Jhony Unavailable Unavailable MARYJANE NIXON [place], BORIS Wyatt Unavailable Unavailable Aniceto Ojeda MD, David Unavailable Unavailable MIESHA DO [place], ROCKY Unavailable Unavailable HARIS [facility], JAMEY Unavailable Unavailable Unavailable Unavailable Functional Status [...] APRN * Start : 15-Mar-2018 Active Nystatin-Triamcinolone 430485-4.1 UNIT/GM-% External Cream APPLY SPARINGLY TO AFFECTED [...] URINE Date: 24-Jul-2019 CT Abdomen/Pelvis wo contrast 43259 Date: 18-Jul-2019 XRAY Chest 2 views 01385 Date: 18-Jul-2019 History of Renal Lithotripsy Completed History of Oral Surgery Tooth Extraction Completed History of Skin Tag Removal Completed History of Dental Implant Completed Immunization Name Dates Details Prevnar 13 Intramuscular Suspension Lot #: [id number] on: 07-Aug-2014 Fluzone Quadrivalent 0.5 ML Intramuscula r Suspension Lot #: [id number] on: 31-Jan-2015 Fluzone High-Dose 0.5 ML Intramuscular S uspension Prefilled Syringe Lot #: [id number] on: 19-Jan-2017 Pneumococcal polysaccharide vaccine, 23 valent Lot #: [id number] on: 19-Jan-2017 Fluzone Quadrivalent 0.5 ML Intramuscula r Suspension Prefilled Syringe Lot #: [id number] on: 13-Feb-2018 Fluzone High-Dose 0.5 ML Intramuscular S uspension Prefilled Syringe Lot #: [id number] on: 27-Feb-2019 Family History Name Dates Details [...] ABSOLUTE NEUTROPHILS 1850 {cells/uL} (Normal) R lauren: [phone] ABSOLUTE LYMPHOCYTES 983 {cells/uL} (Normal) Ra nge: 850-3900 ABSOLUTE MONOCYTES 320 {cells/uL} (Normal) Rang e: 200-950 ABSOLUTE EOSINOPHILS 207 {cells/uL} (Normal) Ra nge: 15-500 ABSOLUTE BASOPHILS 41 {cells/uL} (Normal) Range : 0-200 NEUTROPHILS 54.4 % (Normal) LYMPHOCYTES 28.9 % (Normal) MONOCYTES 9.4 % (Normal) EOSINOPHILS 6.1 % (Normal) BASOPHILS 1.2 % (Normal) 45-Bjn-764888:24 [QL] VITAMIN B12/FOLATE, SERUM PANEL Co mments: Please Note: Although the reference range for fpztnlcV33 is 200-1100 pg/mL, it has been reported that between5 and 10% of patients with values between 200 and 400pg/mL may experience neuropsychiatric and hematologicabnormalities due to occult B12 deficiency; less than 1%of patients with values above 400 pg/mL will have symptoms. REPORT COMMENT:FASTING:YES VITAMIN B12 392 pg/ml (Normal) Range: 200-1 100 Comments: Please Note: Although the reference range for qfjyofrA93 is 200-1100 pg/mL, it has been reported [...] 3.2 g/dl (Below low threshold) Range: 3.8-4.8 VKLXP-6-KKMIDSKSA 0.3 g/dl (Normal) Range: 0.2- 0.3 HEIHC-2-DVPEJYUTW 0.8 g/dl (Normal) Range: 0.5- 0.9 BETA [...] MPV 10.0 fL (Normal) Range: 7.5-12. 5 08-Ieo-985614:22 [Q] Differential, Manual Comments: REPO RT COMMENT:FASTING:YES ABSOLUTE NEUTROPHILS 3124 {cells/uL} (Normal) R lauren: [id number] ABSOLUTE LYMPHOCYTES 792 {cells/uL} (Below low threshold) [...]
--- OUTSIDE RECORDS SUMMARY | 2019-11-02 19:31 | XMS REPORT | Summary of Care ---
Author OC Perdomo M.D. 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 Medications Name Dates Details PARoxetine [...] MOUTH EVERY DAY AT BEDTIME * Quantity: 30 Refills: 0 BORIS WESLEY APRN * Start : 05-Jun-2015 [...] WESLEY APRN Start : 15-Mar-2018 Active Nystatin-Triamcinolone 719364-8.1 UNIT/GM-% External Cream APPLY SPARINGLY TO AFFECTED [...] [QL] CBC (INCLUDES DIFF/PLT) Date: 19-Jul-2019 [QL] CMP W/EGFR Date: 25-Jul-2019 CT Abdomen/Pelvis wo contrast 51380 Date: 18-Jul-2019 XRAY Chest 2 views 83046 Date: 18-Jul-2019 History of Renal Lithotripsy Completed History of Oral Surgery Tooth Extraction Completed History of Skin Tag Removal Completed History of Dental Implant Completed Immunization Name Dates Details Prevnar 13 Intramuscular Suspension Lot #: [id number] on: 07-Aug-2014 Fluzone Quadrivalent 0.5 ML Intramuscula r Suspension Lot #: [id number] on: 31-Jan-2015 Fluzone High-Dose 0.5 ML Intramuscular S uspension Prefilled Syringe Lot #: [id number] on: 19-Jan-2017 Pneumococcal polysaccharide vaccine, 23 valent Lot #: [id number] on: 19-Jan-2017 Fluzone Quadrivalent 0.5 ML Intramuscula r Suspension Prefilled Syringe Lot #: [id number] on: 13-Feb-2018 Fluzone High-Dose 0.5 ML Intramuscular S uspension Prefilled Syringe Lot #: [id number] on: 27-Feb-2019 Family History Name Dates Details [...] ABSOLUTE NEUTROPHILS 1850 {cells/uL} (Normal) R lauren: 1558-6897 ABSOLUTE LYMPHOCYTES 983 {cells/uL} (Normal) Ra nge: [...] Please Note: Although the reference range for ywrlrutS32 is 200-1100 pg/mL, it has been reported that between5 and 10% of patients with values between 200 and 400pg/mL may experience neuropsychiatric and hematologicabnormalities due to occult B12 deficiency; less than 1%of patients with values above 400 pg/mL will have symptoms. REPORT COMMENT:FASTING:YES VITAMIN B12 392 pg/ml (Normal) Range: 200-1 100 Comments: Please Note: Although the reference range for llezzcwI05 is 200-1100 pg/mL, it has been reported [...] 3.2 g/dl (Below low threshold) Range: 3.8-4.8 YSDOY-5-HSKZTULRT 0.3 g/dl (Normal) Range: 0.2- 0.3 RLLSS-6-XMPWSPKRW 0.8 g/dl (Normal) Range: 0.5- 0.9 BETA [...] MPV 10.0 fL (Normal) Range: 7.5-12. 5 21-[id number]:22 [Q] Differential, Manual Comments: REPO RT COMMENT:FASTING:YES ABSOLUTE NEUTROPHILS 3124 {cells/uL} (Normal) R lauren: 1127-2195 ABSOLUTE LYMPHOCYTES 792 {cells/uL} (Below low threshold) Range: 850-3900 ABSOLUTE MONOCYTES 176 {cells/uL} (Below low th reshold) Range: 200-950 ABSOLUTE EOSINOPHILS 264 {cells/uL} (Normal) Ra nge: 15-500 ABSOLUTE BASOPHILS 44 {cells/uL} (Normal) Range : 0-200 NEUTROPHILS 71.0 % (Normal) LYMPHOCYTES 18.0 % (Normal) MONOCYTES 4.0 % (Normal) EOSINOPHILS 6.0 % (Normal) BASOPHILS 1.0 % (Normal) 24-Xhi-[id number]:43 XRAY Chest 2 views 38697 Chest 2 views SEE NOTES Comments: PROCED [...] active disease.Augusto Pope MD On 07/25/2019 11:14:19; [id number]--Hnnj by: Augusto Pope MDDictated Date/time: 07/25/19 11:14Electronically Signed by: Augusto Pope MD 07/24/2010:14FINAL REPORT [id number] CT Abdomen/Pelvis wo contrast 26315 Abdomen/Pelvis wo contrast CT SEE NOTES Co mments: Radiation Dose CTDIVOL = 0 (mGy): DLP = 1421 (mGy-cm)PROCEDURE INFORMATION:Exam: CT Abdomen And Pelvis Without ContrastExam date and time: 07/25/2019 11:41 AMAge: 74 years oldClinical indication: Anemia, unspecified; Additional info: /d64.9TECHNIQUE:Imaging protocol: Computed tomography of the abdomen and pelvis withoutcontrast.Total DLP: 1421 mGy-cmRadiation optimization: All CT scans at this facility use at least one of thesedose optimization techniques: automated exposure control; mA and/or kVadjustment per patient size (includes targeted exams where dose is matched toclinical indication); or iterative reconstruction.Other contrast: Oral, omni, 50;COMPARISON:LIVER BIOPSY GUIDED US 07/10/2018 10:38 AMFINDINGS:Lungs: Minimal to mild interstitial scarring at the lung bases bilaterally.Heart: Mild cardiomegaly.Liver: Nodular margin to the lateral segment of the left hepatic lobesuggestive of cirrhosis. Bilobed simple appearing cyst is noted at the dorsalinferior tip of the right hepatic lobe measuring 1.4 x 1.5 cm. No hepatic mass.No hepatomegaly.Gallbladder and bile ducts: Normal. No calcified stones. No extrahepaticbiliary ductal dilation.Pancreas: There is moderate generalized pancreatic atrophy without pancreaticductal dilatation.Spleen: Normal. No splenomegaly.Adrenals: Bilateral adrenal nodularity statistically likely representingadenomata or nodular hyperplasia. A 1.3 x 0.9 cm myelolipoma is present at theleft adrenal gland.Kidneys and ureters: Nonspecific stranding in the perinephric fat is notedbilaterally. Renal cortical scarring is noted bilaterally. Simple appearingcortical cysts are present at the dorsal cortex of the superior pole kgaprbjms02 mm and the dorso lateral cortex of the mid right kidney measuring 25 mm. Noright renal calculus. No ureteral calculus. Simple appearing cortical cyst isnoted arising from the ventral cortex of the superior pole of the left kidneymeasuring 33 mm. A simple appearing parapelvic cyst is present at the superiorleft renal hilus measuring 11 mm. There are multiple nonobstructing left renalcalculi noted; the largest are present at the inferior pole measuring 4 x 7 mmand lateral mid left kidney measuring 8 x 10 mm (1222 Hounsfield units) and 11x 9.5 mm (1243 Hounsfield units), respectively. A calculus (1252 Hounsfieldunits) measuring 9.5 x 9.5 mm is present at the mildly dilated left renalpelvis associated with minimal stranding in the left peripelvic fat.Stomach and bowel: The stomach and small bowel are unremarkable. Long segmentaldecompression of the distal sigmoid colon is noted accentuating mild colonicbowel wall thickening with ahaustra appearance. The mid sigmoid colon isredundant. The rectum is mildly distended by gas and stool. Mild stool burdenis present at the flexures, transverse and right colon.Appendix: No evidence of appendicitis. The appendix is normal.Intraperitoneal space: Unremarkable. No free air. No significant fluidcollection.Vasculature: The caliber of the main portal vein is 16 mm. Vascularcalcification at the normal caliber abdominal aorta extending into the normalcaliber common iliac arteries. Venous and arterial vascular calcification atthe pelvis.Lymph nodes: Unremarkable. No enlarged lymph nodes.Bladder: No bladder calculus. There is elevation of the base of the urinarybladder by the prostate. Urinary bladder otherwise unremarkable.Reproductive: The prostate measures 6.2 x 5.3 cm. Dystrophic calcification isnoted at the prostate. The seminal vesicles are mildly enlarged.Bones/joints: Degenerative arthrosis at the SI joints and lower lumbarapophyseal joints. Mild lumbar curvature convex to the left. Fusion at L4- L5and L5-S1. Thoracolumbar spondylosis.Soft tissues: Unremarkable.IMPRESSION:1. Long segmental decompression of the distal sigmoid colon is notedaccentuating mild colonic bowel wall thickening with ahaustral appearancesuggestive of chronic colitis or chronic laxative use. The long segmentalappearance militates against neoplasm.2. Hepatic cirrhosis. Small hepatic cyst at the inferior tip of the righthepatic lobe.3. A calculus (1252 Hounsfield units) measuring 9.5 x 9.5 mm is present at themildly dilated left renal pelvis associated with minimal stranding in the leftperipelvic fat.4. Minimal stranding in the left peripelvic fat could represent obstructiveuropathy and/or pyelitis5. Nonobstructing left renal calculi as detailed above.6. A 1.3 x 0.9 cm myelolipoma is present at the left adrenal gland.7. Simple appearing renal cysts bilaterally.8. Moderate prostate and mild seminal vesicle enlargement.COMMENTS:1. Consistent with the [place] [employer]'s Incidental FindingsCommittee white paper (J Am Renetta Radiol 2017): For any incidental adrenallesion greater than 1.0 cm but less than or equal to 4.0 cm classified in thisreport as benign or likely benign (including classification as an adenoma ormyelolipoma), no follow-up imaging is recommended per consensus recommendationsbased on imaging criteria. Further lab evaluation could be pursued if warrantedbased on clinical findings.2. Consistent with the [place] [employer]'s Incidental FindingsCommittee white paper (J Am Renetta Radiol 2018): Any incidental cystic renallesion classified in this report as too small to characterize or simpleappearing is likely a benign cyst. No follow-up imaging is recommended forthese lesions per consensus recommendations based on imaging criteria.Jimmy Worley MD On 07/25/2019 13:25:47; [id number]--Pzjt by: Jimmy Worley MDDictated Date/time: 07/25/19 13:25Electronically Signed by: Jimmy Worley MD 07/24/2012:25FINAL REPORT [id number] [QL] PROTEIN, TOTAL W/CREAT, 24 HOUR URI NE Comments: REPORT COMMENT:FASTING:NO CREATININE, 24 HOUR URINE 1.79 {g/24_h} (Normal ) Range: 0.50-2.15 PROTEIN/CREATININE RATIO 5101 {MG/G_CREAT} (Abo ve high threshold) Range: < OR = 114 PROTEIN/CREATININE RATIO 5.101 {mg/mg_crea} (Ab ove high threshold) Range: < OR = 0.114 PROTEIN, TOTAL, 24 HR UR 9125 {mg/24_h} (Above high threshold) Range: <150 Comments: TOTAL URINE VOLUME: Plan of Care Name Dates Details Planned Observations Planned Goals not documented Planned Encounters Nephrology Referral Appointment; Ralph Blackmon M.D. On: 03-Aug-2019 12:45 [...] Problem not documented On: 30-May-2019 12:30 Appointment; CARBALLO, NIDIA, M.D. Encounter Diagnosis: Problem not documented On: 18-Jul-2019 9:30
--- OUTSIDE RECORDS SUMMARY | 2019-11-02 19:31 | XMS REPORT | Summary of Care ---
Author OC Perdomo M.D. 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 Medications Name Dates Details PARoxetine [...] APRN * Start : 15-Mar-2018 Active Nystatin-Triamcinolone 300988-5.1 UNIT/GM-% External Cream APPLY SPARINGLY TO AFFECTED [...] W/EGFR Date: 25-Jul-2019 CT Abdomen/Pelvis wo contrast 48648 Date: 18-Jul-2019 XRAY Chest 2 views 83006 Date: 18-Jul-2019 History of Renal Lithotripsy Completed History of Oral Surgery Tooth Extraction Completed History of Skin Tag Removal Completed History of Dental Implant Completed Immunization Name Dates Details Prevnar 13 Intramuscular Suspension Lot #: [id number] on: 07-Aug-2014 Fluzone Quadrivalent 0.5 ML Intramuscula r Suspension Lot #: [id number] on: 31-Jan-2015 Fluzone High-Dose 0.5 ML Intramuscular S uspension Prefilled Syringe Lot #: [id number] on: 19-Jan-2017 Pneumococcal polysaccharide vaccine, 23 valent Lot #: [id number] on: 19-Jan-2017 Fluzone Quadrivalent 0.5 ML Intramuscula r Suspension Prefilled Syringe Lot #: [id number] on: 13-Feb-2018 Fluzone High-Dose 0.5 ML Intramuscular S uspension Prefilled Syringe Lot #: [id number] on: 27-Feb-2019 Family History Name Dates Details [...] tatus: Body temperature 97.8 f Status: Comments: Ne thod: Temporal Heart Rate 62 /min Status: [...] ABSOLUTE NEUTROPHILS 1850 {cells/uL} (Normal) R lauren: 8811-2565 ABSOLUTE LYMPHOCYTES 983 {cells/uL} (Normal) Ra nge: [...] Please Note: Although the reference range for dfrueirQ97 is 200-1100 pg/mL, it has been reported that between5 and 10% of patients with values between 200 and 400pg/mL may experience neuropsychiatric and hematologicabnormalities due to occult B12 deficiency; less than 1%of patients with values above 400 pg/mL will have symptoms. REPORT COMMENT:FASTING:YES VITAMIN B12 392 pg/ml (Normal) Range: 200-1 100 Comments: Please Note: Although the reference range for obstzinO44 is 200-1100 pg/mL, it has been reported [...] 3.2 g/dl (Below low threshold) Range: 3.8-4.8 XNBBL-2-LBASPNLVF 0.3 g/dl (Normal) Range: 0.2- 0.3 XPPGG-4-YUGNIEKOV 0.8 g/dl (Normal) Range: 0.5- 0.9 BETA [...] MPV 10.0 fL (Normal) Range: 7.5-12. 5 55-[id number]:22 [Q] Differential, Manual Comments: REPO RT COMMENT:FASTING:YES ABSOLUTE NEUTROPHILS 3124 {cells/uL} (Normal) R lauren: 5723-4225 ABSOLUTE LYMPHOCYTES 792 {cells/uL} (Below low threshold) Range: 850-3900 ABSOLUTE MONOCYTES 176 {cells/uL} (Below low th reshold) Range: 200-950 ABSOLUTE EOSINOPHILS 264 {cells/uL} (Normal) Ra nge: 15-500 ABSOLUTE BASOPHILS 44 {cells/uL} (Normal) Range : 0-200 NEUTROPHILS 71.0 % (Normal) LYMPHOCYTES 18.0 % (Normal) MONOCYTES 4.0 % (Normal) EOSINOPHILS 6.0 % (Normal) BASOPHILS 1.0 % (Normal) 66-[id number]:43 XRAY Chest 2 views 27966 Chest 2 views SEE NOTES Comments: PROCED [...] active disease.Augusto Pope MD On 07/25/2019 11:14:19; [id number]--Teai by: Augusto Pope MDDictated Date/time: 07/25/19 11:14Electronically Signed by: Augusto Pope MD 07/24/2010:14FINAL REPORT [id number] CT Abdomen/Pelvis wo contrast 54058 Abdomen/Pelvis wo contrast CT SEE NOTES Co [...] the dorsal cortex of the superior pole juwrhlnsm63 mm and the dorso lateral cortex of [...] mild seminal vesicle enlargement.COMMENTS:1. Consistent with the [place] [employer]'s Incidental FindingsCommittee white paper [...] warrantedbased on clinical findings.2. Consistent with the [place] [employer]'s Incidental FindingsCommittee white paper (J Am Renetta Radiol 2018): Any incidental cystic renallesion classified in this report as too small to characterize or simpleappearing is likely a benign cyst. No follow-up imaging is recommended forthese lesions per consensus recommendations based on imaging criteria.Jimmy Worley MD On 07/25/2019 13:25:47; [id number]--Citc by: Jimmy Worley MDDictated Date/time: 07/25/19 13:25Electronically Signed by: Jimmy Worley MD 07/24/2012:25FINAL REPORT [id number] [QL] PROTEIN, TOTAL W/CREAT, 24 HOUR URI [...] WESLEY APRN On: 28-Aug-2019 12:30 Interventions Provided Plan* Plan today is arranged referral to nephrology. I have sent in a referral notice as well as an email to nephrology. All questions were answered. Instructions Name Dates Details Instructions not documented [...] Diagnosis: Problem not documented On: 18-Jul-2019 9:30 Appointment; NIDIA CARBALLO M.D. Encounter Diagnosis: Problem not documented On: 30-Jul-2019 14:30
--- OUTSIDE RECORDS SUMMARY | 2019-11-02 19:31 | XMS REPORT | Summary of Care ---
Author OC Vila LVN Organization Unknown Address [facility] Phone Unavailable Care Team Providers Care Ovens Supervisor Name Role Phone Chayo Martinez LVN Unavailable Unavailable BORIS WESLEY APRN Unavailable Unavailable HARIS Urbano, NIDIA Unavailable Unavailable BORIS WESLEY APRN Unavailable Unavailable HARIS KEANE [place], NIDIA POLK Unavailable Unavailable RUBY KEANE, KAREN Mckenzie Unavailable Unavailable Robyn KEANE, Jhony Unavailable Unavailable MARYJANE NIXON [facility], BORIS Wyatt Unavailable Unavailable Aniceto Ojeda MD, David Unavailable Unavailable MIESHA DO [place], ROCKY Unavailable Unavailable HARIS [facility], JAMEY Unavailable Unavailable Unavailable Unavailable [...] APRN * Start : 15-Mar-2018 Active Nystatin-Triamcinolone 648211-7.1 UNIT/GM-% External Cream APPLY SPARINGLY TO AFFECTED [...] TOTAL W/CREAT, 24 HOUR URINE Date: 24-Jul-2019 [QL] CMP W/EGFR Date: 25-Jul-2019 CT Abdomen/Pelvis wo contrast 06781 Date: 18-Jul-2019 XRAY Chest 2 views 36568 Date: 18-Jul-2019 History of Renal Lithotripsy Completed History of Oral Surgery Tooth Extraction Completed History of Skin Tag Removal Completed History of Dental Implant Completed Immunization Name Dates Details Prevnar 13 Intramuscular Suspension Lot #: [id number] on: 07-Aug-2014 Fluzone Quadrivalent 0.5 ML Intramuscula r Suspension Lot #: [id number] on: 31-Jan-2015 Fluzone High-Dose 0.5 ML Intramuscular S uspension Prefilled Syringe Lot #: [id number] on: 19-Jan-2017 Pneumococcal polysaccharide vaccine, 23 valent Lot #: [id number] on: 19-Jan-2017 Fluzone Quadrivalent 0.5 ML Intramuscula r Suspension Prefilled Syringe Lot #: [id number] on: 13-Feb-2018 Fluzone High-Dose 0.5 ML Intramuscular S uspension Prefilled Syringe Lot #: [id number] on: 27-Feb-2019 Family History Name Dates Details [...] ABSOLUTE NEUTROPHILS 1850 {cells/uL} (Normal) R lauren: 6895-7272 ABSOLUTE LYMPHOCYTES 983 {cells/uL} (Normal) Ra nge: [...] Please Note: Although the reference range for mebkcxyK56 is 200-1100 pg/mL, it has been reported that between5 and 10% of patients with values between 200 and 400pg/mL may experience neuropsychiatric and hematologicabnormalities due to occult B12 deficiency; less than 1%of patients with values above 400 pg/mL will have symptoms. REPORT COMMENT:FASTING:YES VITAMIN B12 392 pg/ml (Normal) Range: 200-1 100 Comments: Please Note: Although the reference range for xnxqfslZ05 is 200-1100 pg/mL, it has been reported [...] 3.2 g/dl (Below low threshold) Range: 3.8-4.8 XVNRX-2-PIXLSNXYR 0.3 g/dl (Normal) Range: 0.2- 0.3 PRZEO-2-EBHVEZKOG 0.8 g/dl (Normal) Range: 0.5- 0.9 BETA [...] MPV 10.0 fL (Normal) Range: 7.5-12. 5 06-Nvh-264770:22 [Q] Differential, Manual Comments: REPO RT COMMENT:FASTING:YES ABSOLUTE NEUTROPHILS 3124 {cells/uL} (Normal) R lauren: 7987-0167 ABSOLUTE LYMPHOCYTES 792 {cells/uL} (Below low threshold) Range: 850-3900 ABSOLUTE MONOCYTES 176 {cells/uL} (Below low th reshold) Range: 200-950 ABSOLUTE EOSINOPHILS 264 {cells/uL} (Normal) Ra nge: 15-500 ABSOLUTE BASOPHILS 44 {cells/uL} (Normal) Range : 0-200 NEUTROPHILS 71.0 % (Normal) LYMPHOCYTES 18.0 % (Normal) MONOCYTES 4.0 % (Normal) EOSINOPHILS 6.0 % (Normal) BASOPHILS 1.0 % (Normal) 13-Bbg-530689:43 XRAY Chest 2 views 22772 Chest 2 views SEE NOTES Comments: PROCED [...] active disease.Augusto Pope MD On 07/25/2019 11:14:19; [id number]--Hvam by: Augusto Pope MDDictated Date/time: 07/25/19 11:14Electronically Signed by: Augusto Pope MD 07/24/2010:14FINAL REPORT [id number] CT Abdomen/Pelvis wo contrast 81421 Abdomen/Pelvis wo contrast CT SEE NOTES Co [...] the dorsal cortex of the superior pole mm and the dorso lateral cortex of [...] mild seminal vesicle enlargement.COMMENTS:1. Consistent with the [place] [employer]'s Incidental FindingsCommittee white paper [...] warrantedbased on clinical findings.2. Consistent with the [place] [employer]'s Incidental FindingsCommittee white paper (J Am Renetta Radiol 2018): Any incidental cystic renallesion classified in this report as too small to characterize or simpleappearing is likely a benign cyst. No follow-up imaging is recommended forthese lesions per consensus recommendations based on imaging criteria.Jimmy Worley MD On 07/25/2019 13:25:47; [id number]--Ofjr by: Jimmy Worley MDDictated Date/time: 07/25/19 13:25Electronically Signed by: Jimmy Worley MD 07/24/2012:25FINAL REPORT Plan of Care Name Dates Details Planned Observations Planned Goals not documented Planned Encounters Appointment; Ralph Blackmon M.D. On: 03-Aug-2019 12:45 Appointment; BORIS WESLEY APRN On: 28-Aug-2019 12:30 Interventions Provided Medication Changes* Atorvastatin Calcium 10 MG Oral Tablet - Renew Instructions Name [...]
--- OUTSIDE RECORDS SUMMARY | 2019-11-02 19:31 | XMS REPORT | Summary of Care ---
Author OC Perdomo M.D. Organization Unknown Address Unknown Phone Unavailable Care Team Providers Care Deckhand Maintenance Name Role Phone BORIS WESLEY APRN Unavailable [...] DAILY * Quantity: 180 Refills: 1 BORIS WESELY APRN * Start : 11-Apr-2014 Active Atorvastatin [...] WESLEY APRN Start : 15-Mar-2018 Active Nystatin-Triamcinolone 380373-1.1 UNIT/GM-% External Cream APPLY SPARINGLY TO AFFECTED [...] W/EGFR Date: 25-Jul-2019 CT Abdomen/Pelvis wo contrast 59932 Date: 18-Jul-2019 XRAY Chest 2 views 57579 Date: 18-Jul-2019 History of Renal Lithotripsy Completed History of Oral Surgery Tooth Extraction Completed History of Skin Tag Removal Completed History of Dental Implant Completed Immunization Name Dates Details Prevnar 13 Intramuscular Suspension Lot #: [id number] on: 07-Aug-2014 Fluzone Quadrivalent 0.5 ML Intramuscula r Suspension Lot #: [id number] on: 31-Jan-2015 Fluzone High-Dose 0.5 ML Intramuscular S uspension Prefilled Syringe Lot #: [id number] on: 19-Jan-2017 Pneumococcal polysaccharide vaccine, 23 valent Lot #: [id number] on: 19-Jan-2017 Fluzone Quadrivalent 0.5 ML Intramuscula r Suspension Prefilled Syringe Lot #: [id number] on: 13-Feb-2018 Fluzone High-Dose 0.5 ML Intramuscular S uspension Prefilled Syringe Lot #: [id number] on: 27-Feb-2019 Family History Name Dates Details [...] ng/ml (Above high threshold ) Range: 24-380 99-Fzu-061332:24 [QL] CBC (INCLUDES DIFF/PLT) WHITE BLOOD CELL [...] ABSOLUTE NEUTROPHILS 1850 {cells/uL} (Normal) R lauren: 1769-3834 ABSOLUTE LYMPHOCYTES 983 {cells/uL} (Normal) Ra nge: [...] Please Note: Although the reference range for lmaqftvO52 is 200-1100 pg/mL, it has been reported that between5 and 10% of patients with values between 200 and 400pg/mL may experience neuropsychiatric and hematologicabnormalities due to occult B12 deficiency; less than 1%of patients with values above 400 pg/mL will have symptoms. REPORT COMMENT:FASTING:YES VITAMIN B12 392 pg/ml (Normal) Range: 200-1 100 Comments: Please Note: Although the reference range for stnsvvcB65 is 200-1100 pg/mL, it has been reported [...] 3.2 g/dl (Below low threshold) Range: 3.8-4.8 OSNEP-2-XTFWNCRWZ 0.3 g/dl (Normal) Range: 0.2- 0.3 ZPDCF-6-ORPLGQADP 0.8 g/dl (Normal) Range: 0.5- 0.9 BETA [...] MPV 10.0 fL (Normal) Range: 7.5-12. 5 83-Ppt-251984:22 [Q] Differential, Manual Comments: REPO RT COMMENT:FASTING:YES ABSOLUTE NEUTROPHILS 3124 {cells/uL} (Normal) R lauren: 6249-3070 ABSOLUTE LYMPHOCYTES 792 {cells/uL} (Below low threshold) Range: 850-3900 ABSOLUTE MONOCYTES 176 {cells/uL} (Below low th reshold) Range: 200-950 ABSOLUTE EOSINOPHILS 264 {cells/uL} (Normal) Ra nge: 15-500 ABSOLUTE BASOPHILS 44 {cells/uL} (Normal) Range : 0-200 NEUTROPHILS 71.0 % (Normal) LYMPHOCYTES 18.0 % (Normal) MONOCYTES 4.0 % (Normal) EOSINOPHILS 6.0 % (Normal) BASOPHILS 1.0 % (Normal) 16-Zyx-560897:43 XRAY Chest 2 views 58656 Chest 2 views SEE NOTES Comments: PROCED [...] active disease.Augusto Pope MD On 07/25/2019 11:14:19; [id number]--Soew by: Augusto Pope MDDictated Date/time: 07/25/19 11:14Electronically Signed by: Augusto Pope MD 07/24/2010:14FINAL REPORT [id number] CT Abdomen/Pelvis wo contrast 02466 Abdomen/Pelvis wo contrast CT SEE NOTES Co [...] the dorsal cortex of the superior pole mggugwvbx06 mm and the dorso lateral cortex of [...] mild seminal vesicle enlargement.COMMENTS:1. Consistent with the [place] [employer]'s Incidental FindingsCommittee white paper [...] warrantedbased on clinical findings.2. Consistent with the [place] [employer]'s Incidental FindingsCommittee white paper (J Am Renetta Radiol 2018): Any incidental cystic renallesion classified in this report as too small to characterize or simpleappearing is likely a benign cyst. No follow-up imaging is recommended forthese lesions per consensus recommendations based on imaging criteria.Jimmy Worley MD On 07/25/2019 13:25:47; [id number]--Clsd by: Jimmy Worley MDDictated Date/time: 07/25/19 13:25Electronically Signed by: Jimmy Worley MD 07/24/2012:25FINAL REPORT [id number] [QL] PROTEIN, TOTAL W/CREAT, 24 HOUR URI NE Comments: REPORT COMMENT:FASTING:NO CREATININE, 24 HOUR URINE 1.79 {g/24_h} (Normal ) Range: 0.50-2.15 PROTEIN/CREATININE RATIO 5101 {MG/G_CREAT} (Abo ve high threshold) Range: < OR = 114 PROTEIN/CREATININE RATIO 5.101 {mg/mg_crea} (Ab ove high threshold) Range: < OR = 0.114 PROTEIN, TOTAL, 24 HR UR 9125 {mg/24_h} (Above high threshold) Range: <150 Comments: TOTAL URINE VOLUME: 2010/24 Plan of Care Name Dates Details Planned Observations Planned Goals not documented Planned Encounters Appointment; NIDIA CARBALLO M.D. On: 30-Jul-2019 14:30 Appointment; Ralph Blackmon M.D. On: 03-Aug-2019 12:45 [...]
--- OUTSIDE RECORDS SUMMARY | 2019-11-02 19:31 | XMS REPORT | Summary of Care ---
Author [facility] Address [address] [place] [address] Phone Unavailable Care Team Providers Care Dealership General Manager Name Role Phone BORIS WESLEY APRN Unavailable Unavailable HARIS Urbano, NIDIA Unavailable Unavailable BORIS WESLEY APRN Unavailable Unavailable HARIS KEANE [place], NIDIA POLK Unavailable Unavailable RUBY KEANE, KAREN Mckenzie Unavailable Unavailable Robyn KEANE, Jhony Unavailable Unavailable MARYJANE NIXON [place], BORIS Wyatt Unavailable Unavailable Aniceto Ojeda MD, David Unavailable Unavailable MIESHA DO [place], ROCKY Unavailable Unavailable HARIS BELL [place], JAMEY Unavailable Unavailable Unavailable Unavailable Functional Status [...] WESLEY APRN Start : 15-Mar-2018 Active Nystatin-Triamcinolone 984682-6.1 UNIT/GM-% External Cream APPLY SPARINGLY TO AFFECTED [...] W/EGFR Date: 25-Jul-2019 CT Abdomen/Pelvis wo contrast 96966 Date: 18-Jul-2019 XRAY Chest 2 views 34054 Date: 18-Jul-2019 History of Renal Lithotripsy Completed History of Oral Surgery Tooth Extraction Completed History of Skin Tag Removal Completed History of Dental Implant Completed Immunization Name Dates Details Prevnar 13 Intramuscular Suspension Lot #: [id number] on: 07-Aug-2014 Fluzone Quadrivalent 0.5 ML Intramuscula r Suspension Lot #: [id number] on: 31-Jan-2015 Fluzone High-Dose 0.5 ML Intramuscular S uspension Prefilled Syringe Lot #: [id number] on: 19-Jan-2017 Pneumococcal polysaccharide vaccine, 23 valent Lot #: [id number] on: 19-Jan-2017 Fluzone Quadrivalent 0.5 ML Intramuscula r Suspension Prefilled Syringe Lot #: [id number] on: 13-Feb-2018 Fluzone High-Dose 0.5 ML Intramuscular S uspension Prefilled Syringe Lot #: [id number] on: 27-Feb-2019 Family History Name Dates Details [...] tatus: Body temperature 97.8 f Status: Comments: De thod: Temporal Heart Rate 62 /min Status: [...] ABSOLUTE NEUTROPHILS 1850 {cells/uL} (Normal) R lauren: [phone] ABSOLUTE LYMPHOCYTES 983 {cells/uL} (Normal) Ra nge: [...] Please Note: Although the reference range for evyspgyJ39 is 200-1100 pg/mL, it has been reported that between5 and 10% of patients with values between 200 and 400pg/mL may experience neuropsychiatric and hematologicabnormalities due to occult B12 deficiency; less than 1%of patients with values above 400 pg/mL will have symptoms. REPORT COMMENT:FASTING:YES VITAMIN B12 392 pg/ml (Normal) Range: 200-1 100 Comments: Please Note: Although the reference range for lxrxgobL42 is 200-1100 pg/mL, it has been reported [...] 3.2 g/dl (Below low threshold) Range: 3.8-4.8 HGBHE-4-CASJLSJOH 0.3 g/dl (Normal) Range: 0.2- 0.3 NHPOR-4-GDYGAGYGF 0.8 g/dl (Normal) Range: 0.5- 0.9 BETA [...] MPV 10.0 fL (Normal) Range: 7.5-12. 5 20-Enq-[id number]:22 [Q] Differential, Manual Comments: REPO RT COMMENT:FASTING:YES ABSOLUTE NEUTROPHILS 3124 {cells/uL} (Normal) R lauren: [phone] ABSOLUTE LYMPHOCYTES 792 {cells/uL} (Below low threshold) Range: 850-3900 ABSOLUTE MONOCYTES 176 {cells/uL} (Below low th reshold) Range: 200-950 ABSOLUTE EOSINOPHILS 264 {cells/uL} (Normal) Ra nge: 15-500 ABSOLUTE BASOPHILS 44 {cells/uL} (Normal) Range : 0-200 NEUTROPHILS 71.0 % (Normal) LYMPHOCYTES 18.0 % (Normal) MONOCYTES 4.0 % (Normal) EOSINOPHILS 6.0 % (Normal) BASOPHILS 1.0 % (Normal) 96-Cbp-028523:43 XRAY Chest 2 views 50908 Chest 2 views SEE NOTES Comments: PROCED [...] active disease.Augusto Pope MD On 07/25/2019 11:14:19; [id number]--Xzff by: Augusto Pope MDDictated Date/time: 07/25/19 11:14Electronically Signed by: Augusto Pope MD 07/24/2010:14FINAL REPORT [id number] CT Abdomen/Pelvis wo contrast 02709 Abdomen/Pelvis wo contrast CT SEE NOTES Co [...] the dorsal cortex of the superior pole mlqcucjjx89 mm and the dorso lateral cortex of [...] mild seminal vesicle enlargement.COMMENTS:1. Consistent with the [employer]'s Incidental FindingsCommittee white paper [...] warrantedbased on clinical findings.2. Consistent with the [employer]'s Incidental FindingsCommittee white paper (J Am Renetta Radiol 2018): Any incidental cystic renallesion classified in this report as too small to characterize or simpleappearing is likely a benign cyst. No follow-up imaging is recommended forthese lesions per consensus recommendations based on imaging criteria.Jimmy Worley MD On 07/25/2019 13:25:47; [id number]--Uyqv by: Jimmy Worley MDDictated Date/time: 07/25/19 13:25Electronically Signed by: Jimmy Worley MD 07/24/2012:25FINAL REPORT [id number] [QL] PROTEIN, TOTAL W/CREAT, 24 HOUR URI [...]
--- OUTSIDE RECORDS SUMMARY | 2019-11-02 19:31 | XMS REPORT | Summary of Care ---
Author OC Perdomo M.D. Organization Unknown Address Unknown Phone Unavailable Care Team Providers Care Cardiograph Operator Name Role Phone BORIS WESLEY APRN Unavailable Unavailable HARIS Urbano, NIDIA Unavailable Unavailable BORIS WESLEY APRN Unavailable Unavailable HARIS KEANE [place], NIDIA POLK Unavailable Unavailable RUBY KEANE, KAREN Mckenzie Unavailable Unavailable Robyn KEANE, Jhony Unavailable Unavailable MARYJANE NIXON [place], BORIS Wyatt Unavailable Unavailable Aniceto Ojeda MD, David Unavailable Unavailable MIESHA COPPOLA [place], ROCKY Unavailable Unavailable HARIS BELL [place], [...] APRN * Start : 15-Mar-2018 Active Nystatin-Triamcinolone 039646-3.1 UNIT/GM-% External Cream APPLY SPARINGLY TO AFFECTED [...] W/EGFR Date: 25-Jul-2019 CT Abdomen/Pelvis wo contrast 76685 Date: 18-Jul-2019 XRAY Chest 2 views 51081 Date: 18-Jul-2019 History of Renal Lithotripsy Completed History of Oral Surgery Tooth Extraction Completed History of Skin Tag Removal Completed History of Dental Implant Completed Immunization Name Dates Details Prevnar 13 Intramuscular Suspension Lot #: [id number] on: 07-Aug-2014 Fluzone Quadrivalent 0.5 ML Intramuscula r Suspension Lot #: [id number] on: 31-Jan-2015 Fluzone High-Dose 0.5 ML Intramuscular S uspension Prefilled Syringe Lot #: [id number] on: 19-Jan-2017 Pneumococcal polysaccharide vaccine, 23 valent Lot #: [id number] on: 19-Jan-2017 Fluzone Quadrivalent 0.5 ML Intramuscula r Suspension Prefilled Syringe Lot #: [id number] on: 13-Feb-2018 Fluzone High-Dose 0.5 ML Intramuscular S uspension Prefilled Syringe Lot #: [id number] on: 27-Feb-2019 Family History Name Dates Details [...] ABSOLUTE NEUTROPHILS 1850 {cells/uL} (Normal) R lauren: [id number] ABSOLUTE LYMPHOCYTES 983 {cells/uL} (Normal) Ra nge: [...] Please Note: Although the reference range for hopzmpyE76 is 200-1100 pg/mL, it has been reported that between5 and 10% of patients with values between 200 and 400pg/mL may experience neuropsychiatric and hematologicabnormalities due to occult B12 deficiency; less than 1%of patients with values above 400 pg/mL will have symptoms. REPORT COMMENT:FASTING:YES VITAMIN B12 392 pg/ml (Normal) Range: 200-1 100 Comments: Please Note: Although the reference range for ucipwlvW71 is 200-1100 pg/mL, it has been reported [...] 3.2 g/dl (Below low threshold) Range: 3.8-4.8 UXPRE-3-RSDJETJEN 0.3 g/dl (Normal) Range: 0.2- 0.3 KZSTE-7-JFITHTWSH 0.8 g/dl (Normal) Range: 0.5- 0.9 BETA [...] MPV 10.0 fL (Normal) Range: 7.5-12. 5 56-[id number]:22 [Q] Differential, Manual Comments: REPO RT COMMENT:FASTING:YES ABSOLUTE NEUTROPHILS 3124 {cells/uL} (Normal) R lauren: 0514-0933 ABSOLUTE LYMPHOCYTES 792 {cells/uL} (Below low threshold) Range: 850-3900 ABSOLUTE MONOCYTES 176 {cells/uL} (Below low th reshold) Range: 200-950 ABSOLUTE EOSINOPHILS 264 {cells/uL} (Normal) Ra nge: 15-500 ABSOLUTE BASOPHILS 44 {cells/uL} (Normal) Range : 0-200 NEUTROPHILS 71.0 % (Normal) LYMPHOCYTES 18.0 % (Normal) MONOCYTES 4.0 % (Normal) EOSINOPHILS 6.0 % (Normal) BASOPHILS 1.0 % (Normal) 15-Ruz-[id number]:43 XRAY Chest 2 views 06729 Chest 2 views SEE NOTES Comments: PROCED [...] active disease.Augusto Pope MD On 07/25/2019 11:14:19; [id number]--Sxab by: Augusto Pope MDDictated Date/time: 07/25/19 11:14Electronically Signed by: Augusto Pope MD 07/24/2010:14FINAL REPORT [id number] CT Abdomen/Pelvis wo contrast 04045 Abdomen/Pelvis wo contrast CT SEE NOTES Co [...] the dorsal cortex of the superior pole uvdgyukus24 mm and the dorso lateral cortex of [...] mild seminal vesicle enlargement.COMMENTS:1. Consistent with the [employer]'s Incidental FindingsCommittee white paper [...] warrantedbased on clinical findings.2. Consistent with the [employer]'s Incidental FindingsCommittee white paper (J Am Renetta Radiol 2018): Any incidental cystic renallesion classified in this report as too small to characterize or simpleappearing is likely a benign cyst. No follow-up imaging is recommended forthese lesions per consensus recommendations based on imaging criteria.Jimmy Worley MD On 07/25/2019 13:25:47; [id number]--[id number] by: Jimmy Worley MDDictated Date/time: 07/25/19 13:25Electronically Signed by: Jimmy Worley MD 07/24/2012:25FINAL REPORT Plan of Care Name Dates Details Planned Observations Planned Goals not documented Planned Encounters Appointment; Ralph Blackmon M.D. On: 03-Aug-2019 12:45 Appointment; BORIS WESLEY APRN On: 28-Aug-2019 12:30 Interventions Provided Labs/Procedures/Imaging* [QL] CMP W/EGFR; To Be Done: 25 Jul 2019 Instructions Name Dates Details Instructions [...]
--- OUTSIDE RECORDS SUMMARY | 2019-11-02 19:31 | XMS REPORT | Summary of Care ---
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 Gall bladder stones (574.20, K80.20) Status: Active Bradycardia (427.89, R00.1) Status: Active Depression screening (V79.0, Z13.31) Status: Active Colon cancer screening (V76.51, Z12.11) Status: Active Encounter for diabetic foot exam (250.00 , E11.9) Status: Active Medications Name Dates Details PARoxetine [...] WESLEY APRN * Start : 11-Apr-2014 Active Vitamin C Oral Tablet Chewable * Refills: 0 BORIS WESLEY APRN Start : 29-Aug-2015 Active Carvedilol 3.125 MG Oral Tablet TAKE 1 TABLET BY MOUTH TWICE DAILY * Quantity: 180 Refills: 1 BORIS WESLEY APRN * Start : 21-May-2016 Active Allopurinol 300 MG Oral Tablet TAKE 1 TABLET BY MOUTH DAILY * Quantity: 90 Refills: 3 BORIS WESLEY APRN * Start : 26-Oct-2017 Active Olmesartan Medoxomil 40 MG Oral Tablet TAKE 1 TABLET BY MOUTH EVERY DAY * Quantity: 90 Refills: 1 BOIRS WESLEY APRN * Start : 26-Oct-2017 Active Glucose Meter Test In Vitro Strip TEST ONCE DAILY & PRNDx: E11.9 / 250 * Quantity: 50 Refills: 5 BORIS WESLEY APRN Start : 15-Mar-2018 Active Nystatin-Triamcinolone 538391-9.1 UNIT/GM-% External Cream APPLY SPARINGLY TO AFFECTED [...] WESLEY APRN * Start : 16-Jul-2019 Active Furosemide 20 MG Oral Tablet TAKE 1 TABLET BY MOUTH EVERY MORNING for 5-7 days for fluid retention...HOLD IF SBP > 100 mmHg. * Quantity: 30 Refills: 1 BORIS WESLEY APRN * Start : 27-Feb-2019 Active Cod Liver Oil Oral Capsule 2-3 capsTWICE A DAY * Quantity: 1 Refills: 0 BORIS WESLEY APRN Start : 30-Nov-2018 Active azaTHIOprine 50 MG Oral Tablet TAKE 1 TABLET DAILY. * Refills: 0 BORIS WESLEY APRN * Start : 22-Aug-2018 Active Tart Figueredo Advanced Oral Capsule DIRECTED * Refills: 0 BORIS WESLEY APRN * Start : 15-Mar-2018 Active Fluticasone Propionate 50 MCG/ACT Nasal Suspension USE 1 SPRAYS IN EACH NOSTRIL TWICE DAILY * Quantity: 1 Refills: 5 BORIS WESLEY APRN * Start : 16-Aug-2016 Active 15.8 ML Bottle Atorvastatin Calcium 10 MG Oral Tablet TAKE 1 TABLET BY MOUTH EVERY DAY AT BEDTIME * Quantity: 90 Refills: 3 BORIS WESLEY APRN * Start : 05-Jun-2015 Active Melatonin 5 MG Oral Tablet 1-2 tabs at * Quantity: 77 Refills: 0 BORIS WESLEY APRN * Start : 30-Nov-2018 Active Motrin TABS TAKE 3 TABLET 2 TIMES DAILY NEEDED. * Refills: 0 Active Allergies and Adverse Reactions Name Dates [...] W/EGFR Date: 25-Jul-2019 CT Abdomen/Pelvis wo contrast 30280 Date: 18-Jul-2019 XRAY Chest 2 views 43795 Date: 18-Jul-2019 History of Renal Lithotripsy Completed History of Oral Surgery Tooth Extraction Completed History of Skin Tag Removal Completed History of Dental Implant Completed Immunization Name Dates Details Prevnar 13 Intramuscular Suspension Lot #: [id number] on: 07-Aug-2014 Fluzone Quadrivalent 0.5 ML Intramuscula r Suspension Lot #: [id number] on: 31-Jan-2015 Fluzone High-Dose 0.5 ML Intramuscular S uspension Prefilled Syringe Lot #: [id number] on: 19-Jan-2017 Pneumococcal polysaccharide vaccine, 23 valent Lot #: [id number] on: 19-Jan-2017 Fluzone Quadrivalent 0.5 ML Intramuscula r Suspension Prefilled Syringe Lot #: [id number] on: 13-Feb-2018 Fluzone High-Dose 0.5 ML Intramuscular S uspension Prefilled Syringe Lot #: [id number] on: 27-Feb-2019 Family History Name Dates Details [...] ABSOLUTE NEUTROPHILS 1850 {cells/uL} (Normal) R lauren: 8924-4496 ABSOLUTE LYMPHOCYTES 983 {cells/uL} (Normal) Ra nge: [...] Please Note: Although the reference range for tctzwiyF72 is 200-1100 pg/mL, it has been reported that between5 and 10% of patients with values between 200 and 400pg/mL may experience neuropsychiatric and hematologicabnormalities due to occult B12 deficiency; less than 1%of patients with values above 400 pg/mL will have symptoms. REPORT COMMENT:FASTING:YES VITAMIN B12 392 pg/ml (Normal) Range: 200-1 100 Comments: Please Note: Although the reference range for mhbtbcdT13 is 200-1100 pg/mL, it has been reported [...] 3.2 g/dl (Below low threshold) Range: 3.8-4.8 IBTED-9-FPJYXEFNM 0.3 g/dl (Normal) Range: 0.2- 0.3 GTHBM-5-DCEBDHPOC 0.8 g/dl (Normal) Range: 0.5- 0.9 BETA [...] MPV 10.0 fL (Normal) Range: 7.5-12. 5 [id number] [Q] Differential, Manual Comments: REPO RT COMMENT:FASTING:YES ABSOLUTE NEUTROPHILS 3124 {cells/uL} (Normal) R lauren: [phone] ABSOLUTE LYMPHOCYTES 792 {cells/uL} (Below low threshold) Range: 850-3900 ABSOLUTE MONOCYTES 176 {cells/uL} (Below low th reshold) Range: 200-950 ABSOLUTE EOSINOPHILS 264 {cells/uL} (Normal) Ra nge: 15-500 ABSOLUTE BASOPHILS 44 {cells/uL} (Normal) Range : 0-200 NEUTROPHILS 71.0 % (Normal) LYMPHOCYTES 18.0 % (Normal) MONOCYTES 4.0 % (Normal) EOSINOPHILS 6.0 % (Normal) BASOPHILS 1.0 % (Normal) 09-Qub-868230:43 XRAY Chest 2 views 02489 Chest 2 views SEE NOTES Comments: PROCED [...] active disease.Augusto Pope MD On 07/25/2019 11:14:19; [id number]--Werp by: Augusto Pope MDDictated Date/time: 07/25/19 11:14Electronically Signed by: Augusto Pope MD 07/24/2010:14FINAL REPORT [id number] CT Abdomen/Pelvis wo contrast 68687 Abdomen/Pelvis wo contrast CT SEE NOTES Co [...] the dorsal cortex of the superior pole hlwdwejuh84 mm and the dorso lateral cortex of [...] mild seminal vesicle enlargement.COMMENTS:1. Consistent with the [employer]'s Incidental FindingsCommittee white paper [...] warrantedbased on clinical findings.2. Consistent with the [employer]'s Incidental FindingsCommittee white paper (J Am Renetta Radiol 2018): Any incidental cystic renallesion classified in this report as too small to characterize or simpleappearing is likely a benign cyst. No follow-up imaging is recommended forthese lesions per consensus recommendations based on imaging criteria.Jimmy Worley MD On 07/25/2019 13:25:47; [id number]--Smqy by: Jimmy Worley MDDictated Date/time: 07/25/19 13:25Electronically [...]
--- OUTSIDE RECORDS SUMMARY | 2019-11-02 19:31 | XMS REPORT | Summary of Care ---
Author [facility]N Organization Unknown Address [facility] Phone Unavailable Care Team Providers Care Negative Turner Name Role Phone BORIS WESLEY APRN Unavailable HARIS Urbano, NIDIA Unavailable Unavailable BORIS WESLEY APRN Unavailable Unavailable HARIS KEANE [place], NIDIA POLK Unavailable Unavailable RUBY KEANE, KAREN Mckenzie Unavailable Unavailable Robyn KEANE, Jhony Unavailable Unavailable MARYJANE NIXON [place], BORIS Wyatt Unavailable Unavailable Aniceto Ojeda MD, David Unavailable Unavailable MIESHA COPPOLA [place], ROCKY Unavailable Unavailable HARIS BELL [place], JAMEY Unavailable Unavailable Unavailable Unavailable Functional Status [...] WESLEY APRN Start : 15-Mar-2018 Active Nystatin-Triamcinolone 602524-8.1 UNIT/GM-% External Cream APPLY SPARINGLY TO AFFECTED [...] W/EGFR Date: 25-Jul-2019 CT Abdomen/Pelvis wo contrast 89138 Date: 18-Jul-2019 XRAY Chest 2 views 08981 Date: 18-Jul-2019 History of Renal Lithotripsy Completed History of Oral Surgery Tooth Extraction Completed History of Skin Tag Removal Completed History of Dental Implant Completed Immunization Name Dates Details Prevnar 13 Intramuscular Suspension Lot #: [id number] on: 07-Aug-2014 Fluzone Quadrivalent 0.5 ML Intramuscula r Suspension Lot #: [id number] on: 31-Jan-2015 Fluzone High-Dose 0.5 ML Intramuscular S uspension Prefilled Syringe Lot #: [id number] on: 19-Jan-2017 Pneumococcal polysaccharide vaccine, 23 valent Lot #: [id number] on: 19-Jan-2017 Fluzone Quadrivalent 0.5 ML Intramuscula r Suspension Prefilled Syringe Lot #: [id number] on: 13-Feb-2018 Fluzone High-Dose 0.5 ML Intramuscular S uspension Prefilled Syringe Lot #: [id number] on: 27-Feb-2019 Family History Name Dates Details [...] ABSOLUTE NEUTROPHILS 1850 {cells/uL} (Normal) R lauren: [id number] ABSOLUTE LYMPHOCYTES 983 {cells/uL} (Normal) Ra nge: [...] Please Note: Although the reference range for ctkbyhfX93 is 200-1100 pg/mL, it has been reported that between5 and 10% of patients with values between 200 and 400pg/mL may experience neuropsychiatric and hematologicabnormalities due to occult B12 deficiency; less than 1%of patients with values above 400 pg/mL will have symptoms. REPORT COMMENT:FASTING:YES VITAMIN B12 392 pg/ml (Normal) Range: 200-1 100 Comments: Please Note: Although the reference range for guzdxczL94 is 200-1100 pg/mL, it has been reported [...] 3.2 g/dl (Below low threshold) Range: 3.8-4.8 LUHCZ-7-XFRXGDXBN 0.3 g/dl (Normal) Range: 0.2- 0.3 KYHCR-7-LKFQHOTEW 0.8 g/dl (Normal) Range: 0.5- 0.9 BETA [...] MPV 10.0 fL (Normal) Range: 7.5-12. 5 19-Zce-[id number]:22 [Q] Differential, Manual Comments: REPO RT COMMENT:FASTING:YES ABSOLUTE NEUTROPHILS 3124 {cells/uL} (Normal) R lauren: 8620-3393 ABSOLUTE LYMPHOCYTES 792 {cells/uL} (Below low threshold) Range: 850-3900 ABSOLUTE MONOCYTES 176 {cells/uL} (Below low th reshold) Range: 200-950 ABSOLUTE EOSINOPHILS 264 {cells/uL} (Normal) Ra nge: 15-500 ABSOLUTE BASOPHILS 44 {cells/uL} (Normal) Range : 0-200 NEUTROPHILS 71.0 % (Normal) LYMPHOCYTES 18.0 % (Normal) MONOCYTES 4.0 % (Normal) EOSINOPHILS 6.0 % (Normal) BASOPHILS 1.0 % (Normal) 63-Voe-657903:43 XRAY Chest 2 views 98569 Chest 2 views SEE NOTES Comments: PROCED [...] active disease.Augusto Pope MD On 07/25/2019 11:14:19; [id number] by: Augusto Pope MDDictated Date/time: 07/25/19 11:14Electronically Signed by: Augusto Pope MD 07/24/2010:14FINAL REPORT [id number] CT Abdomen/Pelvis wo contrast 94073 Abdomen/Pelvis wo contrast CT SEE NOTES Co [...] the dorsal cortex of the superior pole bkqrxlgeo46 mm and the dorso lateral cortex of [...] mild seminal vesicle enlargement.COMMENTS:1. Consistent with the [employer]'s Incidental FindingsCommittee white paper [...] warrantedbased on clinical findings.2. Consistent with the [employer]'s Incidental FindingsCommittee white paper (J Am Renetta Radiol 2018): Any incidental cystic renallesion classified in this report as too small to characterize or simpleappearing is likely a benign cyst. No follow-up imaging is recommended forthese lesions per consensus recommendations based on imaging criteria.Jimmy Worley MD On 07/25/2019 13:25:47; [id number]--[id number] by: Jimmy Worley MDDictated Date/time: 07/25/19 13:25Electronically Signed by: Jimmy Worley MD 07/24/2012:25FINAL REPORT [id number] [QL] PROTEIN, TOTAL W/CREAT, 24 HOUR URI [...]
--- OUTSIDE RECORDS SUMMARY | 2019-11-02 19:31 | XMS REPORT | Summary of Care ---
Author OC Valiente R.N. Organization Unknown Address Unknown Phone Unavailable Care Team Providers Care Cloth Bleaching Supervisor Name Role Phone BORIS WESLEY APRN Unavailable HARIS Urbano, NIDIA Unavailable Unavailable Barrington Pompa, Debbie Unavailable Unavailable BORIS WESLEY APRN Unavailable Unavailable HARIS KEANE [place], NIDIA POLK Unavailable Unavailable RUBY KEANE, KAREN Mckenzie Unavailable Unavailable Robyn KEANE, Jhony Unavailable Unavailable MARYJANE NIXON [place], BORIS Wyatt Unavailable Unavailable Aniceto Ojeda MD, David Unavailable Unavailable MIESHA DO [place], ROCKY Unavailable Unavailable HARIS [facility], JAMEY Unavailable Unavailable Unavailable Unavailable Functional Status [...] WESLEY APRN Start : 15-Mar-2018 Active Nystatin-Triamcinolone 528358-9.1 UNIT/GM-% External Cream APPLY SPARINGLY TO AFFECTED [...] W/EGFR Date: 25-Jul-2019 CT Abdomen/Pelvis wo contrast 97504 Date: 18-Jul-2019 XRAY Chest 2 views 40916 Date: 18-Jul-2019 History of Renal Lithotripsy Completed History of Oral Surgery Tooth Extraction Completed History of Skin Tag Removal Completed History of Dental Implant Completed Immunization Name Dates Details Prevnar 13 Intramuscular Suspension Lot #: [id number] on: 07-Aug-2014 Fluzone Quadrivalent 0.5 ML Intramuscula r Suspension Lot #: [id number] on: 31-Jan-2015 Fluzone High-Dose 0.5 ML Intramuscular S uspension Prefilled Syringe Lot #: [id number] on: 19-Jan-2017 Pneumococcal polysaccharide vaccine, 23 valent Lot #: [id number] on: 19-Jan-2017 Fluzone Quadrivalent 0.5 ML Intramuscula r Suspension Prefilled Syringe Lot #: [id number] on: 13-Feb-2018 Fluzone High-Dose 0.5 ML Intramuscular S uspension Prefilled Syringe Lot #: [id number] on: 27-Feb-2019 Family History Name Dates Details [...] ABSOLUTE NEUTROPHILS 1850 {cells/uL} (Normal) R lauren: 1413-8453 ABSOLUTE LYMPHOCYTES 983 {cells/uL} (Normal) Ra nge: [...] Please Note: Although the reference range for zbozizoK95 is 200-1100 pg/mL, it has been reported that between5 and 10% of patients with values between 200 and 400pg/mL may experience neuropsychiatric and hematologicabnormalities due to occult B12 deficiency; less than 1%of patients with values above 400 pg/mL will have symptoms. REPORT COMMENT:FASTING:YES VITAMIN B12 392 pg/ml (Normal) Range: 200-1 100 Comments: Please Note: Although the reference range for xewcohsC32 is 200-1100 pg/mL, it has been reported [...] 3.2 g/dl (Below low threshold) Range: 3.8-4.8 JTNTA-4-WOUVEDGSD 0.3 g/dl (Normal) Range: 0.2- 0.3 POCEE-8-MAQLQJKZP 0.8 g/dl (Normal) Range: 0.5- 0.9 BETA [...] MPV 10.0 fL (Normal) Range: 7.5-12. 5 27-Gvh-[id number]:22 [Q] Differential, Manual Comments: REPO RT COMMENT:FASTING:YES ABSOLUTE NEUTROPHILS 3124 {cells/uL} (Normal) R lauren: 1453-1612 ABSOLUTE LYMPHOCYTES 792 {cells/uL} (Below low threshold) Range: 850-3900 ABSOLUTE MONOCYTES 176 {cells/uL} (Below low th reshold) Range: 200-950 ABSOLUTE EOSINOPHILS 264 {cells/uL} (Normal) Ra nge: 15-500 ABSOLUTE BASOPHILS 44 {cells/uL} (Normal) Range : 0-200 NEUTROPHILS 71.0 % (Normal) LYMPHOCYTES 18.0 % (Normal) MONOCYTES 4.0 % (Normal) EOSINOPHILS 6.0 % (Normal) BASOPHILS 1.0 % (Normal) 87-Asm-473100:43 XRAY Chest 2 views 10067 Chest 2 views SEE NOTES Comments: PROCED [...] active disease.Augusto Pope MD On 07/25/2019 11:14:19; [id number]--Aiag by: Augusto Pope MDDictated Date/time: 07/25/19 11:14Electronically Signed by: Augusto Pope MD 07/24/2010:14FINAL REPORT [id number] CT Abdomen/Pelvis wo contrast 54759 Abdomen/Pelvis wo contrast CT SEE NOTES Co [...] the dorsal cortex of the superior pole upumumsrd34 mm and the dorso lateral cortex of [...] mild seminal vesicle enlargement.COMMENTS:1. Consistent with the [place] [employer]'s Incidental FindingsCommittee white paper [...] warrantedbased on clinical findings.2. Consistent with the [place] [employer]'s Incidental FindingsCommittee white paper (J Am Renetta Radiol 2018): Any incidental cystic renallesion classified in this report as too small to characterize or simpleappearing is likely a benign cyst. No follow-up imaging is recommended forthese lesions per consensus recommendations based on imaging criteria.Jimmy Worley MD On 07/25/2019 13:25:47; [id number]--Ytsu by: Jimmy Worley MDDictated Date/time: 07/25/19 13:25Electronically Signed by: Jimmy Worley MD 07/24/2012:25FINAL REPORT [id number] [QL] PROTEIN, TOTAL W/CREAT, 24 HOUR URI [...]
--- OUTSIDE RECORDS SUMMARY | 2019-11-02 19:32 | XMS REPORT | Summary of Care ---
Author OC Del Cid M.A. Organization Unknown Address [facility] Phone Unavailable Care Team Providers Care Circuit Board Repair Technician Name Role Phone Neymar Urbano, Ralph Unavailable Unavailable MARYJANE OCAMPO, BORIS Unavailable Unavailable MARYJANE OCAMPO, BORIS Franklin Unavailable Unavailable HARIS KEANE [place], NIDIA POLK Unavailable Unavailable RUBY KEANE, KAREN Mckenzie Unavailable Unavailable HARIS Urbano, NIDIA Unavailable Unavailable Jhony Jones MD Unavailable Unavailable MARYJANE NIXON [place], BORIS Wyatt Unavailable Unavailable Aniceto Ojeda MD, David Unavailable Unavailable MIESHA DO [place], ROCKY Unavailable Unavailable HARIS BELL [place], JAMEY Unavailable Unavailable Unavailable Unavailable Functional Status [...] WESLEY APRN * Start : 07-Oct-2014 Active hydrALAZINE HCl - 50 MG Oral [...] WESLEY APRN. * Start : 27-Feb-2019 Active Centrum Silver TABS TAKE 1 TABLET DAILY. * Refills: 0 Active Allergies and Adverse [...] left, with routine healing, subsequent encounter (V54.29, M84.359D) Status: Resolved Procedures Procedure Dates Details [Q] METHYLMALONIC ACID, GC/MS/MS, URINE Date: 16-Jul-2019 [Q] COPPER, RANDOM URINE Date: 16-Jul-2019 [QL] CBC (INCLUDES DIFF/PLT) Date: 19-Jul-2019 [QL] CMP W/EGFR Date: 25-Jul-2019 CT Abdomen/Pelvis wo contrast 37055 Date: 18-Jul-2019 XRAY Chest 2 views 52711 Date: 18-Jul-2019 History of Renal Lithotripsy Completed History of Oral Surgery Tooth Extraction Completed History of Skin Tag Removal Completed History of Dental Implant Completed Immunization Name Dates Details Prevnar 13 Intramuscular Suspension Lot #: [id number] on: 07-Aug-2014 Fluzone Quadrivalent 0.5 ML Intramuscula r Suspension Lot #: [id number] on: 31-Jan-2015 Fluzone High-Dose 0.5 ML Intramuscular S uspension Prefilled Syringe Lot #: [id number] on: 19-Jan-2017 Pneumococcal polysaccharide vaccine, 23 valent Lot #: [id number] on: 19-Jan-2017 Fluzone Quadrivalent 0.5 ML Intramuscula r Suspension Prefilled Syringe Lot #: [id number] on: 13-Feb-2018 Fluzone High-Dose 0.5 ML Intramuscular S uspension Prefilled Syringe Lot #: [id number] on: 27-Feb-2019 Family History Name Dates Details [...] (finding) Vital Signs Date Test Result Details [id number] Systolic blood pressure 113 mm[Hg] Status: Comments : Location: LUE; Position: Sitting Diastolic blood pressure 54 mm[Hg] Status: Comment s: Location: LUE; Position: Sitting Body height 74 in Status: Weight 235.375 lb Status: Body mass index (BMI) [Ratio] 30.22 kg/m2 Status: Body surface area Derived from formula 2.33 m2 S tatus: Heart Rate 59 /min Status: :30 Systolic blood pressure 135 mm[Hg] Status: Comments : Location: LUE; Position: Sitting Diastolic blood pressure 60 mm[Hg] Status: Comment s: Location: LUE; Position: Sitting Body height 74 in Status: Weight 234.0625 lb Status: Body mass index (BMI) [Ratio] 30.05 kg/m2 Status: Body surface area Derived from formula 2.32 m2 S tatus: Heart Rate 62 /min Status: Body temperature 97.8 f Status: Comments: Me thod: Temporal Respiratory rate 14 /min Status: Physical Findings [...] ABSOLUTE NEUTROPHILS 1850 {cells/uL} (Normal) R lauren: 1217-4233 ABSOLUTE LYMPHOCYTES 983 {cells/uL} (Normal) Ra nge: [...] Please Note: Although the reference range for fetiebfV95 is 200-1100 pg/mL, it has been reported that between5 and 10% of patients with values between 200 and 400pg/mL may experience neuropsychiatric and hematologicabnormalities due to occult B12 deficiency; less than 1%of patients with values above 400 pg/mL will have symptoms. REPORT COMMENT:FASTING:YES VITAMIN B12 392 pg/ml (Normal) Range: 200-1 100 Comments: Please Note: Although the reference range for itockgbV62 is 200-1100 pg/mL, it has been reported [...] 3.2 g/dl (Below low threshold) Range: 3.8-4.8 PUVQN-3-EQDSVIGHJ 0.3 g/dl (Normal) Range: 0.2- 0.3 OKURG-3-DSYWBYUZB 0.8 g/dl (Normal) Range: 0.5- 0.9 BETA [...] MPV 10.0 fL (Normal) Range: 7.5-12. 5 84-Fpu-705339:22 [Q] Differential, Manual Comments: REPO RT COMMENT:FASTING:YES ABSOLUTE NEUTROPHILS 3124 {cells/uL} (Normal) R lauren: 5433-8214 ABSOLUTE LYMPHOCYTES 792 {cells/uL} (Below low threshold) Range: 850-3900 ABSOLUTE MONOCYTES 176 {cells/uL} (Below low th reshold) Range: 200-950 ABSOLUTE EOSINOPHILS 264 {cells/uL} (Normal) Ra nge: 15-500 ABSOLUTE BASOPHILS 44 {cells/uL} (Normal) Range : 0-200 NEUTROPHILS 71.0 % (Normal) LYMPHOCYTES 18.0 % (Normal) MONOCYTES 4.0 % (Normal) EOSINOPHILS 6.0 % (Normal) BASOPHILS 1.0 % (Normal) 64-Qjj-697423:43 XRAY Chest 2 views 80316 Chest 2 views SEE NOTES Comments: PROCED [...] active disease.Augusto Pope MD On 07/25/2019 11:14:19; [id number]--Cuog by: Augusto Pope MDDictated Date/time: 07/25/19 11:14Electronically Signed by: Augusto Pope MD 07/24/2010:14FINAL REPORT [id number] CT Abdomen/Pelvis wo contrast 09471 Abdomen/Pelvis wo contrast CT SEE NOTES Co [...] the dorsal cortex of the superior pole cbxwxmizv11 mm and the dorso lateral cortex of [...] mild seminal vesicle enlargement.COMMENTS:1. Consistent with the [place] [employer]'s Incidental FindingsCommittee white paper [...] warrantedbased on clinical findings.2. Consistent with the [place] [employer]'s Incidental FindingsCommittee white paper (J Am Renetta Radiol 2018): Any incidental cystic renallesion classified in this report as too small to characterize or simpleappearing is likely a benign cyst. No follow-up imaging is recommended forthese lesions per consensus recommendations based on imaging criteria.Jimmy Worley MD On 07/25/2019 13:25:47; [id number]--Vrhn by: Jimmy Worley MDDictated Date/time: 07/25/19 13:25Electronically Signed by: Jimmy Worley MD 07/24/2012:25FINAL REPORT :13 [QL] PROTEIN, TOTAL W/CREAT, 24 HOUR URI NE Comments: REPORT COMMENT:FASTING:NO CREATININE, 24 HOUR URINE 1.79 {g/24_h} (Normal ) Range: 0.50-2.15 PROTEIN/CREATININE RATIO 5101 {MG/G_CREAT} (Abo ve high threshold) Range: < OR = 114 PROTEIN/CREATININE RATIO 5.101 {mg/mg_crea} (Ab ove high threshold) Range: < OR = 0.114 PROTEIN, TOTAL, 24 HR UR 9125 {mg/24_h} (Above high threshold) Range: <150 Comments: TOTAL URINE VOLUME: :38 [QL] CBC (INCLUDES DIFF/PLT) Comments: REPORT COMMENT:FASTING:YES WHITE BLOOD CELL COUNT 3.6 {Thousand/u} (Below low threshold) Range: 3.8-10.8 RED BLOOD CELL COUNT 2.45 {Million/uL} (Below l ow threshold) Range: 4.20-5.80 HEMAGLOBIN 9.0 g/dl (Below low threshold) Range: 13.2-17.1 HEMATOCRIT 25.9 % (Below low threshold) Ra nge: 38.5-50.0 MCV 105.7 fL (Above high threshold) Range: 80.0-100.0 MCH 36.7 pg (Above high threshold) Range: 27.0-33.0 MCHC 34.7 g/dl (Normal) Range: 32.0- 36.0 RDW 15.8 % (Above high threshold) R lauren: 11.0-15.0 PLATELET COUNT 272 {Thousand/u} (Normal) Range : 140-400 MPV 9.7 fL (Normal) Range: 7.5-12.5 ABSOLUTE NEUTROPHILS 1699 {cells/uL} (Normal) R lauren: 9771-1219 ABSOLUTE LYMPHOCYTES 1123 {cells/uL} (Normal) R lauren: 850-3900 ABSOLUTE MONOCYTES 403 {cells/uL} (Normal) Rang e: 200-950 ABSOLUTE EOSINOPHILS 313 {cells/uL} (Normal) Ra nge: 15-500 ABSOLUTE BASOPHILS 61 {cells/uL} (Normal) Range : 0-200 NEUTROPHILS 47.2 % (Normal) LYMPHOCYTES 31.2 % (Normal) MONOCYTES 11.2 % (Normal) EOSINOPHILS 8.7 % (Normal) BASOPHILS 1.7 % (Normal) Plan of Care Name Dates [...] Diagnosis: Problem not documented On: 30-Jul-2019 14:30 Appointment; Ralph Blackmon M.D. Encounter Diagnosis: Problem not documented On: 03-Aug-2019 12:45
--- OUTSIDE RECORDS SUMMARY | 2019-11-02 19:32 | XMS REPORT | Summary of Care ---
Author OC Christopher Organization Unknown Address Unknown Phone Unavailable Care Team Providers Care Grinding Wheel Dresser Name Role Phone BORIS WESLEY APRN Unavailable HARIS Urbano, NIDIA Unavailable Unavailable Christos Orr Unavailable Unavailable BORIS WESLEY APRN Unavailable Unavailable HARIS KEANE [place], NIDIA POLK Unavailable Unavailable RUBY KEANE, KAREN Mckenzie Unavailable Unavailable Robyn KEANE, Jhony Unavailable Unavailable MARYJANE NIXON [place], BORIS Wyatt Unavailable Unavailable Aniceto Ojeda MD, David Unavailable Unavailable MIESHA DO [place], ROCKY Unavailable Unavailable HARIS BELL [place], JAMEY [...] TWICE DAILY * Quantity: 180 Refills: 1 BOIRS WESLEY APRN * Start : 21-May-2016 Active [...] WESLEY APRN Start : 15-Mar-2018 Active Nystatin-Triamcinolone 174944-8.1 UNIT/GM-% External Cream APPLY SPARINGLY TO AFFECTED [...] W/EGFR Date: 25-Jul-2019 CT Abdomen/Pelvis wo contrast 50772 Date: 18-Jul-2019 XRAY Chest 2 views 34738 Date: 18-Jul-2019 History of Renal Lithotripsy Completed History of Oral Surgery Tooth Extraction Completed History of Skin Tag Removal Completed History of Dental Implant Completed Immunization Name Dates Details Prevnar 13 Intramuscular Suspension Lot #: [id number] on: 07-Aug-2014 Fluzone Quadrivalent 0.5 ML Intramuscula r Suspension Lot #: [id number] on: 31-Jan-2015 Fluzone High-Dose 0.5 ML Intramuscular S uspension Prefilled Syringe Lot #: [id number] on: 19-Jan-2017 Pneumococcal polysaccharide vaccine, 23 valent Lot #: [id number] on: 19-Jan-2017 Fluzone Quadrivalent 0.5 ML Intramuscula r Suspension Prefilled Syringe Lot #: [id number] on: 13-Feb-2018 Fluzone High-Dose 0.5 ML Intramuscular S uspension Prefilled Syringe Lot #: [id number] on: 27-Feb-2019 Family History Name Dates Details [...] pressure 135 mm[Hg] Status: Comments : Location: E; Position: Sitting Diastolic blood pressure 60 mm[Hg] Status: Comment s: Location: E; Position: Sitting Body height 74 in Status: [...] RDW 16.9 % (Above high threshold) R aluren: 11.0-15.0 PLATELET COUNT 244 {Thousand/u} (Normal) Range : 140-400 MPV 9.9 fL (Normal) Range: 7.5-12.5 ABSOLUTE NEUTROPHILS 1850 {cells/uL} (Normal) R lauren: 1718-9939 ABSOLUTE LYMPHOCYTES 983 {cells/uL} (Normal) Ra nge: [...] Please Note: Although the reference range for yimmwsdA49 is 200-1100 pg/mL, it has been reported that between5 and 10% of patients with values between 200 and 400pg/mL may experience neuropsychiatric and hematologicabnormalities due to occult B12 deficiency; less than 1%of patients with values above 400 pg/mL will have symptoms. REPORT COMMENT:FASTING:YES VITAMIN B12 392 pg/ml (Normal) Range: 200-1 100 Comments: Please Note: Although the reference range for rwzbfhbJ48 is 200-1100 pg/mL, it has been reported [...] 3.2 g/dl (Below low threshold) Range: 3.8-4.8 NMUWL-3-FUTZQPIQX 0.3 g/dl (Normal) Range: 0.2- 0.3 MBOAL-7-JPDGBKSLG 0.8 g/dl (Normal) Range: 0.5- 0.9 BETA [...] MPV 10.0 fL (Normal) Range: 7.5-12. 5 37-Stk-487184:22 [Q] Differential, Manual Comments: REPO RT COMMENT:FASTING:YES ABSOLUTE NEUTROPHILS 3124 {cells/uL} (Normal) R lauren: 2384-3694 ABSOLUTE LYMPHOCYTES 792 {cells/uL} (Below low threshold) Range: 850-3900 ABSOLUTE MONOCYTES 176 {cells/uL} (Below low th reshold) Range: 200-950 ABSOLUTE EOSINOPHILS 264 {cells/uL} (Normal) Ra nge: 15-500 ABSOLUTE BASOPHILS 44 {cells/uL} (Normal) Range : 0-200 NEUTROPHILS 71.0 % (Normal) LYMPHOCYTES 18.0 % (Normal) MONOCYTES 4.0 % (Normal) EOSINOPHILS 6.0 % (Normal) BASOPHILS 1.0 % (Normal) 56-Foq-449934:43 XRAY Chest 2 views 11169 Chest 2 views SEE NOTES Comments: PROCED [...] active disease.Augusto Pope MD On 07/25/2019 11:14:19; [id number]--Tlah by: Augusto Pope MDDictated Date/time: 07/25/19 11:14Electronically Signed by: Augusto Pope MD 07/24/2010:14FINAL REPORT [id number] CT Abdomen/Pelvis wo contrast 91359 Abdomen/Pelvis wo contrast CT SEE NOTES Co [...] the dorsal cortex of the superior pole incmzfivn88 mm and the dorso lateral cortex of [...] mild seminal vesicle enlargement.COMMENTS:1. Consistent with the [place] [employer]'s Incidental FindingsCommittee white paper [...] warrantedbased on clinical findings.2. Consistent with the [place] [employer]'s Incidental FindingsCommittee white paper (J Am Renetta Radiol 2018): Any incidental cystic renallesion classified in this report as too small to characterize or simpleappearing is likely a benign cyst. No follow-up imaging is recommended forthese lesions per consensus recommendations based on imaging criteria.Jimmy Worley MD On 07/25/2019 13:25:47; [id number]--Mmyx by: Jimmy Worley MDDictated Date/time: 07/25/19 13:25Electronically Signed by: Jimmy Worley MD 07/24/2012:25FINAL REPORT [id number] [QL] PROTEIN, TOTAL W/CREAT, 24 HOUR URI [...]
--- OUTSIDE RECORDS SUMMARY | 2019-11-02 19:32 | XMS REPORT | Summary of Care ---
Author OC Del Cid M.A. Organization Unknown Address [facility] Phone Unavailable Care Team Providers Care Human Services Case Manager Name Role Phone Elias Urbano, Mo Unavailable Unavailable MARYJANE OCAMPO, BORIS Unavailable Unavailable MARYJANE OCAMPO, BORIS Franklin Unavailable Unavailable HARIS KEANE MD, NIDIA PLOK Unavailable Unavailable ELIAS KEANE MD, MO Rodríguez Unavailable Unavailable RUBY KEANE, KAREN Mckenzie Unavailable Unavailable HARIS Urbano, NIDIA Unavailable Unavailable Robyn KEANE, Jhony Unavailable Unavailable MARYJANE NXION [place], BORIS Wyatt Unavailable Unavailable Aniceto Ojeda [...] Status: Active 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, 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: Active Anemia (285.9, D64.9) Status: Active Medications Name Dates Details PARoxetine [...] WESLEY APRN * Start : 27-Feb-2019 Active Centrum Silver [...] Date: 19-Jul-2019 [QL] CMP W/EGFR Date: 25-Jul-2019 [Q] METHYLMALONIC ACID AND HOMOCYSTEINE (NUTRITIONAL A ND CONGENITAL) Date: 03-Aug-2019 [QL] HAPTOGLOBIN Date: 03-Aug-2019 [QL] C-REACTIVE PROTEIN Date: 03-Aug-2019 [QL] ALPHA FETOPROTEIN, TUMOR MARKER Date: 03-Aug-2019 CT Abdomen/Pelvis wo contrast 91651 Date: 18-Jul-2019 XRAY Chest 2 views 69025 Date: 18-Jul-2019 History of Renal Lithotripsy Completed History of Oral Surgery Tooth Extraction Completed History of Skin Tag Removal Completed History of Dental Implant Completed Immunization Name Dates Details Prevnar 13 Intramuscular Suspension Lot #: [id number] on: 07-Aug-2014 Fluzone Quadrivalent 0.5 ML Intramuscula r Suspension Lot #: [id number] on: 31-Jan-2015 Fluzone High-Dose 0.5 ML Intramuscular S uspension Prefilled Syringe Lot #: [id number] on: 19-Jan-2017 Pneumococcal polysaccharide vaccine, 23 valent Lot #: [id number] on: 19-Jan-2017 Fluzone Quadrivalent 0.5 ML Intramuscula r Suspension Prefilled Syringe Lot #: [id number] on: 13-Feb-2018 Fluzone High-Dose 0.5 ML Intramuscular S uspension Prefilled Syringe Lot #: [id number] on: 27-Feb-2019 Family History Name Dates Details [...] (finding) Vital Signs Date Test Result Details :34 Systolic blood pressure 113 mm[Hg] Status: Comments [...] Status: Physical Findings 0 Status: Comments: Al kathiaol Screen - How many times in the [...] ABSOLUTE NEUTROPHILS 1850 {cells/uL} (Normal) R lauren: 1111-2109 ABSOLUTE LYMPHOCYTES 983 {cells/uL} (Normal) Ra nge: 850-3900 ABSOLUTE MONOCYTES 320 {cells/uL} (Normal) Rang e: 200-950 ABSOLUTE EOSINOPHILS 207 {cells/uL} (Normal) Ra nge: 15-500 ABSOLUTE BASOPHILS 41 {cells/uL} (Normal) Range : 0-200 NEUTROPHILS 54.4 % (Normal) LYMPHOCYTES 28.9 % (Normal) MONOCYTES 9.4 % (Normal) EOSINOPHILS 6.1 % (Normal) BASOPHILS 1.2 % (Normal) 47-Lkp-[id number]:24 [QL] VITAMIN B12/FOLATE, SERUM PANEL Co mments: Please Note: Although the reference range for xcjhqjfJ81 is 200-1100 pg/mL, it has been reported that between5 and 10% of patients with values between 200 and 400pg/mL may experience neuropsychiatric and hematologicabnormalities due to occult B12 deficiency; less than 1%of patients with values above 400 pg/mL will have symptoms. REPORT COMMENT:FASTING:YES VITAMIN B12 392 pg/ml (Normal) Range: 200-1 100 Comments: Please Note: Although the reference range for nivmjpjU59 is 200-1100 pg/mL, it has been reported [...] 3.2 g/dl (Below low threshold) Range: 3.8-4.8 MINPJ-7-DUGYBLRCN 0.3 g/dl (Normal) Range: 0.2- 0.3 WPOFS-6-FWHJDLDTW 0.8 g/dl (Normal) Range: 0.5- 0.9 BETA [...] MPV 10.0 fL (Normal) Range: 7.5-12. 5 21-[id number]:22 [Q] Differential, Manual Comments: REPO RT COMMENT:FASTING:YES ABSOLUTE NEUTROPHILS 3124 {cells/uL} (Normal) R lauren: 1330-3541 ABSOLUTE LYMPHOCYTES 792 {cells/uL} (Below low threshold) Range: 850-3900 ABSOLUTE MONOCYTES 176 {cells/uL} (Below low th reshold) Range: 200-950 ABSOLUTE EOSINOPHILS 264 {cells/uL} (Normal) Ra nge: 15-500 ABSOLUTE BASOPHILS 44 {cells/uL} (Normal) Range : 0-200 NEUTROPHILS 71.0 % (Normal) LYMPHOCYTES 18.0 % (Normal) MONOCYTES 4.0 % (Normal) EOSINOPHILS 6.0 % (Normal) BASOPHILS 1.0 % (Normal) 36-Zfh-369554:43 XRAY Chest 2 views 11022 Chest 2 views SEE NOTES Comments: PROCED [...] active disease.Augusto Pope MD On 07/25/2019 11:14:19; [id number]--Mthu by: Augusto Pope MDDictated Date/time: 07/25/19 11:14Electronically Signed by: Augusto Pope MD 07/24/2010:14FINAL REPORT [id number] CT Abdomen/Pelvis wo contrast 83036 Abdomen/Pelvis wo contrast CT SEE NOTES Co [...] the dorsal cortex of the superior pole whevqmqhk60 mm and the dorso lateral cortex of [...] mild seminal vesicle enlargement.COMMENTS:1. Consistent with the [place] [employer]'s Incidental FindingsCommittee white paper [...] warrantedbased on clinical findings.2. Consistent with the [place] [employer]'s Incidental FindingsCommittee white paper (J Am Renetta Radiol 2018): Any incidental cystic renallesion classified in this report as too small to characterize or simpleappearing is likely a benign cyst. No follow-up imaging is recommended forthese lesions per consensus recommendations based on imaging criteria.Jimmy Worley MD On 07/25/2019 13:25:47; [id number]--Levk by: Jimmy Worley MDDictated Date/time: 07/25/19 13:25Electronically [...] ABSOLUTE NEUTROPHILS 1699 {cells/uL} (Normal) R lauren: 3997-7694 ABSOLUTE LYMPHOCYTES 1123 {cells/uL} (Normal) R lauren: [...] Planned Goals not documented Planned Encounters Appointment; ESTELLE MONTERO M.D. On: 09-Aug-2019 15:45 Appointment; BORIS WESLEY APRN On: 28-Aug-2019 12:30 Appointment; Mo Blackmon M.D. On: 31-Aug-2019 11:30 Interventions Provided Labs/Procedures/Imaging* [Q] METHYLMALONIC ACID AND HOMOCYSTEINE (NUTRITIONAL AND CONGENITAL); To Be Done: 03 Aug 2019 * [QL] ALPHA FETOPROTEIN, TUMOR MARKER; To Be Done: 03 Aug 2019 * [QL] C-REACTIVE PROTEIN; To Be Done: 03 Aug 2019 * [QL] HAPTOGLOBIN; To Be Done: 03 Aug 2019 Instructions Name Dates Details Instructions not [...] not documented On: 30-Nov-2018 14:30 Appointment; BORIS WELSEY APRN Encounter Diagnosis: Problem not documented On: 27-Feb-2019 14:45 Appointment; BORIS WESLEY APRN Encounter Diagnosis: Problem not documented On: 30-May-2019 12:30 Appointment; NIDIA CARBALLO M.D. Encounter Diagnosis: Problem not documented On: 18-Jul-2019 9:30 Appointment; NIDIA CARBALLO M.D. Encounter Diagnosis: Problem not documented On: 30-Jul-2019 14:30 Appointment; Mo Blackmon M.D. Encounter Diagnosis: Problem not documented On: 03-Aug-2019 12:45
--- OUTSIDE RECORDS SUMMARY | 2019-11-02 19:32 | XMS REPORT | Summary of Care ---
Author OC Mendoza M.D. Organization Unknown Address [facility] Phone Unavailable Care Team Providers Care Claim Examiner Name Role Phone BORIS WESLEY APRN Unavailable HARIS Urbano, NIDIA Unavailable Unavailable BORIS WESLEY APRN Unavailable Unavailable HARIS KEANE [place], NIDIA POLK Unavailable Unavailable RUBY KEANE, KAREN Mckenzie Unavailable Unavailable Robyn KEANE, Jhony Unavailable Unavailable MARYJANE NIXON [place], BORIS Wyatt Unavailable Unavailable Aniceto Ojeda MD, David Unavailable Unavailable MIESHA DO [place], ORCKY Unavailable Unavailable HARIS BELL [place], JAMEY Unavailable [...] A DAY * Quantity: 1 Refills: 5 NIIDA CARBALLO M.D. * Start : 11-Sep-2013 Active [...] WESLEY APRN Start : 15-Mar-2018 Active Nystatin-Triamcinolone 651074-1.1 UNIT/GM-% External Cream APPLY SPARINGLY TO AFFECTED [...] W/EGFR Date: 25-Jul-2019 CT Abdomen/Pelvis wo contrast 50619 Date: 18-Jul-2019 XRAY Chest 2 views 77789 Date: 18-Jul-2019 History of Renal Lithotripsy Completed History of Oral Surgery Tooth Extraction Completed History of Skin Tag Removal Completed History of Dental Implant Completed Immunization Name Dates Details Prevnar 13 Intramuscular Suspension Lot #: [id number] on: 07-Aug-2014 Fluzone Quadrivalent 0.5 ML Intramuscula r Suspension Lot #: [id number] on: 31-Jan-2015 Fluzone High-Dose 0.5 ML Intramuscular S uspension Prefilled Syringe Lot #: [id number] on: 19-Jan-2017 Pneumococcal polysaccharide vaccine, 23 valent Lot #: [id number] on: 19-Jan-2017 Fluzone Quadrivalent 0.5 ML Intramuscula r Suspension Prefilled Syringe Lot #: [id number] on: 13-Feb-2018 Fluzone High-Dose 0.5 ML Intramuscular S uspension Prefilled Syringe Lot #: [id number] on: 27-Feb-2019 Family History Name Dates Details [...] tatus: Body temperature 97.8 f Status: Comments: Fl thod: Temporal Heart Rate 62 /min Status: [...] ABSOLUTE NEUTROPHILS 1850 {cells/uL} (Normal) R lauren: [phone] ABSOLUTE LYMPHOCYTES 983 {cells/uL} (Normal) Ra nge: [...] Please Note: Although the reference range for nmysgsaQ56 is 200-1100 pg/mL, it has been reported that between5 and 10% of patients with values between 200 and 400pg/mL may experience neuropsychiatric and hematologicabnormalities due to occult B12 deficiency; less than 1%of patients with values above 400 pg/mL will have symptoms. REPORT COMMENT:FASTING:YES VITAMIN B12 392 pg/ml (Normal) Range: 200-1 100 Comments: Please Note: Although the reference range for tehqkwsF01 is 200-1100 pg/mL, it has been reported [...] 3.2 g/dl (Below low threshold) Range: 3.8-4.8 OQUTK-8-YAEJUZIQF 0.3 g/dl (Normal) Range: 0.2- 0.3 PJTTK-3-AUIOPAWMZ 0.8 g/dl (Normal) Range: 0.5- 0.9 BETA [...] MPV 10.0 fL (Normal) Range: 7.5-12. 5 80-Czu-505681:22 [Q] Differential, Manual Comments: REPO RT COMMENT:FASTING:YES ABSOLUTE NEUTROPHILS 3124 {cells/uL} (Normal) R lauren: 1602-5965 ABSOLUTE LYMPHOCYTES 792 {cells/uL} (Below low threshold) Range: 850-3900 ABSOLUTE MONOCYTES 176 {cells/uL} (Below low th reshold) Range: 200-950 ABSOLUTE EOSINOPHILS 264 {cells/uL} (Normal) Ra nge: 15-500 ABSOLUTE BASOPHILS 44 {cells/uL} (Normal) Range : 0-200 NEUTROPHILS 71.0 % (Normal) LYMPHOCYTES 18.0 % (Normal) MONOCYTES 4.0 % (Normal) EOSINOPHILS 6.0 % (Normal) BASOPHILS 1.0 % (Normal) 13-Pyc-811066:43 XRAY Chest 2 views 08175 Chest 2 views SEE NOTES Comments: PROCED [...] active disease.Augusto Pope MD On 07/25/2019 11:14:19; [id number] by: Augusto Pope MDDictated Date/time: 07/25/19 11:14Electronically Signed by: Augusto Pope MD 07/24/2010:14FINAL REPORT [id number] CT Abdomen/Pelvis wo contrast 92092 Abdomen/Pelvis wo contrast CT SEE NOTES Co [...] the dorsal cortex of the superior pole kztjyqjaz34 mm and the dorso lateral cortex of [...] mild seminal vesicle enlargement.COMMENTS:1. Consistent with the [place]'s Incidental FindingsCommittee white paper [...] warrantedbased on clinical findings.2. Consistent with the [place] [employer]'s Incidental FindingsCommittee white paper (J Am Renetta Radiol 2018): Any incidental cystic renallesion classified in this report as too small to characterize or simpleappearing is likely a benign cyst. No follow-up imaging is recommended forthese lesions per consensus recommendations based on imaging criteria.Jimmy Worley MD On 07/25/2019 13:25:47; [id number]--Cwuv by: Jimmy Worley MDDictated Date/time: 07/25/19 13:25Electronically Signed by: Jimmy Worley MD 07/24/2012:25FINAL REPORT [id number] [QL] PROTEIN, TOTAL W/CREAT, 24 HOUR URI NE Comments: REPORT COMMENT:FASTING:NO CREATININE, 24 HOUR URINE 1.79 {g/24_h} (Normal ) Range: 0.50-2.15 PROTEIN/CREATININE RATIO 5101 {MG/G_CREAT} (Abo ve high threshold) Range: < OR = 114 PROTEIN/CREATININE RATIO 5.101 {mg/mg_crea} (Ab ove high threshold) Range: < OR = 0.114 PROTEIN, TOTAL, 24 HR UR 9125 {mg/24_h} (Above high threshold) Range: <150 Comments: TOTAL URINE VOLUME: 31-Jul-201913:38 [QL] CBC (INCLUDES DIFF/PLT) Comments: REPORT COMMENT:FASTING:YES [...] ABSOLUTE NEUTROPHILS 1699 {cells/uL} (Normal) R lauren: [phone] ABSOLUTE LYMPHOCYTES 1123 {cells/uL} (Normal) R lauren: [...]
--- OUTSIDE RECORDS SUMMARY | 2019-11-02 19:32 | XMS REPORT | Summary of Care ---
Author OC Biggs Organization Unknown Address [facility] Phone Unavailable Care Team Providers Care Rn Transplant Name Role Phone BORIS WESLEY APRN Unavailable Unavailable Bernadine Alexandre Unavailable Unavailable BORIS WESLEY APRN Unavailable Unavailable HARIS KEANE CT, NIIDA POLK Unavailable Unavailable ELIAS KEANE CT, [place] Rodríguez Unavailable Unavailable RUBY KEANE, KAREN [...] (V13.89, Z87.898) Status: Resolved History of snoring (V15., Z87.898) Status: Resolved History of Stress fracture of metatarsal bone, left, with routine healing, subsequent encounter (V54.29, M84.375D) Status: Resolved Procedures Procedure Dates Details [QL] CBC (INCLUDES DIFF/PLT) Date: 19-Jul-2019 [QL] CMP W/EGFR Date: 25-Jul-2019 [Q] METHYLMALONIC ACID AND HOMOCYSTEINE (NUTRITIONAL A ND CONGENITAL) Date: 03-Aug-2019 [QL] HAPTOGLOBIN Date: 03-Aug-2019 [QL] SED RATE BY MODIFIED WESTERGREN Date: 03-Aug-2019 [QL] C-REACTIVE PROTEIN Date: 03-Aug-2019 [QL] LD Date: 03-Aug-2019 [QL] ALPHA FETOPROTEIN, TUMOR MARKER Date: 03-Aug-2019 [Q] METHYLMALONIC ACID, GC/MS/MS, URINE Date: 16-Jul-2019 [Q] COPPER, RANDOM URINE Date: 16-Jul-2019 CT Abdomen/Pelvis wo contrast 84534 Date: 18-Jul-2019 XRAY Chest 2 views 41405 Date: 18-Jul-2019 History of Renal Lithotripsy Completed History of Oral Surgery Tooth Extraction Completed History of Skin Tag Removal Completed History of Dental Implant Completed Immunization Name Dates Details Prevnar 13 Intramuscular Suspension Lot #: [id number] on: 07-Aug-2014 Fluzone Quadrivalent 0.5 ML Intramuscula r Suspension Lot #: [id number] on: 31-Jan-2015 Fluzone High-Dose 0.5 ML Intramuscular S uspension Prefilled Syringe Lot #: [id number] on: 19-Jan-2017 Pneumococcal polysaccharide vaccine, 23 valent Lot #: [id number] on: 19-Jan-2017 Fluzone Quadrivalent 0.5 ML Intramuscula r Suspension Prefilled Syringe Lot #: [id number] on: 13-Feb-2018 Fluzone High-Dose 0.5 ML Intramuscular S uspension Prefilled Syringe Lot #: [id number] on: 27-Feb-2019 Family History Name Dates Details [...] ABSOLUTE NEUTROPHILS 1850 {cells/uL} (Normal) R lauren: 6449-0493 ABSOLUTE LYMPHOCYTES 983 {cells/uL} (Normal) Ra nge: 850-3900 ABSOLUTE MONOCYTES 320 {cells/uL} (Normal) Rang e: 200-950 ABSOLUTE EOSINOPHILS 207 {cells/uL} (Normal) Ra nge: 15-500 ABSOLUTE BASOPHILS 41 {cells/uL} (Normal) Range : 0-200 NEUTROPHILS 54.4 % (Normal) LYMPHOCYTES 28.9 % (Normal) MONOCYTES 9.4 % (Normal) EOSINOPHILS 6.1 % (Normal) BASOPHILS 1.2 % (Normal) 71-Uvx-326979:24 [QL] VITAMIN B12/FOLATE, SERUM PANEL Co mments: Please Note: Although the reference range for qaztttbX31 is 200-1100 pg/mL, it has been reported that between5 and 10% of patients with values between 200 and 400pg/mL may experience neuropsychiatric and hematologicabnormalities due to occult B12 deficiency; less than 1%of patients with values above 400 pg/mL will have symptoms. REPORT COMMENT:FASTING:YES VITAMIN B12 392 pg/ml (Normal) Range: 200-1 100 Comments: Please Note: Although the reference range for gnrtntdP69 is 200-1100 pg/mL, it has been reported [...] 3.2 g/dl (Below low threshold) Range: 3.8-4.8 KKOOA-8-QHYPPNVNT 0.3 g/dl (Normal) Range: 0.2- 0.3 BHKDX-0-EIGYXMLJR 0.8 g/dl (Normal) Range: 0.5- 0.9 BETA [...] MPV 10.0 fL (Normal) Range: 7.5-12. 5 10-Ucz-721213:22 [Q] Differential, Manual Comments: REPO RT COMMENT:FASTING:YES ABSOLUTE NEUTROPHILS 3124 {cells/uL} (Normal) R lauren: 1665-7974 ABSOLUTE LYMPHOCYTES 792 {cells/uL} (Below low threshold) Range: 850-3900 ABSOLUTE MONOCYTES 176 {cells/uL} (Below low th reshold) Range: 200-950 ABSOLUTE EOSINOPHILS 264 {cells/uL} (Normal) Ra nge: 15-500 ABSOLUTE BASOPHILS 44 {cells/uL} (Normal) Range : 0-200 NEUTROPHILS 71.0 % (Normal) LYMPHOCYTES 18.0 % (Normal) MONOCYTES 4.0 % (Normal) EOSINOPHILS 6.0 % (Normal) BASOPHILS 1.0 % (Normal) 40-Sve-966129:43 XRAY Chest 2 views 02167 Chest 2 views SEE NOTES Comments: PROCED [...] active disease.Augusto Pope MD On 07/25/2019 11:14:19; [id number]--Heux by: Augusto Pope MDDictated Date/time: 07/25/19 11:14Electronically Signed by: Augusto Pope MD 07/24/2010:14FINAL REPORT [id number] CT Abdomen/Pelvis wo contrast 09011 Abdomen/Pelvis wo contrast CT SEE NOTES Co [...] the dorsal cortex of the superior pole ujbrmwaqv37 mm and the dorso lateral cortex of [...] mild seminal vesicle enlargement.COMMENTS:1. Consistent with the [employer]'s Incidental FindingsCommittee white paper [...] warrantedbased on clinical findings.2. Consistent with the [employer]'s Incidental FindingsCommittee white paper (J Am Renetta Radiol 2018): Any incidental cystic renallesion classified in this report as too small to characterize or simpleappearing is likely a benign cyst. No follow-up imaging is recommended forthese lesions per consensus recommendations based on imaging criteria.Jimmy Worley MD On 07/25/2019 13:25:47; [id number]--Ndvm by: Jimmy Worley MDDictated Date/time: 07/25/19 13:25Electronically [...] ABSOLUTE NEUTROPHILS 1699 {cells/uL} (Normal) R lauren: [phone] ABSOLUTE LYMPHOCYTES 1123 {cells/uL} (Normal) R lauren: [...] Appointment; Mo Blackmon M.D. On: 31-Aug-2019 11:30 Instructions Name Dates Details Instructions not documented [...]
--- OUTSIDE RECORDS SUMMARY | 2019-11-02 19:32 | XMS REPORT | Summary of Care ---
Author OC Del Cid M.A. Organization Unknown Address [facility] Phone Unavailable Care Team Providers Care Technical Assistance Consultant Name Role Phone Elias Urbano, Mo Unavailable Unavailable MARYJANE OCAMPO, BORIS Unavailable Unavailable MARYJANE OCAMPO, BORIS Franklin Unavailable Unavailable HARIS KEANE [place], NIDIA POLK Unavailable Unavailable ELIAS KEANE [place], [place] Rodríguez Unavailable Unavailable RUBY KEANE, KAREN [...] URINE Date: 16-Jul-2019 CT Abdomen/Pelvis wo contrast 90802 Date: 18-Jul-2019 XRAY Chest 2 views 07186 Date: 18-Jul-2019 History of Renal Lithotripsy Completed History of Oral Surgery Tooth Extraction Completed History of Skin Tag Removal Completed History of Dental Implant Completed Immunization Name Dates Details Prevnar 13 Intramuscular Suspension Lot #: [id number] on: 07-Aug-2014 Fluzone Quadrivalent 0.5 ML Intramuscula r Suspension Lot #: [id number] on: 31-Jan-2015 Fluzone High-Dose 0.5 ML Intramuscular S uspension Prefilled Syringe Lot #: [id number] on: 19-Jan-2017 Pneumococcal polysaccharide vaccine, 23 valent Lot #: [id number] on: 19-Jan-2017 Fluzone Quadrivalent 0.5 ML Intramuscula r Suspension Prefilled Syringe Lot #: [id number] on: 13-Feb-2018 Fluzone High-Dose 0.5 ML Intramuscular S uspension Prefilled Syringe Lot #: [id number] on: 27-Feb-2019 Family History Name Dates Details [...] ABSOLUTE NEUTROPHILS 1850 {cells/uL} (Normal) R lauren: 1843-1076 ABSOLUTE LYMPHOCYTES 983 {cells/uL} (Normal) Ra nge: 850-3900 ABSOLUTE MONOCYTES 320 {cells/uL} (Normal) Rang e: 200-950 ABSOLUTE EOSINOPHILS 207 {cells/uL} (Normal) Ra nge: 15-500 ABSOLUTE BASOPHILS 41 {cells/uL} (Normal) Range : 0-200 NEUTROPHILS 54.4 % (Normal) LYMPHOCYTES 28.9 % (Normal) MONOCYTES 9.4 % (Normal) EOSINOPHILS 6.1 % (Normal) BASOPHILS 1.2 % (Normal) 98-Rfm-653358:24 [QL] VITAMIN B12/FOLATE, SERUM PANEL Co mments: Please Note: Although the reference range for dmlayvpH14 is 200-1100 pg/mL, it has been reported that between5 and 10% of patients with values between 200 and 400pg/mL may experience neuropsychiatric and hematologicabnormalities due to occult B12 deficiency; less than 1%of patients with values above 400 pg/mL will have symptoms. REPORT COMMENT:FASTING:YES VITAMIN B12 392 pg/ml (Normal) Range: 200-1 100 Comments: Please Note: Although the reference range for anvpkxbG31 is 200-1100 pg/mL, it has been reported [...] 3.2 g/dl (Below low threshold) Range: 3.8-4.8 YSJYN-8-EONZRYAQY 0.3 g/dl (Normal) Range: 0.2- 0.3 MFCQK-8-WFXLXJJGP 0.8 g/dl (Normal) Range: 0.5- 0.9 BETA [...] MPV 10.0 fL (Normal) Range: 7.5-12. 5 73-Zhg-273937:22 [Q] Differential, Manual Comments: REPO RT COMMENT:FASTING:YES ABSOLUTE NEUTROPHILS 3124 {cells/uL} (Normal) R lauren: 5654-2665 ABSOLUTE LYMPHOCYTES 792 {cells/uL} (Below low threshold) Range: 850-3900 ABSOLUTE MONOCYTES 176 {cells/uL} (Below low th reshold) Range: 200-950 ABSOLUTE EOSINOPHILS 264 {cells/uL} (Normal) Ra nge: 15-500 ABSOLUTE BASOPHILS 44 {cells/uL} (Normal) Range : 0-200 NEUTROPHILS 71.0 % (Normal) LYMPHOCYTES 18.0 % (Normal) MONOCYTES 4.0 % (Normal) EOSINOPHILS 6.0 % (Normal) BASOPHILS 1.0 % (Normal) 32-Fbh-336467:43 XRAY Chest 2 views 40035 Chest 2 views SEE NOTES Comments: PROCED [...] active disease.Augusto Pope MD On 07/25/2019 11:14:19; [id number]--Jgvl by: Augusto Pope MDDictated Date/time: 07/25/19 11:14Electronically Signed by: Augusto Pope MD 07/24/2010:14FINAL REPORT [id number] CT Abdomen/Pelvis wo contrast 49654 Abdomen/Pelvis wo contrast CT SEE NOTES Co [...] the dorsal cortex of the superior pole mvxrnhwaz52 mm and the dorso lateral cortex of [...] mild seminal vesicle enlargement.COMMENTS:1. Consistent with the [place] [employer]'s Incidental FindingsCommittee white paper [...] warrantedbased on clinical findings.2. Consistent with the [place] [employer]'s Incidental FindingsCommittee white paper (J Am Renetta Radiol 2018): Any incidental cystic renallesion classified in this report as too small to characterize or simpleappearing is likely a benign cyst. No follow-up imaging is recommended forthese lesions per consensus recommendations based on imaging criteria.Jimmy Worley MD On 07/25/2019 13:25:47; [id number]--Mbrr by: Jimmy Worley MDDictated Date/time: 07/25/19 13:25Electronically [...] ABSOLUTE NEUTROPHILS 1699 {cells/uL} (Normal) R lauren: [phone] ABSOLUTE LYMPHOCYTES 1123 {cells/uL} (Normal) R lauren: [...] HAPTOGLOBIN; To Be Done: 03 Aug 2019 * [QL] LD; To Be Done: 03 Aug 2019 * [QL] SED RATE BY MODIFIED SIERRAREN; To Be Done: 03 Aug 2019 Instructions [...] Problem not documented On: 30-Jul-2019 14:30 Appointment; [place], Mo, M.D. Encounter Diagnosis: Problem not documented On: 03-Aug-2019 12:45
--- OUTSIDE RECORDS SUMMARY | 2019-11-02 19:32 | XMS REPORT | Summary of Care ---
Author OC Coates R.N. Organization Unknown Address Unknown Phone Unavailable Care Team Providers Care Streetcar Starter Name Role Phone BORIS WESLEY APRN Unavailable Unavailable Mart Pompa, Mariah Unavailable Unavailable BORIS WESLEY APRN Unavailable Unavailable HARIS KEANE [place], NIDIA POLK Unavailable Unavailable ELIAS KEANE [place], [place] Rodríguez Unavailable Unavailable RUBY KEANE, KAREN Mckenzie Unavailable Unavailable HARIS Urbano, NDIIA Unavailable Unavailable Robyn KEANE, Jhony Unavailable Unavailable MARYJANE NIXON [place], BORIS Wyatt Unavailable Unavailable Aniceto Ojeda MD, David Unavailable Unavailable MIESHA DO [place], ROCKY Unavailable Unavailable HARIS BELL GA, [...] [QL] ALPHA FETOPROTEIN, TUMOR MARKER Date: 03-Aug-2019 [QL] ABO GROUP AND RH TYPE Date: 07-Aug-2019 [Q] METHYLMALONIC ACID, GC/MS/MS, URINE Date: 16-Jul-2019 [Q] COPPER, RANDOM URINE Date: 16-Jul-2019 CT Abdomen/Pelvis wo contrast 03608 Date: 18-Jul-2019 XRAY Chest 2 views 80637 Date: 18-Jul-2019 History of Renal Lithotripsy Completed History of Oral Surgery Tooth Extraction Completed History of Skin Tag Removal Completed History of Dental Implant Completed Immunization Name Dates Details Prevnar 13 Intramuscular Suspension Lot #: [id number] on: 07-Aug-2014 Fluzone Quadrivalent 0.5 ML Intramuscula r Suspension Lot #: [id number] on: 31-Jan-2015 Fluzone High-Dose 0.5 ML Intramuscular S uspension Prefilled Syringe Lot #: [id number] on: 19-Jan-2017 Pneumococcal polysaccharide vaccine, 23 valent Lot #: [id number] on: 19-Jan-2017 Fluzone Quadrivalent 0.5 ML Intramuscula r Suspension Prefilled Syringe Lot #: [id number] on: 13-Feb-2018 Fluzone High-Dose 0.5 ML Intramuscular S uspension Prefilled Syringe Lot #: [id number] on: 27-Feb-2019 Family History Name Dates Details [...] ABSOLUTE NEUTROPHILS 1850 {cells/uL} (Normal) R lauren: [phone] ABSOLUTE LYMPHOCYTES 983 {cells/uL} (Normal) Ra nge: 850-3900 ABSOLUTE MONOCYTES 320 {cells/uL} (Normal) Rang e: 200-950 ABSOLUTE EOSINOPHILS 207 {cells/uL} (Normal) Ra nge: 15-500 ABSOLUTE BASOPHILS 41 {cells/uL} (Normal) Range : 0-200 NEUTROPHILS 54.4 % (Normal) LYMPHOCYTES 28.9 % (Normal) MONOCYTES 9.4 % (Normal) EOSINOPHILS 6.1 % (Normal) BASOPHILS 1.2 % (Normal) 31-Hla-904331:24 [QL] VITAMIN B12/FOLATE, SERUM PANEL Co mments: Please Note: Although the reference range for ydhaovmQ43 is 200-1100 pg/mL, it has been reported that between5 and 10% of patients with values between 200 and 400pg/mL may experience neuropsychiatric and hematologicabnormalities due to occult B12 deficiency; less than 1%of patients with values above 400 pg/mL will have symptoms. REPORT COMMENT:FASTING:YES VITAMIN B12 392 pg/ml (Normal) Range: 200-1 100 Comments: Please Note: Although the reference range for qydrysdJ80 is 200-1100 pg/mL, it has been reported [...] 3.2 g/dl (Below low threshold) Range: 3.8-4.8 ZSIHI-5-LODYFZXYR 0.3 g/dl (Normal) Range: 0.2- 0.3 DMUOP-1-PEQVHRTQD 0.8 g/dl (Normal) Range: 0.5- 0.9 BETA [...] MPV 10.0 fL (Normal) Range: 7.5-12. 5 59-Coz-270526:22 [Q] Differential, Manual Comments: REPO RT COMMENT:FASTING:YES ABSOLUTE NEUTROPHILS 3124 {cells/uL} (Normal) R lauren: 5585-0728 ABSOLUTE LYMPHOCYTES 792 {cells/uL} (Below low threshold) Range: 850-3900 ABSOLUTE MONOCYTES 176 {cells/uL} (Below low th reshold) Range: 200-950 ABSOLUTE EOSINOPHILS 264 {cells/uL} (Normal) Ra nge: 15-500 ABSOLUTE BASOPHILS 44 {cells/uL} (Normal) Range : 0-200 NEUTROPHILS 71.0 % (Normal) LYMPHOCYTES 18.0 % (Normal) MONOCYTES 4.0 % (Normal) EOSINOPHILS 6.0 % (Normal) BASOPHILS 1.0 % (Normal) 29-Vri-320359:43 XRAY Chest 2 views 71762 Chest 2 views SEE NOTES Comments: PROCED [...] active disease.Augusto Pope MD On 07/25/2019 11:14:19; [id number]--Avcm by: Augusto Pope MDDictated Date/time: 07/25/19 11:14Electronically Signed by: Augusto Pope MD 07/24/2010:14FINAL REPORT [id number] CT Abdomen/Pelvis wo contrast 86948 Abdomen/Pelvis wo contrast CT SEE NOTES Co [...] the dorsal cortex of the superior pole vilwmsnfy92 mm and the dorso lateral cortex of [...] mild seminal vesicle enlargement.COMMENTS:1. Consistent with the [place] [employer]'s Incidental FindingsCommittee white paper [...] warrantedbased on clinical findings.2. Consistent with the [place] [employer]'s Incidental FindingsCommittee white paper (J Am Renetta Radiol 2018): Any incidental cystic renallesion classified in this report as too small to characterize or simpleappearing is likely a benign cyst. No follow-up imaging is recommended forthese lesions per consensus recommendations based on imaging criteria.Jimmy Worley MD On 07/25/2019 13:25:47; [id number]--Xmwp by: Jimmy Worley MDDictated Date/time: 07/25/19 13:25Electronically [...] ABSOLUTE NEUTROPHILS 1699 {cells/uL} (Normal) R lauren: 9964-6440 ABSOLUTE LYMPHOCYTES 1123 {cells/uL} (Normal) R lauren: [...] M.D. On: 31-Aug-2019 11:30 Interventions Provided Labs/Procedures/Imaging* [QL] ABO GROUP AND RH TYPE; To Be Done: 07 Aug 2019 Instructions Name Dates Details Instructions [...]
--- OUTSIDE RECORDS SUMMARY | 2019-11-02 19:32 | XMS REPORT | Summary of Care ---
Author OC Perdomo M.D. Organization Unknown Address Unknown Phone Unavailable Care Team Providers Care Insole Doubler Name Role Phone BORIS WESLEY APRN Unavailable Unavailable HARIS Urbano, NIDIA Unavailable Unavailable BORIS WESLEY APRN Unavailable Unavailable HARIS KEANE [place], NIDIA POLK Unavailable Unavailable RUBY KEANE, KAREN Mckenzie Unavailable Unavailable Robyn KEANE, Jhony Unavailable Unavailable MARYJANE NIXON [place], BORIS Wyatt Unavailable Unavailable Aniceto Ojeda MD, David Unavailable Unavailable MIESHA COPPOLA [place], ROCKY Unavailable Unavailable HARIS BELL [place], JAMEY Unavailable Unavailable Unavailable Unavailable Functional Status [...] APRN * Start : 15-Mar-2018 Active Nystatin-Triamcinolone 013433-6.1 UNIT/GM-% External Cream APPLY SPARINGLY TO AFFECTED [...] W/EGFR Date: 25-Jul-2019 CT Abdomen/Pelvis wo contrast 87257 Date: 18-Jul-2019 XRAY Chest 2 views 94760 Date: 18-Jul-2019 History of Renal Lithotripsy Completed History of Oral Surgery Tooth Extraction Completed History of Skin Tag Removal Completed History of Dental Implant Completed Immunization Name Dates Details Prevnar 13 Intramuscular Suspension Lot #: [id number] on: 07-Aug-2014 Fluzone Quadrivalent 0.5 ML Intramuscula r Suspension Lot #: [id number] on: 31-Jan-2015 Fluzone High-Dose 0.5 ML Intramuscular S uspension Prefilled Syringe Lot #: [id number] on: 19-Jan-2017 Pneumococcal polysaccharide vaccine, 23 valent Lot #: [id number] on: 19-Jan-2017 Fluzone Quadrivalent 0.5 ML Intramuscula r Suspension Prefilled Syringe Lot #: [id number] on: 13-Feb-2018 Fluzone High-Dose 0.5 ML Intramuscular S uspension Prefilled Syringe Lot #: [id number] on: 27-Feb-2019 Family History Name Dates Details [...] tatus: Body temperature 97.8 f Status: Comments: Ca thod: Temporal Heart Rate 62 /min Status: [...] ABSOLUTE NEUTROPHILS 1850 {cells/uL} (Normal) R lauren: 0705-5426 ABSOLUTE LYMPHOCYTES 983 {cells/uL} (Normal) Ra nge: [...] Please Note: Although the reference range for xukrtjwO56 is 200-1100 pg/mL, it has been reported that between5 and 10% of patients with values between 200 and 400pg/mL may experience neuropsychiatric and hematologicabnormalities due to occult B12 deficiency; less than 1%of patients with values above 400 pg/mL will have symptoms. REPORT COMMENT:FASTING:YES VITAMIN B12 392 pg/ml (Normal) Range: 200-1 100 Comments: Please Note: Although the reference range for vmjccycG05 is 200-1100 pg/mL, it has been reported [...] 3.2 g/dl (Below low threshold) Range: 3.8-4.8 OELIF-3-TNYDIORCI 0.3 g/dl (Normal) Range: 0.2- 0.3 WQZGP-1-NNLATRMCQ 0.8 g/dl (Normal) Range: 0.5- 0.9 BETA [...] MPV 10.0 fL (Normal) Range: 7.5-12. 5 72-Frp-478206:22 [Q] Differential, Manual Comments: REPO RT COMMENT:FASTING:YES ABSOLUTE NEUTROPHILS 3124 {cells/uL} (Normal) R lauren: [phone] ABSOLUTE LYMPHOCYTES 792 {cells/uL} (Below low threshold) Range: 850-3900 ABSOLUTE MONOCYTES 176 {cells/uL} (Below low th reshold) Range: 200-950 ABSOLUTE EOSINOPHILS 264 {cells/uL} (Normal) Ra nge: 15-500 ABSOLUTE BASOPHILS 44 {cells/uL} (Normal) Range : 0-200 NEUTROPHILS 71.0 % (Normal) LYMPHOCYTES 18.0 % (Normal) MONOCYTES 4.0 % (Normal) EOSINOPHILS 6.0 % (Normal) BASOPHILS 1.0 % (Normal) 14-Ybl-234517:43 XRAY Chest 2 views 69373 Chest 2 views SEE NOTES Comments: PROCED [...] active disease.Augusto Pope MD On 07/25/2019 11:14:19; [id number]--Sdhi by: Augusto Pope MDDictated Date/time: 07/25/19 11:14Electronically Signed by: Augusto Pope MD 07/24/2010:14FINAL REPORT [id number] CT Abdomen/Pelvis wo contrast 81966 Abdomen/Pelvis wo contrast CT SEE NOTES Co [...] the dorsal cortex of the superior pole ikvbinoyg82 mm and the dorso lateral cortex of [...] imaging criteria.Jimmy Worley MD On 07/25/2019 13:25:47; [id number]--Hnnh by: Jimmy Worley MDDictated Date/time: 07/25/19 13:25Electronically Signed by: Jimmy Worley MD 07/24/2012:25FINAL REPORT [id number] [QL] PROTEIN, TOTAL W/CREAT, 24 HOUR URI [...]
--- OUTSIDE RECORDS SUMMARY | 2019-11-02 19:32 | XMS REPORT | Summary of Care ---
Author Author [facility] Address [address] [place] [address] Phone Unavailable Care Team Providers Care Ice Cream Chef Name Role Phone BORIS WESLEY APRN Unavailable Unavailable HARIS Urbano, NIDIA Unavailable Unavailable BORIS WESLEY APRN Unavailable Unavailable HARIS KEANE [place], NIDIA POLK Unavailable Unavailable RUBY KEANE, KAREN Mckenzie Unavailable Unavailable Robyn KEANE, Jhony Unavailable Unavailable MARYJANE NIXON [place], BORIS Wyatt Unavailable Unavailable Aniceto Ojeda MD, David Unavailable Unavailable MIESHA DO [place], ROCKY Unavailable Unavailable HARIS BELL [place], JAMEY Unavailable Unavailable Unavailable Unavailable Functional Status [...] Start : 16-Aug-2016 Active 15.8 ML Bottle Olmesartan Medoxomil 40 MG Oral Tablet TAKE [...] APRN * Start : 15-Mar-2018 Active Nystatin-Triamcinolone 538548-2.1 UNIT/GM-% External Cream APPLY SPARINGLY TO AFFECTED [...] WESLEY APRN * Start : 22-Aug-2018 Active Naproxen 500 MG Oral Tablet TAKE [...] WESLEY APRN * Start : 30-Nov-2018 Active Allopurinol 300 MG Oral Tablet TAKE 1 TABLET BY MOUTH DAILY * Quantity: 90 Refills: 3 BORIS WESLEY APRN Start : 26-Oct-2017 Active Motrin TABS TAKE [...] W/EGFR Date: 25-Jul-2019 CT Abdomen/Pelvis wo contrast 71293 Date: 18-Jul-2019 XRAY Chest 2 views 40728 Date: 18-Jul-2019 History of Renal Lithotripsy Completed History of Oral Surgery Tooth Extraction Completed History of Skin Tag Removal Completed History of Dental Implant Completed Immunization Name Dates Details Prevnar 13 Intramuscular Suspension Lot #: [id number] on: 07-Aug-2014 Fluzone Quadrivalent 0.5 ML Intramuscula r Suspension Lot #: [id number] on: 31-Jan-2015 Fluzone High-Dose 0.5 ML Intramuscular S uspension Prefilled Syringe Lot #: [id number] on: 19-Jan-2017 Pneumococcal polysaccharide vaccine, 23 valent Lot #: [id number] on: 19-Jan-2017 Fluzone Quadrivalent 0.5 ML Intramuscula r Suspension Prefilled Syringe Lot #: [id number] on: 13-Feb-2018 Fluzone High-Dose 0.5 ML Intramuscular S uspension Prefilled Syringe Lot #: [id number] on: 27-Feb-2019 Family History Name Dates Details [...] tatus: Body temperature 97.8 f Status: Comments: Il thod: Temporal Heart Rate 62 /min Status: [...] ABSOLUTE NEUTROPHILS 1850 {cells/uL} (Normal) R lauren: 9032-0795 ABSOLUTE LYMPHOCYTES 983 {cells/uL} (Normal) Ra nge: [...] Please Note: Although the reference range for ylebwloJ95 is 200-1100 pg/mL, it has been reported that between5 and 10% of patients with values between 200 and 400pg/mL may experience neuropsychiatric and hematologicabnormalities due to occult B12 deficiency; less than 1%of patients with values above 400 pg/mL will have symptoms. REPORT COMMENT:FASTING:YES VITAMIN B12 392 pg/ml (Normal) Range: 200-1 100 Comments: Please Note: Although the reference range for hgjecvmF81 is 200-1100 pg/mL, it has been reported [...] 3.2 g/dl (Below low threshold) Range: 3.8-4.8 OLQTU-0-OKOHTPMZH 0.3 g/dl (Normal) Range: 0.2- 0.3 EBAFM-3-FZOGKGVXN 0.8 g/dl (Normal) Range: 0.5- 0.9 BETA [...] MPV 10.0 fL (Normal) Range: 7.5-12. 5 93-Fpp-[id number]:22 [Q] Differential, Manual Comments: REPO RT COMMENT:FASTING:YES ABSOLUTE NEUTROPHILS 3124 {cells/uL} (Normal) R lauren: 5931-6634 ABSOLUTE LYMPHOCYTES 792 {cells/uL} (Below low threshold) Range: 850-3900 ABSOLUTE MONOCYTES 176 {cells/uL} (Below low th reshold) Range: 200-950 ABSOLUTE EOSINOPHILS 264 {cells/uL} (Normal) Ra nge: 15-500 ABSOLUTE BASOPHILS 44 {cells/uL} (Normal) Range : 0-200 NEUTROPHILS 71.0 % (Normal) LYMPHOCYTES 18.0 % (Normal) MONOCYTES 4.0 % (Normal) EOSINOPHILS 6.0 % (Normal) BASOPHILS 1.0 % (Normal) 69-[id number]:43 XRAY Chest 2 views 50343 Chest 2 views SEE NOTES Comments: PROCED [...] active disease.Augusto Pope MD On 07/25/2019 11:14:19; [id number]--Ffdn by: Augusto Pope MDDictated Date/time: 07/25/19 11:14Electronically Signed by: Augusto Pope MD 07/24/2010:14FINAL REPORT [id number] CT Abdomen/Pelvis wo contrast 58093 Abdomen/Pelvis wo contrast CT SEE NOTES Co [...] the dorsal cortex of the superior pole zihisueuq43 mm and the dorso lateral cortex of [...] mild seminal vesicle enlargement.COMMENTS:1. Consistent with the [employer]'s Incidental FindingsCommittee white paper [...] warrantedbased on clinical findings.2. Consistent with the [employer]'s Incidental FindingsCommittee white paper (J Am Renetta Radiol 2018): Any incidental cystic renallesion classified in this report as too small to characterize or simpleappearing is likely a benign cyst. No follow-up imaging is recommended forthese lesions per consensus recommendations based on imaging criteria.Jimmy Worley MD On 07/25/2019 13:25:47; [id number]--Sofa by: Jimmy Worley MDDictated Date/time: 07/25/19 13:25Electronically Signed by: Jimmy Worley MD 07/24/2012:25FINAL REPORT [id number] [QL] PROTEIN, TOTAL W/CREAT, 24 HOUR URI [...] ABSOLUTE NEUTROPHILS 1699 {cells/uL} (Normal) R lauren: [phone] ABSOLUTE LYMPHOCYTES 1123 {cells/uL} (Normal) R lauren: [...]
--- OUTSIDE RECORDS SUMMARY | 2019-11-02 19:33 | XMS REPORT | Summary of Care ---
Author OC Mendoza M.D. Organization Unknown Address [facility] Phone Unavailable Care Team Providers Care Nutrition Professor Name Role Phone BORIS WESLEY APRN Unavailable Unavailable BORIS WESLEY APRN Unavailable Unavailable HARIS KEANE [place], NIDIA POLK Unavailable Unavailable ELIAS KEANE [place], [place] Rodríguez Unavailable Unavailable RUBY KEANE, KAREN Mckenzie Unavailable Unavailable HARIS Urbano, NIDIA Unavailable Unavailable Robyn KEANE, Jhony Unavailable Unavailable MARYJANE NIXON [place], BORIS Wyatt Unavailable Unavailable Aniceto Ojeda MD, David Unavailable Unavailable MIESHA DO [place], ROCKY Unavailable Unavailable HARIS BELL [place], JAMEY Unavailable Unavailable Unavailable Unavailable Functional Status [...] TAKE 1 TABLET DAILY. * Refills: 0 M.A. 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 CT Abdomen/Pelvis wo contrast 54525 Date: 18-Jul-2019 XRAY Chest 2 views 31092 Date: 18-Jul-2019 History of Renal Lithotripsy Completed History of Oral Surgery Tooth Extraction Completed History of Skin Tag Removal Completed History of Dental Implant Completed Immunization Name Dates Details Prevnar 13 Intramuscular Suspension Lot #: [id number] on: 07-Aug-2014 Fluzone Quadrivalent 0.5 ML Intramuscula r Suspension Lot #: [id number] on: 31-Jan-2015 Fluzone High-Dose 0.5 ML Intramuscular S uspension Prefilled Syringe Lot #: [id number] on: 19-Jan-2017 Pneumococcal polysaccharide vaccine, 23 valent Lot #: [id number] on: 19-Jan-2017 Fluzone Quadrivalent 0.5 ML Intramuscula r Suspension Prefilled Syringe Lot #: [id number] on: 13-Feb-2018 Fluzone High-Dose 0.5 ML Intramuscular S uspension Prefilled Syringe Lot #: [id number] on: 27-Feb-2019 Family History Name Dates Details [...] ABSOLUTE NEUTROPHILS 1850 {cells/uL} (Normal) R lauren: 4096-2903 ABSOLUTE LYMPHOCYTES 983 {cells/uL} (Normal) Ra nge: [...] Please Note: Although the reference range for wmeegtsL14 is 200-1100 pg/mL, it has been reported that between5 and 10% of patients with values between 200 and 400pg/mL may experience neuropsychiatric and hematologicabnormalities due to occult B12 deficiency; less than 1%of patients with values above 400 pg/mL will have symptoms. REPORT COMMENT:FASTING:YES VITAMIN B12 392 pg/ml (Normal) Range: 200-1 100 Comments: Please Note: Although the reference range for peycqlkR11 is 200-1100 pg/mL, it has been reported [...] 3.2 g/dl (Below low threshold) Range: 3.8-4.8 DQRAH-3-TWVDZQXHB 0.3 g/dl (Normal) Range: 0.2- 0.3 EGJNV-7-FPTXIOVHI 0.8 g/dl (Normal) Range: 0.5- 0.9 BETA [...] MPV 10.0 fL (Normal) Range: 7.5-12. 5 79-[id number]:22 [Q] Differential, Manual Comments: REPO RT COMMENT:FASTING:YES ABSOLUTE NEUTROPHILS 3124 {cells/uL} (Normal) R lauren: 5316-0689 ABSOLUTE LYMPHOCYTES 792 {cells/uL} (Below low threshold) Range: 850-3900 ABSOLUTE MONOCYTES 176 {cells/uL} (Below low th reshold) Range: 200-950 ABSOLUTE EOSINOPHILS 264 {cells/uL} (Normal) Ra nge: 15-500 ABSOLUTE BASOPHILS 44 {cells/uL} (Normal) Range : 0-200 NEUTROPHILS 71.0 % (Normal) LYMPHOCYTES 18.0 % (Normal) MONOCYTES 4.0 % (Normal) EOSINOPHILS 6.0 % (Normal) BASOPHILS 1.0 % (Normal) 24-Zbk-[id number]:43 XRAY Chest 2 views 76989 Chest 2 views SEE NOTES Comments: PROCED [...] active disease.Augusto Pope MD On 07/25/2019 11:14:19; [id number] by: Augusto Pope MDDictated Date/time: 07/25/19 11:14Electronically Signed by: Augusto Pope MD 07/24/2010:14FINAL REPORT [id number] CT Abdomen/Pelvis wo contrast 31091 Abdomen/Pelvis wo contrast CT SEE NOTES Co [...] the dorsal cortex of the superior pole suxhwjqil04 mm and the dorso lateral cortex of [...] mild seminal vesicle enlargement.COMMENTS:1. Consistent with the [employer]'s Incidental FindingsCommittee white paper [...] warrantedbased on clinical findings.2. Consistent with the [employer]'s Incidental FindingsCommittee white paper (J Am Renetta Radiol 2018): Any incidental cystic renallesion classified in this report as too small to characterize or simpleappearing is likely a benign cyst. No follow-up imaging is recommended forthese lesions per consensus recommendations based on imaging criteria.Jimmy Worley MD On 07/25/2019 13:25:47; [id number]--Zfgo by: Jimmy Worley MDDictated Date/time: 07/25/19 13:25Electronically [...] ABSOLUTE NEUTROPHILS 1699 {cells/uL} (Normal) R lauren: [phone] ABSOLUTE LYMPHOCYTES 1123 {cells/uL} (Normal) R lauren: 850-3900 ABSOLUTE MONOCYTES 403 {cells/uL} (Normal) Rang e: 200-950 ABSOLUTE EOSINOPHILS 313 {cells/uL} (Normal) Ra nge: 15-500 ABSOLUTE BASOPHILS 61 {cells/uL} (Normal) Range : 0-200 NEUTROPHILS 47.2 % (Normal) LYMPHOCYTES 31.2 % (Normal) MONOCYTES 11.2 % (Normal) EOSINOPHILS 8.7 % (Normal) BASOPHILS 1.7 % (Normal) :39 [QL] LD LD 115 u/l (Below low threshold) R lauren: 120-250 :39 [QL] SED RATE BY MODIFIED WESTERGREN SED RATE BY MODIFIED WESTERGREN 72 mm/h (Above high threshold) Range: < OR = 20 :39 [QL] HAPTOGLOBIN HAPTOGLOBIN 188 mg/dl (Normal) Range: 43-21 2 :39 [QL] C-REACTIVE PROTEIN C-REACTIVE PROTEIN 16.9 mg/L (Above high thresh old) Range: <8.0 :39 [QL] ALPHA FETOPROTEIN, TUMOR MARKER Co mments: REPORT COMMENT:FASTING:NO ALPHA FETOPROTEIN, TUMOR MARKER 1.9 ng/ml (Norm al) Range: <6.1 Comments: This test was performed using the Carlos Coulterchemiluminescent method. Values obtained fromdifferent assay methods cannot be usedinterchangeably. AFP levels, regardless ofvalue, should not be interpreted as absoluteevidence of the presence or absence of disease. Plan of Care Name Dates Details Planned [...]
--- OUTSIDE RECORDS SUMMARY | 2019-11-02 19:33 | XMS REPORT | Summary of Care ---
Author Author WINSTON Urbano, OC Wyatt Organization Unknown Address [facility] Phone Unavailable Care Team Providers Care Glaze Carrier Name Role Phone WINSTON Urbano, ESTELLE Unavailable Unavailable BORIS WESLEY APRN Unavailable Unavailable MARYJANE OCAMPO, BORIS Franklin Unavailable Unavailable HARIS KEANE [place], NIDIA POLK Unavailable Unavailable ELIAS KEANE [place], [place] Rodríguez Unavailable Unavailable RUBY KEANE, KAREN Mckenzie Unavailable Unavailable HARIS Urbano, NIDIA Unavailable Unavailable Robyn KEANE, Jhony Unavailable Unavailable MARYJANE NIXON [place], BORIS Wyatt Unavailable Unavailable Aniceto Ojeda MD, David Unavailable Unavailable MIESHA DO [place], R[place]Y Unavailable Unavailable HARIS BELL [place], JAMEY [...] Status: Active Anemia (285.9, D64.9) Status: Active Adrenal adenoma (227.0, D35.00) Status: Active Medications Name Dates Details PARoxetine [...] 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 LC/MS/MS, 24 HR URINE Date: [QL] METANEPHRINES, FRACT, LC/MS/MS, PLASMA Date: 0 [QL] CORTISOL, A.M. Date: 09-Aug-2019 [QL] URINALYSIS, COMPLETE W/REFLEX TO CULTURE Date: 09-Aug-19 20 [Q] METHYLMALONIC ACID, GC/MS/MS, URINE Date: 16-Jul-2019 [Q] COPPER, RANDOM URINE Date: 16-Jul-2019 CT Abdomen/Pelvis wo contrast 86919 Date: 18-Jul-2019 XRAY Chest 2 views 77079 Date: 18-Jul-2019 History of Renal Lithotripsy Completed History of Oral Surgery Tooth Extraction Completed History of Skin Tag Removal Completed History of Dental Implant Completed Immunization Name Dates Details Prevnar 13 Intramuscular Suspension Lot #: [id number] on: 07-Aug-2014 Fluzone Quadrivalent 0.5 ML Intramuscula r Suspension Lot #: [id number] on: 31-Jan-2015 Fluzone High-Dose 0.5 ML Intramuscular S uspension Prefilled Syringe Lot #: [id number] on: 19-Jan-2017 Pneumococcal polysaccharide vaccine, 23 valent Lot #: [id number] on: 19-Jan-2017 Fluzone Quadrivalent 0.5 ML Intramuscula r Suspension Prefilled Syringe Lot #: [id number] on: 13-Feb-2018 Fluzone High-Dose 0.5 ML Intramuscular S uspension Prefilled Syringe Lot #: [id number] on: 27-Feb-2019 Family History Name Dates Details [...] Status: Body temperature 97.8 f Status: Comments: Sd thod: Temporal Respiratory rate 14 /min Status: [...] ABSOLUTE NEUTROPHILS 1850 {cells/uL} (Normal) R lauren: 2152-6480 ABSOLUTE LYMPHOCYTES 983 {cells/uL} (Normal) Ra nge: [...] Please Note: Although the reference range for ovgqnqwX03 is 200-1100 pg/mL, it has been reported that between5 and 10% of patients with values between 200 and 400pg/mL may experience neuropsychiatric and hematologicabnormalities due to occult B12 deficiency; less than 1%of patients with values above 400 pg/mL will have symptoms. REPORT COMMENT:FASTING:YES VITAMIN B12 392 pg/ml (Normal) Range: 200-1 100 Comments: Please Note: Although the reference range for irucqlaM38 is 200-1100 pg/mL, it has been reported [...] 3.2 g/dl (Below low threshold) Range: 3.8-4.8 RMBJM-5-GHIROUVXK 0.3 g/dl (Normal) Range: 0.2- 0.3 RFFKZ-9-SMSJAJTTU 0.8 g/dl (Normal) Range: 0.5- 0.9 BETA [...] MPV 10.0 fL (Normal) Range: 7.5-12. 5 59-Icl-[id number]:22 [Q] Differential, Manual Comments: REPO RT COMMENT:FASTING:YES ABSOLUTE NEUTROPHILS 3124 {cells/uL} (Normal) R lauren: 9295-9045 ABSOLUTE LYMPHOCYTES 792 {cells/uL} (Below low threshold) Range: 850-3900 ABSOLUTE MONOCYTES 176 {cells/uL} (Below low th reshold) Range: 200-950 ABSOLUTE EOSINOPHILS 264 {cells/uL} (Normal) Ra nge: 15-500 ABSOLUTE BASOPHILS 44 {cells/uL} (Normal) Range : 0-200 NEUTROPHILS 71.0 % (Normal) LYMPHOCYTES 18.0 % (Normal) MONOCYTES 4.0 % (Normal) EOSINOPHILS 6.0 % (Normal) BASOPHILS 1.0 % (Normal) 54-Dbx-291490:43 XRAY Chest 2 views 09616 Chest 2 views SEE NOTES Comments: PROCED [...] active disease.Augusto Pope MD On 07/25/2019 11:14:19; [id number] by: Augusto Pope MDDictated Date/time: 07/25/19 11:14Electronically Signed by: Augusto Pope MD 07/24/2010:14FINAL REPORT [id number] CT Abdomen/Pelvis wo contrast 28703 Abdomen/Pelvis wo contrast CT SEE NOTES Co [...] the dorsal cortex of the superior pole owctqoiqy22 mm and the dorso lateral cortex of [...] mild seminal vesicle enlargement.COMMENTS:1. Consistent with the [employer]'s Incidental FindingsCommittee white paper [...] warrantedbased on clinical findings.2. Consistent with the [employer]'s Incidental FindingsCommittee white paper (J Am Renetta Radiol 2018): Any incidental cystic renallesion classified in this report as too small to characterize or simpleappearing is likely a benign cyst. No follow-up imaging is recommended forthese lesions per consensus recommendations based on imaging criteria.Jimmy Worley MD On 07/25/2019 13:25:47; [id number] by: Jimmy Worley MDDictated Date/time: 07/25/19 13:25Electronically Signed by: Jimmy Worley MD 07/24/2012:25FINAL REPORT [id number] [QL] PROTEIN, TOTAL W/CREAT, 24 HOUR URI [...] ABSOLUTE NEUTROPHILS 1699 {cells/uL} (Normal) R lauren: 3745-3268 ABSOLUTE LYMPHOCYTES 1123 {cells/uL} (Normal) R lauren: [...] mg/L (Above high thresh old) Range: <8.0 [id number]-Wgi-[id number]:39 [QL] ALPHA FETOPROTEIN, TUMOR MARKER Co mments: [...] M.D. On: 31-Aug-2019 11:30 Interventions Provided Labs/Procedures/Imaging* [L] Renin Activity and Aldosterone; To Be Done: 09 Aug 2019 * [L] Renin, Plasma; To Be Done: 09 Aug 2019 * [QL] CORTISOL, A.M.; To Be Done: 09 Aug 2019 * [QL] METANEPHRINES, FRACT, LC/MS/MS, PLASMA; To Be Done: 09 Aug 2019 * [QL] METANEPHRINES, FRACT. LC/MS/MS, 24 HR URINE; To Be Done: 09 Aug 2019 * [QL] URINALYSIS, COMPLETE W/REFLEX TO CULTURE; To Be Done: 09 Aug 2019 Discussion/Summary* # CKD * 2/2 DM , HTN * Cr stable 1.6 * # Proteinuria * UPC 5mg/mg * referred for kidney biopsy * UA * # Hypertension * stable * on hydralazine, Coreg, amlodipine, olmesartan * # Adrenal adenoma * order urine metanephrine, plasma free metanephrine, renin, aldosterone, cortisol. Instructions Name Dates Details Instructions not documented [...] Diagnosis: Problem not documented On: 03-Aug-2019 12:45 Appointment; ESTELLE MONTERO M.D. Encounter Diagnosis: Problem not documented On: 09-Aug-2019 15:45
--- OUTSIDE RECORDS SUMMARY | 2019-11-02 19:33 | XMS REPORT | Summary of Care ---
Author OC Christopher Organization Unknown Address Unknown Phone Unavailable Care Team Providers Care Lamina Searcher Name Role Phone Juan GOLD, Chayo Unavailable Unavailable MARYJANE OCAMPO, BORIS Unavailable Unavailable MARYJANE OCAMPO, BORIS Franklin Unavailable Unavailable HARIS KEANE [place], NIDIA POLK Unavailable Unavailable ELIAS KEANE [place], [place] Rodríguez Unavailable Unavailable RUBY KEANE, KAREN [...] CONGENITAL) Date: 03-Aug-2019 CT Abdomen/Pelvis wo contrast 32137 Date: 18-Jul-2019 XRAY Chest 2 views [id number] Date: 18-Jul-2019 History of Renal Lithotripsy Completed History of Oral Surgery Tooth Extraction Completed History of Skin Tag Removal Completed History of Dental Implant Completed Immunization Name Dates Details Prevnar 13 Intramuscular Suspension Lot #: [id number] on: 07-Aug-2014 Fluzone Quadrivalent 0.5 ML Intramuscula r Suspension Lot #: [id number] on: 31-Jan-2015 Fluzone High-Dose 0.5 ML Intramuscular S uspension Prefilled Syringe Lot #: [id number] on: 19-Jan-2017 Pneumococcal polysaccharide vaccine, 23 valent Lot #: [id number] on: 19-Jan-2017 Fluzone Quadrivalent 0.5 ML Intramuscula r Suspension Prefilled Syringe Lot #: [id number] on: 13-Feb-2018 Fluzone High-Dose 0.5 ML Intramuscular S uspension Prefilled Syringe Lot #: [id number] on: 27-Feb-2019 Family History Name Dates Details [...] pressure 54 mm[Hg] Status: Comment s: Location: E; Position: [...] Status: Body temperature 97.8 f Status: Comments: Mn thod: Temporal Respiratory rate 14 /min Status: [...] ABSOLUTE NEUTROPHILS 1850 {cells/uL} (Normal) R lauren: 5047-2026 ABSOLUTE LYMPHOCYTES 983 {cells/uL} (Normal) Ra nge: [...] Please Note: Although the reference range for truvgriT29 is 200-1100 pg/mL, it has been reported that between5 and 10% of patients with values between 200 and 400pg/mL may experience neuropsychiatric and hematologicabnormalities due to occult B12 deficiency; less than 1%of patients with values above 400 pg/mL will have symptoms. REPORT COMMENT:FASTING:YES VITAMIN B12 392 pg/ml (Normal) Range: 200-1 100 Comments: Please Note: Although the reference range for ztjmrkyW64 is 200-1100 pg/mL, it has been reported [...] 3.2 g/dl (Below low threshold) Range: 3.8-4.8 DEMEX-2-QSLDIJRWV 0.3 g/dl (Normal) Range: 0.2- 0.3 BZWYB-6-UCZNUYFDN 0.8 g/dl (Normal) Range: 0.5- 0.9 BETA [...] MPV 10.0 fL (Normal) Range: 7.5-12. 5 53-Vbs-817273:22 [Q] Differential, Manual Comments: REPO RT COMMENT:FASTING:YES ABSOLUTE NEUTROPHILS 3124 {cells/uL} (Normal) R lauren: 1881-0592 ABSOLUTE LYMPHOCYTES 792 {cells/uL} (Below low threshold) Range: 850-3900 ABSOLUTE MONOCYTES 176 {cells/uL} (Below low th reshold) Range: 200-950 ABSOLUTE EOSINOPHILS 264 {cells/uL} (Normal) Ra nge: 15-500 ABSOLUTE BASOPHILS 44 {cells/uL} (Normal) Range : 0-200 NEUTROPHILS 71.0 % (Normal) LYMPHOCYTES 18.0 % (Normal) MONOCYTES 4.0 % (Normal) EOSINOPHILS 6.0 % (Normal) BASOPHILS 1.0 % (Normal) 65-Iru-997771:43 XRAY Chest 2 views 98546 Chest 2 views SEE NOTES Comments: PROCED [...] active disease.Augusto Pope MD On 07/25/2019 11:14:19; [id number]--[id number] by: Augusto Pope MDDictated Date/time: 07/25/19 11:14Electronically Signed by: Augusto Pope MD 07/24/2010:14FINAL REPORT [id number]:50 CT Abdomen/Pelvis wo contrast 95038 Abdomen/Pelvis wo contrast CT SEE NOTES Co [...] the dorsal cortex of the superior pole vabyxfbnu99 mm and the dorso lateral cortex of [...] mild seminal vesicle enlargement.COMMENTS:1. Consistent with the [employer] [place] [employer]'s Incidental FindingsCommittee white paper [...] warrantedbased on clinical findings.2. Consistent with the [place] [employer]'s Incidental FindingsCommittee white paper (J Am Renetta Radiol 2018): Any incidental cystic renallesion classified in this report as too small to characterize or simpleappearing is likely a benign cyst. No follow-up imaging is recommended forthese lesions per consensus recommendations based on imaging criteria.Jimmy Worley MD On 07/25/2019 13:25:47; [id number]--[id number] by: Jimmy Worley MDDictated Date/time: 07/25/19 13:25Electronically [...] ABSOLUTE NEUTROPHILS 1699 {cells/uL} (Normal) R lauren: 3520-6326 ABSOLUTE LYMPHOCYTES 1123 {cells/uL} (Normal) R lauren: [...] not documented Planned Encounters Nephrology Referral Appointment; ESTELLE MONTERO M.D. On: 09-Aug-2019 15:45 [...]
--- OUTSIDE RECORDS SUMMARY | 2019-11-02 19:33 | XMS REPORT | Summary of Care ---
Author OC Mendoza M.D. Organization Unknown Address [facility] Phone Unavailable Care Team Providers Care Deputy Insurance Commissioner Name Role Phone BORIS WESLEY APRN Unavailable Unavailable BORIS WESLEY APRN Unavailable Unavailable HARIS KEANE [place], NIDIA POLK Unavailable Unavailable ELIAS KEANE [place], [place] Rodríguez Unavailable Unavailable RUBY KEANE, KAREN Mckenzie Unavailable Unavailable HARIS Urbano, NIDIA Unavailable Unavailable Robyn KEANE, Jhony Unavailable Unavailable MARYJANE NIXON [place], BORIS Wyatt Unavailable Unavailable Aniceto Ojeda MD, David Unavailable Unavailable MIESHA DO [place], [place] Unavailable Unavailable HARIS BELL [place], JAMEY [...] (NUTRITIONAL A ND CONGENITAL) Date: 03-Aug-2019 [QL] ALPHA FETOPROTEIN, TUMOR MARKER Date: 03-Aug-2019 CT Abdomen/Pelvis wo contrast 65411 Date: 18-Jul-2019 XRAY Chest 2 views 41454 Date: 18-Jul-2019 History of Renal Lithotripsy Completed History of Oral Surgery Tooth Extraction Completed History of Skin Tag Removal Completed History of Dental Implant Completed Immunization Name Dates Details Prevnar 13 Intramuscular Suspension Lot #: [id number] on: 07-Aug-2014 Fluzone Quadrivalent 0.5 ML Intramuscula r Suspension Lot #: [id number] on: 31-Jan-2015 Fluzone High-Dose 0.5 ML Intramuscular S uspension Prefilled Syringe Lot #: [id number] on: 19-Jan-2017 Pneumococcal polysaccharide vaccine, 23 valent Lot #: [id number] on: 19-Jan-2017 Fluzone Quadrivalent 0.5 ML Intramuscula r Suspension Prefilled Syringe Lot #: [id number] on: 13-Feb-2018 Fluzone High-Dose 0.5 ML Intramuscular S uspension Prefilled Syringe Lot #: [id number] on: 27-Feb-2019 Family History Name Dates Details [...] ABSOLUTE NEUTROPHILS 1850 {cells/uL} (Normal) R lauren: 3909-6770 ABSOLUTE LYMPHOCYTES 983 {cells/uL} (Normal) Ra nge: 850-3900 ABSOLUTE MONOCYTES 320 {cells/uL} (Normal) Rang e: 200-950 ABSOLUTE EOSINOPHILS 207 {cells/uL} (Normal) Ra nge: 15-500 ABSOLUTE BASOPHILS 41 {cells/uL} (Normal) Range : 0-200 NEUTROPHILS 54.4 % (Normal) LYMPHOCYTES 28.9 % (Normal) MONOCYTES 9.4 % (Normal) EOSINOPHILS 6.1 % (Normal) BASOPHILS 1.2 % (Normal) 09-Rxc-434185:24 [QL] VITAMIN B12/FOLATE, SERUM PANEL Co mments: Please Note: Although the reference range for qywqsqtD43 is 200-1100 pg/mL, it has been reported that between5 and 10% of patients with values between 200 and 400pg/mL may experience neuropsychiatric and hematologicabnormalities due to occult B12 deficiency; less than 1%of patients with values above 400 pg/mL will have symptoms. REPORT COMMENT:FASTING:YES VITAMIN B12 392 pg/ml (Normal) Range: 200-1 100 Comments: Please Note: Although the reference range for aluiuuwX36 is 200-1100 pg/mL, it has been reported [...] 3.2 g/dl (Below low threshold) Range: 3.8-4.8 BOOVB-9-XRFOVLQPK 0.3 g/dl (Normal) Range: 0.2- 0.3 DXSEU-9-ZNHTOMITF 0.8 g/dl (Normal) Range: 0.5- 0.9 BETA [...] MPV 10.0 fL (Normal) Range: 7.5-12. 5 79-Xbx-009546:22 [Q] Differential, Manual Comments: REPO RT COMMENT:FASTING:YES ABSOLUTE NEUTROPHILS 3124 {cells/uL} (Normal) R lauren: 1065-0430 ABSOLUTE LYMPHOCYTES 792 {cells/uL} (Below low threshold) Range: 850-3900 ABSOLUTE MONOCYTES 176 {cells/uL} (Below low th reshold) Range: 200-950 ABSOLUTE EOSINOPHILS 264 {cells/uL} (Normal) Ra nge: 15-500 ABSOLUTE BASOPHILS 44 {cells/uL} (Normal) Range : 0-200 NEUTROPHILS 71.0 % (Normal) LYMPHOCYTES 18.0 % (Normal) MONOCYTES 4.0 % (Normal) EOSINOPHILS 6.0 % (Normal) BASOPHILS 1.0 % (Normal) 75-Ivr-380392:43 XRAY Chest 2 views 44491 Chest 2 views SEE NOTES Comments: PROCED [...] active disease.Augusto Pope MD On 07/25/2019 11:14:19; [id number]--[id number] by: Augusto Pope MDDictated Date/time: 07/25/19 11:14Electronically Signed by: Augusto Pope MD 07/24/2010:14FINAL REPORT [id number]:50 CT Abdomen/Pelvis wo contrast 68051 Abdomen/Pelvis wo contrast CT SEE NOTES Co [...] the dorsal cortex of the superior pole vqyxfiqxw08 mm and the dorso lateral cortex of [...] mild seminal vesicle enlargement.COMMENTS:1. Consistent with the [place] [employer]'s Incidental FindingsCommittee white paper [...] warrantedbased on clinical findings.2. Consistent with the [place] [employer]'s Incidental FindingsCommittee white paper (J Am Renetta Radiol 2018): Any incidental cystic renallesion classified in this report as too small to characterize or simpleappearing is likely a benign cyst. No follow-up imaging is recommended forthese lesions per consensus recommendations based on imaging criteria.Jimmy Worley MD On 07/25/2019 13:25:47; [id number]--Zvpq by: Jimmy Worley MDDictated Date/time: 07/25/19 13:25Electronically [...] ABSOLUTE NEUTROPHILS 1699 {cells/uL} (Normal) R lauren: 9568-4779 ABSOLUTE LYMPHOCYTES 1123 {cells/uL} (Normal) R lauren: 850-3900 ABSOLUTE MONOCYTES 403 {cells/uL} (Normal) Rang e: 200-950 ABSOLUTE EOSINOPHILS 313 {cells/uL} (Normal) Ra nge: 15-500 ABSOLUTE BASOPHILS 61 {cells/uL} (Normal) Range : 0-200 NEUTROPHILS 47.2 % (Normal) LYMPHOCYTES 31.2 % (Normal) MONOCYTES 11.2 % (Normal) EOSINOPHILS 8.7 % (Normal) BASOPHILS 1.7 % (Normal) 1-Psd-922155:39 [QL] LD LD 115 u/l (Below low threshold) R lauren: 120-250 5-Ipu-800671:39 [QL] SED RATE BY MODIFIED WESTERGREN SED RATE BY MODIFIED WESTERGREN 72 mm/h (Above high threshold) Range: < OR = 20 :39 [QL] HAPTOGLOBIN HAPTOGLOBIN 188 mg/dl (Normal) Range: 43-21 2 :39 [QL] C-REACTIVE PROTEIN C-REACTIVE PROTEIN 16.9 mg/L (Above high thresh old) Range: <8.0 Plan of Care Name Dates Details Planned [...]
--- OUTSIDE RECORDS SUMMARY | 2019-11-02 19:33 | XMS REPORT | Summary of Care ---
Author Author [facility] Address [address] [place] [address] Phone Unavailable Care Team Providers Care Bottle Washer Name Role Phone BORIS WESLEY APRN Unavailable Unavailable BORIS WESLEY APRN Unavailable Unavailable HARIS KEANE [place], NIDIA POLK Unavailable Unavailable ELIAS KEANE [place], [place] Rodríguez Unavailable Unavailable RUBY KEANE, KAREN Mckenzie Unavailable Unavailable HARIS Urbano, NIDIA Unavailable Unavailable Jhony Jones MD Unavailable Unavailable MARYJANE NIXON [place], BORIS Wyatt [...] CONGENITAL) Date: 03-Aug-2019 CT Abdomen/Pelvis wo contrast 89959 Date: 18-Jul-2019 XRAY Chest 2 views 76945 Date: 18-Jul-2019 History of Renal Lithotripsy Completed History of Oral Surgery Tooth Extraction Completed History of Skin Tag Removal Completed History of Dental Implant Completed Immunization Name Dates Details Prevnar 13 Intramuscular Suspension Lot #: [id number] on: 07-Aug-2014 Fluzone Quadrivalent 0.5 ML Intramuscula r Suspension Lot #: [id number] on: 31-Jan-2015 Fluzone High-Dose 0.5 ML Intramuscular S uspension Prefilled Syringe Lot #: [id number] on: 19-Jan-2017 Pneumococcal polysaccharide vaccine, 23 valent Lot #: [id number] on: 19-Jan-2017 Fluzone Quadrivalent 0.5 ML Intramuscula r Suspension Prefilled Syringe Lot #: [id number] on: 13-Feb-2018 Fluzone High-Dose 0.5 ML Intramuscular S uspension Prefilled Syringe Lot #: [id number] on: 27-Feb-2019 Family History Name Dates Details [...] ABSOLUTE NEUTROPHILS 1850 {cells/uL} (Normal) R lauren: 1873-2268 ABSOLUTE LYMPHOCYTES 983 {cells/uL} (Normal) Ra nge: [...] Please Note: Although the reference range for vjgnixdP12 is 200-1100 pg/mL, it has been reported that between5 and 10% of patients with values between 200 and 400pg/mL may experience neuropsychiatric and hematologicabnormalities due to occult B12 deficiency; less than 1%of patients with values above 400 pg/mL will have symptoms. REPORT COMMENT:FASTING:YES VITAMIN B12 392 pg/ml (Normal) Range: 200-1 100 Comments: Please Note: Although the reference range for vzlcgbtP28 is 200-1100 pg/mL, it has been reported [...] 3.2 g/dl (Below low threshold) Range: 3.8-4.8 JCOXY-7-QTSVFBMMC 0.3 g/dl (Normal) Range: 0.2- 0.3 VFUZN-8-EPMWSZNOP 0.8 g/dl (Normal) Range: 0.5- 0.9 BETA [...] MPV 10.0 fL (Normal) Range: 7.5-12. 5 30-Mgd-202495:22 [Q] Differential, Manual Comments: REPO RT COMMENT:FASTING:YES ABSOLUTE NEUTROPHILS 3124 {cells/uL} (Normal) R lauren: 5701-5186 ABSOLUTE LYMPHOCYTES 792 {cells/uL} (Below low threshold) Range: 850-3900 ABSOLUTE MONOCYTES 176 {cells/uL} (Below low th reshold) Range: 200-950 ABSOLUTE EOSINOPHILS 264 {cells/uL} (Normal) Ra nge: 15-500 ABSOLUTE BASOPHILS 44 {cells/uL} (Normal) Range : 0-200 NEUTROPHILS 71.0 % (Normal) LYMPHOCYTES 18.0 % (Normal) MONOCYTES 4.0 % (Normal) EOSINOPHILS 6.0 % (Normal) BASOPHILS 1.0 % (Normal) 85-Dqx-977603:43 XRAY Chest 2 views 19543 Chest 2 views SEE NOTES Comments: PROCED [...] active disease.Augusto Pope MD On 07/25/2019 11:14:19; [id number]--[id number] by: Augusto Pope MDDictated Date/time: 07/25/19 11:14Electronically Signed by: Augusto Pope MD 07/24/2010:14FINAL REPORT [id number] CT Abdomen/Pelvis wo contrast 39914 Abdomen/Pelvis wo contrast CT SEE NOTES Co [...] mild seminal vesicle enlargement.COMMENTS:1. Consistent with the [place] [employer]'s Incidental FindingsCommittee white paper [...] warrantedbased on clinical findings.2. Consistent with the [place] [employer]'s Incidental FindingsCommittee white paper (J Am Renetta Radiol 2018): Any incidental cystic renallesion classified in this report as too small to characterize or simpleappearing is likely a benign cyst. No follow-up imaging is recommended forthese lesions per consensus recommendations based on imaging criteria.Jimmy Worley MD On 07/25/2019 13:25:47; [id number]--Ywgq by: Jimmy Worley MDDictated Date/time: 07/25/19 13:25Electronically [...] ABSOLUTE NEUTROPHILS 1699 {cells/uL} (Normal) R lauren: 4133-4927 ABSOLUTE LYMPHOCYTES 1123 {cells/uL} (Normal) R lauren: [...]
--- OUTSIDE RECORDS SUMMARY | 2019-11-02 19:33 | XMS REPORT | Summary of Care ---
Author OC Mendoza M.D. Organization Unknown Address [facility] Phone Unavailable Care Team Providers Care Manager Public Name Role Phone BORIS WESLEY APRN Unavailable Unavailable BORIS WESLEY APRN Unavailable Unavailable HARIS KEANE [place], NIDIA POLK Unavailable Unavailable ELIAS KEANE [place], [place] Rodríguez Unavailable Unavailable RUBY KEANE, KAREN [...] EVERY DAY * Quantity: 90 Refills: 0 BROIS WESLEY APRN * Start : 29-Mar-2018 Active [...] MARKER Date: 03-Aug-2019 CT Abdomen/Pelvis wo contrast 90028 Date: 18-Jul-2019 XRAY Chest 2 views 17160 Date: 18-Jul-2019 History of Renal Lithotripsy Completed History of Oral Surgery Tooth Extraction Completed History of Skin Tag Removal Completed History of Dental Implant Completed Immunization Name Dates Details Prevnar 13 Intramuscular Suspension Lot #: [id number] on: 07-Aug-2014 Fluzone Quadrivalent 0.5 ML Intramuscula r Suspension Lot #: [id number] on: 31-Jan-2015 Fluzone High-Dose 0.5 ML Intramuscular S uspension Prefilled Syringe Lot #: [id number] on: 19-Jan-2017 Pneumococcal polysaccharide vaccine, 23 valent Lot #: [id number] on: 19-Jan-2017 Fluzone Quadrivalent 0.5 ML Intramuscula r Suspension Prefilled Syringe Lot #: [id number] on: 13-Feb-2018 Fluzone High-Dose 0.5 ML Intramuscular S uspension Prefilled Syringe Lot #: [id number] on: 27-Feb-2019 Family History Name Dates Details [...] Status: Body temperature 97.8 f Status: Comments: Ms thod: Temporal Respiratory rate 14 /min Status: [...] ABSOLUTE NEUTROPHILS 1850 {cells/uL} (Normal) R lauren: 8209-3593 ABSOLUTE LYMPHOCYTES 983 {cells/uL} (Normal) Ra nge: 850-3900 ABSOLUTE MONOCYTES 320 {cells/uL} (Normal) Rang e: 200-950 ABSOLUTE EOSINOPHILS 207 {cells/uL} (Normal) Ra nge: 15-500 ABSOLUTE BASOPHILS 41 {cells/uL} (Normal) Range : 0-200 NEUTROPHILS 54.4 % (Normal) LYMPHOCYTES 28.9 % (Normal) MONOCYTES 9.4 % (Normal) EOSINOPHILS 6.1 % (Normal) BASOPHILS 1.2 % (Normal) 34-Zdp-174407:24 [QL] VITAMIN B12/FOLATE, SERUM PANEL Co mments: Please Note: Although the reference range for xsxxqmvC47 is 200-1100 pg/mL, it has been reported that between5 and 10% of patients with values between 200 and 400pg/mL may experience neuropsychiatric and hematologicabnormalities due to occult B12 deficiency; less than 1%of patients with values above 400 pg/mL will have symptoms. REPORT COMMENT:FASTING:YES VITAMIN B12 392 pg/ml (Normal) Range: 200-1 100 Comments: Please Note: Although the reference range for ajirydeK49 is 200-1100 pg/mL, it has been reported [...] 3.2 g/dl (Below low threshold) Range: 3.8-4.8 AZOMW-7-BDAIWHQPT 0.3 g/dl (Normal) Range: 0.2- 0.3 DQNET-4-FXZJJMQFG 0.8 g/dl (Normal) Range: 0.5- 0.9 BETA [...] MPV 10.0 fL (Normal) Range: 7.5-12. 5 23-Vke-304033:22 [Q] Differential, Manual Comments: REPO RT COMMENT:FASTING:YES ABSOLUTE NEUTROPHILS 3124 {cells/uL} (Normal) R lauren: 9616-7966 ABSOLUTE LYMPHOCYTES 792 {cells/uL} (Below low threshold) Range: 850-3900 ABSOLUTE MONOCYTES 176 {cells/uL} (Below low th reshold) Range: 200-950 ABSOLUTE EOSINOPHILS 264 {cells/uL} (Normal) Ra nge: 15-500 ABSOLUTE BASOPHILS 44 {cells/uL} (Normal) Range : 0-200 NEUTROPHILS 71.0 % (Normal) LYMPHOCYTES 18.0 % (Normal) MONOCYTES 4.0 % (Normal) EOSINOPHILS 6.0 % (Normal) BASOPHILS 1.0 % (Normal) 80-Asn-168927:43 XRAY Chest 2 views 76897 Chest 2 views SEE NOTES Comments: PROCED [...] active disease.Augusto Pope MD On 07/25/2019 11:14:19; [id number]--Yilv by: Augusto Pope MDDictated Date/time: 07/25/19 11:14Electronically Signed by: Augusto Pope MD 07/24/2010:14FINAL REPORT [id number]:50 CT Abdomen/Pelvis wo contrast 54453 Abdomen/Pelvis wo contrast CT SEE NOTES Co [...] the dorsal cortex of the superior pole njbtttujc48 mm and the dorso lateral cortex of [...] imaging criteria.Jimmy Worley MD On 07/25/2019 13:25:47; [id number]--Oncf by: Jimmy Worley MDDictated Date/time: 07/25/19 13:25Electronically [...] ABSOLUTE NEUTROPHILS 1699 {cells/uL} (Normal) R lauren: 3091-8887 ABSOLUTE LYMPHOCYTES 1123 {cells/uL} (Normal) R lauren: 850-3900 ABSOLUTE MONOCYTES 403 {cells/uL} (Normal) Rang e: 200-950 ABSOLUTE EOSINOPHILS 313 {cells/uL} (Normal) Ra nge: 15-500 ABSOLUTE BASOPHILS 61 {cells/uL} (Normal) Range : 0-200 NEUTROPHILS 47.2 % (Normal) LYMPHOCYTES 31.2 % (Normal) MONOCYTES 11.2 % (Normal) EOSINOPHILS 8.7 % (Normal) BASOPHILS 1.7 % (Normal) 6-Bxf-438300:39 [QL] LD LD 115 u/l (Below low threshold) R lauren: 120-250 :39 [QL] SED RATE BY MODIFIED WESTERGREN SED RATE BY MODIFIED WESTERGREN 72 mm/h (Above high threshold) Range: < OR = 20 Plan of Care Name Dates Details Planned [...]
--- OUTSIDE RECORDS SUMMARY | 2019-11-02 19:33 | XMS REPORT | Summary of Care ---
Author OC Mendoza M.D. Organization Unknown Address [facility] Phone Unavailable Care Team Providers Care Salvage Repairer Name Role Phone BORIS WESLEY APRN Unavailable Unavailable BORIS WESLEY APRN Unavailable Unavailable HARIS KEANE [place], NIDIA POLK Unavailable Unavailable ELIAS KEANE [place], [place] Rodríguez Unavailable Unavailable RUBY KEANE, KAREN Mckenzie Unavailable Unavailable HARIS Urbano, NIDIA Unavailable Unavailable Robyn KEANE, Jhony Unavailable Unavailable MARYJANE NIXON [place], BORIS Wyatt Unavailable Unavailable Aniceto Ojeda MD, David Unavailable Unavailable MIESHA DO [place], [place] Unavailable Unavailable HARIS BELL [place], JAMEY [...] Date: 03-Aug-2019 [QL] HAPTOGLOBIN Date: 03-Aug-2019 [QL] ALPHA FETOPROTEIN, TUMOR MARKER Date: 03-Aug-2019 CT Abdomen/Pelvis wo contrast 39018 Date: 18-Jul-2019 XRAY Chest 2 views 90705 Date: 18-Jul-2019 History of Renal Lithotripsy Completed History of Oral Surgery Tooth Extraction Completed History of Skin Tag Removal Completed History of Dental Implant Completed Immunization Name Dates Details Prevnar 13 Intramuscular Suspension Lot #: [id number] on: 07-Aug-2014 Fluzone Quadrivalent 0.5 ML Intramuscula r Suspension Lot #: [id number] on: 31-Jan-2015 Fluzone High-Dose 0.5 ML Intramuscular S uspension Prefilled Syringe Lot #: [id number] on: 19-Jan-2017 Pneumococcal polysaccharide vaccine, 23 valent Lot #: [id number] on: 19-Jan-2017 Fluzone Quadrivalent 0.5 ML Intramuscula r Suspension Prefilled Syringe Lot #: [id number] on: 13-Feb-2018 Fluzone High-Dose 0.5 ML Intramuscular S uspension Prefilled Syringe Lot #: [id number] on: 27-Feb-2019 Family History Name Dates Details [...] /min Status: Physical Findings 0 Status: Comments: Latrell barragan Screen - How many times in the [...] ABSOLUTE NEUTROPHILS 1850 {cells/uL} (Normal) R lauren: 2804-1644 ABSOLUTE LYMPHOCYTES 983 {cells/uL} (Normal) Ra nge: 850-3900 ABSOLUTE MONOCYTES 320 {cells/uL} (Normal) Rang e: 200-950 ABSOLUTE EOSINOPHILS 207 {cells/uL} (Normal) Ra nge: 15-500 ABSOLUTE BASOPHILS 41 {cells/uL} (Normal) Range : 0-200 NEUTROPHILS 54.4 % (Normal) LYMPHOCYTES 28.9 % (Normal) MONOCYTES 9.4 % (Normal) EOSINOPHILS 6.1 % (Normal) BASOPHILS 1.2 % (Normal) 43-Dln-468712:24 [QL] VITAMIN B12/FOLATE, SERUM PANEL Co mments: Please Note: Although the reference range for abhvyetQ99 is 200-1100 pg/mL, it has been reported that between5 and 10% of patients with values between 200 and 400pg/mL may experience neuropsychiatric and hematologicabnormalities due to occult B12 deficiency; less than 1%of patients with values above 400 pg/mL will have symptoms. REPORT COMMENT:FASTING:YES VITAMIN B12 392 pg/ml (Normal) Range: 200-1 100 Comments: Please Note: Although the reference range for dcnjlzxG77 is 200-1100 pg/mL, it has been reported [...] 3.2 g/dl (Below low threshold) Range: 3.8-4.8 SQXGP-8-QCASIFVHX 0.3 g/dl (Normal) Range: 0.2- 0.3 AQQHB-3-LDEMYUHEV 0.8 g/dl (Normal) Range: 0.5- 0.9 BETA [...] MPV 10.0 fL (Normal) Range: 7.5-12. 5 06-Lgz-568409:22 [Q] Differential, Manual Comments: REPO RT COMMENT:FASTING:YES ABSOLUTE NEUTROPHILS 3124 {cells/uL} (Normal) R lauren: 4918-1322 ABSOLUTE LYMPHOCYTES 792 {cells/uL} (Below low threshold) Range: 850-3900 ABSOLUTE MONOCYTES 176 {cells/uL} (Below low th reshold) Range: 200-950 ABSOLUTE EOSINOPHILS 264 {cells/uL} (Normal) Ra nge: 15-500 ABSOLUTE BASOPHILS 44 {cells/uL} (Normal) Range : 0-200 NEUTROPHILS 71.0 % (Normal) LYMPHOCYTES 18.0 % (Normal) MONOCYTES 4.0 % (Normal) EOSINOPHILS 6.0 % (Normal) BASOPHILS 1.0 % (Normal) 41-Yvg-714782:43 XRAY Chest 2 views 15698 Chest 2 views SEE NOTES Comments: PROCED [...] active disease.Augusto Pope MD On 07/25/2019 11:14:19; [id number]--Tphd by: Augusto Pope MDDictated Date/time: 07/25/19 11:14Electronically Signed by: Augusto Pope MD 07/24/2010:14FINAL REPORT [id number]:50 CT Abdomen/Pelvis wo contrast 73004 Abdomen/Pelvis wo contrast CT SEE NOTES Co [...] the dorsal cortex of the superior pole oboaxovep72 mm and the dorso lateral cortex of [...] mild seminal vesicle enlargement.COMMENTS:1. Consistent with the [employer]'s Incidental FindingsCommittee white paper [...] warrantedbased on clinical findings.2. Consistent with the [place] [employer]'s Incidental FindingsCommittee white paper (J Am Renetta Radiol 2018): Any incidental cystic renallesion classified in this report as too small to characterize or simpleappearing is likely a benign cyst. No follow-up imaging is recommended forthese lesions per consensus recommendations based on imaging criteria.Jimmy Worley MD On 07/25/2019 13:25:47; [id number]--Zrqh by: Jimmy Worley MDDictated Date/time: 07/25/19 13:25Electronically [...] ABSOLUTE NEUTROPHILS 1699 {cells/uL} (Normal) R lauren: 4026-8446 ABSOLUTE LYMPHOCYTES 1123 {cells/uL} (Normal) R lauren: 850-3900 ABSOLUTE MONOCYTES 403 {cells/uL} (Normal) Rang e: 200-950 ABSOLUTE EOSINOPHILS 313 {cells/uL} (Normal) Ra nge: 15-500 ABSOLUTE BASOPHILS 61 {cells/uL} (Normal) Range : 0-200 NEUTROPHILS 47.2 % (Normal) LYMPHOCYTES 31.2 % (Normal) MONOCYTES 11.2 % (Normal) EOSINOPHILS 8.7 % (Normal) BASOPHILS 1.7 % (Normal) 8-Qkb-232519:39 [QL] LD LD 115 u/l (Below low threshold) R lauren: 120-250 5-Fpq-116450:39 [QL] SED RATE BY MODIFIED WESTERGREN SED RATE BY MODIFIED WESTERGREN 72 mm/h (Above high threshold) Range: < OR = 20 8-Fdl-946340:39 [QL] C-REACTIVE PROTEIN C-REACTIVE PROTEIN 16.9 mg/L [...]
--- OUTSIDE RECORDS SUMMARY | 2019-11-02 19:33 | XMS REPORT | Summary of Care ---
Author Author [facility] Address [address] [place] [address] Phone Unavailable Care Team Providers Care Tapper Operator Name Role Phone BORIS WESLEY APRN Unavailable Unavailable BORIS WESLEY APRN Unavailable Unavailable HARIS KEANE [place], NIDIA POLK Unavailable Unavailable ELIAS KEANE [place], [place] Rodríguez Unavailable Unavailable RUBY KEANE, KAREN Mckenzie Unavailable Unavailable HARIS Urbano, NIDIA Unavailable Unavailable Jhony Jones MD Unavailable Unavailable MARYJANE NIXON [place], BORIS Wyatt [...] MARKER Date: 03-Aug-2019 CT Abdomen/Pelvis wo contrast 11001 Date: 18-Jul-2019 XRAY Chest 2 views [id number] Date: 18-Jul-2019 History of Renal Lithotripsy Completed History of Oral Surgery Tooth Extraction Completed History of Skin Tag Removal Completed History of Dental Implant Completed Immunization Name Dates Details Prevnar 13 Intramuscular Suspension Lot #: [id number] on: 07-Aug-2014 Fluzone Quadrivalent 0.5 ML Intramuscula r Suspension Lot #: [id number] on: 31-Jan-2015 Fluzone High-Dose 0.5 ML Intramuscular S uspension Prefilled Syringe Lot #: [id number] on: 19-Jan-2017 Pneumococcal polysaccharide vaccine, 23 valent Lot #: [id number] on: 19-Jan-2017 Fluzone Quadrivalent 0.5 ML Intramuscula r Suspension Prefilled Syringe Lot #: [id number] on: 13-Feb-2018 Fluzone High-Dose 0.5 ML Intramuscular S uspension Prefilled Syringe Lot #: [id number] on: 27-Feb-2019 Family History Name Dates Details [...] ABSOLUTE NEUTROPHILS 1850 {cells/uL} (Normal) R lauren: [phone] ABSOLUTE LYMPHOCYTES 983 {cells/uL} (Normal) Ra nge: 850-3900 ABSOLUTE MONOCYTES 320 {cells/uL} (Normal) Rang e: 200-950 ABSOLUTE EOSINOPHILS 207 {cells/uL} (Normal) Ra nge: 15-500 ABSOLUTE BASOPHILS 41 {cells/uL} (Normal) Range : 0-200 NEUTROPHILS 54.4 % (Normal) LYMPHOCYTES 28.9 % (Normal) MONOCYTES 9.4 % (Normal) EOSINOPHILS 6.1 % (Normal) BASOPHILS 1.2 % (Normal) 13-Gcu-[id number]:24 [QL] VITAMIN B12/FOLATE, SERUM PANEL Co mments: Please Note: Although the reference range for jldylnuA21 is 200-1100 pg/mL, it has been reported that between5 and 10% of patients with values between 200 and 400pg/mL may experience neuropsychiatric and hematologicabnormalities due to occult B12 deficiency; less than 1%of patients with values above 400 pg/mL will have symptoms. REPORT COMMENT:FASTING:YES VITAMIN B12 392 pg/ml (Normal) Range: 200-1 100 Comments: Please Note: Although the reference range for jcijonnH84 is 200-1100 pg/mL, it has been reported that between5 and 10% of patients with values between 200 and 400pg/mL may experience neuropsychiatric and hematologicabnormalities due to occult B12 deficiency; less than 1%of patients with values above 400 pg/mL will have symptoms. FOLATE, SERUM 12.2 ng/ml (Normal) Comments: Anne brandtnce Range Low: <3.4 Borderline: 3.4-5.4 Normal: >5.4 [...] 3.2 g/dl (Below low threshold) Range: 3.8-4.8 CHFFD-2-LHXYOYEIQ 0.3 g/dl (Normal) Range: 0.2- 0.3 RKJSM-5-LUUBMXCGI 0.8 g/dl (Normal) Range: 0.5- 0.9 BETA [...] MPV 10.0 fL (Normal) Range: 7.5-12. 5 46-Vcp-[id number]:22 [Q] Differential, Manual Comments: REPO RT COMMENT:FASTING:YES ABSOLUTE NEUTROPHILS 3124 {cells/uL} (Normal) R lauren: 4456-9206 ABSOLUTE LYMPHOCYTES 792 {cells/uL} (Below low threshold) Range: 850-3900 ABSOLUTE MONOCYTES 176 {cells/uL} (Below low th reshold) Range: 200-950 ABSOLUTE EOSINOPHILS 264 {cells/uL} (Normal) Ra nge: 15-500 ABSOLUTE BASOPHILS 44 {cells/uL} (Normal) Range : 0-200 NEUTROPHILS 71.0 % (Normal) LYMPHOCYTES 18.0 % (Normal) MONOCYTES 4.0 % (Normal) EOSINOPHILS 6.0 % (Normal) BASOPHILS 1.0 % (Normal) 44-Heb-202679:43 XRAY Chest 2 views 23700 Chest 2 views SEE NOTES Comments: PROCED [...] active disease.Augusto Pope MD On 07/25/2019 11:14:19; [id number]--Mglw by: Augusto Pope MDDictated Date/time: 07/25/19 11:14Electronically Signed by: Augusto Pope MD 07/24/2010:14FINAL REPORT [id number]-[id number] CT Abdomen/Pelvis wo contrast 38482 Abdomen/Pelvis wo contrast CT SEE NOTES Co [...] the dorsal cortex of the superior pole pridbigtd91 mm and the dorso lateral cortex of [...] mild seminal vesicle enlargement.COMMENTS:1. Consistent with the [employer]'s Incidental FindingsCommittee white paper [...] warrantedbased on clinical findings.2. Consistent with the [employer]'s Incidental FindingsCommittee white paper (J Am Renetta Radiol 2018): Any incidental cystic renallesion classified in this report as too small to characterize or simpleappearing is likely a benign cyst. No follow-up imaging is recommended forthese lesions per consensus recommendations based on imaging criteria.Jimmy Worley MD On 07/25/2019 13:25:47; [id number]--Ibys by: Jimmy Worley MDDictated Date/time: 07/25/19 13:25Electronically [...] ABSOLUTE NEUTROPHILS 1699 {cells/uL} (Normal) R lauren: 5235-3308 ABSOLUTE LYMPHOCYTES 1123 {cells/uL} (Normal) R lauren: 850-3900 ABSOLUTE MONOCYTES 403 {cells/uL} (Normal) Rang e: 200-950 ABSOLUTE EOSINOPHILS 313 {cells/uL} (Normal) Ra nge: 15-500 ABSOLUTE BASOPHILS 61 {cells/uL} (Normal) Range : 0-200 NEUTROPHILS 47.2 % (Normal) LYMPHOCYTES 31.2 % (Normal) MONOCYTES 11.2 % (Normal) EOSINOPHILS 8.7 % (Normal) BASOPHILS 1.7 % (Normal) 6-Rxj-[id number]:39 [QL] LD LD 115 u/l (Below low threshold) R lauren: 120-250 5-Lyx-160511:39 [QL] SED RATE BY MODIFIED WESTERGREN SED [...]
--- OUTSIDE RECORDS SUMMARY | 2019-11-02 19:34 | XMS REPORT | Summary of Care ---
Author OC Mendoza M.D. Organization Unknown Address [facility] Phone Unavailable Care Team Providers Care Manager Reading Name Role Phone BORIS WESLEY APRN Unavailable Unavailable BORIS WESLEY APRN Unavailable Unavailable HARIS KEANE [place], NIDIA POLK Unavailable Unavailable Jorge KEANE, Sergio Unavailable Unavailable ELIAS KEANE [place], [place] Rodríguez Unavailable Unavailable RUBY KEANE, KAREN Mckenzie Unavailable Unavailable HARIS Urbano, NIDIA Unavailable Unavailable Robyn KEANE, Jhony Unavailable Unavailable MARYJANE NIXON [place], BORIS Wyatt Unavailable Unavailable Aniceto Ojeda MD, David Unavailable Unavailable MIESHA DO [place], ADOLFOTAISHA Unavailable Unavailable HARIS BELL [place], JAMEY Unavailable [...] Date: 19-Jul-2019 [QL] CMP W/EGFR Date: 25-Jul-2019 [L] Renin, Plasma Date: 09-Aug-2019 [L] Renin Activity and Aldosterone Date: 09-Aug-2019 [QL] CMP W/EGFR Date: 09-Aug-2019 [Q] LP PLA2 (PLAC[R]) Date: 09-Aug-2019 CT Abdomen/Pelvis wo contrast 26040 Date: 18-Jul-2019 XRAY Chest 2 views 12276 Date: 18-Jul-2019 History of Renal Lithotripsy Completed History of Oral Surgery Tooth Extraction Completed History of Skin Tag Removal Completed History of Dental Implant Completed Immunization Name Dates Details Prevnar 13 Intramuscular Suspension Lot #: [id number] on: 07-Aug-2014 Fluzone Quadrivalent 0.5 ML Intramuscula r Suspension Lot #: [id number] on: 31-Jan-2015 Fluzone High-Dose 0.5 ML Intramuscular S uspension Prefilled Syringe Lot #: [id number] on: 19-Jan-2017 Pneumococcal polysaccharide vaccine, 23 valent Lot #: [id number] on: 19-Jan-2017 Fluzone Quadrivalent 0.5 ML Intramuscula r Suspension Prefilled Syringe Lot #: [id number] on: 13-Feb-2018 Fluzone High-Dose 0.5 ML Intramuscular S uspension Prefilled Syringe Lot #: [id number] on: 27-Feb-2019 Family History Name Dates Details [...] (finding) Vital Signs Date Test Result Details :06 Systolic blood pressure 131 mm[Hg] Status: Diastolic blood pressure 60 mm[Hg] Status: Body height 66 in Status: Weight 235 lb Status: Body mass index (BMI) [Ratio] 37.93 kg/m2 Status: Body surface area Derived from formula 2.14 m2 S tatus: Body temperature 97 f Status: Heart Rate 71 /min Status: Respiratory rate 16 /min Status: :34 Systolic blood pressure 113 mm[Hg] Status: Comments : Location: LUE; Position: Sitting Diastolic blood pressure 54 mm[Hg] Status: Comment s: Location: LUE; Position: Sitting Body height 74 in Status: Weight 235.375 lb Status: Body mass index (BMI) [Ratio] 30.22 kg/m2 Status: Body surface area Derived from formula 2.33 m2 S tatus: Heart Rate 59 /min Status: Results Date Description Value Details :38 [QL] CBC (INCLUDES DIFF/PLT) Comments: REPORT [...] ABSOLUTE NEUTROPHILS 1699 {cells/uL} (Normal) R lauren: 7815-9574 ABSOLUTE LYMPHOCYTES 1123 {cells/uL} (Normal) R lauren: 850-3900 ABSOLUTE MONOCYTES 403 {cells/uL} (Normal) Rang e: 200-950 ABSOLUTE EOSINOPHILS 313 {cells/uL} (Normal) Ra nge: 15-500 ABSOLUTE BASOPHILS 61 {cells/uL} (Normal) Range : 0-200 NEUTROPHILS 47.2 % (Normal) LYMPHOCYTES 31.2 % (Normal) MONOCYTES 11.2 % (Normal) EOSINOPHILS 8.7 % (Normal) BASOPHILS 1.7 % (Normal) :39 [Q] METHYLMALONIC ACID AND H OMOCYSTEINE (NUTRITIONAL AND CONGENITAL) METHYLMALONIC ACID 180 nmol/L Range: 87-318 Comments: This test was developed and its analytical performancecharacteristics have been determined by [facility]. It has not beencleared or approved by FDA. This assay has been validatedpursuant to the CLIA regulations and is used for clinicalpurposes. HOMOCYSTEINE, CARDIOVASCULAR 12.0 umol/L (Above high threshold) Range: <11.4 Comments: Homocysteine is increased by functional deficiency of folateor vitamin B12. Testing for methylmalonic aciddifferentiates between these deficiencies. Other causes ofincreased homocysteine include renal failure, folateantagonists such as methotrexate and phenytoin, and exposureto nitrous oxide. Maikel Coleman, et al. Angelica Can Labeler Med.1999;131(5):331-9. :39 [QL] LD LD 115 u/l (Below [...] Comments: This test was performed using the Simplibuy Technologieschemiluminescent method. Values obtained fromdifferent assay methods cannot be usedinterchangeably. AFP levels, regardless ofvalue, should not be interpreted as absoluteevidence of the presence or absence of disease. :43 [QL] HEPATIC FUNCTION PANEL PROTEIN, TOTAL 5.6 g/dl (Below low threshold) Range: 6.1-8.1 ALBUMIN 3.3 g/dl (Below low threshold) Range: 3.6-5.1 GLOBULIN 2.3 {G/DL__CALC} (Normal) Range : 1.9-3.7 ALBUMIN/GLOBULIN RATIO 1.4 {CALC} (Normal) Rang e: 1.0-2.5 BILIRUBIN, TOTAL 0.7 mg/dl (Normal) Range: 0.2- 1.2 BILIRUBIN, DIRECT 0.2 mg/dl (Normal) Range: < O R = 0.2 BILIRUBIN, INDIRECT 0.5 {MG/DL__CAL} (Normal) R lauren: 0.2-1.2 ALKALINE PHSPHATASE 142 u/l (Normal) Range: 35- 144 AST 21 u/l (Normal) Range: 10-35 ALT 16 u/l (Normal) Range: 9-46 :43 [QL] CBC (INCLUDES DIFF/PLT) WHITE BLOOD CELL COUNT 2.8 {Thousand/u} (Below low threshold) Range: 3.8-10.8 RED BLOOD CELL COUNT 2.37 {Million/uL} (Below l ow threshold) Range: 4.20-5.80 HEMAGLOBIN 8.7 g/dl (Below low threshold) Range: 13.2-17.1 HEMATOCRIT 25.4 % (Below low threshold) Ra nge: 38.5-50.0 MCV 107.2 fL (Above high threshold) Range: 80.0-100.0 MCH 36.7 pg (Above high threshold) Range: 27.0-33.0 MCHC 34.3 g/dl (Normal) Range: 32.0- 36.0 RDW 16.0 % (Above high threshold) R lauren: 11.0-15.0 PLATELET COUNT 262 {Thousand/u} (Normal) Range : 140-400 MPV 9.9 fL (Normal) Range: 7.5-12.5 ABSOLUTE NEUTROPHILS 1439 {cells/uL} (Below low threshold) Range: 5032-8343 ABSOLUTE LYMPHOCYTES 820 {cells/uL} (Below low threshold) Range: 850-3900 ABSOLUTE MONOCYTES 210 {cells/uL} (Normal) Rang e: 200-950 ABSOLUTE EOSINOPHILS 291 {cells/uL} (Normal) Ra nge: 15-500 ABSOLUTE BASOPHILS 39 {cells/uL} (Normal) Range : 0-200 NEUTROPHILS 51.4 % (Normal) LYMPHOCYTES 29.3 % (Normal) MONOCYTES 7.5 % (Normal) EOSINOPHILS 10.4 % (Normal) BASOPHILS 1.4 % (Normal) 53-Eic-198897:43 [QL] FERRITIN Comments: REPORT COM MENT:FASTING:NO FERRITIN 508 ng/ml (Above high threshold ) Range: 24-380 Plan of Care Name Dates Details Planned Observations Planned Goals not documented Planned Encounters Appointment; Mo Blackmon M.D. On: 31-Aug-2019 11:30 Appointment; SERGIO MONTERO M.D. On: 18-Oct-2019 14:45 Instructions Name Dates Details Instructions not documented [...] Problem not documented On: 03-Aug-2019 12:45 Appointment; SERGIO MONTERO M.D. Encounter Diagnosis: Problem not documented On: 09-Aug-2019 15:45
--- OUTSIDE RECORDS SUMMARY | 2019-11-02 19:34 | XMS REPORT | Summary of Care ---
Author Author OC Alonso R.N. Organization Unknown Address Unknown Phone Unavailable Care Team Providers Care Rn Private Duty Name Role Phone BORIS WESLEY APRN Unavailable Unavailable Gavin Pompa, Apolonia Unavailable Unavailable BORIS WESLEY APRN Unavailable Unavailable HARIS KEANE [place], NIDIA POLK Unavailable Unavailable Jorge KEANE, Sergio Unavailable Unavailable ELIAS KEANE [place], [place] Rodríguez Unavailable Unavailable RUBY KEANE, KAREN Mckenzie Unavailable Unavailable HARIS Urbano, NIDIA Unavailable Unavailable Robyn KEANE, Jhony Unavailable Unavailable MARYJANE NIXON [place], BORIS Wyatt Unavailable Unavailable Aniceto Ojeda MD, David Unavailable Unavailable MIESHA DO [place], ADOLFODeejayHOSSEIN Unavailable Unavailable HARIS BELL [place], JAMEY Unavailable [...] Status: Resolved History of positive purified protein shra ivative test (V15.89, Z92.89) Status: Resolved History [...] (PLAC[R]) Date: 09-Aug-2019 CT Abdomen/Pelvis wo contrast 98732 Date: 18-Jul-2019 XRAY Chest 2 views 42619 Date: 18-Jul-2019 History of Renal Lithotripsy Completed History of Oral Surgery Tooth Extraction Completed History of Skin Tag Removal Completed History of Dental Implant Completed Immunization Name Dates Details Prevnar 13 Intramuscular Suspension Lot #: [id number] on: 07-Aug-2014 Fluzone Quadrivalent 0.5 ML Intramuscula r Suspension Lot #: [id number] on: 31-Jan-2015 Fluzone High-Dose 0.5 ML Intramuscular S uspension Prefilled Syringe Lot #: [id number] on: 19-Jan-2017 Pneumococcal polysaccharide vaccine, 23 valent Lot #: [id number] on: 19-Jan-2017 Fluzone Quadrivalent 0.5 ML Intramuscula r Suspension Prefilled Syringe Lot #: [id number] on: 13-Feb-2018 Fluzone High-Dose 0.5 ML Intramuscular S uspension Prefilled Syringe Lot #: [id number] on: 27-Feb-2019 Family History Name Dates Details [...] /min Status: Results Date Description Value Details :13 [QL] PROTEIN, TOTAL W/CREAT, 24 HOUR [...] ABSOLUTE NEUTROPHILS 1699 {cells/uL} (Normal) R lauren: 9392-3375 ABSOLUTE LYMPHOCYTES 1123 {cells/uL} (Normal) R lauren: [...] its analytical performancecharacteristics have been determined by [facility]. It has not beencleared or approved [...] nitrous oxide. Maikel Coleman, et al. Angelica [employer] Med.1999;131(5):331-9. :39 [QL] LD LD 115 u/l [...] Comments: This test was performed using the u[employer] Coulterchemiluminescent method. Values obtained fromdifferent assay methods cannot be usedinterchangeably. AFP levels, regardless ofvalue, should not be interpreted as absoluteevidence of the presence or absence of disease. Plan of Care Name Dates Details Planned Observations Planned Goals not documented Planned Encounters Appointment; BORIS WESLEY APRN On: 28-Aug-2019 12:30 Appointment; Mo Blackmon M.D. On: 31-Aug-2019 11:30 Appointment; SERGIO MONTERO M.D. On: 18-Oct-2019 14:45 Interventions Provided Discussion/Summary* Guideline Used: * Other: speak with clinic staff * Intended Caller Action: * Other: receive information Instructions Name Dates Details Instructions not documented [...]
--- OUTSIDE RECORDS SUMMARY | 2019-11-02 19:34 | XMS REPORT | Summary of Care ---
Author Author WINSTON Urbano, OC Wyatt Organization Unknown Address [facility] Phone Unavailable Care Team Providers Care Mixing Machine Feeder Name Role Phone WINSTON Urbano, SERGIO Unavailable Unavailable BORIS WESLEY APRN Unavailable Unavailable MARYJANE OCAMPO, BORIS Franklin Unavailable Unavailable HARIS KEANE [place], NIDIA POLK Unavailable Unavailable Winston KEANE, Sergio Unavailable Unavailable ELIAS KEANE [place], [place] Rodríguez Unavailable Unavailable RUBY KEANE, KAREN Mckenzie Unavailable Unavailable HARIS Urbano, NIDIA Unavailable Unavailable Jhony Jones MD Unavailable Unavailable MARYJANE NIXON [place], BORIS Wyatt Unavailable Unavailable Aniceto Ojeda MD, David Unavailable Unavailable MIESHA DO [place], ADOLFOTAISHA Unavailable Unavailable HARIS BELL [place], JAMEY Unavailable [...] COMPLETE W/REFLEX TO CULTURE Date: 09-Aug-19 20 [QL] CMP W/EGFR Date: 09-Aug-2019 [QL] PROTEIN, TOTAL AND PROTEIN ELECTROPHORESIS Date: 2019 [QL] CATECHOLAMINES, FRACTIONATED, PLASMA Date: 09-Aug-2019 [Q] KAPPA/LAMBDA LIGHT CHAIN Date: 09-Aug-2019 [Q] LP PLA2 (PLAC[R]) Date: 09-Aug-2019 [Q] METHYLMALONIC ACID, GC/MS/MS, URINE Date: 16-Jul-2019 [Q] COPPER, RANDOM URINE Date: 16-Jul-2019 CT Abdomen/Pelvis wo contrast 18659 Date: 18-Jul-2019 XRAY Chest 2 views 28037 Date: 18-Jul-2019 History of Renal Lithotripsy Completed History of Oral Surgery Tooth Extraction Completed History of Skin Tag Removal Completed History of Dental Implant Completed Immunization Name Dates Details Prevnar 13 Intramuscular Suspension Lot #: [id number] on: 07-Aug-2014 Fluzone Quadrivalent 0.5 ML Intramuscula r Suspension Lot #: [id number] on: 31-Jan-2015 Fluzone High-Dose 0.5 ML Intramuscular S uspension Prefilled Syringe Lot #: [id number] on: 19-Jan-2017 Pneumococcal polysaccharide vaccine, 23 valent Lot #: [id number] on: 19-Jan-2017 Fluzone Quadrivalent 0.5 ML Intramuscula r Suspension Prefilled Syringe Lot #: [id number] on: 13-Feb-2018 Fluzone High-Dose 0.5 ML Intramuscular S uspension Prefilled Syringe Lot #: [id number] on: 27-Feb-2019 Family History Name Dates Details [...] ABSOLUTE NEUTROPHILS 1850 {cells/uL} (Normal) R lauren: 4664-4365 ABSOLUTE LYMPHOCYTES 983 {cells/uL} (Normal) Ra nge: [...] Please Note: Although the reference range for fjxwzriF84 is 200-1100 pg/mL, it has been reported that between5 and 10% of patients with values between 200 and 400pg/mL may experience neuropsychiatric and hematologicabnormalities due to occult B12 deficiency; less than 1%of patients with values above 400 pg/mL will have symptoms. REPORT COMMENT:FASTING:YES VITAMIN B12 392 pg/ml (Normal) Range: 200-1 100 Comments: Please Note: Although the reference range for wbseygsP06 is 200-1100 pg/mL, it has been reported [...] 3.2 g/dl (Below low threshold) Range: 3.8-4.8 FQOBK-5-QVLQCRPPL 0.3 g/dl (Normal) Range: 0.2- 0.3 TXCYN-8-JBCRMXFCM 0.8 g/dl (Normal) Range: 0.5- 0.9 BETA [...] MPV 10.0 fL (Normal) Range: 7.5-12. 5 :22 [Q] Differential, Manual Comments: REPO RT COMMENT:FASTING:YES ABSOLUTE NEUTROPHILS 3124 {cells/uL} (Normal) R lauren: 2426-0293 ABSOLUTE LYMPHOCYTES 792 {cells/uL} (Below low threshold) Range: 850-3900 ABSOLUTE MONOCYTES 176 {cells/uL} (Below low th reshold) Range: 200-950 ABSOLUTE EOSINOPHILS 264 {cells/uL} (Normal) Ra nge: 15-500 ABSOLUTE BASOPHILS 44 {cells/uL} (Normal) Range : 0-200 NEUTROPHILS 71.0 % (Normal) LYMPHOCYTES 18.0 % (Normal) MONOCYTES 4.0 % (Normal) EOSINOPHILS 6.0 % (Normal) BASOPHILS 1.0 % (Normal) 50-Lzs-154511:43 XRAY Chest 2 views 21079 Chest 2 views SEE NOTES Comments: PROCED [...] active disease.Augusto Pope MD On 07/25/2019 11:14:19; [id number]--[id number] by: Augusto Pope MDDictated Date/time: 07/25/19 11:14Electronically Signed by: Augusto Pope MD 07/24/2010:14FINAL REPORT [id number] CT Abdomen/Pelvis wo contrast 76926 Abdomen/Pelvis wo contrast CT SEE NOTES Co [...] the dorsal cortex of the superior pole nnxtxslev03 mm and the dorso lateral cortex of [...] mild seminal vesicle enlargement.COMMENTS:1. Consistent with the [place] [employer]'s Incidental FindingsCommittee white paper [...] warrantedbased on clinical findings.2. Consistent with the [place] [employer]'s Incidental FindingsCommittee white paper (J Am Renetta Radiol 2018): Any incidental cystic renallesion classified in this report as too small to characterize or simpleappearing is likely a benign cyst. No follow-up imaging is recommended forthese lesions per consensus recommendations based on imaging criteria.Jimmy Worley MD On 07/25/2019 13:25:47; [id number] by: Jimmy Worley MDDictated Date/time: 07/25/19 13:25Electronically [...] ABSOLUTE NEUTROPHILS 1699 {cells/uL} (Normal) R lauren: 2329-2723 ABSOLUTE LYMPHOCYTES 1123 {cells/uL} (Normal) R lauren: [...] high threshold) Range: < OR = 20 : [QL] HAPTOGLOBIN HAPTOGLOBIN 188 mg/dl (Normal) Range: 43-21 2 : [QL] C-REACTIVE PROTEIN C-REACTIVE PROTEIN 16.9 mg/L (Above high thresh old) Range: <8.0 : [QL] ALPHA FETOPROTEIN, TUMOR MARKER Co mments: [...] MONTERO M.D. On: 18-Oct-2019 14:45 Interventions Provided Labs/Procedures/Imaging* [L] Renin Activity and Aldosterone; To Be Done: 09 Aug 2019 * [L] Renin, Plasma; To Be Done: 09 Aug 2019 * [Q] KAPPA/LAMBDA LIGHT CHAIN; To Be Done: 09 Aug 2019 * [Q] LP PLA2 (PLAC[R]); To Be Done: 09 Aug 2019 * [QL] CATECHOLAMINES, FRACTIONATED, PLASMA; To Be Done: 09 Aug 2019 * [QL] CMP W/EGFR; To Be Done: 09 Aug 2019 * [QL] CORTISOL, A.M.; To Be Done: 09 Aug 2019 * [QL] METANEPHRINES, FRACT, LC/MS/MS, PLASMA; To Be Done: 09 Aug 2019 * [QL] METANEPHRINES, FRACT. 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 * # CKD * 2/2 DM , HTN * Cr stable 1.6 * will repeat CMP * # Proteinuria * UPC 5mg/mg * will do serum electrophoresis, serum light chain, PLA2 R antibody, * UA * # Hypertension * stable * on hydralazine, Coreg, amlodipine, olmesartan * # Adrenal adenoma * order urine metanephrine, plasma free metanephrine, renin, aldosterone, cortisol, catecholamine * f/u 2 months * discussed with Dr. Montero ( attending). Instructions Name Dates Details Instructions not documented [...]
--- OUTSIDE RECORDS SUMMARY | 2019-11-02 19:34 | XMS REPORT | Summary of Care ---
Author Author Elias Urbano, OC Wyatt Organization Unknown Address [facility] Phone Unavailable Care Team Providers Care Accessories Repairer Name Role Phone BORIS WESLEY APRN Unavailable Unavailable Kvng Roberto, Vida Unavailable Unavailable BORIS WESLEY APRN Unavailable Unavailable HARIS KEANE [place], NIDIA POLK Unavailable Unavailable Jorge KEANE, Sergio Unavailable Unavailable ELIAS KEANE [place], [place] Rodríguez Unavailable Unavailable RUBY KEANE, KAREN Mckenzie Unavailable Unavailable HARIS Urbano, NIDIA Unavailable Unavailable Robyn KEANE, Jhony Unavailable Unavailable MARYJANE NIXON [place], BORIS Wyatt Unavailable Unavailable Aniceto Ojeda MD, David Unavailable Unavailable MIESHA COPPOLA [place], JAYDAN Unavailable Unavailable HARIS BELL [place], JAMEY Unavailable Unavailable Unavailable Unavailable Functional Status Name Dates Details Functional status health issues are not documented Status: Name Dates Details Cognitive status health issues are not d ocumented Status: Problems Name Dates Details Anemia (285.9, D64.9) Status: Active Generalized osteoarthritis of multiple s ites (715.09, M15.9) Status: Active Bradycardia (427.89, R00.1) Status: Active Gall bladder stones (574.20, K80.20) Status: Active Depression screening (V79.0, Z13.31) Status: Active Colon cancer screening (V76.51, Z12.11) Status: Active Encounter for diabetic foot exam (250.00 , E11.9) Status: Active Encounter for mini-mental status examina tion Status: Active History of renal calculi (V13.01, Z87.44 2) Status: Resolved History of positive purified protein shar ivative test (V15.89, Z92.89) Status: Resolved Edema of both legs (782.3, R60.0) Status: Active Anemia, unspecified type (285.9, D64.9) Status: Active Abnormal liver function (794.8, R94.5) Status: Active Elevated LFTs (790.6, R79.89) Status: Active Hepatitis, 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50, K80.50) Status: Active Acute pain of right shoulder (719.41, M2 5.511) Status: Active Essential (primary) hypertension (401.9, I10) Status: Active BILL positive (795.79, R76.8) Status: Active Situational insomnia (307.41, F51.09) Status: Active Generalized anxiety disorder (300.02, F4 1.1) Status: Active Low vitamin B12 level (266.2, E53.8) Status: Active Flu vaccine need (V04.81, Z23) Status: Active UZAIR on CPAP (327.23, G47.33) Status: Active BPH without urinary obstruction (600.00, N40.0) Status: Active Nephrolithiasis (592.0, N20.0) Status: Active Mixed hyperlipidemia (272.2, E78.2) Status: Active Syncope and collapse (780.2, R55) Status: Active Type 2 diabetes mellitus (250.00, E11.9) Status: Active Adrenal adenoma (227.0, D35.00) Status: Active Medications Name Dates Details PARoxetine HCl - 20 MG Oral Tablet TAKE 1 TABLET BY MOUTH EVERY DAY Quantity: 90 BORIS WESLEY APRN * Start : 07-Oct-2014 Active hydrALAZINE HCl - 50 MG Oral Tablet TAKE 1 TABLET BY MOUTH two TIMES DAILY * Quantity: 180 Refills: 1 BORIS WESLEY APRN. * Start : 11-Apr-2014 Active Atorvastatin Calcium 10 MG Oral Tablet TAKE 1 TABLET BY MOUTH EVERY DAY AT BEDTIME * Quantity: 30 Refills: 0 BORIS WESLEY APRN. * Start : 05-Jun-2015 Active Vitamin C [...] * Quantity: 90 Refills: 1 BORIS WESLEY APRN. * Start : 26-Oct-2017 Active Glucose Meter [...] 09-Aug-2019 [Q] LP PLA2 (PLAC[R]) Date: 09-Aug-2019 [QL] HEPATIC FUNCTION PANEL Date: 24-Aug-2019 [QL] FERRITIN Date: 24-Aug-2019 [QL] CBC (INCLUDES DIFF/PLT) Date: 24-Aug-2019 [Q] METHYLMALONIC ACID, GC/MS/MS, URINE Date: 16-Jul-2019 [Q] COPPER, RANDOM URINE Date: 16-Jul-2019 CT Abdomen/Pelvis wo contrast 16318 Date: 18-Jul-2019 XRAY Chest 2 views 57368 Date: 18-Jul-2019 History of Renal Lithotripsy Completed History of Skin Tag Removal Completed History of Dental Implant Completed History of Oral Surgery Tooth Extraction Completed Immunization Name Dates Details Prevnar 13 Intramuscular Suspension Lot #: [id number] on: 07-Aug-2014 Fluzone Quadrivalent 0.5 ML Intramuscula r Suspension Lot #: [id number] on: 31-Jan-2015 Fluzone High-Dose 0.5 ML Intramuscular S uspension Prefilled Syringe Lot #: [id number] on: 19-Jan-2017 Pneumococcal polysaccharide vaccine, 23 valent Lot #: [id number] on: 19-Jan-2017 Fluzone Quadrivalent 0.5 ML Intramuscula r Suspension Prefilled Syringe Lot #: [id number] on: 13-Feb-2018 Fluzone High-Dose 0.5 ML Intramuscular S uspension Prefilled Syringe Lot #: [id number] on: 27-Feb-2019 Family History Name Dates Details [...] ABSOLUTE NEUTROPHILS 1699 {cells/uL} (Normal) R lauren: [phone] ABSOLUTE LYMPHOCYTES 1123 {cells/uL} (Normal) R lauren: [...] its analytical performancecharacteristics have been determined by [email or web address]. It has not beencleared or approved [...] nitrous oxide. Maikel Coleman, et al. Angelica Papier Mache Molder Med.1999;131(5):331-9. :39 [QL] LD LD 115 u/l (Below low threshold) R lauren: 120-250 :39 [QL] SED RATE BY MODIFIED WESTERGREN SED RATE BY MODIFIED WESTERGREN 72 mm/h (Above high threshold) Range: < OR = 20 :39 [QL] HAPTOGLOBIN HAPTOGLOBIN 188 mg/dl (Normal) Range: 43-21 2 9-Dar-234844:39 [QL] C-REACTIVE PROTEIN C-REACTIVE PROTEIN 16.9 mg/L (Above high thresh old) Range: <8.0 2-Eat-164872:39 [QL] ALPHA FETOPROTEIN, TUMOR MARKER Co mments: [...] M.D. On: 18-Oct-2019 14:45 Interventions Provided Labs/Procedures/Imaging* [QL] CBC (INCLUDES DIFF/PLT); To Be Done: 24 Aug 2019 * [QL] FERRITIN; To Be Done: 24 Aug 2019 * [QL] HEPATIC FUNCTION PANEL; To Be Done: 24 Aug 2019 Instructions Name Dates Details Instructions [...]
--- OUTSIDE RECORDS SUMMARY | 2019-11-02 19:34 | XMS REPORT | Summary of Care ---
Author Author OC WESLEY APRN Organization Unknown Address Unknown Phone Unavailable Care Team Providers Care Emergency Physician Name Role Phone BORIS WESLEY APRN Unavailable Unavailable BORIS WESLEY APRN Unavailable Unavailable HARIS KEANE [place], NIDIA POLK Unavailable Unavailable Jorge KEANE, Sergio Unavailable Unavailable LEIAS KEANE [place], [place] Rodríguez Unavailable Unavailable RUBY KEANE, KAREN [...] DAY * Quantity: 1 Refills: 0 BORIS WESLYE APRN * Start : 30-Nov-2018 Active Naproxen [...] URINE Date: 16-Jul-2019 CT Abdomen/Pelvis wo contrast 25522 Date: 18-Jul-2019 XRAY Chest 2 views 21411 Date: 18-Jul-2019 History of Renal Lithotripsy Completed History of Oral Surgery Tooth Extraction Completed History of Skin Tag Removal Completed History of Dental Implant Completed Immunization Name Dates Details Prevnar 13 Intramuscular Suspension Lot #: [id number] on: 07-Aug-2014 Fluzone Quadrivalent 0.5 ML Intramuscula r Suspension Lot #: [id number] on: 31-Jan-2015 Fluzone High-Dose 0.5 ML Intramuscular S uspension Prefilled Syringe Lot #: [id number] on: 19-Jan-2017 Pneumococcal polysaccharide vaccine, 23 valent Lot #: [id number] on: 19-Jan-2017 Fluzone Quadrivalent 0.5 ML Intramuscula r Suspension Prefilled Syringe Lot #: [id number] on: 13-Feb-2018 Fluzone High-Dose 0.5 ML Intramuscular S uspension Prefilled Syringe Lot #: [id number] on: 27-Feb-2019 Family History Name Dates Details [...] ABSOLUTE NEUTROPHILS 1699 {cells/uL} (Normal) R lauren: [phone] ABSOLUTE LYMPHOCYTES 1123 {cells/uL} (Normal) R lauren: [...] its analytical performancecharacteristics have been determined by [facility]. It has not beencleared or approved by [...] nitrous oxide. Maikel Coleman, et al. Angelica Protective Signal Operations Supervisor Med.1999;131(5):331-9. :39 [QL] LD LD 115 u/l [...] Comments: This test was performed using the [employer] Coulterchemiluminescent method. Values obtained fromdifferent assay methods [...] MONTERO M.D. On: 18-Oct-2019 14:45 Interventions Provided Plan* Take your blood pressures [...] Diagnosis: Problem not documented On: 09-Aug-2019 15:45 Appointment; BORIS WESLEY APRN Encounter Diagnosis: Problem not documented On: 28-Aug-2019 12:30
--- OUTSIDE RECORDS SUMMARY | 2019-11-02 19:34 | XMS REPORT | Summary of Care ---
Author Author MONIQUE Urbano, OC Wyatt Organization Unknown Address Unknown Phone Unavailable Care Team Providers Care Cashier Receptionist Name Role Phone WINSTON Urbano, ESTELLE Unavailable Unavailable MARYJANE OCAMPO, BORIS Unavailable Unavailable MARYJANE OCAMPO, BORIS Franklin Unavailable Unavailable HARIS KEANE [place], NIDIA POLK Unavailable Unavailable ELIAS KEANE [place], [place] Rodríguez Unavailable Unavailable RUBY KEANE, KAREN Mckenzie Unavailable Unavailable HARIS Urbano, NIDIA Unavailable Unavailable Robyn KEANE, Jhony Unavailable Unavailable MARYJANE NIXON [place], BORIS Wyatt Unavailable Unavailable Aniceto Ojeda MD, David Unavailable Unavailable MIESHA DO [place], ROCKY Unavailable Unavailable HARIS BELL [place], [...] 09-Aug-19 20 [QL] CMP W/EGFR Date: 09-Aug-2019 [Q] METHYLMALONIC ACID, GC/MS/MS, URINE Date: 16-Jul-2019 [Q] COPPER, RANDOM URINE Date: 16-Jul-2019 CT Abdomen/Pelvis wo contrast 41993 Date: 18-Jul-2019 XRAY Chest 2 views 67368 Date: 18-Jul-2019 History of Renal Lithotripsy Completed History of Oral Surgery Tooth Extraction Completed History of Skin Tag Removal Completed History of Dental Implant Completed Immunization Name Dates Details Prevnar 13 Intramuscular Suspension Lot #: [id number] on: 07-Aug-2014 Fluzone Quadrivalent 0.5 ML Intramuscula r Suspension Lot #: [id number] on: 31-Jan-2015 Fluzone High-Dose 0.5 ML Intramuscular S uspension Prefilled Syringe Lot #: [id number] on: 19-Jan-2017 Pneumococcal polysaccharide vaccine, 23 valent Lot #: [id number] on: 19-Jan-2017 Fluzone Quadrivalent 0.5 ML Intramuscula r Suspension Prefilled Syringe Lot #: [id number] on: 13-Feb-2018 Fluzone High-Dose 0.5 ML Intramuscular S uspension Prefilled Syringe Lot #: [id number] on: 27-Feb-2019 Family History Name Dates Details [...] ABSOLUTE NEUTROPHILS 1850 {cells/uL} (Normal) R lauren: [phone] ABSOLUTE LYMPHOCYTES 983 {cells/uL} (Normal) Ra nge: [...] Please Note: Although the reference range for dgkhnkpJ54 is 200-1100 pg/mL, it has been reported that between5 and 10% of patients with values between 200 and 400pg/mL may experience neuropsychiatric and hematologicabnormalities due to occult B12 deficiency; less than 1%of patients with values above 400 pg/mL will have symptoms. REPORT COMMENT:FASTING:YES VITAMIN B12 392 pg/ml (Normal) Range: 200-1 100 Comments: Please Note: Although the reference range for aizaxclN84 is 200-1100 pg/mL, it has been reported [...] 3.2 g/dl (Below low threshold) Range: 3.8-4.8 TPTYK-9-PHCRNZGIR 0.3 g/dl (Normal) Range: 0.2- 0.3 TUHFC-9-WPRCDFWOM 0.8 g/dl (Normal) Range: 0.5- 0.9 BETA [...] [Q] CBC (INCLUDES DIFF/PLT) WITH SMEAR R SAVANAW WHITE BLOOD CELL COUNT 4.4 {Thousand/u} (Normal [...] ABSOLUTE NEUTROPHILS 3124 {cells/uL} (Normal) R lauren: [phone] ABSOLUTE LYMPHOCYTES 792 {cells/uL} (Below low threshold) Range: 850-3900 ABSOLUTE MONOCYTES 176 {cells/uL} (Below low th reshold) Range: 200-950 ABSOLUTE EOSINOPHILS 264 {cells/uL} (Normal) Ra nge: 15-500 ABSOLUTE BASOPHILS 44 {cells/uL} (Normal) Range : 0-200 NEUTROPHILS 71.0 % (Normal) LYMPHOCYTES 18.0 % (Normal) MONOCYTES 4.0 % (Normal) EOSINOPHILS 6.0 % (Normal) BASOPHILS 1.0 % (Normal) [id number] XRAY Chest 2 views 20963 Chest 2 views SEE NOTES Comments: PROCED [...] active disease.Augusto Pope MD On 07/25/2019 11:14:19; [id number] by: Augusto Pope MDDictated Date/time: 07/25/19 11:14Electronically Signed by: Augusto Pope MD 07/24/2010:14FINAL REPORT [id number] CT Abdomen/Pelvis wo contrast 03719 Abdomen/Pelvis wo contrast CT SEE NOTES Co [...] the dorsal cortex of the superior pole [id number] mm and the dorso lateral cortex of [...] mild seminal vesicle enlargement.COMMENTS:1. Consistent with the [employer]'s Incidental FindingsCommittee white paper [...] warrantedbased on clinical findings.2. Consistent with the [employer]'s Incidental FindingsCommittee white paper (J Am Renetta Radiol 2018): Any incidental cystic renallesion classified in this report as too small to characterize or simpleappearing is likely a benign cyst. No follow-up imaging is recommended forthese lesions per consensus recommendations based on imaging criteria.Jimmy Worley MD On 07/25/2019 13:25:47; [id number] by: Jimmy Worley MDDictated Date/time: 07/25/19 13:25Electronically Signed by: Jimmy Worley MD 07/24/2012:25FINAL REPORT [id number] [QL] PROTEIN, TOTAL W/CREAT, 24 HOUR URI [...] ABSOLUTE NEUTROPHILS 1699 {cells/uL} (Normal) R lauren: [phone] ABSOLUTE LYMPHOCYTES 1123 {cells/uL} (Normal) R lauren: [...] Comments: This test was performed using the [employer] Coulterchemiluminescent method. Values obtained fromdifferent assay methods [...]
--- OUTSIDE RECORDS SUMMARY | 2019-11-02 19:34 | XMS REPORT | Summary of Care ---
Author Author [facility] Address [address] [place] [address] Phone Unavailable Care Team Providers Care Pipe Bowl Paint Trimmer Name Role Phone BORIS WESLEY APRN Unavailable Unavailable BORIS WESLEY APRN Unavailable Unavailable HARIS KEANE [place], NIDIA POLK Unavailable Unavailable Jorge KEANE, Sergio Unavailable Unavailable ELIAS KEANE [place], [place] Rodríguez Unavailable Unavailable RUBY KEANE, KAREN Mckenzie Unavailable Unavailable HARIS Urbano, NIDIA Unavailable Unavailable Robyn KEANE, Jhony Unavailable Unavailable MARYJANE NIXON [place], BORIS Wyatt Unavailable Unavailable Aniceto Ojeda MD, David Unavailable Unavailable MIESHA DO [place], ADOLFOTAISHA Unavailable Unavailable HARIS BELL [place], JAMEY Unavailable [...] 1 TABLET DAILY. * Refills: 0 Active Cod Liver Oil Oral Capsule 2-3 capsTWICE A DAY * Quantity: 1 Refills: 0 MARYJANE FERGUSONNBORIS * Start : 30-Nov-2018 Active Allergies and Adverse Reactions Name Dates [...] URINE Date: 16-Jul-2019 CT Abdomen/Pelvis wo contrast 56864 Date: 18-Jul-2019 XRAY Chest 2 views 85631 Date: 18-Jul-2019 History of Renal Lithotripsy Completed History of Oral Surgery Tooth Extraction Completed History of Skin Tag Removal Completed History of Dental Implant Completed Immunization Name Dates Details Prevnar 13 Intramuscular Suspension Lot #: [id number] on: 07-Aug-2014 Fluzone Quadrivalent 0.5 ML Intramuscula r Suspension Lot #: [id number] on: 31-Jan-2015 Fluzone High-Dose 0.5 ML Intramuscular S uspension Prefilled Syringe Lot #: [id number] on: 19-Jan-2017 Pneumococcal polysaccharide vaccine, 23 valent Lot #: [id number] on: 19-Jan-2017 Fluzone Quadrivalent 0.5 ML Intramuscula r Suspension Prefilled Syringe Lot #: [id number] on: 13-Feb-2018 Fluzone High-Dose 0.5 ML Intramuscular S uspension Prefilled Syringe Lot #: [id number] on: 27-Feb-2019 Family History Name Dates Details [...] pressure 113 mm[Hg] Status: Comments : Location: E; Position: Sitting Diastolic blood pressure 54 mm[Hg] [...] ABSOLUTE NEUTROPHILS 1850 {cells/uL} (Normal) R lauren: [phone] ABSOLUTE LYMPHOCYTES 983 {cells/uL} (Normal) Ra nge: [...] Please Note: Although the reference range for ggdhzssW13 is 200-1100 pg/mL, it has been reported that between5 and 10% of patients with values between 200 and 400pg/mL may experience neuropsychiatric and hematologicabnormalities due to occult B12 deficiency; less than 1%of patients with values above 400 pg/mL will have symptoms. REPORT COMMENT:FASTING:YES VITAMIN B12 392 pg/ml (Normal) Range: 200-1 100 Comments: Please Note: Although the reference range for kzaduhkF46 is 200-1100 pg/mL, it has been reported [...] 3.2 g/dl (Below low threshold) Range: 3.8-4.8 NKNOZ-3-VIRZWURGJ 0.3 g/dl (Normal) Range: 0.2- 0.3 AXTUY-4-WFINNEKGF 0.8 g/dl (Normal) Range: 0.5- 0.9 BETA [...] ABSOLUTE NEUTROPHILS 3124 {cells/uL} (Normal) R lauren: [phone] ABSOLUTE LYMPHOCYTES 792 {cells/uL} (Below low threshold) Range: 850-3900 ABSOLUTE MONOCYTES 176 {cells/uL} (Below low th reshold) Range: 200-950 ABSOLUTE EOSINOPHILS 264 {cells/uL} (Normal) Ra nge: 15-500 ABSOLUTE BASOPHILS 44 {cells/uL} (Normal) Range : 0-200 NEUTROPHILS 71.0 % (Normal) LYMPHOCYTES 18.0 % (Normal) MONOCYTES 4.0 % (Normal) EOSINOPHILS 6.0 % (Normal) BASOPHILS 1.0 % (Normal) :43 XRAY Chest 2 views 37656 Chest 2 views SEE NOTES Comments: PROCED [...] active disease.Augusto Pope MD On 07/25/2019 11:14:19; [id number] by: Augusto Pope MDDictated Date/time: 07/25/19 11:14Electronically Signed by: Augusto Pope MD 07/24/2010:14FINAL REPORT [id number] CT Abdomen/Pelvis wo contrast 78035 Abdomen/Pelvis wo contrast CT SEE NOTES Co [...] the dorsal cortex of the superior pole eqyyplbaj80 mm and the dorso lateral cortex of [...] mild seminal vesicle enlargement.COMMENTS:1. Consistent with the [employer]'s Incidental FindingsCommittee white paper [...] warrantedbased on clinical findings.2. Consistent with the [place] [employer]'s Incidental FindingsCommittee white paper (J Am Renetta Radiol 2018): Any incidental cystic renallesion classified in this report as too small to characterize or simpleappearing is likely a benign cyst. No follow-up imaging is recommended forthese lesions per consensus recommendations based on imaging criteria.Jimmy Worley MD On 07/25/2019 13:25:47; [id number]--Jobg by: Jimmy Worley MDDictated Date/time: 07/25/19 13:25Electronically [...] ABSOLUTE NEUTROPHILS 1699 {cells/uL} (Normal) R lauren: [phone] ABSOLUTE LYMPHOCYTES 1123 {cells/uL} (Normal) R lauren: [...]
--- OUTSIDE RECORDS SUMMARY | 2019-11-02 19:34 | XMS REPORT | Summary of Care ---
Author OC Del Cid M.A. Organization Unknown Address [facility] Phone Unavailable Care Team Providers Care Sausage Meat Trimmer Name Role Phone BORIS WESLEY APRN Unavailable Unavailable Kvng Roberto, Vida Unavailable Unavailable BORIS WESLEY APRN Unavailable Unavailable HARIS KEANE [place], NIDIA POLK Unavailable Unavailable Jorge KEANE, Sergio Unavailable Unavailable ELIAS KEANE [place], [place] Rodríguez Unavailable Unavailable RUBY KEANE, KAREN Mckenzie Unavailable Unavailable HARIS Urbano, NIDIA Unavailable Unavailable Robyn KEANE, Jhony Unavailable Unavailable MARYJANE NIXON [place], BORIS Wyatt Unavailable Unavailable Aniceto Ojeda MD, David Unavailable Unavailable MIESHA DO [place], ADOLFOTAISHA Unavailable Unavailable HARIS BELL CT, JAMEY Unavailable [...] URINE Date: 16-Jul-2019 CT Abdomen/Pelvis wo contrast 88605 Date: 18-Jul-2019 XRAY Chest 2 views 09752 Date: 18-Jul-2019 History of Renal Lithotripsy Completed History of Oral Surgery Tooth Extraction Completed History of Skin Tag Removal Completed History of Dental Implant Completed Immunization Name Dates Details Prevnar 13 Intramuscular Suspension Lot #: [id number] on: 07-Aug-2014 Fluzone Quadrivalent 0.5 ML Intramuscula r Suspension Lot #: [id number] on: 31-Jan-2015 Fluzone High-Dose 0.5 ML Intramuscular S uspension Prefilled Syringe Lot #: [id number] on: 19-Jan-2017 Pneumococcal polysaccharide vaccine, 23 valent Lot #: [id number] on: 19-Jan-2017 Fluzone Quadrivalent 0.5 ML Intramuscula r Suspension Prefilled Syringe Lot #: [id number] on: 13-Feb-2018 Fluzone High-Dose 0.5 ML Intramuscular S uspension Prefilled Syringe Lot #: [id number] on: 27-Feb-2019 Family History Name Dates Details [...] ABSOLUTE NEUTROPHILS 1699 {cells/uL} (Normal) R lauren: 6950-3379 ABSOLUTE LYMPHOCYTES 1123 {cells/uL} (Normal) R lauren: [phone] ABSOLUTE MONOCYTES 403 {cells/uL} (Normal) Rang e: 200-950 ABSOLUTE EOSINOPHILS 313 {cells/uL} (Normal) Ra nge: 15-500 ABSOLUTE BASOPHILS 61 {cells/uL} (Normal) Range : 0-200 NEUTROPHILS 47.2 % (Normal) LYMPHOCYTES 31.2 % (Normal) MONOCYTES 11.2 % (Normal) EOSINOPHILS 8.7 % (Normal) BASOPHILS 1.7 % (Normal) [id number] [Q] METHYLMALONIC ACID AND H OMOCYSTEINE (NUTRITIONAL AND CONGENITAL) METHYLMALONIC ACID 180 nmol/L Range: 87-318 Comments: This test was developed and its analytical performancecharacteristics have been determined by [facility]. It has not beencleared or approved [...] nitrous oxide. Maikel Coleman, et al. Angelica Food Technician Med.1999;131(5):331-9. :39 [QL] LD LD 115 u/l [...] Comments: This test was performed using the [employer] Coulterchemiluminescent method. Values obtained fromdifferent assay methods [...]
--- OUTSIDE RECORDS SUMMARY | 2019-11-02 19:34 | XMS REPORT | Summary of Care ---
Author OC Mendoza M.D. Organization Unknown Address [facility] Phone Unavailable Care Team Providers Care Ec Teacher Name Role Phone BORIS WESLEY APRN [...] DO [place], ADOLFOTAISHA Unavailable Unavailable HARIS BELL NE, JAMEY [...] URINE Date: 16-Jul-2019 CT Abdomen/Pelvis wo contrast 88868 Date: 18-Jul-2019 XRAY Chest 2 views [id number] Date: 18-Jul-2019 History of Renal Lithotripsy Completed History of Oral Surgery Tooth Extraction Completed History of Skin Tag Removal Completed History of Dental Implant Completed Immunization Name Dates Details Prevnar 13 Intramuscular Suspension Lot #: [id number] on: 07-Aug-2014 Fluzone Quadrivalent 0.5 ML Intramuscula r Suspension Lot #: [id number] on: 31-Jan-2015 Fluzone High-Dose 0.5 ML Intramuscular S uspension Prefilled Syringe Lot #: [id number] on: 19-Jan-2017 Pneumococcal polysaccharide vaccine, 23 valent Lot #: [id number] on: 19-Jan-2017 Fluzone Quadrivalent 0.5 ML Intramuscula r Suspension Prefilled Syringe Lot #: [id number] on: 13-Feb-2018 Fluzone High-Dose 0.5 ML Intramuscular S uspension Prefilled Syringe Lot #: [id number] on: 27-Feb-2019 Family History Name Dates Details [...] pressure 113 mm[Hg] Status: Comments : [place] [facility] [place] Diastolic blood pressure 54 mm[Hg] [...] ABSOLUTE NEUTROPHILS 1850 {cells/uL} (Normal) R lauren: 7870-0795 ABSOLUTE LYMPHOCYTES 983 {cells/uL} (Normal) Ra nge: [...] Please Note: Although the reference range for asehkxmR02 is 200-1100 pg/mL, it has been reported that between5 and 10% of patients with values between 200 and 400pg/mL may experience neuropsychiatric and hematologicabnormalities due to occult B12 deficiency; less than 1%of patients with values above 400 pg/mL will have symptoms. REPORT COMMENT:FASTING:YES VITAMIN B12 392 pg/ml (Normal) Range: 200-1 100 Comments: Please Note: Although the reference range for umvkwwlJ90 is 200-1100 pg/mL, it has been reported [...] 3.2 g/dl (Below low threshold) Range: 3.8-4.8 YLOTC-2-TKLHUCSPY 0.3 g/dl (Normal) Range: 0.2- 0.3 JPADF-1-PJXWPPCJR 0.8 g/dl (Normal) Range: 0.5- 0.9 BETA [...] ABSOLUTE NEUTROPHILS 3124 {cells/uL} (Normal) R lauren: 5381-1656 ABSOLUTE LYMPHOCYTES 792 {cells/uL} (Below low threshold) Range: 850-3900 ABSOLUTE MONOCYTES 176 {cells/uL} (Below low th reshold) Range: 200-950 ABSOLUTE EOSINOPHILS 264 {cells/uL} (Normal) Ra nge: 15-500 ABSOLUTE BASOPHILS 44 {cells/uL} (Normal) Range : 0-200 NEUTROPHILS 71.0 % (Normal) LYMPHOCYTES 18.0 % (Normal) MONOCYTES 4.0 % (Normal) EOSINOPHILS 6.0 % (Normal) BASOPHILS 1.0 % (Normal) :43 XRAY Chest 2 views 76868 Chest 2 views SEE NOTES Comments: PROCED [...] active disease.Augusto Pope MD On 07/25/2019 11:14:19; [id number] by: Augusto Pope MDDictated Date/time: 07/25/19 11:14Electronically Signed by: Augusto Pope MD 07/24/2010:14FINAL REPORT [id number] CT Abdomen/Pelvis wo contrast 03938 Abdomen/Pelvis wo contrast CT SEE NOTES Co [...] the dorsal cortex of the superior pole [id number] mm and the dorso lateral cortex of [...] mild seminal vesicle enlargement.COMMENTS:1. Consistent with the [employer]'s Incidental FindingsCommittee white paper [...] warrantedbased on clinical findings.2. Consistent with the [place] [employer]'s Incidental FindingsCommittee white paper (J Am Renetta Radiol 2018): Any incidental cystic renallesion classified in this report as too small to characterize or simpleappearing is likely a benign cyst. No follow-up imaging is recommended forthese lesions per consensus recommendations based on imaging criteria.Jimmy Worley MD On 07/25/2019 13:25:47; [id number] by: Jimmy Worley MDDictated Date/time: 07/25/19 13:25Electronically [...] ABSOLUTE NEUTROPHILS 1699 {cells/uL} (Normal) R lauren: 1361-9308 ABSOLUTE LYMPHOCYTES 1123 {cells/uL} (Normal) R lauren: [...] its analytical performancecharacteristics have been determined by [facility]. It has not beencleared or approved by [...] oxide. Maikel Coleman, et al. Angelica Graduate Assistant Athletic Trainer Med.1999;131(5):331-9. :39 [QL] LD LD 115 u/l [...]
--- OUTSIDE RECORDS SUMMARY | 2019-11-02 19:35 | XMS REPORT | Summary of Care ---
Author OC Del Cid M.A. Organization Unknown Address [facility] Phone Unavailable Care Team Providers Care Door Operator Name Role Phone BORIS WESLEY APRN Unavailable Unavailable Kvng Roberto, Vida Unavailable Unavailable BORIS WESLEY APRN Unavailable Unavailable HARIS KEANE MS, NIDIA POLK Unavailable Unavailable WINSTON KEANE, ESTELLE Unavailable Unavailable ELIAS KEANE [place], [place] Rodríguez Unavailable Unavailable RUBY KEANE, KAREN Mckenzie Unavailable Unavailable HARIS Urbano, NIDIA Unavailable Unavailable Robyn KEANE, Jhony Unavailable Unavailable MARYJANE NIXON MS, BORIS Wyatt Unavailable Unavailable Aniceto Ojeda MD, David Unavailable Unavailable MIESHA DO [place], ADOLFOTAISHA Unavailable Unavailable HARIS BELL MS, JAMEY Unavailable [...] Active Adrenal adenoma (227.0, D35.00) Status: Active Myelodysplasia (myelodysplastic syndrome ) (238.75, D46.9) Status: Active Medications Name Dates Details PARoxetine [...] DAY * Quantity: 90 Refills: 0 BORIS WELSEY APRN * Start : 29-Mar-2018 Active azaTHIOprine 50 MG Oral Tablet TAKE 1 TABLET DAILY. * Refills: 0 BORIS WESLEY APRN * Start : 22-Aug-2018 Active Centrum Silver TABS TAKE 1 TABLET DAILY. * Refills: 0 Active Ursodiol 500 MG Oral Tablet TAKE 1 TABLET 3 TIMES DAILY WITH MEALS. * Refills: 0 * Start : 31-Aug-2019 Active Allergies and Adverse Reactions Name Dates [...] M84.375D) Status: Resolved Procedures Procedure Dates Details Bone Marrow Biopsy Date: 04-Sep-2019 [QL] CBC (INCLUDES DIFF/PLT) Date: 26-Sep-2019 [QL] CMP W/EGFR Date: 26-Sep-2019 [QL] FERRITIN Date: 26-Sep-2019 [L] Renin, Plasma Date: 09-Aug-2019 [L] Renin Activity and Aldosterone Date: 09-Aug-2019 [QL] CMP W/EGFR Date: 09-Aug-2019 [Q] LP PLA2 (PLAC[R]) Date: 09-Aug-2019 VR Bone Marrow Aspiration Date: 03-Sep-2019 History of Renal Lithotripsy Completed History of Oral Surgery Tooth Extraction Completed History of Skin Tag Removal Completed History of Dental Implant Completed Immunization Name Dates Details Prevnar 13 Intramuscular Suspension Lot #: [id number] on: 07-Aug-2014 Fluzone Quadrivalent 0.5 ML Intramuscula r Suspension Lot #: [id number] on: 31-Jan-2015 Fluzone High-Dose 0.5 ML Intramuscular S uspension Prefilled Syringe Lot #: [id number] on: 19-Jan-2017 Pneumococcal polysaccharide vaccine, 23 valent Lot #: [id number] on: 19-Jan-2017 Fluzone Quadrivalent 0.5 ML Intramuscula r Suspension Prefilled Syringe Lot #: [id number] on: 13-Feb-2018 Fluzone High-Dose 0.5 ML Intramuscular S uspension Prefilled Syringe Lot #: [id number] on: 27-Feb-2019 Family History Name Dates Details [...] (finding) Vital Signs Date Test Result Details [id number]-[id number]:14 Systolic blood pressure 148 mm[Hg] Status: Comments : Location: [facility]; Position: Sitting Diastolic blood pressure 72 mm[Hg] Status: Comment s: Location: [facility]; Position: Sitting Heart Rate 57 /min Status: :09 Systolic blood pressure 165 mm[Hg] Status: Comments : Location: [facility]; Position: Sitting Diastolic blood pressure 76 mm[Hg] Status: Comment s: Location: [facility]; Position: Sitting Heart Rate 65 /min Status: Body height 66 in Status: Weight 230 lb Status: Body mass index (BMI) [Ratio] 37.12 kg/m2 Status: Body surface area Derived from formula 2.12 m2 S tatus: Body temperature 96.4 f Status: Comments: Me thod: Temporal Respiratory rate 14 /min Status: Results Date Description Value Details :43 [QL] HEPATIC FUNCTION PANEL PROTEIN, TOTAL [...] 0.5 {MG/DL__CAL} (Normal) R lauren: 0.2-1.2 ALKALINE PHOSPHATASE 142 u/l (Normal) Range: 35 -144 AST 21 u/l (Normal) Range: 10-35 ALT 16 u/l (Normal) Range: 9-46 :43 [QL] CBC (INCLUDES DIFF/PLT) WHITE BLOOD CELL COUNT 2.8 {Thousand/u} (Below low threshold) Range: 3.8-10.8 RED BLOOD CELL COUNT 2.37 {Million/uL} (Below l ow threshold) Range: 4.20-5.80 HEMOGLOBIN 8.7 g/dl (Below low threshold) Range: 13.2-17.1 [...] NEUTROPHILS 1439 {cells/uL} (Below low threshold) Range: 7458-6631 ABSOLUTE LYMPHOCYTES 820 {cells/uL} (Below low threshold) Range: 850-3900 ABSOLUTE MONOCYTES 210 {cells/uL} (Normal) Rang e: 200-950 ABSOLUTE EOSINOPHILS 291 {cells/uL} (Normal) Ra nge: 15-500 ABSOLUTE BASOPHILS 39 {cells/uL} (Normal) Range : 0-200 NEUTROPHILS 51.4 % (Normal) LYMPHOCYTES 29.3 % (Normal) MONOCYTES 7.5 % (Normal) EOSINOPHILS 10.4 % (Normal) BASOPHILS 1.4 % (Normal) :43 [QL] FERRITIN Comments: REPORT COM MENT:FASTING:NO FERRITIN 508 ng/ml (Above high threshold ) Range: 24-380 :00 [QL] CBC (INCLUDES DIFF/PLT) Comments: REPORT COMMENT:FASTING:NO WHITE BLOOD CELL COUNT 4.0 {Thousand/u} (Normal ) Range: 3.8-10.8 RED BLOOD CELL COUNT 2.63 {Million/uL} (Below l ow threshold) Range: 4.20-5.80 HEMOGLOBIN 9.5 g/dl (Below low threshold) Range: 13.2-17.1 HEMATOCRIT 27.7 % (Below low threshold) Ra nge: 38.5-50.0 MCV 105.3 fL (Above high threshold) Range: 80.0-100.0 MCH 36.1 pg (Above high threshold) Range: 27.0-33.0 MCHC 34.3 g/dl (Normal) Range: 32.0- 36.0 RDW 17.4 % (Above high threshold) R lauren: 11.0-15.0 PLATELET COUNT 229 {Thousand/u} (Normal) Range : 140-400 MPV 9.4 fL (Normal) Range: 7.5-12.5 ABSOLUTE NEUTROPHILS 2112 {cells/uL} (Normal) R lauren: 6263-8157 ABSOLUTE LYMPHOCYTES 988 {cells/uL} (Normal) Ra nge: 850-3900 ABSOLUTE MONOCYTES 476 {cells/uL} (Normal) Rang e: 200-950 ABSOLUTE EOSINOPHILS 372 {cells/uL} (Normal) Ra nge: 15-500 ABSOLUTE BASOPHILS 52 {cells/uL} (Normal) Range : 0-200 NEUTROPHILS 52.8 % (Normal) LYMPHOCYTES 24.7 % (Normal) MONOCYTES 11.9 % (Normal) EOSINOPHILS 9.3 % (Normal) BASOPHILS 1.3 % (Normal) Plan of Care Name Dates Details Planned Observations Planned Goals not documented Planned Encounters Appointment; Mo Blackmon M.D. On: 02-Oct-2019 11:15 Appointment; ESTELLE MONTERO M.D. On: 18-Oct-2019 14:45 Interventions Provided Labs/Procedures/Imaging* [QL] CBC (INCLUDES DIFF/PLT); To Be Done: 26 Sep 2019 * [QL] CMP W/EGFR; To Be Done: 26 Sep 2019 * [QL] FERRITIN; To Be Done: 26 Sep 2019 Instructions Name Dates Details Instructions not documented Encounters Appointment; BORIS WESLEY APRN Encounter Diagnosis: Problem not documented On: 11-Oct-2017 9:30 Appointment; BORIS WESLEY APRN Encounter Diagnosis: Problem not documented On: 26-Oct-2017 13:00 Appointment; RICKEY NIELSEN APRN Encounter Diagnosis: Problem not documented On: 13-Feb-2018 15:30 Appointment; JHOYN JONES M.D. Encounter Diagnosis: Problem not documented [...] not documented On: 03-Aug-2019 12:45 Appointment; ESTELLE MOTNERO M.D. Encounter Diagnosis: Problem not documented On: 09-Aug-2019 15:45 Appointment; Mo Blackmon M.D. Encounter Diagnosis: Problem not documented On: 31-Aug-2019 11:30
--- OUTSIDE RECORDS SUMMARY | 2019-11-02 19:35 | XMS REPORT | Summary of Care ---
Author Author Elias Urbano, OC Wyatt Organization Unknown Address [facility] Phone Unavailable Care Team Providers Care Import/Export Administrator Name Role Phone BORIS WESLEY APRN Unavailable Unavailable Bassam Roberto, Magnus Unavailable Unavailable BORIS WESLEY APRN Unavailable Unavailable HARIS KEANE DC, NIDIA POLK Unavailable Unavailable WINSTON KEANE, ESTELLE Unavailable Unavailable ELIAS KEANE DC, [place] Rodríguez Unavailable Unavailable RUBY KEANE, KAREN Mckenzie Unavailable Unavailable HARIS Urbano, NIDIA Unavailable Unavailable Jhony Jones MD Unavailable Unavailable MARYJANE NIXON [place], BORIS Wyatt Unavailable Unavailable Aniceto Ojeda MD, David Unavailable Unavailable MIESHA DO UT, JAYDAN Unavailable Unavailable HARIS BELL [place], JAMEY Unavailable [...] Dates Details Bone Marrow Biopsy Date: 04-Sep-2019 [Q] METHYLMALONIC ACID, GC/MS/MS, URINE Date: 16-Jul-2019 [Q] COPPER, RANDOM URINE Date: 16-Jul-2019 [QL] CBC (INCLUDES DIFF/PLT) Date: 19-Jul-2019 [QL] CMP W/EGFR Date: 25-Jul-2019 [L] Renin, Plasma Date: 09-Aug-2019 [L] Renin Activity and Aldosterone Date: 09-Aug-2019 [QL] CMP W/EGFR Date: 09-Aug-2019 [Q] LP PLA2 (PLAC[R]) Date: 09-Aug-2019 [QL] CBC (INCLUDES DIFF/PLT) Date: 31-Aug-2019 VR Bone Marrow Aspiration Date: 03-Sep-2019 CT Abdomen/Pelvis wo contrast 40942 Date: 18-Jul-2019 XRAY Chest 2 views 75082 Date: 18-Jul-2019 History of Renal Lithotripsy Completed History of Oral Surgery Tooth Extraction Completed History of Skin Tag Removal Completed History of Dental Implant Completed Immunization Name Dates Details Prevnar 13 Intramuscular Suspension Lot #: [id number] on: 07-Aug-2014 Fluzone Quadrivalent 0.5 ML Intramuscula r Suspension Lot #: [id number] on: 31-Jan-2015 Fluzone High-Dose 0.5 ML Intramuscular S uspension Prefilled Syringe Lot #: [id number] on: 19-Jan-2017 Pneumococcal polysaccharide vaccine, 23 valent Lot #: [id number] on: 19-Jan-2017 Fluzone Quadrivalent 0.5 ML Intramuscula r Suspension Prefilled Syringe Lot #: [id number] on: 13-Feb-2018 Fluzone High-Dose 0.5 ML Intramuscular S uspension Prefilled Syringe Lot #: [id number] on: 27-Feb-2019 Family History Name Dates Details [...] (finding) Vital Signs Date Test Result Details :14 Systolic blood pressure 148 mm[Hg] Status: Comments [...] thod: Temporal Respiratory rate 14 /min Status: :06 Systolic blood pressure 131 mm[Hg] Status: Diastolic blood pressure 60 mm[Hg] Status: Heart Rate 71 /min Status: Body height 66 in Status: Weight 235 lb Status: Body mass index (BMI) [Ratio] 37.93 kg/m2 Status: Body surface area Derived from formula 2.14 m2 S tatus: Body temperature 97 f Status: Respiratory rate 16 /min Status: Results Date Description Value Details :39 [Q] METHYLMALONIC ACID AND H OMOCYSTEINE (NUTRITIONAL AND CONGENITAL) METHYLMALONIC ACID 180 nmol/L Range: 87-318 Comments: This test was developed and its analytical performancecharacteristics have been determined by [facility]. It has not beencleared or approved by [...] nitrous oxide. Maikel Coleman, et al. Angelica Foxing Closer Med.1999;131(5):331-9. :39 [QL] LD LD 115 u/l [...] Comments: This test was performed using the Wishberg Coulterchemiluminescent method. Values obtained fromdifferent assay methods [...] NEUTROPHILS 1439 {cells/uL} (Below low threshold) Range: 3300-5671 ABSOLUTE LYMPHOCYTES 820 {cells/uL} (Below low threshold) Range: 850-3900 ABSOLUTE MONOCYTES 210 {cells/uL} (Normal) Rang e: 200-950 ABSOLUTE EOSINOPHILS 291 {cells/uL} (Normal) Ra nge: 15-500 ABSOLUTE BASOPHILS 39 {cells/uL} (Normal) Range : 0-200 NEUTROPHILS 51.4 % (Normal) LYMPHOCYTES 29.3 % (Normal) MONOCYTES 7.5 % (Normal) EOSINOPHILS 10.4 % (Normal) BASOPHILS 1.4 % (Normal) 43-Uni-530494:43 [QL] FERRITIN Comments: REPORT COM MENT:FASTING:NO FERRITIN 508 ng/ml (Above high threshold ) Range: 24-380 Plan of Care Name Dates Details Planned Observations Planned Goals not documented Planned Encounters Appointment; Mo Blackmon M.D. On: 15-Sep-2019 11:00 Appointment; ESTELLE MONTERO M.D. On: 18-Oct-2019 14:45 Interventions Provided Labs/Procedures/Imaging* Bone Marrow Biopsy; To Be Done: 04 Sep 2019 Instructions Name Dates Details Instructions [...]
--- OUTSIDE RECORDS SUMMARY | 2019-11-02 19:35 | XMS REPORT | Summary of Care ---
Author Author Elias Urbano, OC DODD JR Organization Unknown Address [facility] Phone Unavailable Care Team Providers Care Customer Complaint Clerk Name Role Phone BORIS WESLEY APRN Unavailable Unavailable MARYJANE OCAMPO, BORIS Franklin Unavailable Unavailable HARIS KEANE [place], NIDIA POLK Unavailable Unavailable WINSTON KEANE, ESTELLE Unavailable Unavailable ELIAS KEANE [place], [place] Rodríguez [...] TABLET BY MOUTH EVERY DAY Quantity: 90 WESLEY VIDEO TECHNICIAN, BORIS D. * Start : 07-Oct-2014 Active hydrALAZINE HCl [...] DAILY * Quantity: 180 Refills: 1 BORIS WSELEY APRN * Start : 21-May-2016 Active Allopurinol [...] TABLET DAILY. * Refills: 0 M.A. Active Ursodiol 500 MG Oral Tablet TAKE 1 TABLET 3 TIMES DAILY WITH MEALS. * Refills: 0 M.A. * Start : 31-Aug-2019 Active Allergies and [...] [Q] COPPER, RANDOM URINE Date: 16-Jul-2019 [QL] CMP W/EGFR Date: 25-Jul-2019 [L] Renin, [...] Details Prevnar 13 Intramuscular Suspension Lot #: [id number] on: 07-Aug-2014 Fluzone Quadrivalent 0.5 ML Intramuscula r Suspension Lot #: [id number] on: 31-Jan-2015 Fluzone High-Dose 0.5 ML Intramuscular S uspension Prefilled Syringe Lot #: [id number] on: 19-Jan-2017 Pneumococcal polysaccharide vaccine, 23 valent Lot #: [id number] on: 19-Jan-2017 Fluzone Quadrivalent 0.5 ML Intramuscula r Suspension Prefilled Syringe Lot #: [id number] on: 13-Feb-2018 Fluzone High-Dose 0.5 ML Intramuscular S uspension Prefilled Syringe Lot #: [id number] on: 27-Feb-2019 Family History Name Dates Details [...] (finding) Vital Signs Date Test Result Details 35-Ule-835988:14 Systolic blood pressure 148 mm[Hg] Status: Comments [...] NEUTROPHILS 1439 {cells/uL} (Below low threshold) Range: 1428-4791 ABSOLUTE LYMPHOCYTES 820 {cells/uL} (Below low threshold) [...] ABSOLUTE NEUTROPHILS 2112 {cells/uL} (Normal) R lauren: 2761-5797 ABSOLUTE LYMPHOCYTES 988 {cells/uL} (Normal) Ra nge: [...] Appointment; ESTELLE MONTERO M.D. On: 18-Oct-2019 14:45 Instructions Name [...]
--- OUTSIDE RECORDS SUMMARY | 2019-11-02 19:35 | XMS REPORT | Summary of Care ---
Author Author [facility] Organization [facility] Address [address] [place] [address] Phone Unavailable Care Team Providers Care Public Services Librarian Name Role Phone BORIS WESLEY APRN Unavailable Unavailable MARYJANE OCAMPO, BORIS Franklin Unavailable Unavailable HARIS KEANE [place], NIDIA POLK Unavailable Unavailable WINSTON KEANE, ESTELLE Unavailable Unavailable ELIAS KEANE [place], [place] Rodríguez Unavailable Unavailable RUBY KEANE, KAREN Mckenzie Unavailable Unavailable HARIS Urbano, NIDIA Unavailable Unavailable Robyn KEANE, Jhony Unavailable Unavailable MARYJANE NIXON [place], BORIS Wyatt Unavailable Unavailable Aniceto Ojeda MD, David Unavailable Unavailable MIESHA DO [place], ADOLFOTAISHA Unavailable Unavailable HARIS BELL [place], JAMEY Unavailable Unavailable Unavailable Unavailable Functional Status [...] BY MOUTH EVERY DAY Quantity: 90 WESLEY GUEST SPECIALIST, BORIS D. * Start : 07-Oct-2014 Active [...] 31-Aug-2019 VR Bone Marrow Aspiration Date: 03-Sep-2019 History of Renal Lithotripsy Completed History of Oral Surgery Tooth Extraction Completed History of Skin Tag Removal Completed History of Dental Implant Completed Immunization Name Dates Details Prevnar 13 Intramuscular Suspension Lot #: [id number] on: 07-Aug-2014 Fluzone Quadrivalent 0.5 ML Intramuscula r Suspension Lot #: [id number] on: 31-Jan-2015 Fluzone High-Dose 0.5 ML Intramuscular S uspension Prefilled Syringe Lot #: [id number] on: 19-Jan-2017 Pneumococcal polysaccharide vaccine, 23 valent Lot #: [id number] on: 19-Jan-2017 Fluzone Quadrivalent 0.5 ML Intramuscula r Suspension Prefilled Syringe Lot #: [id number] on: 13-Feb-2018 Fluzone High-Dose 0.5 ML Intramuscular S uspension Prefilled Syringe Lot #: [id number] on: 27-Feb-2019 Family History Name Dates Details [...] (finding) Vital Signs Date Test Result Details 91-Wor-412003:14 Systolic blood pressure 148 mm[Hg] Status: Comments [...] NEUTROPHILS 1439 {cells/uL} (Below low threshold) Range: 2332-6667 ABSOLUTE LYMPHOCYTES 820 {cells/uL} (Below low threshold) Range: 850-3900 ABSOLUTE MONOCYTES 210 {cells/uL} (Normal) Rang e: 200-950 ABSOLUTE EOSINOPHILS 291 {cells/uL} (Normal) Ra nge: 15-500 ABSOLUTE BASOPHILS 39 {cells/uL} (Normal) Range : 0-200 NEUTROPHILS 51.4 % (Normal) LYMPHOCYTES 29.3 % (Normal) MONOCYTES 7.5 % (Normal) EOSINOPHILS 10.4 % (Normal) BASOPHILS 1.4 % (Normal) 16-Tkj-299269:43 [QL] FERRITIN Comments: REPORT COM MENT:FASTING:NO FERRITIN [...]
--- OUTSIDE RECORDS SUMMARY | 2019-11-02 19:35 | XMS REPORT | Summary of Care ---
Author OC Mendoza M.D. Organization Unknown Address [facility] Phone Unavailable Care Team Providers Care Garnisher Name Role Phone BORIS WESLEY APRN Unavailable Unavailable BORIS WESLEY APRN Unavailable Unavailable HARIS KEANE ID, NIDIA POLK Unavailable Unavailable WINSTON KEANE, ESTELLE Unavailable Unavailable ELIAS KEANE [place], [place] Rodríguez Unavailable Unavailable RUBY KEANE, KAREN Mckenzie Unavailable Unavailable HARIS Urbano, NIDIA Unavailable Unavailable Robyn KEANE, Jhony Unavailable Unavailable MARYJANE NIXON ID, BORIS Wyatt Unavailable Unavailable Aniceto Ojeda MD, David Unavailable Unavailable MIESHA DO [place], ADOLFOTAISHA Unavailable Unavailable HARIS BELL [place], JAMEY Unavailable [...] TAKE 1 TABLET DAILY. * Refills: 0 M.D. Active Ursodiol 500 MG Oral Tablet TAKE 1 TABLET 3 TIMES DAILY WITH MEALS. * Refills: 0 M.D. * Start : 31-Aug-2019 Active Allergies and [...] 04-Sep-2019 [QL] CBC (INCLUDES DIFF/PLT) Date: 26-Sep-2019 [L] Renin, Plasma Date: 09-Aug-2019 [...] Details Prevnar 13 Intramuscular Suspension Lot #: [id number] on: 07-Aug-2014 Fluzone Quadrivalent 0.5 ML Intramuscula r Suspension Lot #: [id number] on: 31-Jan-2015 Fluzone High-Dose 0.5 ML Intramuscular S uspension Prefilled Syringe Lot #: [id number] on: 19-Jan-2017 Pneumococcal polysaccharide vaccine, 23 valent Lot #: [id number] on: 19-Jan-2017 Fluzone Quadrivalent 0.5 ML Intramuscula r Suspension Prefilled Syringe Lot #: [id number] on: 13-Feb-2018 Fluzone High-Dose 0.5 ML Intramuscular S uspension Prefilled Syringe Lot #: [id number] on: 27-Feb-2019 Family History Name Dates Details [...] (finding) Vital Signs Date Test Result Details 24-Fil-273654:14 Systolic blood pressure 148 mm[Hg] Status: Comments : Location: [facility]; Position: Sitting Diastolic blood pressure 72 mm[Hg] Status: Comment s: Location: [facility]; Position: Sitting Heart Rate 57 /min Status: 64-Rwl-991581:09 Systolic blood pressure 165 mm[Hg] Status: Comments : Location: [facility]; Position: Sitting Diastolic blood pressure 76 mm[Hg] Status: Comment s: Location: E; Position: Sitting Heart Rate 65 /min Status: Body height 66 in Status: Weight 230 lb Status: Body mass index (BMI) [Ratio] 37.12 kg/m2 Status: Body surface area Derived from formula 2.12 m2 S tatus: Body temperature 96.4 f Status: Comments: Me thod: Temporal Respiratory rate 14 /min Status: Results Date Description Value Details :00 [QL] CBC (INCLUDES DIFF/PLT) Comments: REPORT [...] ABSOLUTE NEUTROPHILS 2112 {cells/uL} (Normal) R lauren: 4427-2583 ABSOLUTE LYMPHOCYTES 988 {cells/uL} (Normal) Ra nge: 850-3900 ABSOLUTE MONOCYTES 476 {cells/uL} (Normal) Rang e: 200-950 ABSOLUTE EOSINOPHILS 372 {cells/uL} (Normal) Ra nge: 15-500 ABSOLUTE BASOPHILS 52 {cells/uL} (Normal) Range : 0-200 NEUTROPHILS 52.8 % (Normal) LYMPHOCYTES 24.7 % (Normal) MONOCYTES 11.9 % (Normal) EOSINOPHILS 9.3 % (Normal) BASOPHILS 1.3 % (Normal) :13 [QL] CMP W/EGFR GLUCOSE 191 mg/dl (Above high threshold ) Range: 65-139 Comments: Non-fasting reference interval UREA NITROGEN (BUN) 17 mg/dl (Normal) Range: 7- 25 CREATININE 1.38 mg/dl (Above high threshol d) Range: 0.70-1.18 Comments: For patients >49 years of age, the reference limitfor Creatinine is approximately 13% higher for peopleidentified as -[place]. eGFR NON-AFR. CZECH 51 {ML/MIN/1.7} (Below l ow threshold) Range: > OR = 60 eGFR 59 {ML/MIN/1.7} (Below lo w threshold) Range: > OR = 60 BUN/CREATININE RATIO 12 {CALC} (Normal) Range: 6-22 SODIUM 139 mmol/L (Normal) Range: 135- 146 POTASSIUM 3.8 mmol/L (Normal) Range: 3.5- 5.3 CHLORIDE 107 mmol/L (Normal) Range: 98-1 10 CARBON DIOXIDE 27 mmol/L (Normal) Range: 20-32 CALCIUM 8.6 mg/dl (Normal) Range: 8.6-1 0.3 PROTEIN, TOTAL 5.6 g/dl (Below low threshold) Range: 6.1-8.1 ALBUMIN 3.4 g/dl (Below low threshold) Range: 3.6-5.1 GLOBULIN 2.2 {G/DL__CALC} (Normal) Range : 1.9-3.7 ALBUMIN/GLOBULIN RATIO 1.5 {CALC} (Normal) Rang e: 1.0-2.5 BILIRUBIN, TOTAL 0.7 mg/dl (Normal) Range: 0.2- 1.2 ALKALINE PHOSPHATASE 165 u/l (Above high thresh old) Range: 35-144 AST 21 u/l (Normal) Range: 10-35 ALT 17 u/l (Normal) Range: 9-46 20-Idk-126003:13 [QL] FERRITIN Comments: REPORT COM MENT:FASTING:NOPATIENT REFUSED SOME TESTING; PATIENT ENCOURAGED TO RETURN. FERRITIN 474 ng/ml (Above high threshold ) Range: 24-380 [...] Problem not documented On: 03-Aug-2019 12:45 Appointment; ETSELLE MONTERO M.D. Encounter Diagnosis: Problem not documented On: 09-Aug-2019 15:45 Appointment; Mo Blackmon M.D. Encounter Diagnosis: Problem not documented On: 31-Aug-2019 11:30
--- OUTSIDE RECORDS SUMMARY | 2019-11-02 19:35 | XMS REPORT | Summary of Care ---
Author Author OC Moore R.N. Organization Unknown Address Unknown Phone Unavailable Care Team Providers Care It Compliance Analyst Name Role Phone BORIS WESLEY APRN Unavailable Unavailable Oscar Pompa, Janice Unavailable Unavailable BORIS WESLEY APRN Unavailable Unavailable HARIS KEANE [place], NIDIA POLK Unavailable Unavailable WINSTON KEANE, ESTELLE Unavailable Unavailable ELIAS KEANE [place], [place] Rodríguez Unavailable Unavailable RUBY KEANE, KAREN Mckenzie Unavailable Unavailable HARIS Urbano, NIDIA Unavailable Unavailable Jhony Jones MD Unavailable Unavailable MARYJANE NIXON [place], BORIS Wyatt Unavailable Unavailable Aniceto Ojeda MD, [...] Details Prevnar 13 Intramuscular Suspension Lot #: [id number] on: 07-Aug-2014 Fluzone Quadrivalent 0.5 ML Intramuscula r Suspension Lot #: [id number] on: 31-Jan-2015 Fluzone High-Dose 0.5 ML Intramuscular S uspension Prefilled Syringe Lot #: [id number] on: 19-Jan-2017 Pneumococcal polysaccharide vaccine, 23 valent Lot #: [id number] on: 19-Jan-2017 Fluzone Quadrivalent 0.5 ML Intramuscula r Suspension Prefilled Syringe Lot #: [id number] on: 13-Feb-2018 Fluzone High-Dose 0.5 ML Intramuscular S uspension Prefilled Syringe Lot #: [id number] on: 27-Feb-2019 Family History Name Dates Details [...] (finding) Vital Signs Date Test Result Details 96-Tdc-102741:14 Systolic blood pressure 148 mm[Hg] Status: Comments [...] NEUTROPHILS 1439 {cells/uL} (Below low threshold) Range: 6418-4871 ABSOLUTE LYMPHOCYTES 820 {cells/uL} (Below low threshold) [...] ABSOLUTE NEUTROPHILS 2112 {cells/uL} (Normal) R lauren: [phone] ABSOLUTE LYMPHOCYTES 988 {cells/uL} (Normal) Ra nge: [...] Interventions Provided Discussion/Summary* Guideline Used: * Other: MIss call * Recommended Disposition: Message added to active task Instructions Name Dates Details Instructions not documented [...]
--- OUTSIDE RECORDS SUMMARY | 2019-11-02 19:35 | XMS REPORT | Summary of Care ---
Author OC Mendoza M.D. Organization Unknown Address [facility] Phone Unavailable Care Team Providers Care Rheostat Assembler Name Role Phone Elias Urbano, Mo Unavailable Unavailable MARYJANE OCAMPO, BORIS Unavailable Unavailable MARYJANE OCAMPO, BORIS Franklin Unavailable Unavailable HARIS KEANE [place], NIDIA POLK Unavailable Unavailable Sergio Montero MD Unavailable Unavailable ELIAS KEANE [place], [place] Rodríguez [...] PRNDx 11.9 * Quantity: 50 Refills: 5 BOIRS WESLEY APRN * Start : 15-Mar-2018 Active [...] 09-Aug-2019 [QL] CBC (INCLUDES DIFF/PLT) Date: 31-Aug-2019 [Q] METHYLMALONIC ACID, GC/MS/MS, URINE Date: 16-Jul-2019 [Q] COPPER, RANDOM URINE Date: 16-Jul-2019 CT Abdomen/Pelvis wo contrast 63265 Date: 18-Jul-2019 XRAY Chest 2 views 09297 Date: 18-Jul-2019 [place] Bone marrow scan [id number] Date: 31-Aug-2019 History of Renal Lithotripsy Completed History of Oral Surgery Tooth Extraction Completed History of Skin Tag Removal Completed History of Dental Implant Completed Immunization Name Dates Details Prevnar 13 Intramuscular Suspension Lot #: [id number] on: 07-Aug-2014 Fluzone Quadrivalent 0.5 ML Intramuscula r Suspension Lot #: [id number] on: 31-Jan-2015 Fluzone High-Dose 0.5 ML Intramuscular S uspension Prefilled Syringe Lot #: [id number] on: 19-Jan-2017 Pneumococcal polysaccharide vaccine, 23 valent Lot #: [id number] on: 19-Jan-2017 Fluzone Quadrivalent 0.5 ML Intramuscula r Suspension Prefilled Syringe Lot #: [id number] on: 13-Feb-2018 Fluzone High-Dose 0.5 ML Intramuscular S uspension Prefilled Syringe Lot #: [id number] on: 27-Feb-2019 Family History Name Dates Details [...] pressure 148 mm[Hg] Status: Comments : Location: [facility]; Position: Sitting Diastolic blood pressure 72 mm[Hg] Status: Comment s: Location: [facility]; Position: Sitting Heart Rate 57 /min Status: :09 Systolic blood pressure 165 mm[Hg] Status: Comments : Location: E; Position: Sitting Diastolic blood pressure 76 mm[Hg] [...] f Status: Respiratory rate 16 /min Status: :34 Systolic blood pressure 113 mm[Hg] Status: Comments : [place] [facility] [place]: [place] Diastolic blood pressure 54 mm[Hg] Status: Comment s: [place] [facility] [place] Position: Sitting Heart Rate 59 /min Status: Body height 74 in Status: Weight 235.375 lb Status: Body mass index (BMI) [Ratio] 30.22 kg/m2 Status: Body surface area Derived from formula 2.33 m2 S tatus: Results Date Description Value Details :39 [Q] METHYLMALONIC ACID AND H OMOCYSTEINE (NUTRITIONAL AND CONGENITAL) METHYLMALONIC ACID 180 nmol/L Range: 87-318 Comments: This test was developed and its analytical performancecharacteristics have been determined by [facility]. It has not beencleared or approved [...] and phenytoin, and exposureto nitrous oxide. Maikel Coleman et al. Angelica Self Pay Collector Med.1999;131(5):331-9. :39 [QL] LD LD 115 u/l [...] Comments: This test was performed using the Superhuman Coulterchemiluminescent method. Values obtained fromdifferent assay methods [...] 10-35 ALT 16 u/l (Normal) Range: 9-46 93-Lfr-052607:43 [QL] CBC (INCLUDES DIFF/PLT) WHITE BLOOD CELL [...] NEUTROPHILS 1439 {cells/uL} (Below low threshold) Range: 6585-1186 ABSOLUTE LYMPHOCYTES 820 {cells/uL} (Below low threshold) [...] of Care Name Dates Details Planned Observations [place] Bone marrow scan [id number] On: 31-Aug-2019 Intent Planned Goals not documented Planned Encounters Appointment; Mo Blackmon M.D. On: 15-Sep-2019 11:00 Appointment; SERGIO MONTERO M.D. On: 18-Oct-2019 14:45 Interventions Provided Labs/Procedures/Imaging* [QL] CBC (INCLUDES DIFF/PLT); To Be Done: 31 Aug 2019 Instructions Name Dates Details Instructions [...]
--- OUTSIDE RECORDS SUMMARY | 2019-11-02 19:35 | XMS REPORT | Summary of Care ---
Author Author [facility] Address [address] [place] [address] Phone Unavailable Care Team Providers Care Senior Power Plant Operator Name Role Phone BORIS WESLEY APRN Unavailable Unavailable MARYJANE OCAMPO, BORIS Franklin Unavailable Unavailable HARIS KEANE [place], NIDIA POLK Unavailable Unavailable WINSTON KEANE, ESTELLE Unavailable Unavailable ELIAS KEANE [place], [place] Rodríguez Unavailable Unavailable RUBY KEANE, KAREN Mckenzie Unavailable Unavailable HARIS Urbano, NIDIA Unavailable Unavailable Robyn KEANE, Jhony Unavailable Unavailable MARYJANE NIXON [place], BORIS Wyatt Unavailable Unavailable Aniceto Ojeda MD, David Unavailable Unavailable MIESHA DO [place], ADOLFOTAISHA Unavailable Unavailable HARIS BELL [place], JAMEY [...] BY MOUTH EVERY DAY Quantity: 90 WESLEY RESEARCH MANUFACTURING OPERATOR, BORIS D. * Start : 07-Oct-2014 Active [...] Aspiration Date: 03-Sep-2019 CT Abdomen/Pelvis wo contrast 62706 Date: 18-Jul-2019 XRAY Chest 2 views 36606 Date: 18-Jul-2019 History of Renal Lithotripsy Completed History of Oral Surgery Tooth Extraction Completed History of Skin Tag Removal Completed History of Dental Implant Completed Immunization Name Dates Details Prevnar 13 Intramuscular Suspension Lot #: [id number] on: 07-Aug-2014 Fluzone Quadrivalent 0.5 ML Intramuscula r Suspension Lot #: [id number] on: 31-Jan-2015 Fluzone High-Dose 0.5 ML Intramuscular S uspension Prefilled Syringe Lot #: [id number] on: 19-Jan-2017 Pneumococcal polysaccharide vaccine, 23 valent Lot #: [id number] on: 19-Jan-2017 Fluzone Quadrivalent 0.5 ML Intramuscula r Suspension Prefilled Syringe Lot #: [id number] on: 13-Feb-2018 Fluzone High-Dose 0.5 ML Intramuscular S uspension Prefilled Syringe Lot #: [id number] on: 27-Feb-2019 Family History Name Dates Details [...] its analytical performancecharacteristics have been determined by [facility]. It has not beencleared or approved by [...] nitrous oxide. Maikel Coleman, et al. Angelica Sensitized Paper Tester Med.1999;131(5):331-9. :39 [QL] LD LD 115 u/l [...] Comments: This test was performed using the Magic Rock Entertainmentchemiluminescent method. Values obtained fromdifferent assay methods cannot [...] NEUTROPHILS 1439 {cells/uL} (Below low threshold) Range: 4415-2272 ABSOLUTE LYMPHOCYTES 820 {cells/uL} (Below low threshold) Range: 850-3900 ABSOLUTE MONOCYTES 210 {cells/uL} (Normal) Rang e: 200-950 ABSOLUTE EOSINOPHILS 291 {cells/uL} (Normal) Ra nge: 15-500 ABSOLUTE BASOPHILS 39 {cells/uL} (Normal) Range : 0-200 NEUTROPHILS 51.4 % (Normal) LYMPHOCYTES 29.3 % (Normal) MONOCYTES 7.5 % (Normal) EOSINOPHILS 10.4 % (Normal) BASOPHILS 1.4 % (Normal) 32-Tme-729703:43 [QL] FERRITIN Comments: REPORT COM MENT:FASTING:NO FERRITIN [...]
--- OUTSIDE RECORDS SUMMARY | 2019-11-02 19:35 | XMS REPORT | Summary of Care ---
Author Author OC Martinez R.N. Organization Unknown Address Unknown Phone Unavailable Care Team Providers Care Defense Attorney Name Role Phone BORIS WESLEY APRN Unavailable Unavailable Juan Pompa, Laisha Unavailable Unavailable BORIS WESLEY APRN Unavailable Unavailable HARIS KEANE MD, NIDIA POLK Unavailable Unavailable WINSTON KEANE, ESTELLE Unavailable Unavailable ELIAS KEANE [place], [place] Rodríguez Unavailable Unavailable RUBY KEANE, KAREN Mckenzie Unavailable Unavailable HARIS Urbano, NIDIA Unavailable Unavailable Robyn KEANE, Jhony Unavailable Unavailable MARYJANE NIXON [place], BORIS Wyatt Unavailable Unavailable Aniceto Ojeda MD, David Unavailable Unavailable MIESHA COPPOLA [place], ADOLFODeejayHOSSEIN Unavailable Unavailable HARIS BELL MD, JAMEY Unavailable Unavailable Unavailable Unavailable Functional Status [...] Dates Details Bone Marrow Biopsy Date: 04-Sep-2019 [L] Renin, Plasma Date: 09-Aug-2019 [L] Renin Activity and Aldosterone Date: 09-Aug-2019 [QL] CMP W/EGFR Date: 09-Aug-2019 [Q] LP PLA2 (PLAC[R]) Date: 09-Aug-2019 VR Bone Marrow Aspiration Date: 03-Sep-2019 History of Renal Lithotripsy Completed History of Oral Surgery Tooth Extraction Completed History of Skin Tag Removal Completed History of Dental Implant Completed Immunization Name Dates Details Prevnar 13 Intramuscular Suspension Lot #: [id number] on: 07-Aug-2014 Fluzone Quadrivalent 0.5 ML Intramuscula r Suspension Lot #: [id number] on: 31-Jan-2015 Fluzone High-Dose 0.5 ML Intramuscular S uspension Prefilled Syringe Lot #: [id number] on: 19-Jan-2017 Pneumococcal polysaccharide vaccine, 23 valent Lot #: [id number] on: 19-Jan-2017 Fluzone Quadrivalent 0.5 ML Intramuscula r Suspension Prefilled Syringe Lot #: [id number] on: 13-Feb-2018 Fluzone High-Dose 0.5 ML Intramuscular S uspension Prefilled Syringe Lot #: [id number] on: 27-Feb-2019 Family History Name Dates Details [...] (finding) Vital Signs Date Test Result Details 05-Qra-008015:14 Systolic blood pressure 148 mm[Hg] Status: Comments : Location: [facility]; Position: Sitting Diastolic blood pressure 72 mm[Hg] Status: Comment s: Location: [facility]; Position: Sitting Heart Rate 57 /min Status: 11-Ouj-199985:09 Systolic blood pressure 165 mm[Hg] Status: Comments [...] NEUTROPHILS 1439 {cells/uL} (Below low threshold) Range: 0793-9498 ABSOLUTE LYMPHOCYTES 820 {cells/uL} (Below low threshold) [...] ABSOLUTE NEUTROPHILS 2112 {cells/uL} (Normal) R lauren: [phone] ABSOLUTE LYMPHOCYTES 988 {cells/uL} (Normal) Ra nge: [...] 14:45 Interventions Provided Discussion/Summary* Guideline Used: * Clinic: [place] * Pt calling wanting to know if he needs to have any more blood work before apt with MD Blackmon. No orders seen. Please assist. * PH: [phone] * No signs or symptoms reported at this time. Chart review done. * Intended Caller Action: * Other: Speak with clinic staff * Additional Information: * Task sent to Vida Calderon Instructions Name Dates Details Instructions not documented [...]
--- OUTSIDE RECORDS SUMMARY | 2019-11-02 19:35 | XMS REPORT | Summary of Care ---
Author Author WINSTON Urbano, OC Wyatt Organization Unknown Address [facility] Phone Unavailable Care Team Providers Care Supervisor Labor Gang Name Role Phone BORIS WESLEY APRN Unavailable Unavailable BORIS WESLEY APRN Unavailable Unavailable HARIS KEANE [place], NIDIA POLK Unavailable Unavailable WINSTON KEANE, ESTELLE Unavailable Unavailable ELIAS KEANE [place], [place] Rodríguez Unavailable Unavailable RUBY KEANE, KAREN Mckenzie Unavailable Unavailable HARIS Urbano, NIDIA Unavailable Unavailable Robyn KEANE, Jhony Unavailable Unavailable MARYJANE NIXON [place], BORIS Wyatt Unavailable Unavailable Aniceto Ojeda MD, David Unavailable Unavailable MIESHA DO [place], ADOLFOTAISHA Unavailable Unavailable HARIS BELL [place], JAMEY Unavailable Unavailable Unavailable Unavailable Functional Status [...] Details Prevnar 13 Intramuscular Suspension Lot #: [id number] on: 07-Aug-2014 Fluzone Quadrivalent 0.5 ML Intramuscula r Suspension Lot #: [id number] on: 31-Jan-2015 Fluzone High-Dose 0.5 ML Intramuscular S uspension Prefilled Syringe Lot #: [id number] on: 19-Jan-2017 Pneumococcal polysaccharide vaccine, 23 valent Lot #: [id number] on: 19-Jan-2017 Fluzone Quadrivalent 0.5 ML Intramuscula r Suspension Prefilled Syringe Lot #: [id number] on: 13-Feb-2018 Fluzone High-Dose 0.5 ML Intramuscular S uspension Prefilled Syringe Lot #: [id number] on: 27-Feb-2019 Family History Name Dates Details [...] (finding) Vital Signs Date Test Result Details 22-Ujv-884212:14 Systolic blood pressure 148 mm[Hg] Status: Comments : Location: [facility]; Position: Sitting Diastolic blood pressure 72 mm[Hg] Status: Comment s: Location: [facility]; Position: Sitting Heart Rate 57 /min Status: 78-Hvq-820083:09 Systolic blood pressure 165 mm[Hg] Status: Comments [...] NEUTROPHILS 1439 {cells/uL} (Below low threshold) Range: 6083-7577 ABSOLUTE LYMPHOCYTES 820 {cells/uL} (Below low threshold) [...] ABSOLUTE NEUTROPHILS 2112 {cells/uL} (Normal) R lauren: 6023-7111 ABSOLUTE LYMPHOCYTES 988 {cells/uL} (Normal) Ra nge: [...]
--- OUTSIDE RECORDS SUMMARY | 2019-11-02 19:36 | XMS REPORT | Summary of Care ---
Author Author WINSTON Urbano, OC Wyatt Organization Unknown Address [facility] Phone Unavailable Care Team Providers Care Production Administrative Assistant Name Role Phone WINSTON Urbano, ESTELLE Unavailable Unavailable BORIS WESLEY APRN Unavailable Unavailable MARYJANE OCAMPO, BORIS Franklin Unavailable Unavailable HARIS KEANE [place], NIDIA POLK Unavailable Unavailable WINSTON KEANE, ESTELLE [...] Details Prevnar 13 Intramuscular Suspension Lot #: [id number] on: 07-Aug-2014 Fluzone Quadrivalent 0.5 ML Intramuscula r Suspension Lot #: [id number] on: 31-Jan-2015 Fluzone High-Dose 0.5 ML Intramuscular S uspension Prefilled Syringe Lot #: [id number] on: 19-Jan-2017 Pneumococcal polysaccharide vaccine, 23 valent Lot #: [id number] on: 19-Jan-2017 Fluzone Quadrivalent 0.5 ML Intramuscula r Suspension Prefilled Syringe Lot #: [id number] on: 13-Feb-2018 Fluzone High-Dose 0.5 ML Intramuscular S uspension Prefilled Syringe Lot #: [id number] on: 27-Feb-2019 Family History Name Dates Details [...] (finding) Vital Signs Date Test Result Details 92-Oli-643846:14 Systolic blood pressure 148 mm[Hg] Status: Comments : Location: [facility]; Position: Sitting Diastolic blood pressure 72 mm[Hg] Status: Comment s: Location: [facility]; Position: Sitting Heart Rate 57 /min Status: 63-Ivw-521850:09 Systolic blood pressure 165 mm[Hg] Status: Comments [...] ABSOLUTE NEUTROPHILS 2112 {cells/uL} (Normal) R lauren: [phone] ABSOLUTE LYMPHOCYTES 988 {cells/uL} (Normal) Ra nge: [...] is approximately 13% higher for peopleidentified as -Icelandic. eGFR NON-AFR. BAHAMIAN 51 {ML/MIN/1.7} (Below l ow threshold) Range: [...] 10-35 ALT 17 u/l (Normal) Range: 9-46 11-Yzw-635569:13 [QL] FERRITIN Comments: REPORT COM MENT:FASTING:NOPATIENT REFUSED [...] W/EGFR; To Be Done: 09 Aug 2019 Discussion/Summary* [...]
--- OUTSIDE RECORDS SUMMARY | 2019-11-02 19:36 | XMS REPORT | Summary of Care ---
Author Author OC Martinez LVN Organization Unknown Address [facility] Phone Unavailable Care Team Providers Care Analog Design Engineer Name Role Phone Elias Urbano, Mo Unavailable Unavailable Juan GOLD, Chayo Unavailable Unavailable MARYJANE OCAMPO, BORIS Unavailable Unavailable HARIS Urbano, NIDIA Unavailable Unavailable MARYJANE OCAMPO, BORIS Franklin Unavailable Unavailable HARIS KEANE [place], NIDIA POLK Unavailable Unavailable WINSTON KEANE, ESTELLE Unavailable Unavailable ELIAS KEANE [place], [place] Rodríguez Unavailable Unavailable RUBY KEANE, KAREN Mckenzie Unavailable Unavailable Robyn KEANE, Jhony Unavailable Unavailable MARYJANE NIXON [place], BORIS Wyatt Unavailable Unavailable Aniceto Ojeda MD, David Unavailable Unavailable MIESHA DO [place], ROCKY Unavailable Unavailable HARIS [facility] [place], JAMEY Unavailable Unavailable Unavailable Unavailable Functional [...] BY MOUTH two TIMES DAILY * Quantity: 60 Refills: 0 NIDIA CARBALLO M.D. * Start : 11-Apr-2014 Active Atorvastatin Calcium [...] 1 TABLET DAILY. * Refills: 0 Active Folic Acid 1 MG Oral Tablet TAKE 1 TABLET DAILY. * Quantity: 90 Refills: 0 Mo Blackmon M.D. * Start : 02-Oct-2019 Active Allergies and Adverse Reactions Name Dates [...] [QL] CBC (INCLUDES DIFF/PLT) Date: 26-Sep-2019 [QL] CBC (INCLUDES DIFF/PLT) Date: 02-Oct-2019 [QL] VITAMIN B12/FOLATE, SERUM PANEL Date: 02-Oct-2019 [Q] METHYLMALONIC ACID AND HOMOCYSTEINE (NUTRITIONAL A ND CONGENITAL) Date: 02-Oct-2019 VR Bone Marrow Aspiration Date: 03-Sep-2019 History of Renal Lithotripsy Completed History of Oral Surgery Tooth Extraction Completed History of Skin Tag Removal Completed History of Dental Implant Completed Immunization Name Dates Details Prevnar 13 Intramuscular Suspension Lot #: [id number] on: 07-Aug-2014 Fluzone Quadrivalent 0.5 ML Intramuscula r Suspension Lot #: [id number] on: 31-Jan-2015 Fluzone High-Dose 0.5 ML Intramuscular S uspension Prefilled Syringe Lot #: [id number] on: 19-Jan-2017 Pneumococcal polysaccharide vaccine, 23 valent Lot #: [id number] on: 19-Jan-2017 Fluzone Quadrivalent 0.5 ML Intramuscula r Suspension Prefilled Syringe Lot #: [id number] on: 13-Feb-2018 Fluzone High-Dose 0.5 ML Intramuscular S uspension Prefilled Syringe Lot #: [id number] on: 27-Feb-2019 Family History Name Dates Details [...] (finding) Vital Signs Date Test Result Details 72-Ntz-209745:33 Systolic blood pressure 144 mm[Hg] Status: Comments : Location: [facility]; Position: Sitting Diastolic blood pressure 52 mm[Hg] Status: Comment s: Location: [facility]; Position: Sitting Body height 66 in Status: Weight 231.25 lb Status: Body mass index (BMI) [Ratio] 37.32 kg/m2 Status: Body surface area Derived from formula 2.13 m2 S tatus: Body temperature 97.8 f Status: Respiratory rate 56 /min Status: Results Date Description Value Details :13 [QL] CMP W/EGFR GLUCOSE 191 mg/dl (Above high threshold ) Range: 65-139 Comments: Non-fasting reference interval UREA NITROGEN (BUN) 17 mg/dl (Normal) Range: 7- 25 CREATININE 1.38 mg/dl (Above high threshol d) Range: 0.70-1.18 Comments: For patients >49 years of age, the reference limitfor Creatinine is approximately 13% higher for peopleidentified as -Lebanese. eGFR NON-AFR. UKRAINIAN 51 {ML/MIN/1.7} (Below l ow threshold) Range: [...] 10-35 ALT 17 u/l (Normal) Range: 9-46 :13 [QL] FERRITIN Comments: REPORT COM MENT:FASTING:NOPATIENT REFUSED SOME TESTING; PATIENT ENCOURAGED TO RETURN. FERRITIN 474 ng/ml (Above high threshold ) Range: 24-380 Plan of Care Name Dates Details Planned Observations Planned Goals not documented Planned Encounters Appointment; Mo Blackmon M.D. On: 04-Jan-2020 11:30 Interventions Provided Medication Changes* hydrALAZINE HCl - [...] Problem not documented On: 18-Jul-2019 9:30 Appointment; CARBALLO, NIDIA, M.D. Encounter Diagnosis: Problem not documented On: 30-Jul-2019 14:30 Appointment; Mo Blackmon M.D. Encounter Diagnosis: Problem not documented On: 03-Aug-2019 12:45 Appointment; ESTELLE MONTERO M.D. Encounter Diagnosis: Problem not documented On: 09-Aug-2019 15:45 Appointment; Mo Blackmon M.D. Encounter Diagnosis: Problem not documented On: 31-Aug-2019 11:30 Appointment; Mo Blackmon M.D. Encounter Diagnosis: Problem not documented On: 02-Oct-2019 11:15 Appointment; DAVID PAZ M.D. Encounter Diagnosis: Problem not documented On: 11-Oct-2019 12:45
--- OUTSIDE RECORDS SUMMARY | 2019-11-02 19:36 | XMS REPORT | Summary of Care ---
Author OC Mendoza M.D. Organization Unknown Address [facility] Phone Unavailable Care Team Providers Care Jet Piercer Operator Name Role Phone Elias Urbano, Mo Unavailable Unavailable MARYJANE OCAMPO, BORIS Unavailable Unavailable MARYJANE OCAMPO, BORIS Franklin Unavailable Unavailable HARIS KEANE [place], NIDIA POLK Unavailable Unavailable ESTELLE MONTERO MD Unavailable Unavailable ELIAS KEAEN [place], [place] Rodríguez Unavailable Unavailable RUBY KEANE, [...] DAY * Quantity: 90 Refills: 0 BORIS WSELEY APRN * Start : 29-Mar-2018 Active azaTHIOprine [...] HOMOCYSTEINE (NUTRITIONAL A ND CONGENITAL) Date: 02-Oct-2019 [L] Renin, Plasma Date: 09-Aug-2019 [L] Renin Activity and Aldosterone Date: 09-Aug-2019 [QL] CMP W/EGFR Date: 09-Aug-2019 [Q] LP PLA2 (PLAC[R]) Date: 09-Aug-2019 VR Bone Marrow Aspiration Date: 03-Sep-2019 History of Renal Lithotripsy Completed History of Oral Surgery Tooth Extraction Completed History of Skin Tag Removal Completed History of Dental Implant Completed Immunization Name Dates Details Prevnar 13 Intramuscular Suspension Lot #: [id number] on: 07-Aug-2014 Fluzone Quadrivalent 0.5 ML Intramuscula r Suspension Lot #: [id number] on: 31-Jan-2015 Fluzone High-Dose 0.5 ML Intramuscular S uspension Prefilled Syringe Lot #: [id number] on: 19-Jan-2017 Pneumococcal polysaccharide vaccine, 23 valent Lot #: [id number] on: 19-Jan-2017 Fluzone Quadrivalent 0.5 ML Intramuscula r Suspension Prefilled Syringe Lot #: [id number] on: 13-Feb-2018 Fluzone High-Dose 0.5 ML Intramuscular S uspension Prefilled Syringe Lot #: [id number] on: 27-Feb-2019 Family History Name Dates Details [...] (finding) Vital Signs Date Test Result Details 96-Znw-285722:33 Systolic blood pressure 144 mm[Hg] Status: Comments [...] ABSOLUTE NEUTROPHILS 2112 {cells/uL} (Normal) R lauren: [id number] ABSOLUTE LYMPHOCYTES 988 {cells/uL} (Normal) Ra nge: [...] is approximately 13% higher for peopleidentified as -Cook Islander. eGFR NON-AFR. DOMINICAN 51 {ML/MIN/1.7} (Below l ow threshold) Range: [...] 10-35 ALT 17 u/l (Normal) Range: 9-46 15-Ugl-297262:13 [QL] FERRITIN Comments: REPORT COM MENT:FASTING:NOPATIENT REFUSED SOME TESTING; PATIENT ENCOURAGED TO RETURN. FERRITIN 474 ng/ml (Above high threshold ) Range: 24-380 Plan of Care Name Dates Details Planned Observations [QL] CBC (INCLUDES DIFF/PLT) On: 04-Dec-2019 Intent [QL] VITAMIN B12/FOLATE, SERUM PANEL On: 04-Dec-2019 Intent [Q] METHYLMALONIC ACID AND HOMOCYSTEINE (NUTRITIONAL A ND CONGENITAL) On: 04-Dec-2019 Intent Planned Goals not documented Planned Encounters Appointment; ESTELLE MONTERO M.D. On: 18-Oct-2019 14:45 Appointment; Mo Blackmon M.D. On: 04-Jan-2020 11:30 Interventions Provided Medication Changes* Folic Acid 1 MG Oral Tablet - Start Instructions Name Dates Details Instructions not documented [...]
--- OUTSIDE RECORDS SUMMARY | 2019-11-02 19:36 | XMS REPORT | Summary of Care ---
Author OC Del Cid M.A. Organization Unknown Address [facility] Phone Unavailable Care Team Providers Care Shade Cutter Name Role Phone Elias Urbano, Mo Unavailable Unavailable MARYJANE OCAMPO, BORIS Unavailable Unavailable MARYJANE OCAMPO, BORIS Franklin Unavailable Unavailable HARIS KEANE AR, NIDIA POLK Unavailable Unavailable WINSTON KEANE, ESTELLE Unavailable Unavailable ELIAS KEANE [place], [place] Rodríguez Unavailable Unavailable RUBY KEANE, KAREN [...] Details Prevnar 13 Intramuscular Suspension Lot #: [id number] on: 07-Aug-2014 Fluzone Quadrivalent 0.5 ML Intramuscula r Suspension Lot #: [id number] on: 31-Jan-2015 Fluzone High-Dose 0.5 ML Intramuscular S uspension Prefilled Syringe Lot #: [id number] on: 19-Jan-2017 Pneumococcal polysaccharide vaccine, 23 valent Lot #: [id number] on: 19-Jan-2017 Fluzone Quadrivalent 0.5 ML Intramuscula r Suspension Prefilled Syringe Lot #: [id number] on: 13-Feb-2018 Fluzone High-Dose 0.5 ML Intramuscular S uspension Prefilled Syringe Lot #: [id number] on: 27-Feb-2019 Family History Name Dates Details [...] (finding) Vital Signs Date Test Result Details [id number] Systolic blood pressure 144 mm[Hg] Status: Comments [...] ABSOLUTE NEUTROPHILS 2112 {cells/uL} (Normal) R lauren: [id number] ABSOLUTE LYMPHOCYTES 988 {cells/uL} (Normal) Ra nge: [...] is approximately 13% higher for peopleidentified as -Hungarian. eGFR NON-AFR. KITT[place]IAN 51 {ML/MIN/1.7} (Below l ow threshold) Range: [...] 10-35 ALT 17 u/l (Normal) Range: 9-46 [id number] [QL] FERRITIN Comments: REPORT COM MENT:FASTING:NOPATIENT REFUSED [...]
--- OUTSIDE RECORDS SUMMARY | 2019-11-02 19:59 | XMS REPORT | Continuity of Care Document ---
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 TYPE SCREEN/ 2 UNITS OF PRBC Active 09/10/2019 [facility] BEDDED OP/BONE MARROW ASP/BX/NO BLOOD TH Active 09/05/2019 [facility] TYPE SCREEN Active 08/07/2019 [facility] D64.9 Active 07/19/2019 [facility] Syncope and collapse 06/15/2019 06/17/2019 [facility] XFER - SYNCOPE Active 06/15/2019 [facility] BEDDED OUTPATIENT/LIVER BIOPSY Active 06/29/2018 [facility] Abnormal results of liver function studies 05/09/2018 11/22/[address] [facility] GIANNA Jean NEW PT CONSULT - ELEVATED LFTS Active 03/20/2018 [facility] Impingement syndrome of right shoulder 02/21/2018 [facility]05[facility] M79.672 - PAIN IN LEFT FOOT Ac tive 04/18/2015 [facility] BRADYCARDIA, CAD Active 10/03/2014 [facility] CCL/LHC W/ POSS/DX: BNRADYCARDIA, CAD Active 10/03/2014 [facility] 401.9 - HYPERTENSION NO Active 12/20/2013 [facility] 719.4 - PAIN IN JOINT Active 03/24/2011 [facility] [place] Essential (primary) hypertension 11/22/2018 [facility] Gastro-esophageal reflux disease without esophagitis 11/22/2018 [facility] Personal history of colonic polyps 11/22/2018 [facility] Type 2 diabetes mellitus without complications 11/22/2018 [facility] long term (current) use of oral hypoglycemic drugs 11/22/2018 [facility] Bradycardia, unspecified 11/22/2018 [facility] Gout, unspecified 11/22/2018 [facility] Hyperlipidemia, unspecified 11/22/2018 [facility] Inflammatory liver disease, unspecified 11/22/2018 [facility] Hepatomegaly, not elsewhere classified 11/22/2018 [facility] Calculus of gallbladder without cholecys titis without obstruction 11/22/2018 [facility] Cyst of kidney, acquired 11/22/2018 [facility] Calculus of kidney 11/22/2018 [facility] Calculus in biliary tract (disorder) Resolved Problem 02/2020 [facility] Bradycardia (disorder) Active Problem 10/13/2019 [facility], [facility] [place] Diabetes mellitus (disorder) A ctive Problem 02/2020 [facility], [facility] [place] Gastroesophageal reflux disease (disorder) Active Problem 10/13/2019 [facility], [facility] [place],[facility], [facility] Gout (disorder) Resolved Problem 10/13/2019 [facility], [facility], [facility] Hyperlipidemia (disorder) Reso lved Problem 02/2020 [facility], [facility] [place] Hypertensive disorder, systemic arterial (disorder) Active Problem 10/13/2019 [facility], [facility] [place], [facility] Inflammatory disease of liver (disorder) Resolved Problem 10/13/2019 [facility] Nutritional anemia (disorder) Resolved Problem 02/2020 [facility] Medications Medication Details Route Status Patient Instructions Ordering Provider Order Date Source ursodiol 500 mg oral tablet 50 0 mg = 1 tab, PO, TID, # 270 tab, 4 Refill(s), [id number], 187.96, cm, 10/11/19 12:29:00 CDT, Height, 103.295, kg, 10/11/19 12:29:00 CDT, Weight Active 10/11/2019 [facility] multivitamin Daily, 0 Refill(s) Active 10/11/2019 [facility] Folic Acid 5 mg, PO, Daily Active 10/11/2019 [facility] nter Cod Liver Oil PO, Daily, 0 Ref ill(s) Active 10/11/2019 [facility] azaTHIOprine 50 mg oral tablet 75 mg = 1.5 tab, PO, Daily, # 45 tab, 3 Refill(s), Pharmacy: [id number], 187, cm, 09/10/19 13:33:00 CDT, Height, 104.3, kg, 09/10/19 13:33:00 CDT, Weight Active 09/26/2019 [facility] Daphne Notes: (Same as: Ivis escobar) Inactive 09/10/2019 [facility] Fentanyl 25 microgram, Route: IV, ONCE, Dosing Weight 102.273, kg, Start date: 09/10/19 10:08:00 CDT, Stop date: 09/10/19 10:08:00 CDT, Inactive 09/10/2019 [facility] Fentanyl 50 microgram, Route: IV, ONCE, Dosing Weight 102.273, kg, Start date: 09/10/19 9:56:00 CDT, Stop date: 09/10/19 9:56:00 CDT, Inactive 09/10/2019 [facility] Midazolam 0.5 mg, Route: IV, O NCE, Dosing Weight 102.273, kg, Start date: 09/10/19 9:56:00 CDT, Stop date: 09/10/19 9:56:00 CDT, Inactive 09/10/2019 [facility] nter Lidocaine Hydrochloride 10 MG/ML Injectable Solution 10 mL, Route: INTRADERM, Dosing Weight 102.273, kg, ONCE, Start date: 09/10/19 9:56:00 CDT, Stop date: 09/10/19 9:56:00 CDT Inactive 09/10/2019 [facility] nter Benadryl Notes: (Same as: Ivis escobar) Inactive 09/10/2019 [facility] Benadryl Notes: (Same as: Ivis dryl) Inactive 08/13/2019 [facility] Isolyte S PH-7.4 (Bolus) IV 1, 000 mL, 1,000 ml/hr, Infuse Over: 1 hr, Route: IV, ONCE, Dosing Weight 104.545 kg, Start date: 06/15/19 20:18:00 CDT, Stop date: 06/15/19 20:18:00 CDT Inactive 06/16/2019 [facility] azaTHIOprine 50 mg oral tablet 50 mg = 1 tab, PO, Daily, X 30 day, # 30 tab, 3 Refill(s), Pharmacy: [facility] [id number] No Longer Active 08/05/2018 [facility] ursodiol 500 mg oral tablet 50 0 mg = 1 tab, PO, TID, # 90 tab, 3 Refill(s), Pharmacy: [facility] [id number], please discontinue previous RX for Ursodiol. Active 07/24/2018 [facility] nter predniSONE 5 mg oral tablet 20 mg = 4 tab, PO, Daily, # 360 tab, 3 Refill(s), Pharmacy: [facility] [id number] Active 07/18/2018 [facility] ursodiol 250 mg oral tablet 50 0 mg = 2 tab, PO, TID, # 540 tab, 3 Refill(s), Pharmacy: [facility] [id number] No Longer Active 07/18/2018 [facility] carvedilol 3.13 MG Oral Tablet [Coreg] 3.125 mg = 1 tab, PO, BID, # 60 tab, 0 Refill(s) Active 07/11/2018 [facility] nter Paroxetine Notes: (Same as: Jerry garcia) Inactive 07/11/2018 [facility] olmesartan 40 mg, 2 tab, Route : PO, Drug form: TAB, Daily, Dosing Weight 104.545, kg, Start date: 07/11/18 9:00:00 CDT, Duration: 30 day, Stop date: 08/09/18 9:00:00 CDT Inactive 07/11/2018 [facility] nter Hydralazine Hydrochloride 50 MG Oral Tablet 50 mg, 1 tab, Route: PO, Drug form: TAB, BID, Dosing Weight 104.545, kg, Start date: 07/11/18 9:00:00 CDT, Duration: 30 day, Stop date: 08/09/18 17:00:00 CDT Inactive 07/11/2018 [facility] carvedilol 3.125 mg, Route: PO , Drug form: TAB, BID, Dosing Weight 104.545, kg, Start date: 07/11/18 9:00:00 CDT, Duration: 30 day, Stop date: 08/09/18 17:00:00 CDT No Longer Active 07/11/2018 [facility] nter Amlodipine Notes: (Same as: No rvasc) Inactive 07/11/2018 [facility] Allopurinol 300 mg, 1 tab, Rou te: PO, Drug form: TAB, Daily, Dosing Weight 104.545, kg, Start date: 07/11/18 9:00:00 CDT, Duration: 30 day, Stop date: 08/09/18 9:00:00 CDT Inactive 07/11/2018 [facility] nter atorvastatin Notes: (Same As: Lipitor) No Longer Active 07/11/2018 [facility] allantoin/camphor/phenol topical Notes: Same as: Blistex No Longer Active 07/10/2018 [facility] Fluticasone propionate 0.05 MG/ACTUAT Me tered Dose Nasal Aguilar [Flonase] 2 spray, Route: NASAL, Drug Form: SPRY, Dosing Weight 104.545, kg, Daily, PRN Allergies, Start date: 07/10/18 13:30:00 CDT, Duration: 30 day, Stop date: 08/09/18 13:29:00 CDT No Longer Active 07/10/2018 [facility] nter Benadryl Maximum Strength 2% topical cream 1 appl, Route: TOP, QID, Drug form: CRM, PRN as needed for itching, Start date: 07/10/18 13:30:00 CDT, Duration: 30 day, Stop date: 08/09/18 13:29:00 CDT No Longer Active 07/10/2018 [facility] Tums Notes: Calcium Carbonate 500 mg = 200 mg elemental calcium Dose = mg calcium carbonate ( mg elemental calcium) No Longer Active 07/10/2018 [facility] Benzocaine 15 MG / Menthol 3.6 MG Lozeng e [Cepacol Sore Throat Pain Relief 15/3.6] 1 lozenge, Route: MUCOUS MEM, Drug Form: SHANNON, Dosing Weight 104.545, kg, Q2H, PRN Sore Throat, Start date: 07/10/18 13:30:00 CDT, Duration: 30 day, Stop date: 08/09/18 13:29:00 CDT No Longer Active 07/10/2018 [facility] Nasal Saline 0.65% solution 2 spray, Route: NASAL, Q2H, Drug form: SOLN, PRN Nasal Congestion, Start date: 07/10/18 13:30:00 CDT, Duration: 30 day, Stop date: 08/09/18 13:29:00 CDT No Longer Active 07/10/2018 [facility] Robitussin DM 10 ml, Route: PO , Drug Form: SYRP, Dosing Weight 104.545, kg, Q8H, PRN as needed for cough, Start date: 07/10/18 13:30:00 CDT, Duration: 30 day, Stop date: 08/09/18 13:29:00 CDT No Longer Active 07/10/2018 [facility] Lubricant Eye Drops ophthalmic solution Notes: (Same as: Aquasite) No Longer Active 07/10/2018 [facility] Naproxen 500 mg, 1 tab, Route: PO, Drug form: TAB, BID, Dosing Weight 104.545, kg, PRN Pain Score 1-3, Start date: 07/10/18 13:30:00 CDT, Duration: 30 day, Stop date: 08/09/18 13:29:00 CDT No Longer Active 07/10/2018 [facility] Lanolin 0.157 MG/MG / Menthol 0.0044 MG/ MG / Petrolatum 0.24 MG/MG / Zinc Oxide 0.206 MG/MG Topical Ointment [Calmoseptine] 1 appl, Route: TOP, Drug Form: OINT, Dosing Weight 104.545, kg, 5X Day, PRN Wound Care, Start date: 07/10/18 13:30:00 CDT No Longer Active 07/10/2018 [facility] nter Blistex Lip [place] Route: MISC, Dosing Weight 104.545, kg, PRN, PRN Dry Lips, Start date: 07/10/18 13:30:00 CDT, Duration: 30 day, Stop date: 08/09/18 13:29:00 CDT Inactive 07/10/2018 [facility] nter Acetaminophen 325 MG / Hydrocodone Blanca trate 5 MG Oral Tablet [Bayside 5/325] Notes: (Same as: Bayside 325/5) Do not ex ceed 4gm/day of acetaminophen. No Longer Activ e 07/10/2018 [facility] Compazine Notes: (Same as: Com pazine) No Longer Active 07/10/2018 [facility] normal saline 0.9% IV 1,000 mL 1,000 mL, Rate: 75 ml/hr, Infuse over: 13.3 hr, Route: IV, Dosing Weight 104.545 kg, Total Volume: 1,000, Start date: 07/10/18 13:30:00 CDT, Duration: 30 day, Stop date: 08/09/18 13:29:00 CDT, 2.35, m2 Inactiv e 07/10/2018 [facility] Ondansetron Notes: (Same as: Ziggy theodore) MEDICATION WASTE Product Size: 4 mg Product Wasted: ___ mg No Longer Active 07/10/2018 [facility] Acetaminophen Notes: Do not ex ceed 4 gm/day. (Same as: Tylenol) No Longer Active 07/10/2018 [facility] Melatonin Notes: (Same as: Aruna atonin) No Longer Active 07/10/2018 [facility] Docusate 200 mg, 2 cap, Route: PO, Drug form: CAP, BID, Dosing Weight 104.545, kg, PRN as needed for constipation, Start date: 07/10/18 13:30:00 CDT, Duration: 30 day, Stop date: 08/09/18 13:29:00 CDT No Longer Active 07/10/2018 [facility] Glucagon 1 mg, Route: IM, Drug form: PDR/INJ, PRN, Dosing Weight 104.545, kg, PRN Blood Glucose Results, Start date: 07/10/18 13:30:00 CDT, Duration: 30 day, Stop date: 08/09/18 13:29:00 CDT No Longer Active 07/10/2018 [facility] POLYETHYLENE GLYCOL 3350 17 gm , 1 pkt, Route: PO, Drug form: PWDR, BID, Dosing Weight 104.545, kg, PRN Constipation, Start date: 07/10/18 13:30:00 CDT, Duration: 30 day, Stop date: 08/09/18 13:29:00 CDT No Longer Active 07/10/2018 [facility] sennosides, MCFP 17.2 mg, 2 tab , Route: PO, Drug Form: TAB, Dosing Weight 104.545, kg, BID, PRN as needed for constipation, Start date: 07/10/18 13:30:00 CDT, Duration: 30 day, Stop date: 08/09/18 13:29:00 CDT No Longer Active 07/10/2018 [facility] Dextrose 50% Syringe 25 gm, 50 mL, Route: IVP, Drug Form: INJ, Dosing Weight 104.545, kg, PRN, PRN Blood Glucose Results, Start date: 07/10/18 13:30:00 CDT, Duration: 30 day, Stop date: 08/09/18 13:29:00 CDT No Longer Active 07/10/2018 [facility] NS (Bolus) IV Route: IV, ONCE, Dosing Weight 104.545 kg, Start date: 07/10/18 11:54:00 CDT, Stop date: 07/10/18 11:54:00 CDT Inactive 07/10/2018 [facility] Naloxone 0.4 mg, 1 mL, Route: IVP, Drug form: INJ, PRN, Dosing Weight 104.545, kg, PRN Narcotic Reversal, Start date: 07/10/18 11:40:00 CDT, Duration: 30 day, Stop date: 08/09/18 11:39:00 CDT No Longer Active 07/10/2018 [facility] Lidocaine Hydrochloride 10 MG/ML Injectable Solution 5 mL, Route: INTRADERM, Dosing Weight 104.545, kg, ONCE, Start date: 07/10/18 10:48:00 CDT, Stop date: 07/10/18 10:48:00 CDT Inactive 07/10/2018 [facility] nt Fentanyl 50 microgram, Route: IV, ONCE, Dosing Weight 104.545, kg, Start date: 07/10/18 10:45:00 CDT, Stop date: 07/10/18 10:45:00 CDT Inactive 07/10/2018 [facility] Midazolam 1 mg, Route: IV, ONC E, Dosing Weight 104.545, kg, Start date: 07/10/18 10:45:00 CDT, Stop date: 07/10/18 10:45:00 CDT Inactive 07/10/2018 [facility] Fentanyl 50 microgram, Route: IV, ONCE, Dosing Weight 104.545, kg, Start date: 07/10/18 10:40:00 CDT, Stop date: 07/10/18 10:40:00 CDT Inactive 07/10/2018 [facility] Midazolam 1 mg, Route: IV, ONC E, Dosing Weight 104.545, kg, Start date: 07/10/18 10:40:00 CDT, Stop date: 07/10/18 10:40:00 CDT Inactive 07/10/2018 [facility] allopurinol 300 mg oral tablet 300 mg = 1 tab, PO, Daily, # 90 tab, 1 Refill(s) Active 05/04/2018 [facility] nter carvedilol 3.125 mg oral tablet 3.125 mg = 1 tab, PO, BID, # 180 tab, 3 Refill(s) No Longer Active 05/04/2018 [facility] nter 24 HR Metformin hydrochloride 750 MG Ext ended Release Tablet 750 mg = 1 tab, PO, BID-Meals, # 60 tab, 3 Refill(s) Active 05/04/2018 [facility] amLODIPine 5 mg oral tablet 5 mg = 1 tab, PO, Daily, # 90 tab, 1 Refill(s) Active 05/04/2018 [facility] olmesartan 40 mg oral tablet 4 0 mg = 1 tab, PO, Daily, # 90 tab, 0 Refill(s) Active 05/04/2018 [facility] atorvastatin 10 mg oral tablet 10 mg = 1 tab, PO, Bedtime, # 90 tab, 1 Refill(s) Active 05/04/2018 [facility] nter NS 250 mL 250 mL, Rate: 250 ml /hr, Infuse over: 1 hr, Route: IV, Dosing Weight 113.636 kg, Total Volume: 250, Start date: 10/16/14 11:58:00, Duration: 30 day, Stop date: 11/15/14 11:57:00 Inactive 10/16/2014 [facility] NS 1,000 mL 1,000 mL, Rate: 75 ml/hr, Infuse over: 13.3 hr, Route: IV, Dosing Weight 113.636 kg, Total Volume: 1,000, Start date: 10/16/14 11:58:00, Duration: 30 day, Stop date: 11/15/14 11:57:00 Inactive 10/16/2014 [facility] Sodium Chloride 0.154 MEQ/ML Injectable Solution 250 mL, Rate: 125 ml/hr, Infuse over: 2 hr, Route: IV, Dosing Weight 113.636 kg, Total Volume: 250, Start date: 10/16/14 10:12:00, Duration: 1 doses or times, Stop date: 10/16/14 12:11:00 Inactive 10/16/2014 [facility] nter pneumococcal capsular polysaccharide typ e 1 vaccine / pneumococcal capsular polysaccharide type 10A vaccine / pneumococcal capsular polysaccharide type 11A vaccine / pneumococcal capsular polysaccharide type 12F vaccine / pneumococcal capsular polysacchar Notes: (Same as: Pneumovax 23) Refrigerate Inactive 10/16/2014 [facility] PARoxetine 20 mg oral tablet 2 0 mg = 1 tab, PO, Daily, # 90 tab, 0 Refill(s) Active 10/16/2014 [facility] aliskiren 300 MG / Hydrochlorothiazide 1 2.5 MG Oral Tablet [Tekturna HCT 300/12.5] 1 tab, PO, Daily, # 30 tab, 0 Refill(s) Active 10/16/2014 [facility] Hydralazine Hydrochloride 50 MG Oral Tablet 50 mg = 1 tab, PO, TID, # 270 tab, 1 Refill(s) Active 10/16/2014 [facility] nter lisinopril 40 mg oral tablet 4 0 mg = 1 tab, PO, Daily, # 90 tab, 1 Refill(s) Active 10/16/2014 [facility] Metformin hydrochloride 500 MG Oral Tablet 500 mg = 1 tab, PO, Before Dinner, # 30 tab, 0 Refill(s) Active 10/16/2014 [facility] nter amLODIPine 10 mg oral tablet 1 0 mg = 1 tab, PO, Daily, # 30 tab, 0 Refill(s) Active 10/16/2014 [facility] Allergies, Adverse Reactions, Alerts Substance Category Reaction Severity Reaction type Status Date Reported Comments Source No Known Medication Allergies Assertion Drug aller gy [facility] Immunizations Immunization Date Given Site Status Last Updated Comments Source pneumococcal 23-valent vaccine 10/16/[address] [facility], [place] [place],[facility] Results Order Name Results Value Reference Range Date Interpretation Comments Source CHEM PANEL Glucose Lvl 194 65 - 139 09/27/2019 Result Comment:
Non-fasting reference interval

Lab test performed by:
[email or web address]
[address]
[place] [address]
Nathan Garcia [facility] CHEM PANEL BUN 17 7 - 25 09/27/2019 [facility] CHEM PANEL Creatinine Lvl 1.43 0.70 - 1.18 09/27/2019 Result Comment: For patients >49 years o f age, the reference limit
for Creatinine is approximately 13% higher for people
identified as -[place]. [facility] CHEM PANEL eGFR NON-AFR. [place] 49 > OR = 60 mL/min/1.73m2 2019 [...] Result Comment:
Lab test perf ormed by:
[email or web address]
[address]
[place] [address]
Nathan Garcia [facility] CHEM PANEL Albumin Lvl [...] Result Comment:
Lab test perf ormed by:
[email or web address]
[address]
[place] [address]
Nathan Garcia [facility] HEMATOLOGY RBC X 10x6 2.56 4.20 - 5.80 09/27/2019 [facility] Hgb 9.3 13.2 - 17.1 09/27/2019 [facility]AT[facility] Hct 27.2 38.5 - 50.0 [facility] MCV 106.3 80.0 - 100.0 09/27/2019 [facility] HEMATOLOGY MCH 36.3 27.0 - 33.0 09/27/2019 [facility] HEMATOLOGY MCHC 34.2 32.0 - 36.0 09/27/2019 [facility] HEMATOLOGY RDW 16.9 11.0 - 15.0 09/27/2019 [facility] HEMATOLOGY Platelet 195 140 - 400 09/27/2019 [facility] HEMATOLOGY MPV 9.8 7.5 - 12.5 09/27/2019 [facility] HEMATOLOGY Neutrophils # 1964 1500 - 7800 09/27/2019 [facility] Lymphocytes # 812 850 - 3900 09/27/2019 [facility] Monocytes # 257 200 - 950 09/27/2019 [facility] HEMATOLOGY Eosinophils # 228 15 - 500 09/27/2019 [facility] HEMATOLOGY Basophils # 40 0 - 200 09/27/2019 [facility] HEMATOLOGY Segs 59.5 09/27/2019 [facility] Lymphocytes 24.6 09/27/2019 [facility] Monocytes 7.8 09/27/2019 [facility]EMAT[facility] Eosinophils 6.9 09/27/2019 [facility] Basophils 1.2 09/27/2019 [facility] HEMATOLOGY INR 1.0 09/27/2019 Result Comment: Reference Range 0.9-1.1
Moderate-intensity Warfarin Therapy 2.0-3.0
Higher-intensity Warfarin Therapy 3.0-4.0

Lab test performed by:
[email or web address]
[address]
[place] [address]
Nathan Garcia [facility] HEMATOLOGY PROTIME 9.9 9.0 - 11.5 09/27/2019 Result Comment:
For more informati on on this test, go to:
http://education.AMT/faq/PMI516 [facility] IMMUNOLOGY IgG Lvl 771 899 - 2288 09/27/2019 Result Comment: FASTING:NO

FAST ING: NO

Lab test performed by:
[email or web address]
[address]
[place] [address]
Nathan Garcia [facility] HEMATOLOGY WBC 3.9 3.7 - 10.4 09/10/2019 [facility] HEMATOLOGY RBC 2.43 4.70 - 6.10 09/10/2019 [facility] HEMATOLOGY Hgb 9.4 14.0 - 18.0 09/10/2019 [facility] HEMATOLOGY Hct 26.3 42.0 - 54.0 09/10/2019 [facility] HEMATOLOGY MCV 108.3 80.0 - 94.0 09/10/2019 [facility] HEMATOLOGY MCH 38.6 27.0 - 31.0 09/10/2019 [facility] HEMATOLOGY MCHC 35.6 32.0 - 36.0 09/10/2019 [facility] HEMATOLOGY RDW 17.5 11.5 - 14.5 09/10/2019 [facility] HEMATOLOGY Platelet 238 133 - 450 09/10/2019 [facility] HEMATOLOGY MPV 7.8 7.4 - 10.4 09/10/2019 [facility] HEMATOLOGY Retic Auto 1.6 0.5 - 1.5 09/10/2019 [facility] HEMATOLOGY Segs 51.6 45.0 - 75.0 09/10/2019 [facility] HEMATOLOGY Lymphocytes 23.7 20.0 - 40.0 09/10/2019 [facility] HEMATOLOGY Monocytes 11.4 2.0 - 12.0 09/10/2019 [facility] HEMATOLOGY Eosinophils 11.0 0.0 - 4.0 09/10/2019 [facility] HEMATOLOGY Basophils 2.3 0.0 - 1.0 09/10/2019 [facility] HEMATOLOGY Neutrophils # 2.0 1.5 - 8.1 09/10/2019 [facility] HEMATOLOGY Lymphocytes # 0.9 1.0 - 5.5 09/10/2019 [facility] HEMATOLOGY Monocytes # 0.4 0.0 - 0.8 09/10/2019 [facility] HEMATOLOGY Eosinophils # 0.4 0.0 - 0.5 09/10/2019 [facility] HEMATOLOGY Basophils # 0.1 0.0 - 0.2 09/10/2019 [facility] HEMATOLOGY Macrocyte 2+ *ABN* (09/10/19 10:10 AM) None Seen 09/10/2019 [facility] BLOOD BANK RESULTS RBC product Product available (09/10/19 10:05 AM) 09/10/2019 [facility] BLOOD BANK RESULTS ABO/Rh A POS 09/07/2019 [facility] BLOOD BANK RESULTS Antibody Scrn Negative (09/07/19 2:00 PM) 09/07/2019 [facility] BLOOD BANK RESULTS RBC product Product available (09/06/19 3:22 PM) 09/06/2019 [facility] BLOOD BANK RESULTS RBC product Product available (08/10/19 11:56 AM) 08/10/2019 [facility] BLOOD BANK RESULTS ABO/Rh A POS 08/10/2019 [facility] BLOOD BANK RESULTS Antibody Scrn Negative (08/10/19 10:52 AM) 08/10/2019 [facility] CHEM PANEL Glucose Lvl 154 70 - 99 06/15/2019 [facility] CHEM PANEL BUN 18 7 - 22 06/15/2019 [facility] CHEM PANEL Creatinine Lvl 1.57 0.50 - 1.40 06/15/2019 [facility] CHEM PANEL Sodium Lvl 138 135 - 145 06/15/2019 [facility] CHEM PANEL Potassium Lvl 4.3 3.5 - 5.1 06/15/2019 [facility] CHEM PANEL Chloride Lvl 108 95 - 109 06/15/2019 [facility] CHEM PANEL CO2 24 24 - 32 06/15/2019 [facility] CHEM PANEL Calcium Lvl 8.8 8.5 - 10.5 06/15/2019 [facility] CHEM PANEL AGAP 10.3 10.0 - 20.0 06/15/2019 [facility] CHEM PANEL eGFR 43 06/15/2019 Result Comment: [...] should be multiplied by the estimated BMI. [facility] CHEM PANEL Total Protein 6.2 6.4 - 8.4 06/15/2019 [facility] CHEM PANEL Albumin Lvl 2.8 3.5 - 5.0 06/15/2019 [facility] CHEM PANEL ALANINE AMINOTRANSFERASE 16 0 - 65 06/15/2019 [facility] CHEM PANEL ASPARTATE TRANSAMINASE 23 0 - 37 06/15/2019 [facility] CHEM PANEL Alk Phos 175 39 - 136 06/15/2019 [facility] CHEM PANEL Bili Total 0.8 0.2 - 1.3 06/15/2019 [facility] CHEM PANEL Bili Direct 0.2 0.0 - 0.3 06/15/2019 [facility] CHEM PANEL Bili Indirect 0.6 0.0 - 1.0 06/15/2019 [facility] CHEM PANEL Globulin 3.4 2.7 - 4.2 06/15/2019 [facility] CHEM PANEL A/G Ratio 0.8 0.7 - 1.6 06/15/2019 [facility] HEMATOLOGY WBC X 10x3 5.1 3.7 - 10.4 06/15/2019 [facility] HEMATOLOGY RBC X 10x6 3.03 4.70 - 6.10 06/15/2019 [facility] HEMATOLOGY Hgb 11.0 14.0 - 18.0 06/15/2019 [facility] HEMATOLOGY Hct 30.9 42.0 - 54.0 06/15/2019 [facility] HEMATOLOGY MCV 102.0 80.0 - 94.0 06/15/2019 [facility] HEMATOLOGY MCH 36.2 27.0 - 31.0 06/15/2019 [facility] HEMATOLOGY MCHC 35.5 32.0 - 36.0 06/15/2019 [facility] HEMATOLOGY RDW 21.1 11.5 - 14.5 06/15/2019 [facility] HEMATOLOGY Platelet 241 133 - 450 06/15/2019 [facility] HEMATOLOGY MPV 7.0 7.4 - 10.4 06/15/2019 [facility] HEMATOLOGY Segs 69.1 45.0 - 75.0 06/15/2019 [facility] HEMATOLOGY Lymphocytes 18.2 20.0 - 40.0 06/15/2019 [facility] HEMATOLOGY Monocytes 9.8 2.0 - 12.0 06/15/2019 [facility] HEMATOLOGY Eosinophils 1.5 0.0 - 4.0 06/15/2019 [facility] HEMATOLOGY Basophils 1.4 0.0 - 1.0 06/15/2019 [facility] HEMATOLOGY Neutrophils # 3.5 1.5 - 8.1 06/15/2019 [facility] HEMATOLOGY Lymphocytes # 0.9 1.0 - 5.5 06/15/2019 [facility] HEMATOLOGY Monocytes # 0.5 0.0 - 0.8 06/15/2019 [facility] HEMATOLOGY Eosinophils # 0.1 0.0 - 0.5 06/15/2019 [facility] HEMATOLOGY Basophils # 0.1 0.0 - 0.2 06/15/2019 [facility] HEMATOLOGY Anisocyte 1+ *ABN* (06/15/19 6:28 PM) None Seen 06/15/2019 [facility] HEMATOLOGY Macrocyte 1+ *ABN* (06/15/19 6:28 PM) None Seen 06/15/2019 [facility] CHEM PANEL Bili Direct 0.1 0.0 - 0.3 07/11/2018 [facility] CHEM PANEL eGFR 55 07/11/2018 Result Comment: [...] should be multiplied by the estimated BMI. [facility] CHEM PANEL CO2 24 24 - 32 07/11/2018 [facility] CHEM PANEL Sodium Lvl 141 135 - 145 07/11/2018 [facility] CHEM PANEL Glucose Lvl 195 70 - 99 07/11/2018 [facility] CHEM PANEL Creatinine Lvl 1.30 0.50 - 1.40 07/11/2018 [facility] CHEM PANEL BUN 19 7 - 22 07/11/2018 [facility] CHEM PANEL Potassium Lvl 4.1 3.5 - 5.1 07/11/2018 [facility] CHEM PANEL Calcium Lvl 8.3 8.5 - 10.5 07/11/2018 [facility] CHEM PANEL Chloride Lvl 111 95 - 109 07/11/2018 [facility] CHEM PANEL AGAP 10.1 10.0 - 20.0 07/11/2018 [facility] CHEM PANEL Globulin 3.6 2.7 - 4.2 07/11/2018 [facility] CHEM PANEL B/C Ratio 15 6 - 25 07/11/2018 [facility] CHEM PANEL AGAP 10.1 10.0 - 20.0 07/11/2018 [facility] CHEM PANEL A/G Ratio 0.7 0.7 - 1.6 07/11/2018 [facility] CHEM PANEL eGFR 55 07/11/2018 Result Comment: [...] should be multiplied by the estimated BMI. [facility] CHEM PANEL ALT 68 0 - 65 07/11/2018 [facility] CHEM PANEL Bili Total 0.3 0.2 - 1.3 07/11/2018 [facility] CHEM PANEL Alk Phos 221 39 - 136 07/11/2018 [facility] CHEM PANEL AST 63 0 - 37 07/11/2018 [facility] CHEM PANEL Creatinine Lvl 1.30 0.50 - 1.40 07/11/2018 [facility] CHEM PANEL BUN 19 7 - 22 07/11/2018 [facility] CHEM PANEL Glucose Lvl 195 70 - 99 07/11/2018 [facility] CHEM PANEL Potassium Lvl 4.1 3.5 - 5.1 07/11/2018 [facility] CHEM PANEL CO2 24 24 - 32 07/11/2018 [facility] CHEM PANEL Albumin Lvl 2.6 3.5 - 5.0 07/11/2018 [facility] CHEM PANEL Chloride Lvl 111 95 - 109 07/11/2018 [facility] CHEM PANEL Total Protein 6.2 6.4 - 8.4 07/11/2018 [facility] CHEM PANEL Calcium Lvl 8.3 8.5 - 10.5 07/11/2018 [facility] CHEM PANEL Sodium Lvl 141 135 - 145 07/11/2018 [facility] HEMATOLOGY Monocytes 16.4 2.0 - 12.0 07/11/2018 [facility] HEMATOLOGY Eosinophils 9.2 0.0 - 4.0 07/11/2018 [facility] HEMATOLOGY Lymphocytes 23.6 20.0 - 40.0 07/11/2018 [facility] HEMATOLOGY Segs 49.3 45.0 - 75.0 07/11/2018 [facility] HEMATOLOGY Basophils # 0.1 0.0 - 0.2 07/11/2018 [facility] HEMATOLOGY Neutrophils # 3.7 1.5 - 8.1 07/11/2018 [facility] HEMATOLOGY Basophils 1.5 0.0 - 1.0 07/11/2018 [facility] HEMATOLOGY Monocytes # 1.2 0.0 - 0.8 07/11/2018 [facility] HEMATOLOGY Lymphocytes # 1.8 1.0 - 5.5 07/11/2018 [facility] HEMATOLOGY Eosinophils # 0.7 0.0 - 0.5 07/11/2018 [facility] HEMATOLOGY Platelet 247 133 - 450 07/11/2018 [facility] HEMATOLOGY MPV 7.6 7.4 - 10.4 07/11/2018 [facility] HEMATOLOGY MCH 30.5 27.0 - 31.0 07/11/2018 [facility] HEMATOLOGY RDW 14.9 11.5 - 14.5 07/11/2018 [facility] HEMATOLOGY MCHC 34.5 32.0 - 36.0 07/11/2018 [facility] HEMATOLOGY WBC 7.5 3.7 - 10.4 07/11/2018 [facility] HEMATOLOGY RBC 4.03 4.70 - 6.10 07/11/2018 [facility] HEMATOLOGY MCV 88.3 80.0 - 94.0 07/11/2018 [facility] HEMATOLOGY Hgb 12.3 14.0 - 18.0 07/11/2018 [facility] HEMATOLOGY Hct 35.6 42.0 - 54.0 07/11/2018 [facility] CHEM PANEL eGFR 65 07/10/2018 Result Comment: [...] should be multiplied by the estimated BMI. [facility] CHEM PANEL Alk Phos 267 39 - 136 07/10/2018 [facility] CHEM PANEL Bili Total 0.5 0.2 - 1.3 07/10/2018 [facility] CHEM PANEL Chloride Lvl 108 95 - 109 07/10/2018 [facility] CHEM PANEL AST 79 0 - 37 07/10/2018 [facility] CHEM PANEL ALT 85 0 - 65 07/10/2018 [facility] CHEM PANEL Calcium Lvl 9.0 8.5 - 10.5 07/10/2018 [facility] CHEM PANEL CO2 24 24 - 32 07/10/2018 [facility] CHEM PANEL Albumin Lvl 3.0 3.5 - 5.0 07/10/2018 [facility] CHEM PANEL Total Protein 7.4 6.4 - 8.4 07/10/2018 [facility] CHEM PANEL Potassium Lvl 4.1 3.5 - 5.1 07/10/2018 [facility] CHEM PANEL BUN 18 7 - 22 07/10/2018 [facility] CHEM PANEL Glucose Lvl 198 70 - 99 07/10/2018 [facility] CHEM PANEL Sodium Lvl 139 135 - 145 07/10/2018 [facility] CHEM PANEL Creatinine Lvl 1.13 0.50 - 1.40 07/10/2018 [facility] CHEM PANEL AGAP 11.1 10.0 - 20.0 07/10/2018 [facility] CHEM PANEL A/G Ratio 0.7 0.7 - 1.6 07/10/2018 [facility] CHEM PANEL Globulin 4.4 2.7 - 4.2 07/10/2018 [facility] CHEM PANEL B/C Ratio 16 6 - 25 07/10/2018 [facility] HEMATOLOGY PT 12.1 12.0 - 14.7 07/10/2018 [facility] HEMATOLOGY INR 0.91 0.85 - 1.17 07/10/2018 [facility] HEMATOLOGY PTT 34.3 22.9 - 35.8 07/10/2018 [facility] HEMATOLOGY WBC 9.2 3.7 - 10.4 07/10/2018 [facility] HEMATOLOGY RBC 4.77 4.70 - 6.10 07/10/2018 [facility] HEMATOLOGY MCHC 34.6 32.0 - 36.0 07/10/2018 [facility] HEMATOLOGY RDW 14.9 11.5 - 14.5 07/10/2018 [facility] HEMATOLOGY Hgb 14.4 14.0 - 18.0 07/10/2018 [facility] HEMATOLOGY MCV 87.1 80.0 - 94.0 07/10/2018 [facility] HEMATOLOGY Hct 41.5 42.0 - 54.0 07/10/2018 [facility] HEMATOLOGY MPV 7.7 7.4 - 10.4 07/10/2018 [facility] HEMATOLOGY MCH 30.1 27.0 - 31.0 07/10/2018 [facility] HEMATOLOGY Platelet 292 133 - 450 07/10/2018 [facility] ANEMIA STUDY Ferritin Lvl 286 22 - 275 05/04/2018 [facility] CHEM PANEL Glucose Lvl 130 70 - 99 05/04/2018 [facility] CHEM PANEL BUN 16 7 - 22 05/04/2018 [facility] CHEM PANEL Creatinine Lvl 1.18 0.50 - 1.40 05/04/2018 [facility] CHEM PANEL Sodium Lvl 142 135 - 145 05/04/2018 [facility] CHEM PANEL Potassium Lvl 4.1 3.5 - 5.1 05/04/2018 [facility] CHEM PANEL Chloride Lvl 107 95 - 109 05/04/2018 [facility] CHEM PANEL CO2 30 24 - 32 05/04/2018 [facility] CHEM PANEL Calcium Lvl 8.9 8.5 - 10.5 05/04/2018 [facility] CHEM PANEL eGFR 62 05/04/2018 Result Comment: [...] should be multiplied by the estimated BMI. [facility] CHEM PANEL AGAP 9.1 10.0 - 20.0 05/04/2018 [facility] ELECTROLYTES AGAP 9.1 10.0 - 20.0 05/04/2018 [facility] ELECTROLYTES eGFR 62 05/04/2018 Result Comment: The [...] should be multiplied by the estimated BMI. [facility] ELECTROLYTES Calcium Lvl 8.9 8.5 - 10.5 05/04/2018 [facility] ELECTROLYTES CO2 30 24 - 32 05/04/2018 [facility] ELECTROLYTES Chloride Lvl 107 95 - 109 05/04/2018 [facility] ELECTROLYTES BUN 16 7 - 22 05/04/2018 [facility] ELECTROLYTES Glucose Lvl 130 70 - 99 05/04/2018 [facility] ELECTROLYTES Potassium Lvl 4.1 3.5 - 5.1 05/04/2018 [facility] ELECTROLYTES Sodium Lvl 142 135 - 145 05/04/2018 [facility] ELECTROLYTES Creatinine Lvl 1.1 8 0.50 - 1.40 05/04/2018 [facility] HEMATOLOGY WBC 7.1 3.7 - 10.4 05/04/2018 [facility] HEMATOLOGY RBC 4.96 4.70 - 6.10 05/04/2018 [facility] HEMATOLOGY Hgb 14.7 14.0 - 18.0 05/04/2018 [facility] HEMATOLOGY Hct 43.2 42.0 - 54.0 05/04/2018 [facility] HEMATOLOGY MCV 87.1 80.0 - 94.0 05/04/2018 [facility] HEMATOLOGY MCH 29.6 27.0 - 31.0 05/04/2018 [facility] HEMATOLOGY MCHC 34.0 32.0 - 36.0 05/04/2018 [facility] HEMATOLOGY RDW 15.0 11.5 - 14.5 05/04/2018 [facility] HEMATOLOGY Platelet 276 133 - 450 05/04/2018 [facility] HEMATOLOGY MPV 8.2 7.4 - 10.4 05/04/2018 [facility] HEMATOLOGY PT 12.5 12.0 - 14.7 05/04/2018 [facility] HEMATOLOGY INR 0.95 0.85 - 1.17 05/04/2018 [facility] HEMATOLOGY Segs 53.5 45.0 - 75.0 05/04/2018 [facility] HEMATOLOGY Lymphocytes 20.6 20.0 - 40.0 05/04/2018 [facility] HEMATOLOGY Monocytes 14.8 2.0 - 12.0 05/04/2018 [facility] HEMATOLOGY Eosinophils 9.9 0.0 - 4.0 05/04/2018 [facility] HEMATOLOGY Basophils 1.2 0.0 - 1.0 05/04/2018 [facility] HEMATOLOGY Neutrophils # 3.8 1.5 - 8.1 05/04/2018 [facility] HEMATOLOGY Lymphocytes # 1.5 1.0 - 5.5 05/04/2018 [facility] HEMATOLOGY Monocytes # 1.0 0.0 - 0.8 05/04/2018 [facility] HEMATOLOGY Eosinophils # 0.7 0.0 - 0.5 05/04/2018 [facility] HEMATOLOGY Basophils # 0.1 0.0 - 0.2 05/04/2018 [facility] IMMUNOLOGY CERULOPLASMIN 31 20 - 60 05/04/2018 [facility] IMMUNOLOGY SMA Screen Negat negrita (05/04/18 3:38 PM) Negative 05/04/2018 [facility] IMMUNOLOGY IgG Lvl 1160 864 - 6040 05/04/2018 [facility] IMMUNOLOGY Hep A Tot Negat negrita *NA* (05/04/18 3:38 PM) Negative 05/04/2018 [facility] IMMUNOLOGY Hep Bs Ab <3.1 <=7.4 mIU/mL 05/04/2018 [facility] BLOOD BANK RESULTS Antibody Scrn Negative (10/16/14 8:10 AM) 10/16/2014 [facility] BLOOD BANK RESULTS ABO/Rh A POS 10/16/2014 [facility] Pathology Reports No Data Provided for This [...] agree with the report as written. 09/10/2019 [facility] Abdomen/Pelvis wo IV contrast CT Radiation Dose [...] sicle enlargement. COMMENTS: 1. Consistent with the [employer]'s Incidental Findings Committee white [...] on clinical findings. 2. Consistent with the [employer]'s Incidental Findings Committee white paper (J Am Renetta Radiol 2018): Any incidental cystic renal lesion classified in this report as too small to characterize or simple appearing is likely a benign cyst. No follow-up imaging is recommended for these lesions per consensus recommendations based on imaging criteria. Jimmy Worley MD On 07/25/2019 13:25:47; [id number] 07/25/2019 [facility] 2 views DX PROCEDURE INF ORMATION: Exam: [...] disease. Augusto Pope MD On 07/25/2019 11:14:19; [id number] 07/25/2019 [facility] 1view DX EXAM: XR CHEST 1 VIEW DATE: 07/10/2018 13:32 CDT INDICATION: - hypoxia COMPARISON: None. TECHNIQUE: AP chest FINDINGS: Lines, tubes and hardware: None. Lungs and pleura: Mild bibasilar subsegmental platelike atelectatic changes. Otherwise, lungs are clear. Costophrenic sulci are sharp. Heart and mediastinum: normal for technique. Bones: No acute bony abnormality is identified. IMPRESSION: 1. No acute cardiopulmonary abnormality 07/10/2018 [facility] Liver biopsy guided US PROCEDU RE: Image-guided [...] 17 gauge Core needle biopsy device: 18-gauge Doubloon[employer]'s Core needle size: 18 gauge Number of [...] agree with the report as written. 07/10/2018 [facility] Abdomen complete US EXAM: US A BDOMEN COMPLETE DATE: 03/20/2018 10:15 MONOLOGIST INDICATION: - R94.5 Abnormal results of liver [...] cysts. 4. Nonobstructing left renal stones. 03/20/2018 [facility] Shoulder series DX EXAM: XR RI GHT SHOULDER 3 VIEWS DATE: 02/15/2018 10:02 AM MONOLOGIST INDICATION: - M75.41 Impingement syndrome of right [...] Moderate acromioclavicular joint deg enerative change. 02/15/2018 [facility] contrast MRI Exam: MRI of the left [...] compared to the previous exam. 05/02/2014 [facility] [place] Retroperitoneal complete w Doppler US Exam: Bilateral [...] Comments Source Systolic (mm Hg) 162 10/11/2019 [facility] Diastolic (mm Hg) 60 10/11/2019 [facility] Heart Rate 57 10/11/2019 [facility] Height 187.96 cm 10/11/2019 [facility] Weight 103.295 10/11/2019 [facility] BMI Calculated 29.24 10/11/2019 [facility] Temperature Oral (F) 98 F 09/10/2019 [facility] Heart Rate 57 09/10/2019 [facility] Respitory Rate 18 09/10/2019 [facility] Systolic (mm Hg) 166 09/10/2019 [facility] Diastolic (mm Hg) 73 09/10/2019 [facility] Temperature Oral (F) 98 F 09/10/2019 [facility] Heart Rate 60 09/10/2019 [facility] Respitory Rate 18 09/10/2019 [facility] Systolic (mm Hg) 163 09/10/2019 [facility] Diastolic (mm Hg) 72 09/10/2019 [facility] Temperature Oral (F) 98.2 F 09/10/2019 [facility] Heart Rate 58 09/10/2019 [facility] Respitory Rate 18 09/10/2019 [facility] Systolic (mm Hg) 165 09/10/2019 [facility] Diastolic (mm Hg) 75 09/10/2019 [facility] Height 187 cm 09/10/2019 [facility] Weight 104.3 09/10/2019 [facility] BMI Calculated 29.83 09/10/2019 [facility] Respitory Rate 10 09/10/2019 [facility] Systolic (mm Hg) 166 09/10/2019 [facility] Diastolic (mm Hg) 76 09/10/2019 [facility] Respitory Rate 16 09/10/2019 [facility] Systolic (mm Hg) 162 09/10/2019 [facility] Diastolic (mm Hg) 70 09/10/2019 [facility] Respitory Rate 14 09/10/2019 [facility] Systolic (mm Hg) 180 09/10/2019 [facility] Diastolic (mm Hg) 97 09/10/2019 [facility] Height 187.96 cm 09/10/2019 [facility] Weight 102.273 09/10/2019 [facility] BMI Calculated 28.95 09/10/2019 [facility] Temperature Oral (F) 98.2 F 08/13/2019 [facility] Respitory Rate 18 08/13/2019 [facility] Heart Rate 54 08/13/2019 [facility] Systolic (mm Hg) 166 08/13/2019 [facility] Diastolic (mm Hg) 65 08/13/2019 [facility] Temperature Oral (F) 98.2 F 08/13/2019 [facility] Respitory Rate 18 08/13/2019 [facility] Heart Rate 53 08/13/2019 [facility] Systolic (mm Hg) 185 08/13/2019 [facility] Diastolic (mm Hg) 62 08/13/2019 [facility] Height 187.9 cm 08/13/2019 [facility] Weight 105.8 08/13/2019 [facility] BMI Calculated 29.97 08/13/2019 [facility] Systolic (mm Hg) 162 08/13/2019 [facility] Diastolic (mm Hg) 56 08/13/2019 [facility] Heart Rate 67 08/13/2019 [facility] Respitory Rate 18 08/13/2019 [facility] Temperature Oral (F) 97.9 F 08/13/2019 [facility] Temperature Oral (F) 98.3 F 06/16/2019 [facility] Heart Rate 59 06/16/2019 [facility] Respitory Rate 20 06/16/2019 [facility] Systolic (mm Hg) 186 06/16/2019 [facility] Diastolic (mm Hg) 69 06/16/2019 [facility] Temperature Oral (F) 98.3 F 06/16/2019 [facility] Heart Rate 58 06/16/2019 [facility] Respitory Rate 20 06/16/2019 [facility] Systolic (mm Hg) 169 06/16/2019 [facility] Diastolic (mm Hg) 79 06/16/2019 [facility] Systolic (mm Hg) 165 06/15/2019 [facility] Diastolic (mm Hg) 68 06/15/2019 [facility] Heart Rate 59 06/15/2019 [facility] Respitory Rate 20 06/15/2019 [facility] Temperature Oral (F) 98 F 06/15/2019 [facility] Height 187.96 cm 06/15/2019 [facility] BMI Calculated 29.59 06/15/2019 [facility] Weight 104.545 06/15/2019 [facility] Heart Rate 59 07/11/2018 [facility] Systolic (mm Hg) 180 07/11/2018 [facility] Diastolic (mm Hg) 69 07/11/2018 [facility] Respitory Rate 18 07/11/2018 [facility] Respitory Rate 18 07/11/2018 [facility] Systolic (mm Hg) 187 07/11/2018 [facility] Diastolic (mm Hg) 76 07/11/2018 [facility] Heart Rate 59 07/11/2018 [facility] Temperature Oral (F) 98.6 F 07/11/2018 [facility] Respitory Rate 18 07/11/2018 [facility] Systolic (mm Hg) 181 07/11/2018 [facility] Diastolic (mm Hg) 68 07/11/2018 [facility] Temperature Oral (F) 98.6 F 07/11/2018 [facility] Heart Rate 59 07/11/2018 [facility] Temperature Oral (F) 98.0 F 07/11/2018 [facility] BMI Calculated 29.59 07/10/2018 [facility] Weight 104.545 07/10/2018 [facility] Height 187.96 cm 07/10/2018 [facility] BMI Calculated 29.59 07/10/2018 [facility] Weight 104.545 07/10/2018 [facility] Height 187.96 cm 07/10/2018 [facility] BMI Calculated 29.59 07/10/2018 [facility] Weight 104.545 07/10/2018 [facility] Height 187.96 cm 07/10/2018 [facility] Systolic (mm Hg) 169 05/04/2018 [facility] Diastolic (mm Hg) 74 05/04/2018 [facility] Heart Rate 58 05/04/2018 [facility] Height 187.96 cm 05/04/2018 [facility] Weight 105.455 05/04/2018 [facility] BMI Calculated 29.85 05/04/2018 [facility] Systolic (mm Hg) 156 10/16/2014 [facility] Diastolic (mm Hg) 74 10/16/2014 [facility] Systolic (mm Hg) 156 10/16/2014 [facility] Diastolic (mm Hg) 74 10/16/2014 [facility] Systolic (mm Hg) 140 10/16/2014 [facility] Diastolic (mm Hg) 56 10/16/2014 [facility] Height 187.96 cm 10/16/2014 [facility] Weight 113.636 10/16/2014 [facility] BMI Calculated 32.17 10/16/2014 [facility] Encounters Location Location Details Encounter Type Encounter Number Reason For Visit Attending Provider ADM Date DC Date Status Source OD [id number] - PAIN IN JOINT NIDIA MORENO 03/24/2011 Active [facility] [place] [facility] [place] [facility] [id number] Estelle Peterson 12/25/2013 12/26/2013 [facility] [place] [facility] [place] [facility] [id number] Jhony Carlson 05/02/2014 05/03/2014 [facility] Bedded Outpatient [id number] Kurt Bowman 10/16/2014 10/16/2014 [facility] Outpatient Imaging - [place] Out[facility] Diag Services [id number] Nidia Moreno 04/21/2015 04/22/2015 [facility] [place] [facility] - [place] [facility] Diag Services [id number] Niida Moreno 02/15/2018 02/16/2018 [facility] [place] [facility] Outpatient [facility] - [place] [facility] Diag Services [id number] Julián Carlson 03/20/2018 03/21/2018 [facility] [place] Outpatient [id number] David Ojeda 05/04/2018 05/05/[address] [facility] Observation [id number] Royce Cordova 07/10/2018 07/11/[address] [facility] Emergency [id number] Jennifer Salcedo 06/15/2019 06/16/2019 [facility] Outpatient [id number] Nidia Moreno 07/25/2019 07/26/2019 [facility] Oncology Ph one Message [id number] 08/06/2019 08/08/2019 [facility] Oncology Re curring [id number] Ralph Blackmon 08/10/2019 09/09/[address] [facility] Bedded Outpatient [id number] Ralph Blackmon 09/10/2019 09/10/2019 [facility] HH Infusion Therapy (INFT) Recurring [id number] Ralph Blackmon 09/10/2019 10/10/2019 [facility] Digestive Disease [place] Phone Message [id number] 09/26/2019 09/28/2019 [facility] Outpatient [id number] David Moreland Rusty 10/11/2019 10/12/2019 [facility] Procedures Procedure Code Date Perfomer Comments Source Diagnostic bone marrow; biopsy(ies) 07779 09/10/2019 [facility] Diagnostic bone marrow; biopsy(ies) and aspiration(s) 76585 09/10/2019 [facility] Biopsy of liver, needle; percutaneous [id number] 07/10/2018 [facility] Catheterisation of right heart [id number] [facility] Renal lithotripsy [id number] [facility], [facility] [place] Blood transfusion [id number] [facility] Bone marrow biopsy [id number] [facility] Kidney panel [id number] [facility] Assessment and [...] cardiology standpoint. Follow up with patient own trauma coordinator Admission diagnoses: Hypotension, unspecified (I95.9) Bradycardia, unspecified (R00.1) Abnormal levels of other serum enzymes (R74.8) Essential (primary) hypertension (I10) Gout, unspecified (M10.9) Mckay Crabtree MD Vascular Surgery PGY-1 MSO [id number] Addendum by Eden Cordova MD on 07/11/2018 [...] leave the work up to his outpatient youth pastor Ordered: Admit/Condition, 07/10/18 13:30:00 CDT, Status: Out Patient with Observation Services, Telemetry Capable Location, Location: [facility], Expected LOS: 1 Midnight, Royce Cordova [...] Mckay Crabtree MD Vascular Surgery PGY-1 MSO: [id number] Cardiology Attending I have seen and examined the patient with the resident/fellow on 07/10/18. I agree with the assessment and plan. Eden Cordova MD 07/11/2018 [facility] Extracted from:Title: Left heart cathete rization Author: Nkechi Montez MD Date: 10/16/14 DATE OF PROCEDURE: 10/16/14 ATTENDING PHYSICIAN: Dr. Kurt Bowman PROCEDURES PERFORMED: left heart catheterization. INDICATION: Mr. Bergman is a pleasant 69 y/o man with PMH of bradycardia, HTN, DM, GERD, nephrolithiasis, and colonic polyps, who has had fci bradycardia associated with symptoms of fatigue and intermittent dyspnea. We are doing C to evaluate for underlying CAD as a contributing factor to his bradycardia and symptomatology. PRE-PROCEDURE DIAGNOSIS: bradycardia, HTN POST-PROCEDURE DIAGNOSIS: bradycardia, HTN OPERATORS: 1. Dr. Kurt Bowman, interventional cardiology attending. 2. Dr. Nkechi Montez, sample examiner. SYSTEMIC SEDATION: 1 mg Versed, 25 mcg [...] to the R radial artery, and a 7-Citizen Of [place] sheath was placed via modified Seldinger technique. [...] with EP regarding bradycardia. Nkechi Montez MD #[id number] Division of Cardiovascular Medicine, PGY-4 10/16/2014 [facility] Plan of Care No Data Provided for [...] Cessation Counseling No entered on: 10/11/19 05/04/2018 [facility] Social History TypeResponse Alcohol Never Smoking Status Never smoker; Ready to change: No; Concerns about tobacco use in household: No; Exposure to Tobacco Smoke None; Cigarette Smoking Last 365 Days No; Reg Smoking Cessation Counseling No entered on: 07/10/18 05/04/2018 [facility] Social History TypeResponse Alcohol Never Smoking Status Never smoker; Ready to change: No; Concerns about tobacco use in household: No; Exposure to Tobacco Smoke None; Cigarette Smoking Last 365 Days No; Reg Smoking Cessation Counseling No entered on: 07/10/18 05/04/2018 [facility] Social History TypeResponse Alcohol Never Smoking Status Never smoker; Ready to change: No; Concerns about tobacco use in household: No; Exposure to Tobacco Smoke None; Cigarette Smoking Last 365 Days No; Reg Smoking Cessation Counseling No entered on: 09/10/19 05/04/2018 [facility] Social History TypeResponse Smoking Status Never [...]
--- NOTE | 2019-11-03 07:43 | Discharge Summary ---
ADMISSION DIAGNOSES: 1. Syncope. 2. Hypertension. 3. Chronic kidney disease 3. 4. Depression. 5. Gout. 6. Toothache. DISCHARGE DIAGNOSES: 1. Syncope. 2. Hypertension. 3. Chronic kidney disease 3. 4. Depression. 5. Gout. 6. Toothache. 7. Rule out cerebrovascular accident. HISTORY: CKD 3, hypertension, hyperlipidemia, gout, depression, type 2 diabetes, and autoimmune hepatitis. SURGICAL HISTORY: None. FAMILY HISTORY: The patient's aunt and uncle had cancer. SOCIAL HISTORY: Noncontributory. HOSPITAL COURSE: A 74-year-old male was at the dentist's office, preparing for root canal when he started getting an anxious feeling while sitting down. He got up and walked to the clinic receptionist to find the restroom and he got dizzy while walking to the restroom. He did not have loss of consciousness. Afterwards, he threw out. His blood pressure was low for him at the office prior to this episode. He did not eat for 1-1/2 days due to the tooth pain. On admission, CT of the brain was negative. Echo showed an EF of 60%. Bilateral carotid Doppler showed evidence of carotid disease without significant stenosis. The patient is feeling much better and ready to discharge home. He will discharge home and follow up with primary care in 1 to 2 weeks. He was cleared for his scheduled dental procedure tomorrow. Dictated by Alexandrea Morales NP MD CAREN De La Torre/ZACHARYL /[id number]
== END 2019-11-01 12:40 | disposition home or self-care (01) ==
LOC: ER 14:48 → ERHOLD 16:25 → MED/SURG2 17:50
PROVIDERS: ADMIT Internal Medicine; ATTEND Internal Medicine
DX: R55 Syncope and collapse (principal); I12.9 Hypertensive chronic kidney disease with stage 1 through stage 4 chronic kidney disease, or unspecified chronic kidney disease; N18.3 Chronic kidney disease, stage 3 (moderate); F32.9 Major depressive disorder, single episode, unspecified; K08.89 Other specified disorders of teeth and supporting structures; M10.9 Gout, unspecified; E11.22 Type 2 diabetes mellitus with diabetic chronic kidney disease; Z11.59 Encounter for screening for other viral diseases
CPT/HCPCS: 36415 ×2; 70450; 71045; 72125; 80053 ×2; 80061; 82550 ×2; 82553 ×2; 82948 ×2; 83036; 83735; 84484 ×2; 85025 ×2; 85610; 85730; 87040; 87071; 87205; 93005; 93306; 93880; 97139; 99285; G0378 ×2; J0360; J2405; J7030; J7050; U0002